=== PATIENT | male | born 1940 | race Caucasian/White ===

== ENCOUNTER 2018-09-09 11:56 | Inpatient (IN) | payer MEDICARE ==
[2018-09-09] VITALS (8 sets, daily range): BP systolic 121–187; BP diastolic 56–86
[~2018-09-09] VITALS: Ht 167.6 cm; Wt 100.7 kg
[~2018-09-09 11:56] MED LIST: AC500T PO; AML5T PO; AMLO10TA82 PO; ASP325T PO; ASPI-266 PO; CLOT15CR4 TP; CLPD75T PO; FAMO20TA5 PO; FISH1CAP15 PO; GLBR2.5T; GLYB5TAB6 PO; HYDR-3714 PO; IBUP-30 PO; KETO15CR TP; LISI40TA PO; LOPE2CAP PO; LSNP20T; LSNP20T PO; MELO-195 PO; METF-380 PO; METO100T2 PO; MTF500T; MTP100TCR PO; MULT-974 PO; MULT1CAP27 PO; NAPR220C PO; NF-ESOM40C; NIAC1CAP PO; NIAC250T17 PO; NIACIN PO; OMG1KC; OXYC-272 PO; SIMV40TA4 PO; vytorin
[2018-09-09] MEDS ORDERED: RT-ALBUTEROL/IPRATROPIUM 3 ML (DUONEB) VIAL INH ONE (12:15)
--- NOTE | 2018-09-09 12:20 | ED Respiratory ---
General Stated Complaint: LOW OXYGEN LEVELS Source: family Exam Limitations: clinical condition History of Present Illness Date Seen by Provider: Sep 09, 2018 Time Seen by Provider: 12:04 Initial Comments 78-year-old white male with a history of several days of increasing cough and congestion. His cough has been nonproductive. No known fever or chills. He has been having some increased confusion over the last several months but a diagnosis was not made. He denies any chest pain, leg pain or change in edema recently. He went to urgent care where his oxygen saturation was found to be decreased so he was sent here. No studies had been done there. He does have a history of coronary disease but states that he has not had any recent symptoms. Allergies and Home Medications Allergies Coded Allergies: rofecoxib (Verified Allergy, Unknown, 10/25/06) Home Medications Amlodipine Besylate 10 Mg Tablet, 10 MG PO DAILY, (Reported) Aspirin 81 Mg Tablet.dr, 81 MG PO DAILY, (Reported) Clopidogrel 75 Mg Tablet, 75 MG PO DAILY, (Reported) Famotidine 20 Mg Tablet, 20 MG PO BID, (Reported) Fish Oil/Dha/Epa 1 Each Capsule, 4,800 MG PO DAILY, (Reported) TAKES 4 (1200MG) CAPSULES Glyburide 5 Mg Tablet, 5 MG PO BID, (Reported) Ibuprofen 200 Mg Tablet, 400 MG PO Q6H PRN for PAIN, (Reported) TAKES 2 (200MG) TABLETS Lisinopril 40 Mg Tablet, 40 MG PO BID, (Reported) Loperamide Hcl 2 Mg Capsule, 0 PO UD PRN for DIARRHEA, (Reported) 2 CAPS INITIALLY, THEN 1 CAP AFTER EACH LOOSE STOOL. NOT TO EXCEED 8 CAPS/24 HRS. Metoprolol Tartrate 100 Mg Tablet, 100 MG PO BID, (Reported) Multivitamin 1 Each Tablet, 1 TAB PO DAILY, (Reported) Niacin/Inositol Niacinate 1 Each Capsule, 1,000 MG PO HS, (Reported) Simvastatin 40 Mg Tablet, 40 MG PO HS, (Reported) Patient Home Medication List Home Medication List Reviewed: Yes Review of Systems Review of Systems Constitutional: weakness, other (unsteady) EENTM: no symptoms reported Respiratory: see HPI, cough, dyspnea on exertion, short of breath Cardiovascular: no symptoms reported Gastrointestinal: no symptoms reported Genitourinary: no symptoms reported Musculoskeletal: no symptoms reported Skin: no symptoms reported Psychiatric/Neurological: No Symptoms Reported Past Oxtsdgv-Ihlzbx-Fusjkh Hx Past Med/Social Hx: Reviewed Nursing Past Med/Soc Hx Patient Social History Recent Foreign Travel: No (N) Contact w/Someone Who Travel: No (N) Immunizations Up To Date Date of Influenza Vaccine: Apr 12, 2011 Past Medical History Reproductive Disorders: No Physical Exam Vital Signs - First Documented Capillary Refill : Height: 5'7.00" Weight: 221lbs. oz. 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, no motor/sensory deficits, normal mood/affect Skin: normal color, warm/dry Lymphatic: no adenopathy Focused Exam Lactate Level 09/09/18 12:20: Lactic Acid Level 2.37*H Lactic Acid Level Laboratory Tests Test 09/09/18 12:20 Lactic Acid Level 2.37 MMOL/L (0.50-2.00) *H Progress/Results/Core Measures Suspected Sepsis SIRS Temperature: Pulse: Respiratory Rate: Laboratory Tests 09/09/18 12:20: White Blood Count 7.4 Blood Pressure / Mean: 09/09/18 12:20: Lactic Acid Level 2.37*H Laboratory Tests 09/09/18 12:20: Creatinine 1.10, INR Comment 1.1, Platelet Count 155, Total Bilirubin 0.5 Results/Orders Lab Results Laboratory Tests Test 09/09/18 12:20 Range/Units White Blood Count 7.4 4.3-11.0 10^3/uL Red Blood Count 3.61 L 4.35-5.85 10^6/uL Hemoglobin 11.6 L 13.3-17.7 G/DL Hematocrit 33 L 40-54 % Mean Corpuscular Volume 90 80-99 FL Mean Corpuscular Hemoglobin 32 25-34 PG Mean Corpuscular Hemoglobin Concent 36 32-36 G/DL Red Cell Distribution Width 11.8 10.0-14.5 % Platelet Count 155 130-400 10^3/uL Mean Platelet Volume 8.3 7.4-10.4 FL Neutrophils (%) (Auto) 78 H 42-75 % Lymphocytes (%) (Auto) 13 12-44 % Monocytes (%) (Auto) 8 0-12 % Eosinophils (%) (Auto) 1 0-10 % Basophils (%) (Auto) 0 0-10 % Neutrophils # (Auto) 5.8 1.8-7.8 X 10^3 Lymphocytes # (Auto) 1.0 1.0-4.0 X 10^3 Monocytes # (Auto) 0.6 0.0-1.0 X 10^3 Eosinophils # (Auto) 0.1 0.0-0.3 10^3/uL Basophils # (Auto) 0.0 0.0-0.1 10^3/uL Prothrombin Time 13.9 12.2-14.7 SEC INR Comment 1.1 0.8-1.4 Activated Partial Thromboplast Time 34 24-35 SEC Sodium Level 121 *L 135-145 MMOL/L Potassium Level 3.7 3.6-5.0 MMOL/L Chloride Level 82 L 98-107 MMOL/L Carbon Dioxide Level 26 21-32 MMOL/L Anion Gap 13 5-14 MMOL/L Blood Urea Nitrogen 19 H 7-18 MG/DL Creatinine 1.10 0.60-1.30 MG/DL Estimat Glomerular Filtration Rate > 60 BUN/Creatinine Ratio 17 Glucose Level 86 70-105 MG/DL Lactic Acid Level 2.37 *H 0.50-2.00 MMOL/L Calcium Level 9.0 8.5-10.1 MG/DL Corrected Calcium 9.3 8.5-10.1 MG/DL Magnesium Level 1.4 L 1.8-2.4 MG/DL Total Bilirubin 0.5 0.1-1.0 MG/DL Aspartate Amino Transf (AST/SGOT) 27 5-34 U/L Alanine Aminotransferase (ALT/SGPT) 12 0-55 U/L Alkaline Phosphatase 72 40-136 U/L Troponin T 15 <=15 NG/L Pro-B-Type Natriuretic Peptide 1111.0 H <75.0 PG/ML Total Protein 6.6 6.4-8.2 GM/DL Albumin 3.6 3.2-4.5 GM/DL My Orders Orders - JIAN SAUCEDO MD Cbc With Automated Diff (09/09/18 12:09) Comprehensive Metabolic Panel (09/09/18 12:09) Blood Culture (09/09/18 12:09) Chest 1 View Ap/Pa Only (09/09/18 12:09) Albuterol/Ipra Inhalation Soln (Duoneb I (09/09/18 12:15) Magnesium (09/09/18 12:09) Ekg Tracing (09/09/18 12:09) O2 (09/09/18 12:09) Saline Lock/Iv-Start (09/09/18 12:09) Monitor-Rhythm Ecg Trace Only (09/09/18 12:09) Lactic Acid Analyzer (09/09/18 12:09) Svn Small Volume Nebulizer (09/09/18 12:09) Myoglobin Serum (09/09/18 12:09) Protime With Inr (09/09/18 12:09) Partial Thromboplastin Time (09/09/18 12:09) O2 (09/09/18 12:09) Lipid Panel (09/10/18 06:00) Saline Lock/Iv-Start (09/09/18 12:09) Troponin T (09/09/18 12:09) Probnp Fs (09/09/18 12:09) Ct Head Wo (09/09/18 12:12) Ceftriaxone For Iv Use (Rocephin For I (09/09/18 13:15) Azithromycin Injection (Zithromax Inject (09/09/18 13:15) Medications Given in ED Current Medications Medications Dose Ordered Sig/Lyudmila Route Start Time Stop Time Status Last Admin Dose Admin Albuterol/ Ipratropium 3 ml ONCE ONCE INH 09/09/18 12:15 09/09/18 12:16 DC 09/09/18 12:16 3 ML Ceftriaxone Sodium 1000 mg/ Sterile Water 10 ml @ 200 mls/hr ONCE ONCE IV 09/09/18 13:15 09/09/18 13:17 DC 09/09/18 13:36 200 MLS/HR Vital Signs/I&O 09/09/18 09/09/18 09/09/18 12:03 12:03 12:05 Temp 99.2 Pulse 55 Resp 15 B/P (MAP) 139/57 (84) Pulse Ox 89 89 O2 Delivery Room Air Nasal Cannula Room Air O2 Flow Rate 2.00 2.00 2.00 Capillary Refill : Progress Note : Time: 12:18 Progress Note We'll obtain radiographic and lab studies. Due to his increasing memory issues, we'll obtain a CT scan of his head as well. Breathing treatment will be given as well as cardiac evaluation. ECG Initial ECG Impression Date: Sep 09, 2018 Initial ECG Impression Time: 12:15 Initial ECG Rhythm: Normal Sinus Initial ECG Intervals: Normal Initial ECG Impression: Nonspecific Changes Initial ECG Comparisson: No Previous ECG Available Comment LVH. No acute changes. Diagnostic Imaging Diagonstic Imaging: Xray Plain Films/CT/US/NM/MRI: chest Comments NAME: ANDREW KENNEY [facility] REC#: [id number] PT STATUS: REG ER : 1940 PHYSICIAN: JIAN SAUCEDO MD ADMIT DATE: 09/09/18/ER FS Draft Date of Exam:09/09/18 CHEST 1 VIEW AP/PA ONLY EXAMINATION: Chest radiograph, portable AP view. DATE: September 09, 2018 at 1235 hours. INDICATION: 78-year-old male, cough, confusion. Low oxygen saturations. COMPARISON: September 01, 2011. FINDINGS: There are median sternotomy wires. Stable overall appearance of the cardiomediastinal silhouette. There is no identified pneumothorax. There is no large pleural effusion. There are mildly prominent bilateral interstitial opacities. There is alveolar consolidation in the left mid and lower lung zones. IMPRESSION: 1. Bilateral interstitial opacities which may relate to pulmonary interstitial edema or atypical infection. Additional nonspecific airspace consolidation in the left mid and lower lung zones. This is a change since comparison exam. Dictated on workstation # [id number] Dict: 09/09/18 1301 Trans: 09/09/18 1340 [facility] [id number] Interpreted by: OLGA HOFFMAN MD Electronically signed by: NAME: ANDREW KENNEY MED REC#: [id number] PT STATUS: REG ER : 1940 PHYSICIAN: JIAN SAUCEDO MD ADMIT DATE: 09/09/18/ER FS Draft Date of Exam:09/09/18 CT HEAD WO PROCEDURE: CT head without contrast. TECHNIQUE: Multiple contiguous axial images were obtained through the brain without the use of intravenous contrast. Auto Exposure Controls were utilized during the CT exam to meet ALARA standards for radiation dose reduction. DATE: September 09, 2018. COMPARISON: MRI brain August 29, 2011. CT head August 28, 2011. INDICATION: 78-year-old male, low oxygen saturations. Cough and confusion. FINDINGS: There is proportional prominence of the ventricles and CSF spaces consistent with moderate cerebral volume loss. There is no identified abnormal extra-axial fluid collection. There is no evidence of acute intracranial hemorrhage. There is no mass effect or midline shift. There is no mass effect or midline shift. There is no acute intracranial hemorrhage. There is no abnormal extra-axial fluid collection. There is mild partial opacification of the paranasal sinuses. The mastoid air cells and middle ears are well aerated. IMPRESSION: 1. No identified acute intracranial abnormality. 2. Moderate cerebral volume loss. Dictated on workstation # [id number] Dict: 09/09/18 1258 Trans: 09/09/18 1339 [facility] [id number] Interpreted by: OLGA HOFFMAN MD Electronically signed by: Consults Consults : Consulting Physician: DAIN DUBOSE DO Consults Notes Discussed with Dr. Dubose. She agrees to accept patient in transfer. Departure Impression Primary Impression: Pneumonia Qualified Codes: J18.1 - Lobar pneumonia, unspecified organism Additional Impressions: Hyponatremia Elevated lactic acid level Altered mental status Qualified Codes: R41.82 - Altered mental status, unspecified Hypoxia Disposition: XF [facility] ([facility]) Condition: Improved Admissions Decision to Admit Reason: Admit from ER (General) Decision to Admit/Date: Sep 09, 2018 Time/Decision to Admit Time: 13:55 Transfer Time Spoke to Accepting Phy: 13:55 Transfer Progress Notes Discussed with Dr. Dubose who accepts patient in transfer as medical telemetry. Method of Transfer: EMS Departure-Patient Inst. Decision time for Depature: 13:56 Referrals: DAIN DUBOSE DO (PCP/Family) Primary Care Physician JAIN SAUCEDO MD Sep 09, 2018 12:20
--- OUTSIDE RECORDS SUMMARY | 2018-09-09 12:43 | XMS REPORT | Clinical Summary ---
Author Author User, LILIBETH Organization Formerly [facility] [place] Address Unknown Phone Unavailable Allergies, Adverse Reactions, Alerts Allergy Name Reaction Description Start Date Severity Status Provider HYDROCHLOROTHIAZIDE Hyponatremia Critical Active Chantelle Trujillo VIOXX bloody nose Critical Active Chantelle Trujillo Conditions or Problems Problem Name Problem Code Onset Date Status Entry Date Provider Comment Standard Description Annotate MUSCLE SPASM, TRAPEZIUS 728.85 Resolved Chantelle Trujillo Spasm of muscle right HYPERCHOLESTEROLEMIA 272.0 Active Chantelle Trujillo Pure hypercholesterolemia HYPERTENSION 401.1 Active Chantelle Trujillo Benign essential hypertension CORONARY ARTERY DISEASE 414.00 Active Chantelle Trujillo Coronary atherosclerosis of unspecified type of vessel, jackson or graft GASTROESOPHAGEAL REFLUX DISEASE, CHRONIC 530.81 Active Chantelle Trujillo Esophageal reflux COLONIC POLYPS 211.3 Resolved Chantelle Trujillo Benign neoplasm of colon ADENOCARCINOMA, 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 Chantelle Trujillo Malignant neoplasm of colon, unspecified ANXIETY 300.00 Resolved Chantelle Trujillo Anxiety state, unspecified DEPRESSION 311 Resolved Chantelle Trujillo Depressive disorder, not elsewhere classified INSOMNIA, CHRONIC, MILD 307.42 Resolved Chantelle Trujillo Persistent disorder of initiating or maintaining sleep ACTINIC KERATOSIS 702.0 Resolved Chantelle Trujillo Actinic keratosis arms WEIGHT GAIN, ABNORMAL 783.1 Resolved Chantelle Trujillo Abnormal weight gain HYPERGLYCEMIA, MILD 790.6 Refinement Chantelle Trujillo Other abnormal blood chemistry DIABETES MELLITUS, NONINSULIN DEPENDENT (NIDDM) 250.00 Active Chantelle Trujillo Diabetes mellitus without mention of complication, type II or unspecified type, not stated as uncontrolled ABDOMINAL BLOATING 787.3 Resolved Chantelle Trujillo Flatulence, eructation, and gas pain BACK PAIN 724.5 Resolved Chantelle Trujillo Backache, unspecified EAR PAIN, BILATERAL 388.70 Resolved Chantelle Trujillo Otalgia, unspecified TINEA CRURIS 110.3 Resolved Chantelle Trujillo Dermatophytosis of groin and perianal area 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 Chantelle Trujillo Proteinuria HYPONATREMIA, MILD 276.1 Resolved Chantelle Trujillo Hyposmolality and/or hyponatremia BRONCHITIS 490 Resolved Chantelle Trujillo Bronchitis, not specified as acute or chronic COUGH 786.2 Resolved Chantelle Trujillo Cough RHINITIS 472.0 Resolved Chantelle Trujillo Chronic rhinitis VACCINE AGAINST INFLUENZA V04.81 Resolved Chantelle Trujillo Need for prophylactic vaccination and inoculation against influenza DERMATITIS 692.9 Resolved Chantelle Trujillo Contact dermatitis and other eczema, unspecified cause SEBACEOUS CYST, INFECTED 706.2 Resolved Chantelle Trujillo Sebaceous cyst VACCINE AGAINST STREPTOCOCCUS PNEUMONIAE V03.82 Resolved Chantelle Trujillo Need for prophylactic vaccination against Streptococcus pneumoniae [pneumococcus] VACCINE AGAINST PNEUMOCOCCUS + INFLUENZA V06.6 Resolved Chantelle Trujillo Need for prophylactic vaccination and inoculation against Streptococcus pneumoniae [pneumococcus] and influenza SCIATICA/HERNIATED 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.10 Resolved Chantelle Trujillo Displacement of lumbar intervertebral disc without myelopathy HYPERTRIGLYCERIDEMIA 272.1 Active Chantelle Trujillo Pure hyperglyceridemia CAROTID ARTERY STENOSIS, LEFT 433.10 Active Chantelle Trujillo Occlusion and stenosis of carotid artery, without mention of cerebral infarction PVD 443.9 Active Chantelle Trujillo Peripheral vascular disease, unspecified PNEUMONIA 486 Resolved Chantelle Trujillo Pneumonia, organism unspecified MEMORY LOSS 780.93 Active Chantelle Trujillo Memory loss CERUMEN IMPACTION, BILATERAL 380.4 Active Chantelle Trujillo Impacted cerumen Medication List Medication Instructions Start Date Stop Date Generic Name NDC Status Provider Patient Instruction LOTRISONE 1-0.05 % CREA APPLY BID PRN CLOTRIMAZOLE- BETAMETHASONE 19489185971 Active Davina Don DIOCTO 60 MG/15ML SYRP 2 drops placed in ear let stand for 5 minutes and rinse with water and repeat in other ear then return to doctor for rinsing 2013 DOCUSATE SODIUM 65690267064 No Longer Active Chantelle Trujillo LIPITOR 20 MG TAB 1 PO QD ATORVASTATIN CALCIUM 94050640958 Active Chantelle Trujillo ASPIRIN 81 MG TAB 1 PO daily ASPIRIN 60112283746 Active Chantelle Trujillo NITROSTAT 0.4 MG SL TAB 1 pill under tongue prn chest pain. May repeat twice then must go to ER NITROGLYCERIN 53937023727 Active Chantelle Trujillo NIASPAN 1000 MG CR-TABS 1 po QHS NIACIN (ANTIHYPERLIPIDEMIC) 89321068606 Active Chantelle Trujillo LISINOPRIL 40 MG TABS 1 PO BID LISINOPRIL 88516352727 Active Chantelle Trujillo RELION PRIME MONITOR ENRIQUE DIRECTED DX: 250.00 BLOOD GLUCOSE MONITORING SUPPL 62822473052 Active Davina Arian RELION PRIME TEST STRP TEST BS QID DX: 250.00 GLUCOSE BLOOD 28654450148 Active Davina Arian FREESTYLE TEST STRP TEST BS QID DX: DIABETES GLUCOSE BLOOD 86498527933 Active Davinafernando Don FREESTYLE GLUCOMETER DIRECTED DX: DIABETES FREESTYLE GLUCOMETER Active Davina Don ALCOHOL SWABS PADS clean area before swabbing ALCOHOL SWABS 17058871294 No Longer Active Chantelle Trujillo LANCETS MISC as directed LANCETS 99252551800 No Longer Active Chantelle Trujillo OPTIUM TEST STRIPS STRP Test blood sugar TID GLUCOSE BLOOD 74016902338 No Longer Active Chantelleneha Trujillo KETOCONAZOLE 2 % CREA apply to affected areas BID KETOCONAZOLE 66453146562 No Longer Active Chantelleneha Trujillo LOTRISONE 1-0.05 % CREA apply daily prn CLOTRIMAZOLE- BETAMETHASONE 40903040412 No Longer Active Chantelle Trujillo ZOFRAN ODT TBDP 1 PO Q 3HRS PRN ONDANSETRON TBDP 32145826351 No Longer Active Chantelleneha Trujillo LORAZEPAM 2 MG TABS 1 PO at HS PRN LORAZEPAM 58400121879 No Longer Active Chantelleneha Trujillo PERCOCET 5-325 MG TABS 1 TAB PO Q 6 HRS PRN OXYCODONE -ACETAMINOPHEN 94021308363 No Longer Active Chantelle Trujillo OPTIUM GLUCOSE MONITOR SYSTEM ENRIQUE as directed BLOOD GLUCOSE MONITORING SUPPL 39824770232 No Longer Active Chantelleneha Trujillo MOBIC 15 MG TABS 1 PO Daily MELOXICAM 88542424505 No Longer Active Chantelle Viri Trujillo COLACE 100 MG CAPS 1 PO DAILY DOCUSATE SODIUM 22256399520 Active Chantelle Viri Trujillo NO FLUSH NIACIN 500 MG TABS 2 PO daily qhs INOSITOL NIACINATE 86217703455 No Longer Active Chantelle Viri Trujillo ULTRAM 50 MG TAB 1-2 PO TID prn TRAMADOL HCL 14322566620 No Longer Active Chantelle Viri Trujillo PEPCID 20 MG TABS 1 PO BID FAMOTIDINE 86172564432 Active Chantelle Viri Trujillo ZANTAC 75 TABS 1 PO BID RANITIDINE HCL TABS 58030974009 No Longer Active Chantelle Vrii Trujillo GLYBURIDE 5 MG TABS 1 PO BID GLYBURIDE 14729208760 Active Davina Don FLAX SEED OIL CAPS 1 PO Qhs FLAXSEED (LINSEED) CAPS 08960265575 No Longer Active Chantelleneha Trujillo LORTAB 5 5-500 MG TABS 1 to 2 PO Q6hrs prn ACETAMINOPHEN-HYDROCODONE 66309705964 No Longer Active Chantelle Viri Trujillo EFUDEX 5 % CREA apply sparingly twice weekly to arms FLUOROURACIL 56362456031 No Longer Active Chantelle Viri Trujillo PEPCID 20 MG TABS 1 PO BID FAMOTIDINE 45208132562 No Longer Active Chantelle Viri Trujillo PROTONIX 40 MG TBEC 1 PO daily PANTOPRAZOLE SODIUM 66484688728 No Longer Active Chantelle Viri Trujillo OMEPRAZOLE 20 MG CPDR 1 PO Daily OMEPRAZOLE 80223421131 No Longer Active Chantelle Viri Trujillo METFORMIN HCL 1000 MG TABS 1 PO BID METFORMIN HCL 52356360190 Active Davina Don SIMVASTATIN 40 MG TABS 1 po daily SIMVASTATIN 07921319816 No Longer Active Davina Don FISH OIL 1000 MG CAPS 4 po daily OMEGA-3 FATTY ACIDS 64363177255 Active Chantelle Viri Trujillo IMDUR 60 MG TB24 1 po HS ISOSORBIDE MONONITRATE 99217816057 No Longer Active Chantelleneha Trujillo METOPROLOL TARTRATE 100 MG TABS 1 PO BID METOPROLOL TARTRATE 29798357398 Active Davina Don KEFLEX 500 MG CAP 1 PO QID for 7 days CEPHALEXIN 63189699677 No Longer Active Chantelleneha Trujillo OXISTAT 1 % CREA apply to affected areas twice daily including feet. 60 gram tube. OXICONAZOLE NITRATE 31496328338 No Longer Active Chantelleneha Trujillo LIDEX 0.05 % OINT apply to affected areas twice daily for 7 days FLUOCINONIDE 84502811340 No Longer Active Chantelle Viri Trujillo MUCINEX 600 MG TB12 1 PO BID GUAIFENESIN 82009310848 No Longer Active Chantelle Viri Trujillo NORVASC 10 MG TABS 1 po QD AMLODIPINE BESYLATE 15638676983 Active Chantelle Viri Trujillo KLOR-CON 10 10 MEQ TBCR 1 po QD POTASSIUM CHLORIDE 20729275803 No Longer Active Chantelleneha Trujillo ROBITUSSIN A-C 10-100 MG/5ML SYRUP 5cc PO Q 4-6 hr prn ROBITUSSIN A-C 10-100 MG/5ML SYRUP 47356785819 No Longer Active Chantelle Trujillo BIAXIN XL PAC 500 MG TB24 2 pills at same time daily ( take samples given in office until gone and then start the Rx) CLARITHROMYCIN 35928684970 No Longer Active Chantelleneha Trujillo ATROVENT 0.06 % SOLN 2 puffs each nostril TID prn for runny nose IPRATROPIUM BROMIDE 21959954185 No Longer Active Chantelle Trujillo FLEXERIL 10 MG TABS 1 po BID prn neck pain CYCLOBENZAPRINE HCL 56776565035 No Longer Active Chantelleneha Trujillo ROBITUSSIN A-C 10-100 MG/5ML SYRUP 5cc PO Q 4-6 hr prn ROBITUSSIN A-C 10-100 MG/5ML SYRUP 24828696289 No Longer Active Chantelle Trujillo GLUCOMETER TEST STRIPS Check BS TID DX Diabetes GLUCOMETER TEST STRIPS No Longer Active Chantelle Trujillo GLUCOMETER MACHINE DX Diabetes GLUCOMETER MACHINE No Longer Active Chantelle Trujillo VYTORIN 10-40 MG TABS 1 PO daily EZETIMIBE-SIMVASTATIN 81028098701 No Longer Active Chantelle Trujillo AMOXIL 875 MG TABS 1 PO BID AMOXICILLIN 69093830695 No Longer Active Chantelle Trujillo PLAVIX 75 MG TABS 1 po daily CLOPIDOGREL BISULFATE 32762899154 Active Davinafernando Don NEXIUM 40 MG CPDR 1 po daily ESOMEPRAZOLE MAGNESIUM 16570455482 No Longer Active Chantelle Trujillo LISINOPRIL-HCTZ 20-12.5 MG TABS 1 po daily LISINOPRIL-HCTZ 84301100288 No Longer Active Chantelle Trujillo MULTIVITAMINS TABS 1 po daily MULTIPLE VITAMIN 60318866217 Active Chantelle Trujillo VYTORIN 10/40 1 po daily VYTORIN 10/40 No Longer Active Chantelle Trujillo Immunizations Vaccine Administration Date Value Standard Description Influenza vaccine given Done influenza virus vaccine, unspecified formulation Influenza vaccine given done influenza virus vaccine, unspecified formulation pneumococcal immunization administered Done pneumococcal polysaccharide vaccine, 23 valent pneumococcal immunization administered Done by 1st dose 2007 pneumococcal polysaccharide vaccine, 23 valent Vital Signs Date Name Value Unit Range Description blood pressure, diastolic - 8462-4 78 mm[Hg] BP woodward blood pressure, systolic - 8480-6 138 mm[Hg] BP sys pulse rate E&M - 8867-4 80 /min Heart rate respiratory rate E&M - 9279-1 14 /min Resp rate temperature E&M 98.1 [degF] Body temperature weight E&M - 3141-9 220 [lb_av] Weight Measured blood pressure, diastolic - 8462-4 64 mm[Hg] BP woodward blood pressure, systolic - 8480-6 148 mm[Hg] BP sys pulse rate E&M - 8867-4 70 /min Heart rate respiratory rate E&M - 9279-1 14 /min Resp rate blood pressure, diastolic - 8462-4 78 mm[Hg] BP woodward blood pressure, systolic - 8480-6 152 mm[Hg] BP sys pulse rate E&M - 8867-4 70 /min Heart rate respiratory rate E&M - 9279-1 16 /min Resp rate temperature E&M 98.1 [degF] Body temperature weight E&M - 3141-9 220 [lb_av] Weight Measured blood pressure, diastolic - 8462-4 70 mm[Hg] BP woodward blood pressure, systolic - 8480-6 160 mm[Hg] BP sys pulse rate E&M - 8867-4 60 /min Heart rate respiratory rate E&M - 9279-1 14 /min Resp rate weight E&M - 3141-9 222 [lb_av] Weight Measured Diagnostic Results Date Name Value Unit Range Description Clinical Lists Update: CMP, TSH, MicroAlbumin,HGA1C - Chemistry sodium, serum 132 mmol/L carbon dioxide, venous blood 30.0 mmol/L thyroid stimulating hormone, serum 1.03 u[iU]/mL potassium, serum 3.9 mmol/L glucose, plasma fasting 158 mg/dL hemoglobin A1C, blood, as % of total hemoglobin 7.7 % protein, total, serum 6.7 g/dL urea nitrogen, blood 14 mg/dL creatinine, serum 0.8 mg/dL aspartate aminotransferase (SGOT), serum 16 U/L anion gap, serum 12 calcium, serum 9.8 mg/dL alkaline phosphatase, serum 47 U/L triglyceride, serum, fasting 259 mg/dL chloride, serum 94 mmol/L albumin, serum 4.2 g/dL bilirubin, serum, total 0.7 mg/dL cholesterol, serum 131 mg/dL Estimated Glomerular Filtration Rate (calc) 96 mL/min/1.73m2 alanine aminotransferase (SGPT), serum 17 U/L Clinical Lists Update: CMP, TSH, MicroAlbumin,HGA1C - Urinalysis microalbumin, urine, semiquantitative 58.1 mg/dL Clinical Lists Update: CMP,FLP,HgA1c - Chemistry potassium, serum 3.7 mmol/L protein, total, serum 7.2 g/dL aspartate aminotransferase (SGOT), serum 18 U/L alanine aminotransferase (SGPT), serum 22 U/L bilirubin, serum, total 1.0 mg/dL triglyceride, serum, fasting 295 mg/dL sodium, serum 133 mmol/L anion gap, serum 13 cholesterol/HDL ratio, serum, percent 3.1 glucose, plasma fasting 155 mg/dL Estimated Glomerular Filtration Rate (calc) 100 mL/min/1.73m2 LDL cholesterol, serum 42 mg/dL albumin, serum 4.6 g/dL alkaline phosphatase, serum 47 U/L urea nitrogen, blood 13 mg/dL calcium, serum 9.9 mg/dL chloride, serum 92 mmol/L cholesterol, serum 149 mg/dL carbon dioxide, venous blood 32.0 mmol/L creatinine, serum 0.8 mg/dL HDL cholesterol, serum 48.0 mg/dL hemoglobin A1C, blood, as % of total hemoglobin 7.1 % Office Visit: Dr Trujillo's Check Up: Established Patient Visit - Chemistry Estimated Glomerular Filtration Rate (calc) 81 mL/min/1.73m2 potassium, serum 3.8 mmol/L cholesterol, serum 130 mg/dL glucose, plasma fasting 196 mg/dL triglyceride, serum, fasting 216 mg/dL chloride, serum 95 mmol/L alkaline phosphatase, serum 48 U/L sodium, serum 136 mmol/L calcium, serum 9.8 mg/dL carbon dioxide, venous blood 32.0 mmol/L alanine aminotransferase (SGPT), serum 19 U/L urea nitrogen, blood 15 mg/dL creatinine, serum 1.0 mg/dL aspartate aminotransferase (SGOT), serum 17 U/L anion gap, serum 13 albumin, serum 4.4 g/dL hemoglobin A1C, blood, as % of total hemoglobin 7.3 % protein, total, serum 7.1 g/dL thyroid stimulating hormone, serum 0.80 u[iU]/mL bilirubin, serum, total 0.9 mg/dL Encounters Code Encounter Date Provider Facility CPT-21615 Ofc Vst, Est Level III 20:31:48 CDT Chantelle Trujillo DO, FACStefani CPT-85812 Ofc Vst, Est Level III 14:00:56 CDT Chantelle Trujillo DO, FACP CPT-01868 Ofc Vst, Est Level III 15:55:59 CDT Chantelle Viri Nobles Trujillo, DO, FACP CPT-79939 Ofc Vst, Est Level III 11:58:05 CDT Chantelle Viri Nobles Trjuillo, DO, FACP CPT-06462 Ofc Vst, Est Level III 16:33:59 [employer] Chantelleneha Nobles Trujillo, DO, FACP CPT-77901 Ofc Vst, Est Level IV 13:41:56 CDT Chantelle Viri Nobles Trujillo, DO, FACP CPT-34120 Ofc Vst, Est Level IV 13:46:20 CDT Chantelle Viri Nobles Ronnie, DO, FACP CPT-66819 Ofc Vst, Est Level IV 14:22:34 [employer] Chantelleneha Nobles Ronnie, DO, FACP CPT-12825 Ofc Vst, Est Level IV 14:10:02 CDT Chantelle Viri Nobles Ronnie, DO, FACP CPT-56197 Ofc Vst, Est Level III 16:17:29 CDT Chantelleneha Nobles Ronnie, DO, FACP CPT-48214 Ofc Vst, Est Level IV 13:59:21 CDT Chantelle Viri Nobles Ronnie, DO, FACP CPT-10314 Ofc Vst, Est Level IV 13:59:18 CDT Chantelle Viri Nobles Trujillo, DO, FACP CPT-25482 Ofc Vst, Est Level IV 13:59:52 [employer] Chantelle Nobles Ronnie, DO, FACP CPT-34694 Ofc Vst, Est Level IV 14:16:34 CDT Chantelle Viri Nobles Ronnie, DO, FACP CPT-76740 Ofc Vst, Est Level IV 14:43:21 CDT Chantelleneha Nobles Trujillo, DO, FACP CPT-70668 Ofc Vst, Est Level IV 13:51:54 CDT Chantelle Viri Nobles Ronnie, DO, FACP CPT-46536 Ofc Vst, Est Level IV 14:19:45 [employer] Chantelle Viri Nobles Ronnie, DO, FACP CPT-57616 Ofc Vst, Est Level IV 14:03:12 CDT Davina Nobles Trujillo, DO, FACP CPT-66753 Ofc Vst, Est Level IV 14:23:55 CDT Chantelle Viri Nobles Ronnie, DO, FACP CPT-35417 Ofc Vst, Est Level IV 13:46:12 [employer] Chantelle Viri Nobles Ronnie, DO, FACP CPT-74905 Ofc Vst, Est Level IV 14:21:29 [employer] Chantelleneha Nobles Ronnie, DO, FACP CPT-97868 Ofc Vst, Est Level IV 11:56:46 CDT Chantelle Viri Nobles Ronnie, DO, FACP CPT-48054 Ofc Vst, Est Level IV 15:06:28 CDT Chantelle Trujillo [facility] CPT-28303 Ofc Vst, Est Level III 10:49:32 [employer] Chantelleneha Nobles Ronnie, DO, FACP CPT-57256 Ofc Vst, Est Level IV 14:26:42 [employer] Chantelle Nobles Ronnie, DO, FACP CPT-97215 Ofc Vst, Est Level III 15:07:01 CDT Chantelleneha Nobles Ronnie, DO, FACP CPT-85774 Ofc Vst, Est Level IV 14:16:08 CDT Chantelleneha Nobles Trujillo, DO, FACP CPT-24560 Ofc Vst, Est Level IV 14:28:44 CDT Chantelle Virivincent [facility] [place] CPT-59491 Ofc Vst, Est Level IV 14:06:35 [employer] Chantelle Trujillo [facility] [place] CPT-68135 Ofc Vst, Est Level III 14:26:15 [employer] Chantelle Trujillo [facility] [place] CPT-29440 Ofc Vst, Est Level IV 13:59:23 [employer] Chantelle Trujillo [facility] [place] CPT-01055 Ofc Vst, Est Level IV 15:24:23 [employer] Chantelle Trujillo [facility] [place] CPT-27957 Ofc Vst, Est Level IV 16:03:46 CDT Chantelle Viri [facility] [place] CPT-18672 Ofc Vst, Est Level IV 15:19:26 CDT Chantelle Viri [facility] [place] CPT-01606 Ofc Vst, Est Level IV 19:08:48 CDT Chantelle Viri [facility] [place] CPT-50871 Ofc Vst, Est Level IV 16:25:43 CDT Chantelle Trujillo [facility] [place] CPT-83928 Ofc Vst, New Level IV 17:22:55 [employer] Chantelle Trujillo [facility] [place] Procedures Code Procedure Name Date Entry Date Standard Description CPT-G0439 Medicare Annual Wellness Visit 13:18:16 [employer] CPT-52263 Ear Wax Removal 12:14:17 CDT CPT-G8443 E-Prescribing Medication Sent 20:38:44 [employer] CPT-G0439 Medicare Annual Wellness Visit 20:38:44 [employer] CPT-G8445 E-Prescribing Not sent due to no medication given 15:55: 59 CDT CPT-G8445 E-Prescribing Not sent due to no medication given 11:58: 05 CDT CPT-G8445 E-Prescribing Not sent due to no medication given 16:33: 59 [employer] CPT-G8445 E-Prescribing Not sent due to no medication given 15:28: 42 [employer] CPT-G0438 Medicare Annual Wellness Visit Initial 15:28:42 [employer] CPT-8446 E-Prescribing not done due to controlled substance 14:23: 55 CDT CPT-G0008 Administration Influenza Vaccine 11:56:46 CDT CPT-74177 Influenza Vaccine 11:56:46 CDT CPT-62715 Administration of 1st dose vaccine 11:56:46 CDT CPT-G0008 Administration Influenza Vaccine 15:07:01 CDT CPT-39543 Influenza Vaccine 15:07:01 CDT
--- OUTSIDE RECORDS SUMMARY | 2018-09-09 12:44 | XMS REPORT | Clinical Summary ---
Author Author User, LILIBETH Organization [facility] Address Unknown Phone Unavailable Allergies, Adverse Reactions, [...] Coronary atherosclerosis of unspecified type of vessel, [place] or graft GASTROESOPHAGEAL REFLUX DISEASE, CHRONIC 530.81 [...] Trujillo Memory loss CERUMEN IMPACTION, BILATERAL 380.4 Resolved Chantelle Trujillo Impacted cerumen DERMATITIS, ATOPIC 691.8 Active Chantelle Trujillo Other atopic dermatitis and related conditions Medication List Medication Instructions Start Date Stop Date Generic Name NDC Status Provider Patient Instruction NOVOLIN N RELION 100 UNIT/ML SUSP 15 units at night INSULIN NPH HUMAN (ISOPHANE) 48007528373 Active Chantelle Trujillo ADVOCATE INSULIN SYRINGE 29G X 1/2" 0.3 ML MISC As directed INSULIN SYRINGE-NEEDLE U-100 19388690811 Active Chantelle Trujillo LANTUS 100 UNIT/ML SOLN 15 units injection at night INSULIN GLARGINE 45808451331 No Longer Active Chantelle Trujillo COZAAR 50 MG TAB 1 PO daily LOSARTAN POTASSIUM 59004310881 Active Chantelle Trujillo LOTRISONE 1-0.05 % CREA APPLY BID PRN CLOTRIMAZOLE- BETAMETHASONE 76533703096 Active Chantelle Trujillo DIOCTO 60 MG/15ML SYRP 2 drops placed in ear let stand for 5 minutes and rinse with water and repeat in other ear then return to doctor for rinsing 2013 DOCUSATE SODIUM 89649554864 No Longer Active Chantelle Trujillo LIPITOR 20 MG TAB 1 PO QD ATORVASTATIN CALCIUM 77866421559 Active Chantelle Trujillo ASPIRIN 81 MG TAB 1 PO daily ASPIRIN 40171020200 Active Chantelle Trujillo NITROSTAT 0.4 MG SL TAB 1 pill under tongue prn chest pain. May repeat twice then must go to ER NITROGLYCERIN 33137388078 Active Chantelle Trujillo NIASPAN 1000 MG CR-TABS 1 po QHS NIACIN (ANTIHYPERLIPIDEMIC) 77198315104 Active Chantelle Trujillo LISINOPRIL 40 MG TABS 1 PO BID LISINOPRIL 86001852987 Active Chantelle Trujillo RELION PRIME MONITOR ENRIQUE DIRECTED DX: 250.00 BLOOD GLUCOSE MONITORING SUPPL 13752200532 Active Davina Don RELION PRIME TEST STRP TEST BS QID DX: 250.00 GLUCOSE BLOOD 99892371202 Active Davina Don FREESTYLE TEST STRP TEST BS QID DX: DIABETES GLUCOSE BLOOD 53356591875 Active Davina Don FREESTYLE GLUCOMETER DIRECTED DX: DIABETES FREESTYLE GLUCOMETER Active Davina Don ALCOHOL SWABS PADS clean area before swabbing ALCOHOL SWABS 01161150951 No Longer Active Chantelle Trujillo LANCETS MISC as directed LANCETS 34314972530 No Longer Active Chantelle Trujillo OPTIUM TEST STRIPS STRP Test blood sugar TID GLUCOSE BLOOD 99508549257 No Longer Active Chantelle Trujillo KETOCONAZOLE 2 % CREA apply to affected areas BID KETOCONAZOLE 58782590274 No Longer Active Chantelle Trujillo LOTRISONE 1-0.05 % CREA apply daily prn CLOTRIMAZOLE- BETAMETHASONE 25205237968 No Longer Active Chantelle Viri Trujillo ZOFRAN ODT TBDP 1 PO Q 3HRS PRN ONDANSETRON TBDP 55479707541 No Longer Active Chantelle Viri Trujillo LORAZEPAM 2 MG TABS 1 PO at HS PRN LORAZEPAM 51061387765 No Longer Active Chantelle Viri Trujillo PERCOCET 5-325 MG TABS 1 TAB PO Q 6 HRS PRN OXYCODONE -ACETAMINOPHEN 95249439306 No Longer Active Chantelle Viri Trujillo OPTIUM GLUCOSE MONITOR SYSTEM ENRIQUE as directed BLOOD GLUCOSE MONITORING SUPPL 85693255736 No Longer Active Chantelle Viri Trujillo MOBIC 15 MG TABS 1 PO Daily MELOXICAM 27284863409 No Longer Active Chantelle Viri Trujillo COLACE 100 MG CAPS 1 PO DAILY DOCUSATE SODIUM 58302624114 Active Chantelle Viri Trujillo NO FLUSH NIACIN 500 MG TABS 2 PO daily qhs INOSITOL NIACINATE 72364388828 No Longer Active Chantelle Viri Trujillo ULTRAM 50 MG TAB 1-2 PO TID prn TRAMADOL HCL 23171960140 No Longer Active Chantelle Viri Trujillo PEPCID 20 MG TABS 1 PO BID FAMOTIDINE 61481183418 Active Chantelle Viri Trujillo ZANTAC 75 TABS 1 PO BID RANITIDINE HCL TABS 80506526951 No Longer Active Chantelle Viri Trujillo GLYBURIDE 5 MG TABS 1 PO BID GLYBURIDE 25224342675 Active Davina Don FLAX SEED OIL CAPS 1 PO Qhs FLAXSEED (LINSEED) CAPS 65731939716 No Longer Active Chantelle Viri Trujillo LORTAB 5 5-500 MG TABS 1 to 2 PO Q6hrs prn ACETAMINOPHEN-HYDROCODONE 85003603099 No Longer Active Chantelle Viri Trujillo EFUDEX 5 % CREA apply sparingly twice weekly to arms FLUOROURACIL 28641624442 No Longer Active Chantelleneha Trujillo PEPCID 20 MG TABS 1 PO BID FAMOTIDINE 35685446704 No Longer Active Chantelle Viri Trujillo PROTONIX 40 MG TBEC 1 PO daily PANTOPRAZOLE SODIUM 53668019771 No Longer Active Chantelleneha Trujillo OMEPRAZOLE 20 MG CPDR 1 PO Daily OMEPRAZOLE 05306007268 No Longer Active Chantelleneha Trujillo METFORMIN HCL 1000 MG TABS 1 PO BID METFORMIN HCL 13545977835 Active Davina Don SIMVASTATIN 40 MG TABS 1 po daily SIMVASTATIN 25388865431 No Longer Active Davina Don FISH OIL 1000 MG CAPS 4 po daily OMEGA-3 FATTY ACIDS 64741907169 Active Chantelleneha Trujillo IMDUR 60 MG TB24 1 po HS ISOSORBIDE MONONITRATE 99594675863 No Longer Active Chantelleneha Trujillo METOPROLOL TARTRATE 100 MG TABS 1 PO BID METOPROLOL TARTRATE 75017976464 Active Davinafernando Don KEFLEX 500 MG CAP 1 PO QID for 7 days CEPHALEXIN 16344673861 No Longer Active Chantelleneha Trujillo OXISTAT 1 % CREA apply to affected areas twice daily including feet. 60 gram tube. OXICONAZOLE NITRATE 18212849949 No Longer Active Chantelleneha Trujillo LIDEX 0.05 % OINT apply to affected areas twice daily for 7 days FLUOCINONIDE 67450895822 No Longer Active Chantelleneha Trujillo MUCINEX 600 MG TB12 1 PO BID GUAIFENESIN 72790518509 No Longer Active Chantelleneha Trujillo NORVASC 10 MG TABS 1 po QD AMLODIPINE BESYLATE 88401458518 Active Chantelle Viri Trujillo KLOR-CON 10 10 MEQ TBCR 1 po QD POTASSIUM CHLORIDE 33580679367 No Longer Active Chantelle Trujillo ROBITUSSIN A-C 10-100 MG/5ML SYRUP 5cc PO Q 4-6 hr prn ROBITUSSIN A-C 10-100 MG/5ML SYRUP 26137499110 No Longer Active Chantelle Trujillo BIAXIN XL PAC 500 MG TB24 2 pills at same time daily ( take samples given in office until gone and then start the Rx) CLARITHROMYCIN 46031765281 No Longer Active Chantelleneha Trujillo ATROVENT 0.06 % SOLN 2 puffs each nostril TID prn for runny nose IPRATROPIUM BROMIDE 03318810369 No Longer Active Chantelleneha Trujillo FLEXERIL 10 MG TABS 1 po BID prn neck pain CYCLOBENZAPRINE HCL 30830960885 No Longer Active Chantelle Trujillo ROBITUSSIN A-C 10-100 MG/5ML SYRUP 5cc PO Q 4-6 hr prn ROBITUSSIN A-C 10-100 MG/5ML SYRUP 76536575671 No Longer Active Chantelle Trujillo GLUCOMETER TEST STRIPS Check BS TID DX Diabetes GLUCOMETER TEST STRIPS No Longer Active Chantelle Trujillo GLUCOMETER MACHINE DX Diabetes GLUCOMETER MACHINE No Longer Active Chantelle Trujillo VYTORIN 10-40 MG TABS 1 PO daily EZETIMIBE-SIMVASTATIN 78338652721 No Longer Active Chantelle Trujillo AMOXIL 875 MG TABS 1 PO BID AMOXICILLIN 55325978465 No Longer Active Chantelle Trujillo PLAVIX 75 MG TABS 1 po daily CLOPIDOGREL BISULFATE 86621638597 Active Davina Don NEXIUM 40 MG CPDR 1 po daily ESOMEPRAZOLE MAGNESIUM 41780361426 No Longer Active Chantelle Trujillo LISINOPRIL-HCTZ 20-12.5 MG TABS 1 po daily LISINOPRIL-HCTZ 32308203413 No Longer Active Chantelle Trujillo MULTIVITAMINS TABS 1 po daily MULTIPLE VITAMIN 52693234661 Active Chantelle Trujillo VYTORIN 1 po daily VYTORIN No Longer Active Chantelle Trujillo Immunizations Vaccine Administration Date Value Standard Description Influenza vaccine given Done influenza virus vaccine, unspecified formulation Influenza vaccine given done influenza virus vaccine, unspecified formulation pneumococcal immunization administered Done pneumococcal polysaccharide vaccine, 23 valent pneumococcal immunization administered Done by 1st dose 2007 pneumococcal polysaccharide vaccine, 23 valent Vital Signs Date Name Value Unit Range Description blood pressure, diastolic, second observation 98 mm[Hg] BP [place] blood pressure, diastolic - 8462-4 85 mm[Hg] BP [place] blood pressure, systolic, second observation 170 mm[Hg] BP sys blood pressure, systolic - 8480-6 175 mm[Hg] BP sys pulse rate E&M - 8867-4 66 /min Heart rate respiratory rate E&M - 9279-1 14 /min Resp rate temperature E&M 98.6 [degF] Body temperature weight E&M - 3141-9 220 [lb_av] Weight Measured blood pressure, diastolic - 8462-4 78 mm[Hg] [...] E&M - 3141-9 220 [lb_av] Weight Measured Diagnostic Results Date Name Value Unit Range Description Clinical Lists Update: CBC,CMP,FLP,TSH,HGA1C,MICROALBUMIN - Chemistry Estimated Glomerular Filtration Rate (calc) 111 mL/min/1.73m2 glucose, plasma fasting 221 mg/dL albumin, serum 4.6 g/dL alkaline phosphatase, serum 47 U/L urea nitrogen, blood 9 mg/dL calcium, serum 9.9 mg/dL chloride, serum 92 mmol/L cholesterol, serum 129 mg/dL cholesterol/HDL ratio, serum, percent 2.6 anion gap, serum 13 sodium, serum 132 mmol/L triglyceride, serum, fasting 199 mg/dL bilirubin, serum, total 0.9 mg/dL alanine aminotransferase (SGPT), serum 21 U/L aspartate aminotransferase (SGOT), serum 17 U/L protein, total, serum 7.1 g/dL potassium, serum 3.9 mmol/L LDL cholesterol, serum 39 mg/dL thyroid stimulating hormone, serum 0.94 u[iU]/mL hemoglobin A1C, blood, as % of total hemoglobin 7.7 % HDL cholesterol, serum 50.0 mg/dL creatinine, serum 0.7 mg/dL carbon dioxide, venous blood 31.0 mmol/L Clinical Lists Update: CBC,CMP,FLP,TSH,HGA1C,MICROALBUMIN - Hematology leukocyte count, blood 7.2 10*3/mm3 mean corpuscular volume, RBC 96 fL red blood cell distribution width 13.2 % hemoglobin, blood 13.9 g/dL platelet count 207 10*3/mm3 erythrocyte (RBC) count 4.43 10*6/mm3 hematocrit, blood 42.4 % Clinical Lists Update: CBC,CMP,FLP,TSH,HGA1C,MICROALBUMIN - Urinalysis microalbumin, urine, semiquantitative 61.5 mg/dL Clinical Lists Update: CMP,FLP,HgA1c - Chemistry Estimated Glomerular Filtration Rate (calc) 100 mL/min/1.73m2 glucose, plasma fasting 155 mg/dL albumin, serum 4.6 g/dL alkaline phosphatase, serum 47 U/L urea nitrogen, blood 13 mg/dL calcium, serum 9.9 mg/dL chloride, serum 92 mmol/L cholesterol, serum 149 mg/dL carbon dioxide, venous blood 32.0 mmol/L creatinine, serum 0.8 mg/dL HDL cholesterol, serum 48.0 mg/dL hemoglobin A1C, blood, as % of total hemoglobin 7.1 % LDL cholesterol, serum 42 mg/dL potassium, serum 3.7 mmol/L protein, total, serum 7.2 g/dL aspartate aminotransferase (SGOT), serum 18 U/L alanine aminotransferase (SGPT), serum 22 U/L bilirubin, serum, total 1.0 mg/dL triglyceride, serum, fasting 295 mg/dL sodium, serum 133 mmol/L anion gap, serum 13 cholesterol/HDL ratio, serum, percent 3.1 Office Visit: Dr Trujillo's Check Up: Established Patient Visit - Chemistry urea nitrogen, blood 15 mg/dL albumin, serum 4.4 g/dL chloride, serum 95 mmol/L cholesterol, serum 130 mg/dL carbon dioxide, venous blood 32.0 mmol/L creatinine, serum 1.0 mg/dL hemoglobin A1C, blood, as % of total hemoglobin 7.3 % thyroid stimulating hormone, serum 0.80 u[iU]/mL potassium, serum 3.8 mmol/L protein, total, serum 7.1 g/dL aspartate aminotransferase (SGOT), serum 17 U/L alanine aminotransferase (SGPT), serum 19 U/L bilirubin, serum, total 0.9 mg/dL triglyceride, serum, fasting 216 mg/dL sodium, serum 136 mmol/L anion gap, serum 13 glucose, plasma fasting 196 mg/dL Estimated Glomerular Filtration Rate (calc) 81 mL/min/1.73m2 alkaline phosphatase, serum 48 U/L calcium, serum 9.8 mg/dL Encounters Code Encounter Date Provider Facility CPT-72972 Ofc Vst, Est Level IV 17:09:42 CDT Chantelle Trujillo DO, FACP CPT-65703 Ofc Vst, Est Level III 20:31:48 CDT Chantelle Trujillo DO, FACP CPT-63249 Ofc Vst, Est Level III 14:00:56 CDT Chantelle Trujillo DO, FACP CPT-55621 Ofc Vst, Est Level III 15:55:59 CDT Chantelle Trujillo DO, FACP CPT-21875 Ofc Vst, Est Level III 11:58:05 CDT Chantelleneha Nobles Trujillo, DO, FACP CPT-43513 Ofc Vst, Est Level III 16:33:59 [employer] Chantelle Nobles Trujillo, DO, FACP CPT-84685 Ofc Vst, Est Level IV 13:41:56 CDT Chantelle Viri Nobles Trujillo, DO, FACP CPT-25671 Ofc Vst, Est Level IV 13:46:20 CDT Chantelle Viri Nobles Trujillo, DO, FACP CPT-75341 Ofc Vst, Est Level IV 14:22:34 [employer] Chantelle Nobles Ronnie, DO, FACP CPT-98971 Ofc Vst, Est Level IV 14:10:02 CDT Chnatelle Viri Nobles Ronnie, DO, FACP CPT-53378 Ofc Vst, Est Level III 16:17:29 CDT Chantelleneha Nobles Ronnie, DO, FACP CPT-57806 Ofc Vst, Est Level IV 13:59:21 CDT Chantelleneha Nobles Ronnie, DO, FACP CPT-17848 Ofc Vst, Est Level IV 13:59:18 CDT Chantelleneha Nobles Ronnie, DO, FACP CPT-49443 Ofc Vst, Est Level IV 13:59:52 [employer] Chantelle Nobles Ronnie, DO, FACP CPT-44845 Ofc Vst, Est Level IV 14:16:34 CDT Chantelle Viri Nobles Ronnie, DO, FACP CPT-41017 Ofc Vst, Est Level IV 14:43:21 CDT Chantelle Viri Nobles Ronnie, DO, FACP CPT-86840 Ofc Vst, Est Level IV 13:51:54 CDT Chantelleneha Nobles Ronnie, DO, FACP CPT-93599 Ofc Vst, Est Level IV 14:19:45 [employer] Chantelle Nobles Trujillo, DO, FACP CPT-95365 Ofc Vst, Est Level IV 14:03:12 CDT Davina Nobles Ronnie, DO, FACP CPT-57416 Ofc Vst, Est Level IV 14:23:55 CDT Chantelle Nobles Ronnie, DO, FACP CPT-39991 Ofc Vst, Est Level IV 13:46:12 [employer] Chantelle Nobles Ronnie, DO, FACP CPT-73468 Ofc Vst, Est Level IV 14:21:29 [employer] Chantelleneha Nobles Ronnie, DO, FACP CPT-07473 Ofc Vst, Est Level IV 11:56:46 CDT Chantelleneha Nobles Ronnie, DO, FACP CPT-43919 Ofc Vst, Est Level IV 15:06:28 CDT Chantelle Trujillo [facility] CPT-60006 Ofc Vst, Est Level III 10:49:32 [employer] Chantelle Nobles Ronnie, DO, FACP CPT-74255 Ofc Vst, Est Level IV 14:26:42 [employer] Chantelle Nobles Ronnie, DO, FACP CPT-87929 Ofc Vst, Est Level III 15:07:01 CDT Chantelle Nobles Ronnie, DO, FACP CPT-92222 Ofc Vst, Est Level IV 14:16:08 CDT Chantelleneha Nobles Ronnie, DO, FACP CPT-38848 Ofc Vst, Est Level IV 14:28:44 CDT Chantelleneha Trujillo [facility] CPT-10769 Ofc Vst, Est Level IV 14:06:35 [employer] Chantelle Viri Ronnie [facility] CPT-50074 Ofc Vst, Est Level III 14:26:15 [employer] Chantelle Viri [facility] CPT-01756 Ofc Vst, Est Level IV 13:59:23 [employer] Chantelle Virivincent Trujillo [facility] CPT-00003 Ofc Vst, Est Level IV 15:24:23 [employer] Chantelle Viri Ronnie [facility] CPT-72684 Ofc Vst, Est Level IV 16:03:46 CDT Chantelle Viri Ronnie [facility] CPT-88081 Ofc Vst, Est Level IV 15:19:26 CDT Chantelle Viri Ronnie [facility] CPT-35745 Ofc Vst, Est Level IV 19:08:48 CDT Chantelle Viri Ronnie [facility] CPT-80467 Ofc Vst, Est Level IV 16:25:43 CDT Chantelle Viri Ronnie [facility] CPT-48659 Ofc Vst, New Level IV 17:22:55 [employer] Chantelle Viri Ronnie [facility] Procedures Code Procedure Name Date Entry Date Standard Description CPT-G0439 Medicare Annual Wellness Visit 13:18:16 [employer] CPT-71092 Ear Wax Removal 12:14:17 CDT CPT-G8443 E-Prescribing Medication Sent 20:38:44 [employer] CPT-G0439 Medicare Annual Wellness Visit 20:38:44 [employer] CPT-G8445 E-Prescribing Not sent due to no medication given 15:55: 59 CDT CPT-G8445 E-Prescribing Not sent due to no medication given 11:58: 05 CDT CPT-G8445 E-Prescribing Not sent due to no medication given 16:33: 59 [employer] CPT-G8445 E-Prescribing Not sent due to no medication given 15:28: 42 [employer] CPT-G0438 Medicare Annual Wellness Visit Initial 15:28:42 [employer] CPT-8446 E-Prescribing not done due to controlled substance 14:23: 55 CDT CPT-G0008 Administration Influenza Vaccine 11:56:46 CDT CPT-03998 Influenza Vaccine 11:56:46 CDT CPT-79467 Administration of 1st dose vaccine 11:56:46 CDT CPT-G0008 Administration Influenza Vaccine 15:07:01 CDT CPT-62944 Influenza Vaccine 15:07:01 CDT
[2018-09-09 12:45] LABS: HEMOGLOBIN 11.6 G/DL (13.3-17.7); MEAN CORPUSCULAR HEMOGLOBIN 32 PG (25-34); WHITE BLOOD COUNT 7.4 10^3/uL (4.3-11.0)
--- OUTSIDE RECORDS SUMMARY | 2018-09-09 12:45 | XMS REPORT | Clinical Summary ---
Author Author User, LILIBETH Organization [facility] [place] Address Unknown Phone Unavailable Allergies, Adverse Reactions, [...] Coronary atherosclerosis of unspecified type of vessel, [place] or graft GASTROESOPHAGEAL REFLUX DISEASE, CHRONIC 530.81 [...] units at night INSULIN NPH HUMAN (ISOPHANE) 68477401888 Active Chantelle Trujillo ADVOCATE INSULIN SYRINGE 29G X 1/2" 0.3 ML MISC As directed INSULIN SYRINGE-NEEDLE U-100 81657345716 Active Chantelle Trujillo LANTUS 100 UNIT/ML SOLN 15 units injection at night INSULIN GLARGINE 70520180549 No Longer Active Chantelle Trujillo COZAAR 50 MG TAB 1 PO daily [place] POTASSIUM 54985561365 Active Chantelle Trujillo LOTRISONE 1-0.05 % CREA APPLY BID PRN CLOTRIMAZOLE- BETAMETHASONE 17528625783 Active Chantelle Trujillo DIOCTO 60 MG/15ML SYRP 2 drops placed in ear let stand for 5 minutes and rinse with water and repeat in other ear then return to doctor for rinsing 2013 DOCUSATE SODIUM 78621256747 No Longer Active Chantelle Trujillo LIPITOR 20 MG TAB 1 PO QD ATORVASTATIN CALCIUM 64647469728 Active Chantelle Trujillo ASPIRIN 81 MG TAB 1 PO daily ASPIRIN 62234281432 Active Chantelle Trujillo NITROSTAT 0.4 MG SL TAB 1 pill under tongue prn chest pain. May repeat twice then must go to ER NITROGLYCERIN 24199988496 Active Chantelle Trujillo NIASPAN 1000 MG CR-TABS 1 po QHS NIACIN (ANTIHYPERLIPIDEMIC) 17392739694 Active Chantelle Trujillo LISINOPRIL 40 MG TABS 1 PO BID LISINOPRIL 58397176307 Active Chantelle Trujillo RELION PRIME MONITOR ENRIQUE DIRECTED DX: 250.00 BLOOD GLUCOSE MONITORING SUPPL 53032190126 Active Davina Don RELION PRIME TEST STRP TEST BS QID DX: 250.00 GLUCOSE BLOOD 61512741729 Active Davina Don FREESTYLE TEST STRP TEST BS QID DX: DIABETES GLUCOSE BLOOD 82667755190 Active Davina Don FREESTYLE GLUCOMETER DIRECTED DX: DIABETES FREESTYLE GLUCOMETER Active Davina Don ALCOHOL SWABS PADS clean area before swabbing ALCOHOL SWABS 06266995302 No Longer Active Chantelle Trujillo LANCETS MISC as directed LANCETS 82859932649 No Longer Active Chantelle Trujillo OPTIUM TEST STRIPS STRP Test blood sugar TID GLUCOSE BLOOD 34592040292 No Longer Active Chantelle Trujillo KETOCONAZOLE 2 % CREA apply to affected areas BID KETOCONAZOLE 68815537887 No Longer Active Chantelle Trujillo LOTRISONE 1-0.05 % CREA apply daily prn CLOTRIMAZOLE- BETAMETHASONE 12504639538 No Longer Active Chantelle Viri Trujillo ZOFRAN ODT TBDP 1 PO Q 3HRS PRN ONDANSETRON TBDP 07800829247 No Longer Active Chantelle Viri Trujillo LORAZEPAM 2 MG TABS 1 PO at HS PRN LORAZEPAM 21498459884 No Longer Active Chantelle Viri Trujillo PERCOCET 5-325 MG TABS 1 TAB PO Q 6 HRS PRN OXYCODONE -ACETAMINOPHEN 42980113976 No Longer Active Chantelle Viri Trujillo OPTIUM GLUCOSE MONITOR SYSTEM ENRIQUE as directed BLOOD GLUCOSE MONITORING SUPPL 93714449717 No Longer Active Chantelle Viri Trujillo MOBIC 15 MG TABS 1 PO Daily MELOXICAM 99158082941 No Longer Active Chantelle Viri Trujillo COLACE 100 MG CAPS 1 PO DAILY DOCUSATE SODIUM 09154490296 Active Chantelle Viri Trujillo NO FLUSH NIACIN 500 MG TABS 2 PO daily qhs INOSITOL NIACINATE 54984604707 No Longer Active Chantelle Viri Trujillo ULTRAM 50 MG TAB 1-2 PO TID prn TRAMADOL HCL 53764841112 No Longer Active Chantelleneha Trujillo PEPCID 20 MG TABS 1 PO BID FAMOTIDINE 27681219610 Active Chantelle iVri Trujillo ZANTAC 75 TABS 1 PO BID RANITIDINE HCL TABS 45879181315 No Longer Active Chantelle Viri Trujillo GLYBURIDE 5 MG TABS 1 PO BID GLYBURIDE 44493334556 Active Davina Don FLAX SEED OIL CAPS 1 PO Qhs FLAXSEED (LINSEED) CAPS 66798094094 No Longer Active Chantelle Viri Trujillo LORTAB 5 5-500 MG TABS 1 to 2 PO Q6hrs prn ACETAMINOPHEN-HYDROCODONE 39187037100 No Longer Active Chantelle Viri Trujillo EFUDEX 5 % CREA apply sparingly twice weekly to arms FLUOROURACIL 63775606322 No Longer Active Chantelleneha Trujillo PEPCID 20 MG TABS 1 PO BID FAMOTIDINE 73591818571 No Longer Active Chantelle Viri Trujillo PROTONIX 40 MG TBEC 1 PO daily PANTOPRAZOLE SODIUM 44233079281 No Longer Active Chantelleneha Trujillo OMEPRAZOLE 20 MG CPDR 1 PO Daily OMEPRAZOLE 82541743376 No Longer Active Chantelleneha Trujillo METFORMIN HCL 1000 MG TABS 1 PO BID METFORMIN HCL 81065186411 Active Davina Don SIMVASTATIN 40 MG TABS 1 po daily SIMVASTATIN 16450666639 No Longer Active Davina Don FISH OIL 1000 MG CAPS 4 po daily OMEGA-3 FATTY ACIDS 78585121930 Active Chantelle Viri Trujillo IMDUR 60 MG TB24 1 po HS ISOSORBIDE MONONITRATE 09687717873 No Longer Active Chantelleneha Trujillo METOPROLOL TARTRATE 100 MG TABS 1 PO BID METOPROLOL TARTRATE 69897730491 Active Davina Vickerstis KEFLEX 500 MG CAP 1 PO QID for 7 days CEPHALEXIN 22466406251 No Longer Active Chantelleneha Trujillo OXISTAT 1 % CREA apply to affected areas twice daily including feet. 60 gram tube. OXICONAZOLE NITRATE 84875649702 No Longer Active Chantelle Viri Trujillo LIDEX 0.05 % OINT apply to affected areas twice daily for 7 days FLUOCINONIDE 24521266719 No Longer Active Chantelleneha Trujillo MUCINEX 600 MG TB12 1 PO BID GUAIFENESIN 88178903220 No Longer Active Chantelleneha Trujillo NORVASC 10 MG TABS 1 po QD AMLODIPINE BESYLATE 48500698674 Active Chantelle Viri Trujillo KLOR-CON 10 10 MEQ TBCR 1 po QD POTASSIUM CHLORIDE 36362309414 No Longer Active Chantelle Trujillo ROBITUSSIN A-C 10-100 MG/5ML SYRUP 5cc PO Q 4-6 hr prn ROBITUSSIN A-C 10-100 MG/5ML SYRUP 39473136856 No Longer Active Chantelle Trujillo BIAXIN XL PAC 500 MG TB24 2 pills at same time daily ( take samples given in office until gone and then start the Rx) CLARITHROMYCIN 11997785142 No Longer Active Chantelleneha Trujillo ATROVENT 0.06 % SOLN 2 puffs each nostril TID prn for runny nose IPRATROPIUM BROMIDE 18997753131 No Longer Active Chantelleneha Trujillo FLEXERIL 10 MG TABS 1 po BID prn neck pain CYCLOBENZAPRINE HCL 26015727065 No Longer Active Chantelle Trujillo ROBITUSSIN A-C 10-100 MG/5ML SYRUP 5cc PO Q 4-6 hr prn ROBITUSSIN A-C 10-100 MG/5ML SYRUP 92769227342 No Longer Active Chantelle Trujillo GLUCOMETER TEST STRIPS Check BS TID DX Diabetes GLUCOMETER TEST STRIPS No Longer Active Chantelle Trujillo GLUCOMETER MACHINE DX Diabetes GLUCOMETER MACHINE No Longer Active Chantelle Trujillo VYTORIN 10-40 MG TABS 1 PO daily EZETIMIBE-SIMVASTATIN 70717051444 No Longer Active Chantelle Trujillo AMOXIL 875 MG TABS 1 PO BID AMOXICILLIN 34414772870 No Longer Active Chantelle Trujillo PLAVIX 75 MG TABS 1 po daily CLOPIDOGREL BISULFATE 18754432550 Active Davina Don NEXIUM 40 MG CPDR 1 po daily ESOMEPRAZOLE MAGNESIUM 74448879579 No Longer Active Chantelle Trujillo LISINOPRIL-HCTZ 20-12.5 MG TABS 1 po daily LISINOPRIL-HCTZ 62368915472 No Longer Active Chantelle Trujillo MULTIVITAMINS TABS 1 po daily MULTIPLE VITAMIN 58495340248 Active Chantelle Trujillo VYTORIN 1 po daily [...] mg/dL Encounters Code Encounter Date Provider Facility CPT-35564 Ofc Vst, Est Level IV 17:09:42 CDT Chantelle Trujillo DO, FACP CPT-63117 Ofc Vst, Est Level III 20:31:48 CDT Chantelle Trujillo DO, FACP CPT-52288 Ofc Vst, Est Level III 14:00:56 CDT Chantelle Trujillo DO, FACP CPT-37407 Ofc Vst, Est Level III 15:55:59 CDT Chantelle Trujillo DO, FACP CPT-71041 Ofc Vst, Est Level III 11:58:05 CDT Chantelleneha Nobles Trujillo, DO, FACP CPT-87124 Ofc Vst, Est Level III 16:33:59 BANKING AND FINANCE INSTRUCTOR Chantelle Nobles Trujillo, DO, FACP CPT-69193 Ofc Vst, Est Level IV 13:41:56 CDT Chantelle Viri Nobles Trujillo, DO, FACP CPT-04436 Ofc Vst, Est Level IV 13:46:20 CDT Chantelle Viri Nobles Trujillo, DO, FACP CPT-97720 Ofc Vst, Est Level IV 14:22:34 BANKING AND FINANCE INSTRUCTOR Chantelle Nobles Ronnie, DO, FACP CPT-23546 Ofc Vst, Est Level IV 14:10:02 CDT Chantelle Viri Nobles Ronnie, DO, FACP CPT-02436 Ofc Vst, Est Level III 16:17:29 CDT Chantelleneha Nobles Ronnie, DO, FACP CPT-47830 Ofc Vst, Est Level IV 13:59:21 CDT Chantelleneha Nobles Ronnie, DO, FACP CPT-60245 Ofc Vst, Est Level IV 13:59:18 CDT Chantelleneha Nobles Ronnie, DO, FACP CPT-88092 Ofc Vst, Est Level IV 13:59:52 BANKING AND FINANCE INSTRUCTOR Chantelle Nobles Ronnie, DO, FACP CPT-68164 Ofc Vst, Est Level IV 14:16:34 CDT Chantelle Viri Nobles Ronnie, DO, FACP CPT-30279 Ofc Vst, Est Level IV 14:43:21 CDT Chantelle Viri Nobles Ronnie, DO, FACP CPT-52782 Ofc Vst, Est Level IV 13:51:54 CDT Chantelle Nobles Ronnie, DO, FACP CPT-92003 Ofc Vst, Est Level IV 14:19:45 BANKING AND FINANCE INSTRUCTOR Chantelle Nobles Trujillo, DO, FACP CPT-03831 Ofc Vst, Est Level IV 14:03:12 CDT Davina Nobles Ronnie, DO, FACP CPT-20655 Ofc Vst, Est Level IV 14:23:55 CDT Chantelle Nobles Ronnie, DO, FACP CPT-80128 Ofc Vst, Est Level IV 13:46:12 BANKING AND FINANCE INSTRUCTOR Chantelle Nobles Ronnie, DO, FACP CPT-04753 Ofc Vst, Est Level IV 14:21:29 BANKING AND FINANCE INSTRUCTOR Chantelle Nobles Ronnie, DO, FACP CPT-06689 Ofc Vst, Est Level IV 11:56:46 CDT Chantelleneha Nobles Ronnie, DO, FACP CPT-63593 Ofc Vst, Est Level IV 15:06:28 CDT Chantelle Trujillo [facility] CPT-51682 Ofc Vst, Est Level III 10:49:32 BANKING AND FINANCE INSTRUCTOR Chantelle Nobles Ronnie, DO, FACP CPT-22712 Ofc Vst, Est Level IV 14:26:42 BANKING AND FINANCE INSTRUCTOR Chantelle Nobles Ronnie, DO, FACP CPT-35078 Ofc Vst, Est Level III 15:07:01 CDT Chantelle Nobles Ronnie, DO, FACP CPT-23364 Ofc Vst, Est Level IV 14:16:08 CDT Chantelle Nobles Ronnie, DO, FACP CPT-14144 Ofc Vst, Est Level IV 14:28:44 CDT Chantelleneha Trujillo [facility] [place] CPT-02230 Ofc Vst, Est Level IV 14:06:35 BANKING AND FINANCE INSTRUCTOR Chantelle Viri Ronnie [facility] [place] CPT-82919 Ofc Vst, Est Level III 14:26:15 BANKING AND FINANCE INSTRUCTOR Chantelle Viri [place] [facility] [place] CPT-96329 Ofc Vst, Est Level IV 13:59:23 BANKING AND FINANCE INSTRUCTOR Chantelle Virivincent Trujillo [facility] [place] CPT-55789 Ofc Vst, Est Level IV 15:24:23 BANKING AND FINANCE INSTRUCTOR Chantelle Viri Ronnie [facility] [place] CPT-68213 Ofc Vst, Est Level IV 16:03:46 CDT Chantelle Viri Ronnie [facility] [place] CPT-13343 Ofc Vst, Est Level IV 15:19:26 CDT Chantelle Viri Ronnie [facility] [place] CPT-60605 Ofc Vst, Est Level IV 19:08:48 CDT Chantelle Viri Ronnie [facility] [place] CPT-65126 Ofc Vst, Est Level IV 16:25:43 CDT Chantelle Viri Ronnie [facility] [place] CPT-56056 Ofc Vst, New Level IV 17:22:55 BANKING AND FINANCE INSTRUCTOR Chantelle Viri Ronnie [facility] [place] Procedures Code Procedure Name Date Entry Date Standard Description CPT-G0439 Medicare Annual Wellness Visit 13:18:16 BANKING AND FINANCE INSTRUCTOR CPT-81622 Ear Wax Removal 12:14:17 CDT CPT-G8443 E-Prescribing Medication Sent 20:38:44 BANKING AND FINANCE INSTRUCTOR CPT-G0439 Medicare Annual Wellness Visit 20:38:44 BANKING AND FINANCE INSTRUCTOR CPT-G8445 E-Prescribing Not sent due to no medication given 15:55: 59 CDT CPT-G8445 E-Prescribing Not sent due to no medication given 11:58: 05 CDT CPT-G8445 E-Prescribing Not sent due to no medication given 16:33: 59 BANKING AND FINANCE INSTRUCTOR CPT-G8445 E-Prescribing Not sent due to no medication given 15:28: 42 BANKING AND FINANCE INSTRUCTOR CPT-G0438 Medicare Annual Wellness Visit Initial 15:28:42 BANKING AND FINANCE INSTRUCTOR CPT-8446 E-Prescribing not done due to controlled substance 14:23: 55 CDT CPT-G0008 Administration Influenza Vaccine 11:56:46 CDT CPT-98352 Influenza Vaccine 11:56:46 CDT CPT-86105 Administration of 1st dose vaccine 11:56:46 CDT CPT-G0008 Administration Influenza Vaccine 15:07:01 CDT CPT-19056 Influenza Vaccine 15:07:01 CDT
[2018-09-09 12:46] LABS: BASOPHILS % (AUTO) 0 % (0-10); EOSINOPHILS # (AUTO) 0.1 10^3/uL (0.0-0.3); EOSINOPHILS % (AUTO) 1 % (0-10); HEMATOCRIT 33 % (40-54); LYMPHOCYTES % (AUTO) 13 % (12-44); MEAN CORPUSCULAR HGB CONC 36 G/DL (32-36); MEAN CORPUSCULAR VOLUME 90 FL (80-99); MEAN PLATELET VOLUME 8.3 FL (7.4-10.4); MONOCYTES # (AUTO) 0.6 X 10^3 (0.0-1.0); MONOCYTES % (AUTO) 8 % (0-12); NEUTROPHILS # (AUTO) 5.8 X 10^3 (1.8-7.8); NEUTROPHILS % (AUTO) 78 % (42-75); PLATELET COUNT 155 10^3/uL (130-400); RED CELL DISTRIBUTION WIDTH 11.8 % (10.0-14.5)
--- OUTSIDE RECORDS SUMMARY | 2018-09-09 12:46 | XMS REPORT | Clinical Summary ---
Author Author User, LILIBETH Organization [facility] [place] Address Unknown Phone Unavailable Allergies, Adverse Reactions, [...] Coronary atherosclerosis of unspecified type of vessel, [place] or graft GASTROESOPHAGEAL REFLUX DISEASE, CHRONIC 530.81 [...] % CREA APPLY BID PRN CLOTRIMAZOLE- BETAMETHASONE 18986652282 Active Davinafernando Don DIOCTO 60 MG/15ML SYRP 2 drops placed in ear let stand for 5 minutes and rinse with water and repeat in other ear then return to doctor for rinsing 2013 DOCUSATE SODIUM 55953138273 No Longer Active Chantelle Trujillo LIPITOR 20 MG TAB 1 PO QD ATORVASTATIN CALCIUM 96723988428 Active Chantelle Trujillo ASPIRIN 81 MG TAB 1 PO daily ASPIRIN 87497935366 Active Chantelle Trujillo NITROSTAT 0.4 MG SL TAB 1 pill under tongue prn chest pain. May repeat twice then must go to ER NITROGLYCERIN 38859642713 Active Chantelle Trujillo NIASPAN 1000 MG CR-TABS 1 po QHS NIACIN (ANTIHYPERLIPIDEMIC) 05586281294 Active Chantelle Trujillo LISINOPRIL 40 MG TABS 1 PO BID LISINOPRIL 30166002371 Active Chantelleneha Trujillo RELION PRIME MONITOR ENRIQUE DIRECTED DX: 250.00 BLOOD GLUCOSE MONITORING SUPPL 70039478276 Active Davina Arian RELION PRIME TEST STRP TEST BS QID DX: 250.00 GLUCOSE BLOOD 51134053200 Active Davina Arian FREESTYLE TEST STRP TEST BS QID DX: DIABETES GLUCOSE BLOOD 80466245817 Active Davina Don FREESTYLE GLUCOMETER DIRECTED DX: DIABETES FREESTYLE GLUCOMETER Active Davina Don ALCOHOL SWABS PADS clean area before swabbing ALCOHOL SWABS 24859781237 No Longer Active Chantelle Trujillo LANCETS MISC as directed LANCETS 56860930952 No Longer Active Chantelle Trujillo OPTIUM TEST STRIPS STRP Test blood sugar TID GLUCOSE BLOOD 49583519195 No Longer Active Chantelleneha Trujillo KETOCONAZOLE 2 % CREA apply to affected areas BID KETOCONAZOLE 76335757603 No Longer Active Chantelleneha Trujillo LOTRISONE 1-0.05 % CREA apply daily prn CLOTRIMAZOLE- BETAMETHASONE 62744159189 No Longer Active Chantelle Trujillo ZOFRAN ODT TBDP 1 PO Q 3HRS PRN ONDANSETRON TBDP 46212267742 No Longer Active Chantelleneha Trujillo LORAZEPAM 2 MG TABS 1 PO at HS PRN LORAZEPAM 69724664269 No Longer Active Chantelleneha Trujillo PERCOCET 5-325 MG TABS 1 TAB PO Q 6 HRS PRN OXYCODONE -ACETAMINOPHEN 49923709654 No Longer Active Chantelle Trujillo OPTIUM GLUCOSE MONITOR SYSTEM ENRIQUE as directed BLOOD GLUCOSE MONITORING SUPPL 99314957987 No Longer Active Chantelleneha Trujillo MOBIC 15 MG TABS 1 PO Daily MELOXICAM 12925135452 No Longer Active Chantelle Viri Trujillo COLACE 100 MG CAPS 1 PO DAILY DOCUSATE SODIUM 68819046037 Active Chantelle Viri Trujillo NO FLUSH NIACIN 500 MG TABS 2 PO daily qhs INOSITOL NIACINATE 75782098272 No Longer Active Chantelle Viri Trujillo ULTRAM 50 MG TAB 1-2 PO TID prn TRAMADOL HCL 55559666355 No Longer Active Chantelle Viri Trujillo PEPCID 20 MG TABS 1 PO BID FAMOTIDINE 94020043466 Active Chantelle Viri Trujillo ZANTAC 75 TABS 1 PO BID RANITIDINE HCL TABS 97121224409 No Longer Active Chantelle Viri Trujillo GLYBURIDE 5 MG TABS 1 PO BID GLYBURIDE 26302121565 Active Davina Don FLAX SEED OIL CAPS 1 PO Qhs FLAXSEED (LINSEED) CAPS 04644476481 No Longer Active Chantelle Viri Trujillo LORTAB 5 5-500 MG TABS 1 to 2 PO Q6hrs prn ACETAMINOPHEN-HYDROCODONE 04600833167 No Longer Active Chantelleneha Trujillo EFUDEX 5 % CREA apply sparingly twice weekly to arms FLUOROURACIL 45198261700 No Longer Active Chantelle Viri Trujillo PEPCID 20 MG TABS 1 PO BID FAMOTIDINE 55688607006 No Longer Active Chantelle Viri Trujillo PROTONIX 40 MG TBEC 1 PO daily PANTOPRAZOLE SODIUM 85286065644 No Longer Active Chantelle Viri Trujillo OMEPRAZOLE 20 MG CPDR 1 PO Daily OMEPRAZOLE 89668074556 No Longer Active Chantelle Viri Trujillo METFORMIN HCL 1000 MG TABS 1 PO BID METFORMIN HCL 94037394109 Active Davina Don SIMVASTATIN 40 MG TABS 1 po daily SIMVASTATIN 77647452006 No Longer Active Davina Don FISH OIL 1000 MG CAPS 4 po daily OMEGA-3 FATTY ACIDS 80351142737 Active Chantelle Viri Trujillo IMDUR 60 MG TB24 1 po HS ISOSORBIDE MONONITRATE 08094351002 No Longer Active Chantelleneha Trujillo METOPROLOL TARTRATE 100 MG TABS 1 PO BID METOPROLOL TARTRATE 84789462681 Active Davina Don KEFLEX 500 MG CAP 1 PO QID for 7 days CEPHALEXIN 25237252823 No Longer Active Chantelle Viri Trujillo OXISTAT 1 % CREA apply to affected areas twice daily including feet. 60 gram tube. OXICONAZOLE NITRATE 89591239500 No Longer Active Chantelleneha Trujillo LIDEX 0.05 % OINT apply to affected areas twice daily for 7 days FLUOCINONIDE 60200495389 No Longer Active Chantelle Viri Trujillo MUCINEX 600 MG TB12 1 PO BID GUAIFENESIN 28666400607 No Longer Active Chantelle Viri Trujillo NORVASC 10 MG TABS 1 po QD AMLODIPINE BESYLATE 28453414057 Active Chantelle Viri Trujillo KLOR-CON 10 10 MEQ TBCR 1 po QD POTASSIUM CHLORIDE 21697257607 No Longer Active Chantelleneha Trujillo ROBITUSSIN A-C 10-100 MG/5ML SYRUP 5cc PO Q 4-6 hr prn ROBITUSSIN A-C 10-100 MG/5ML SYRUP 89363546571 No Longer Active Chantelleneha Trujillo BIAXIN XL PAC 500 MG TB24 2 pills at same time daily ( take samples given in office until gone and then start the Rx) CLARITHROMYCIN 76321764146 No Longer Active Chantelleneha Trujillo ATROVENT 0.06 % SOLN 2 puffs each nostril TID prn for runny nose IPRATROPIUM BROMIDE 76603345877 No Longer Active Chantelle Trujillo FLEXERIL 10 MG TABS 1 po BID prn neck pain CYCLOBENZAPRINE HCL 75634334239 No Longer Active Chantelleneha Trujillo ROBITUSSIN A-C 10-100 MG/5ML SYRUP 5cc PO Q 4-6 hr prn ROBITUSSIN A-C 10-100 MG/5ML SYRUP 52287359122 No Longer Active Chantelle Trujillo GLUCOMETER TEST STRIPS Check BS TID DX Diabetes GLUCOMETER TEST STRIPS No Longer Active Chantelle Trujillo GLUCOMETER MACHINE DX Diabetes GLUCOMETER MACHINE No Longer Active Chantelle Trujillo VYTORIN 10-40 MG TABS 1 PO daily EZETIMIBE-SIMVASTATIN 51271260473 No Longer Active Chantelle Trujillo AMOXIL 875 MG TABS 1 PO BID AMOXICILLIN 02097996721 No Longer Active Chantelle Trujillo PLAVIX 75 MG TABS 1 po daily CLOPIDOGREL BISULFATE 28704037554 Active Davina Don NEXIUM 40 MG CPDR 1 po daily ESOMEPRAZOLE MAGNESIUM 71328836738 No Longer Active Chantelle Trujillo LISINOPRIL-HCTZ 20-12.5 MG TABS 1 po daily LISINOPRIL-HCTZ 83265833332 No Longer Active Chantelle Trujillo MULTIVITAMINS TABS 1 po daily MULTIPLE VITAMIN 35315068169 Active Chantelle Trujillo VYTORIN 10/40 1 po [...] mg/dL Encounters Code Encounter Date Provider Facility CPT-46232 Ofc Vst, Est Level III 20:31:48 CDT Chantelleneha Nobles Trujillo, DO, FACP CPT-28488 Ofc Vst, Est Level III 14:00:56 CDT Chantelle Viri Nobles Trujillo, DO, FACP CPT-41110 Ofc Vst, Est Level III 15:55:59 CDT Chantelle Viri Nobles Trujillo, DO, FACP CPT-26349 Ofc Vst, Est Level III 11:58:05 CDT Chantelle Viri Nobles Trujillo, DO, FACP CPT-64367 Ofc Vst, Est Level III 16:33:59 BIOMEDICAL TECHNICIAN Chantelleneha Nobles Ronnie, DO, FACP CPT-29178 Ofc Vst, Est Level IV 13:41:56 CDT Chantelle Viri Nobles Ronnie, DO, FACP CPT-46576 Ofc Vst, Est Level IV 13:46:20 CDT Chantelle Viri Nobles Ronnie, DO, FACP CPT-24422 Ofc Vst, Est Level IV 14:22:34 BIOMEDICAL TECHNICIAN Chantelle Nobles Ronnie, DO, FACP CPT-00880 Ofc Vst, Est Level IV 14:10:02 CDT Chantelleneha Nobles Ronnie, DO, FACP CPT-41484 Ofc Vst, Est Level III 16:17:29 CDT Chantelle Viri Nobles Trujillo, DO, FACP CPT-77491 Ofc Vst, Est Level IV 13:59:21 CDT Chantelle Viri Lockhart S Trujillo, DO, FACP CPT-23416 Ofc Vst, Est Level IV 13:59:18 CDT Chantelle Viri Nobles Ronnie, DO, FACP CPT-72529 Ofc Vst, Est Level IV 13:59:52 BIOMEDICAL TECHNICIAN Chantelle Viri Nobles Ronnie, DO, FACP CPT-88736 Ofc Vst, Est Level IV 14:16:34 CDT Chantelle Viri Nobles Ronnie, DO, FACP CPT-36579 Ofc Vst, Est Level IV 14:43:21 CDT Chantelle Viri Nobles Ronnie, DO, FACP CPT-36510 Ofc Vst, Est Level IV 13:51:54 CDT Chantelle Viri Nobles Ronnie, DO, FACP CPT-63301 Ofc Vst, Est Level IV 14:19:45 BIOMEDICAL TECHNICIAN Chantelleneha Nobles Ronnie, DO, FACP CPT-64231 Ofc Vst, Est Level IV 14:03:12 CDT Davina Nobles Ronnie, DO, FACP CPT-55435 Ofc Vst, Est Level IV 14:23:55 CDT Chantelle Viri Nobles Ronnie, DO, FACP CPT-11089 Ofc Vst, Est Level IV 13:46:12 BIOMEDICAL TECHNICIAN Chantelle Nobles Ronnie, DO, FACP CPT-65729 Ofc Vst, Est Level IV 14:21:29 BIOMEDICAL TECHNICIAN Chantelleneha Nobles Ronnie, DO, FACP CPT-31769 Ofc Vst, Est Level IV 11:56:46 CDT Chantelle Viri Nobles Ronnie, DO, FACP CPT-40427 Ofc Vst, Est Level IV 15:06:28 CDT Chantelleneha Trujillo [facility] CPT-46958 Ofc Vst, Est Level III 10:49:32 BIOMEDICAL TECHNICIAN Chantelle Nobles Ronnie, DO, FACP CPT-10716 Ofc Vst, Est Level IV 14:26:42 BIOMEDICAL TECHNICIAN Chantelle Viri [place] Chantelle Nobles Ronnie, DO, FACP CPT-89091 Ofc Vst, Est Level III 15:07:01 CDT Chantelleneha Trujillo, DO, FACP CPT-93468 Ofc Vst, Est Level IV 14:16:08 CDT Chantelleneha Trujillo DO, FACP CPT-29056 Ofc Vst, Est Level IV 14:28:44 CDT Chantelle Trujillo [facility] [place] CPT-02828 Ofc Vst, Est Level IV 14:06:35 BIOMEDICAL TECHNICIAN Chantelle Trujillo [facility] [place] CPT-07940 Ofc Vst, Est Level III 14:26:15 BIOMEDICAL TECHNICIAN Chantelle Trujillo [facility] [place] CPT-64183 Ofc Vst, Est Level IV 13:59:23 BIOMEDICAL TECHNICIAN Chantelle Trujillo [facility] [place] CPT-35024 Ofc Vst, Est Level IV 15:24:23 BIOMEDICAL TECHNICIAN Chantelle Trujillo [facility] [place] CPT-68857 Ofc Vst, Est Level IV 16:03:46 CDT Chantelleneha Trujillo [facility] [place] CPT-51606 Ofc Vst, Est Level IV 15:19:26 CDT Chantelle Trujillo [facility] [place] CPT-43871 Ofc Vst, Est Level IV 19:08:48 CDT Chantelleneha Trujillo [facility] [place] CPT-05064 Ofc Vst, Est Level IV 16:25:43 CDT Chantelle Viri Trujillo [facility] [place] CPT-01860 Ofc Vst, New Level IV 17:22:55 BIOMEDICAL TECHNICIAN Chantelle Trujillo [facility] [place] Procedures Code Procedure Name Date Entry Date Standard Description CPT-G0439 Medicare Annual Wellness Visit 13:18:16 BIOMEDICAL TECHNICIAN CPT-43862 Ear Wax Removal 12:14:17 CDT CPT-G8443 E-Prescribing Medication Sent 20:38:44 BIOMEDICAL TECHNICIAN CPT-G0439 Medicare Annual Wellness Visit 20:38:44 BIOMEDICAL TECHNICIAN CPT-G8445 E-Prescribing Not sent due to no medication given 15:55: 59 CDT CPT-G8445 E-Prescribing Not sent due to no medication given 11:58: 05 CDT CPT-G8445 E-Prescribing Not sent due to no medication given 16:33: 59 BIOMEDICAL TECHNICIAN CPT-G8445 E-Prescribing Not sent due to no medication given 15:28: 42 BIOMEDICAL TECHNICIAN CPT-G0438 Medicare Annual Wellness Visit Initial 15:28:42 BIOMEDICAL TECHNICIAN CPT-8446 E-Prescribing not done due to controlled substance 14:23: 55 CDT CPT-G0008 Administration Influenza Vaccine 11:56:46 CDT CPT-94255 Influenza Vaccine 11:56:46 CDT CPT-73555 Administration of 1st dose vaccine 11:56:46 CDT CPT-G0008 Administration Influenza Vaccine 15:07:01 CDT CPT-65201 Influenza Vaccine 15:07:01 CDT
--- OUTSIDE RECORDS SUMMARY | 2018-09-09 12:46 | XMS REPORT | Clinical Summary ---
Author Author User, LILIBETH Organization [facility] [place] Address Unknown Phone Unavailable Allergies, Adverse Reactions, [...] Coronary atherosclerosis of unspecified type of vessel, [place] or graft GASTROESOPHAGEAL REFLUX DISEASE, CHRONIC 530.81 [...] organism unspecified MEMORY LOSS 780.93 Active Chantelle Truijllo Memory loss CERUMEN IMPACTION, BILATERAL 380.4 Active Chantelle Trujillo Impacted cerumen Medication List Medication Instructions Start Date Stop Date Generic Name NDC Status Provider Patient Instruction LOTRISONE 1-0.05 % CREA APPLY BID PRN CLOTRIMAZOLE- BETAMETHASONE 26828739882 Active Davina Don DIOCTO 60 MG/15ML SYRP 2 drops placed in ear let stand for 5 minutes and rinse with water and repeat in other ear then return to doctor for rinsing 2013 DOCUSATE SODIUM 76664720560 No Longer Active Chantelle Trujillo LIPITOR 20 MG TAB 1 PO QD ATORVASTATIN CALCIUM 34645708839 Active Chantelle Trujillo ASPIRIN 81 MG TAB 1 PO daily ASPIRIN 97462445016 Active Chantelle Trujillo NITROSTAT 0.4 MG SL TAB 1 pill under tongue prn chest pain. May repeat twice then must go to ER NITROGLYCERIN 64281930555 Active Chantelle Trujillo NIASPAN 1000 MG CR-TABS 1 po QHS NIACIN (ANTIHYPERLIPIDEMIC) 77576798058 Active Chantelle Trujillo LISINOPRIL 40 MG TABS 1 PO BID LISINOPRIL 93067732521 Active Chantelle Trujillo RELION PRIME MONITOR ENRIQUE DIRECTED DX: 250.00 BLOOD GLUCOSE MONITORING SUPPL 61361446013 Active Davina Arian RELION PRIME TEST STRP TEST BS QID DX: 250.00 GLUCOSE BLOOD 05872781142 Active Davina Arian FREESTYLE TEST STRP TEST BS QID DX: DIABETES GLUCOSE BLOOD 07438943750 Active Davinafernando Don FREESTYLE GLUCOMETER DIRECTED DX: DIABETES FREESTYLE GLUCOMETER Active Davina Don ALCOHOL SWABS PADS clean area before swabbing ALCOHOL SWABS 23995267609 No Longer Active Chantelle Trujillo LANCETS MISC as directed LANCETS 82558026437 No Longer Active Chantelle Trujillo OPTIUM TEST STRIPS STRP Test blood sugar TID GLUCOSE BLOOD 98167641083 No Longer Active Chantelleneha Trujillo KETOCONAZOLE 2 % CREA apply to affected areas BID KETOCONAZOLE 60470489423 No Longer Active Chantelleneha Trujillo LOTRISONE 1-0.05 % CREA apply daily prn CLOTRIMAZOLE- BETAMETHASONE 30399020307 No Longer Active Chantelle Trujillo ZOFRAN ODT TBDP 1 PO Q 3HRS PRN ONDANSETRON TBDP 51121650951 No Longer Active Chantelleneha Trujillo LORAZEPAM 2 MG TABS 1 PO at HS PRN LORAZEPAM 23060851553 No Longer Active Chantelleneha Trujillo PERCOCET 5-325 MG TABS 1 TAB PO Q 6 HRS PRN OXYCODONE -ACETAMINOPHEN 75961462528 No Longer Active Chantelle Trujillo OPTIUM GLUCOSE MONITOR SYSTEM ENRIQUE as directed BLOOD GLUCOSE MONITORING SUPPL 54848485464 No Longer Active Chantelleneha Trujillo MOBIC 15 MG TABS 1 PO Daily MELOXICAM 99297658640 No Longer Active Chantelle Viri Trujillo COLACE 100 MG CAPS 1 PO DAILY DOCUSATE SODIUM 82156435661 Active Chantelle Viri Trujillo NO FLUSH NIACIN 500 MG TABS 2 PO daily qhs INOSITOL NIACINATE 39972962775 No Longer Active Chantelle Viri Trujillo ULTRAM 50 MG TAB 1-2 PO TID prn TRAMADOL HCL 27100681276 No Longer Active Chantelle Viri Trujillo PEPCID 20 MG TABS 1 PO BID FAMOTIDINE 21609340386 Active Chantelle Viri Trujillo ZANTAC 75 TABS 1 PO BID RANITIDINE HCL TABS 49883149011 No Longer Active Chantelle Viri Trujillo GLYBURIDE 5 MG TABS 1 PO BID GLYBURIDE 25454713372 Active Davina Don FLAX SEED OIL CAPS 1 PO Qhs FLAXSEED (LINSEED) CAPS 22095125998 No Longer Active Chantelleneha Trujillo LORTAB 5 5-500 MG TABS 1 to 2 PO Q6hrs prn ACETAMINOPHEN-HYDROCODONE 12822775720 No Longer Active Chantelle Viri Trujillo EFUDEX 5 % CREA apply sparingly twice weekly to arms FLUOROURACIL 95227477149 No Longer Active Chantelle Viri Trujillo PEPCID 20 MG TABS 1 PO BID FAMOTIDINE 95361338405 No Longer Active Chantelle Viri Trujillo PROTONIX 40 MG TBEC 1 PO daily PANTOPRAZOLE SODIUM 64980399491 No Longer Active Chantelle Viri Trujillo OMEPRAZOLE 20 MG CPDR 1 PO Daily OMEPRAZOLE 02899287649 No Longer Active Hcantelle Viri Trujillo METFORMIN HCL 1000 MG TABS 1 PO BID METFORMIN HCL 00470264344 Active Davina Don SIMVASTATIN 40 MG TABS 1 po daily SIMVASTATIN 53361271390 No Longer Active Davina Don FISH OIL 1000 MG CAPS 4 po daily OMEGA-3 FATTY ACIDS 62891637978 Active Chantelle Viri Trujillo IMDUR 60 MG TB24 1 po HS ISOSORBIDE MONONITRATE 25377793768 No Longer Active Chantelleneha Trujillo METOPROLOL TARTRATE 100 MG TABS 1 PO BID METOPROLOL TARTRATE 14961375489 Active Davina Don KEFLEX 500 MG CAP 1 PO QID for 7 days CEPHALEXIN 31740765370 No Longer Active Chantelleneha Trujillo OXISTAT 1 % CREA apply to affected areas twice daily including feet. 60 gram tube. OXICONAZOLE NITRATE 89665552314 No Longer Active Chantelleneha Trujillo LIDEX 0.05 % OINT apply to affected areas twice daily for 7 days FLUOCINONIDE 99484348001 No Longer Active Chantelle Viri Trujillo MUCINEX 600 MG TB12 1 PO BID GUAIFENESIN 60402269661 No Longer Active Chantelle Viri Trujillo NORVASC 10 MG TABS 1 po QD AMLODIPINE BESYLATE 65520055771 Active Chantelle Viri Trujillo KLOR-CON 10 10 MEQ TBCR 1 po QD POTASSIUM CHLORIDE 25965166440 No Longer Active Chantelleneha Trujillo ROBITUSSIN A-C 10-100 MG/5ML SYRUP 5cc PO Q 4-6 hr prn ROBITUSSIN A-C 10-100 MG/5ML SYRUP 27941053457 No Longer Active Chantelle Trujillo BIAXIN XL PAC 500 MG TB24 2 pills at same time daily ( take samples given in office until gone and then start the Rx) CLARITHROMYCIN 16387266920 No Longer Active Chantelleneha Trujillo ATROVENT 0.06 % SOLN 2 puffs each nostril TID prn for runny nose IPRATROPIUM BROMIDE 72758006872 No Longer Active Chantelle Trujillo FLEXERIL 10 MG TABS 1 po BID prn neck pain CYCLOBENZAPRINE HCL 23608886972 No Longer Active Chantelleneha Trujillo ROBITUSSIN A-C 10-100 MG/5ML SYRUP 5cc PO Q 4-6 hr prn ROBITUSSIN A-C 10-100 MG/5ML SYRUP 91583598964 No Longer Active Chantelle Trujillo GLUCOMETER TEST STRIPS Check BS TID DX Diabetes GLUCOMETER TEST STRIPS No Longer Active Chantelle Trujillo GLUCOMETER MACHINE DX Diabetes GLUCOMETER MACHINE No Longer Active Chantelle Trujillo VYTORIN 10-40 MG TABS 1 PO daily EZETIMIBE-SIMVASTATIN 96359690273 No Longer Active Chantelle Trujillo AMOXIL 875 MG TABS 1 PO BID AMOXICILLIN 44643417362 No Longer Active Chantelle Trujillo PLAVIX 75 MG TABS 1 po daily CLOPIDOGREL BISULFATE 61710012328 Active Davinafernando Don NEXIUM 40 MG CPDR 1 po daily ESOMEPRAZOLE MAGNESIUM 74029183498 No Longer Active Chantelle Trujillo LISINOPRIL-HCTZ 20-12.5 MG TABS 1 po daily LISINOPRIL-HCTZ 35615984985 No Longer Active Chantelle Trujillo MULTIVITAMINS TABS 1 po daily MULTIPLE VITAMIN 16163442614 Active Chantelle Trujillo VYTORIN 10/40 1 po [...] mg/dL Encounters Code Encounter Date Provider Facility CPT-85571 Ofc Vst, Est Level III 20:31:48 CDT Chantelle Trujillo DO, FACStefani CPT-89146 Ofc Vst, Est Level III 14:00:56 CDT Chantelle Trujillo DO, FACP CPT-15144 Ofc Vst, Est Level III 15:55:59 CDT Chantelle Viri Nobles Trujillo, DO, FACP CPT-90312 Ofc Vst, Est Level III 11:58:05 CDT Chantelle Viri Nobles Trujillo, DO, FACP CPT-53419 Ofc Vst, Est Level III 16:33:59 INFORMATION TECHNOLOGY CONSULTANT Chantelleneha Nobles Trujillo, DO, FACP CPT-28107 Ofc Vst, Est Level IV 13:41:56 CDT Chantelle Viri Nobles Trujillo, DO, FACP CPT-49067 Ofc Vst, Est Level IV 13:46:20 CDT Chantelle Viri Nobles Ronnie, DO, FACP CPT-68370 Ofc Vst, Est Level IV 14:22:34 INFORMATION TECHNOLOGY CONSULTANT Chantelleneha Nobles Ronnie, DO, FACP CPT-53073 Ofc Vst, Est Level IV 14:10:02 CDT Chantelle Viri Nobles Ronnie, DO, FACP CPT-15298 Ofc Vst, Est Level III 16:17:29 CDT Chantelleneha Nobles Ronnie, DO, FACP CPT-55902 Ofc Vst, Est Level IV 13:59:21 CDT Chantelle Viri Nobles Ronnie, DO, FACP CPT-72195 Ofc Vst, Est Level IV 13:59:18 CDT Chantelle Viri Nobles Trujillo, DO, FACP CPT-96961 Ofc Vst, Est Level IV 13:59:52 INFORMATION TECHNOLOGY CONSULTANT Chantelle Nobles Ronnie, DO, FACP CPT-06992 Ofc Vst, Est Level IV 14:16:34 CDT Chantelle Viri Nobles Ronnie, DO, FACP CPT-72120 Ofc Vst, Est Level IV 14:43:21 CDT Chantelleneha Nobles Trujillo, DO, FACP CPT-28748 Ofc Vst, Est Level IV 13:51:54 CDT Chantelle Viri Nobles Ronnie, DO, FACP CPT-25258 Ofc Vst, Est Level IV 14:19:45 INFORMATION TECHNOLOGY CONSULTANT Chantelle Viri Nobles Ronnie, DO, FACP CPT-48410 Ofc Vst, Est Level IV 14:03:12 CDT Davina Nobles Trujillo, DO, FACP CPT-61230 Ofc Vst, Est Level IV 14:23:55 CDT Chantelle Viri Nobles Ronnie, DO, FACP CPT-32059 Ofc Vst, Est Level IV 13:46:12 INFORMATION TECHNOLOGY CONSULTANT Chantelle Viri Nobles Ronnie, DO, FACP CPT-21910 Ofc Vst, Est Level IV 14:21:29 INFORMATION TECHNOLOGY CONSULTANT Chantelleneha Nobles Ronnie, DO, FACP CPT-39604 Ofc Vst, Est Level IV 11:56:46 CDT Chantelle Viri Nobles Ronnie, DO, FACP CPT-01272 Ofc Vst, Est Level IV 15:06:28 CDT Chantelle Trujillo [facility] CPT-42003 Ofc Vst, Est Level III 10:49:32 INFORMATION TECHNOLOGY CONSULTANT Chantelleneha Nobles Ronnie, DO, FACP CPT-62312 Ofc Vst, Est Level IV 14:26:42 INFORMATION TECHNOLOGY CONSULTANT Chantelle Nobles Ronnie, DO, FACP CPT-28830 Ofc Vst, Est Level III 15:07:01 CDT Chantelleneha Nobles Ronnie, DO, FACP CPT-59155 Ofc Vst, Est Level IV 14:16:08 CDT Chantelleneah Nobles Trujillo, DO, FACP CPT-53385 Ofc Vst, Est Level IV 14:28:44 CDT Chantelle Virivincent Trujillo [facility] [place] CPT-79654 Ofc Vst, Est Level IV 14:06:35 INFORMATION TECHNOLOGY CONSULTANT Chantelle Trujillo [facility] [place] CPT-16160 Ofc Vst, Est Level III 14:26:15 INFORMATION TECHNOLOGY CONSULTANT Chantelle Trujillo [facility] [place] CPT-43147 Ofc Vst, Est Level IV 13:59:23 INFORMATION TECHNOLOGY CONSULTANT Chantelle Trujillo [facility] [place] CPT-26074 Ofc Vst, Est Level IV 15:24:23 INFORMATION TECHNOLOGY CONSULTANT Chantelle Trujillo [facility] [place] CPT-71015 Ofc Vst, Est Level IV 16:03:46 CDT Chantelle Viri Trujillo [facility] [place] CPT-20543 Ofc Vst, Est Level IV 15:19:26 CDT Chantelle Viri Trujillo [facility] [place] CPT-72935 Ofc Vst, Est Level IV 19:08:48 CDT Chantelle Viri Trujillo [facility] [place] CPT-31446 Ofc Vst, Est Level IV 16:25:43 CDT Chantelle Trujillo [facility] [place] CPT-94534 Ofc Vst, New Level IV 17:22:55 INFORMATION TECHNOLOGY CONSULTANT Chantelle Trujillo [facility] [place] Procedures Code Procedure Name Date Entry Date Standard Description CPT-G0439 Medicare Annual Wellness Visit 13:18:16 INFORMATION TECHNOLOGY CONSULTANT CPT-85182 Ear Wax Removal 12:14:17 CDT CPT-G8443 E-Prescribing Medication Sent 20:38:44 INFORMATION TECHNOLOGY CONSULTANT CPT-G0439 Medicare Annual Wellness Visit 20:38:44 INFORMATION TECHNOLOGY CONSULTANT CPT-G8445 E-Prescribing Not sent due to no medication given 15:55: 59 CDT CPT-G8445 E-Prescribing Not sent due to no medication given 11:58: 05 CDT CPT-G8445 E-Prescribing Not sent due to no medication given 16:33: 59 INFORMATION TECHNOLOGY CONSULTANT CPT-G8445 E-Prescribing Not sent due to no medication given 15:28: 42 INFORMATION TECHNOLOGY CONSULTANT CPT-G0438 Medicare Annual Wellness Visit Initial 15:28:42 INFORMATION TECHNOLOGY CONSULTANT CPT-8446 E-Prescribing not done due to controlled substance 14:23: 55 CDT CPT-G0008 Administration Influenza Vaccine 11:56:46 CDT CPT-08391 Influenza Vaccine 11:56:46 CDT CPT-98730 Administration of 1st dose vaccine 11:56:46 CDT CPT-G0008 Administration Influenza Vaccine 15:07:01 CDT CPT-31687 Influenza Vaccine 15:07:01 CDT
--- OUTSIDE RECORDS SUMMARY | 2018-09-09 12:47 | XMS REPORT | Clinical Summary ---
Author Author User, LILIBETH Organization [facility] [place] Address Unknown Phone Unavailable Allergies, Adverse Reactions, [...] Coronary atherosclerosis of unspecified type of vessel, [place] or graft GASTROESOPHAGEAL REFLUX DISEASE, CHRONIC 530.81 [...] Generic Name NDC Status Provider Patient Instruction ADVOCATE INSULIN SYRINGE 29G X 1/2" 0.3 ML MISC As directed INSULIN SYRINGE-NEEDLE U-100 90069085881 Active Chantelle Trujillo LANTUS 100 UNIT/ML SOLN 15 units injection at night INSULIN GLARGINE 93681028597 Active Chantelle Trujillo COZAAR 50 MG TAB 1 PO daily [place] POTASSIUM 14347167772 Active Chantelle Trujillo LOTRISONE 1-0.05 % CREA APPLY BID PRN CLOTRIMAZOLE- BETAMETHASONE 94091162311 Active Chantelle Trujillo DIOCTO 60 MG/15ML SYRP 2 drops placed in ear let stand for 5 minutes and rinse with water and repeat in other ear then return to doctor for rinsing 2013 DOCUSATE SODIUM 74468243695 No Longer Active Chantelle Trujillo LIPITOR 20 MG TAB 1 PO QD ATORVASTATIN CALCIUM 88322234704 Active Chantelle Trujillo ASPIRIN 81 MG TAB 1 PO daily ASPIRIN 89623975636 Active Chantelle Trujillo NITROSTAT 0.4 MG SL TAB 1 pill under tongue prn chest pain. May repeat twice then must go to ER NITROGLYCERIN 27000036100 Active Chantelle Trujillo NIASPAN 1000 MG CR-TABS 1 po QHS NIACIN (ANTIHYPERLIPIDEMIC) 64895027862 Active Chantelle Trujillo LISINOPRIL 40 MG TABS 1 PO BID LISINOPRIL 76225365874 Active Chantelle Trujillo RELION PRIME MONITOR ENRIQUE DIRECTED DX: 250.00 BLOOD GLUCOSE MONITORING SUPPL 16450321230 Active Davina Don RELION PRIME TEST STRP TEST BS QID DX: 250.00 GLUCOSE BLOOD 77259417955 Active Davina Dno FREESTYLE TEST STRP TEST BS QID DX: DIABETES GLUCOSE BLOOD 94762827170 Active Davina Don FREESTYLE GLUCOMETER DIRECTED DX: DIABETES FREESTYLE GLUCOMETER Active Davina Don ALCOHOL SWABS PADS clean area before swabbing ALCOHOL SWABS 39716103357 No Longer Active Chantelle Trujillo LANCETS MISC as directed LANCETS 17450801770 No Longer Active Chantelle Trujillo OPTIUM TEST STRIPS STRP Test blood sugar TID GLUCOSE BLOOD 09726059270 No Longer Active Chantelle Trujillo KETOCONAZOLE 2 % CREA apply to affected areas BID KETOCONAZOLE 37329849618 No Longer Active Chantelle Trujillo LOTRISONE 1-0.05 % CREA apply daily prn CLOTRIMAZOLE- BETAMETHASONE 61817515184 No Longer Active Chantelle Trujillo ZOFRAN ODT TBDP 1 PO Q 3HRS PRN ONDANSETRON TBDP 11030064409 No Longer Active Chantelleneha Trujillo LORAZEPAM 2 MG TABS 1 PO at HS PRN LORAZEPAM 36481088417 No Longer Active Chantelle Viri Trujillo PERCOCET 5-325 MG TABS 1 TAB PO Q 6 HRS PRN OXYCODONE -ACETAMINOPHEN 89347878534 No Longer Active Chantelle Viri Trujillo OPTIUM GLUCOSE MONITOR SYSTEM ENRIQUE as directed BLOOD GLUCOSE MONITORING SUPPL 84609066641 No Longer Active Chantelle Viri Trujillo MOBIC 15 MG TABS 1 PO Daily MELOXICAM 41930682106 No Longer Active Chantelle Viri Trujillo COLACE 100 MG CAPS 1 PO DAILY DOCUSATE SODIUM 59964569846 Active Chantelle Viri Trujillo NO FLUSH NIACIN 500 MG TABS 2 PO daily qhs INOSITOL NIACINATE 10450303482 No Longer Active Chantelle Viri Trujillo ULTRAM 50 MG TAB 1-2 PO TID prn TRAMADOL HCL 19059028375 No Longer Active Chantelle Viri Trujillo PEPCID 20 MG TABS 1 PO BID FAMOTIDINE 89724654944 Active Chantelle Viri Trujillo ZANTAC 75 TABS 1 PO BID RANITIDINE HCL TABS 88841676398 No Longer Active Chantelleneha Trujillo GLYBURIDE 5 MG TABS 1 PO BID GLYBURIDE 07009002212 Active Davina Don FLAX SEED OIL CAPS 1 PO Qhs FLAXSEED (LINSEED) CAPS 71804376637 No Longer Active Chantelleneha Trujillo LORTAB 5 5-500 MG TABS 1 to 2 PO Q6hrs prn ACETAMINOPHEN-HYDROCODONE 09347440389 No Longer Active Chantelle Viri Trujillo EFUDEX 5 % CREA apply sparingly twice weekly to arms FLUOROURACIL 70898395124 No Longer Active Chantelle Viri Trujillo PEPCID 20 MG TABS 1 PO BID FAMOTIDINE 67602163779 No Longer Active Chantelle Viri Trujillo PROTONIX 40 MG TBEC 1 PO daily PANTOPRAZOLE SODIUM 48655929029 No Longer Active Chantelle Viri Trujillo OMEPRAZOLE 20 MG CPDR 1 PO Daily OMEPRAZOLE 00168028735 No Longer Active Chantelle Viri Trujillo METFORMIN HCL 1000 MG TABS 1 PO BID METFORMIN HCL 42359851204 Active Davina Don SIMVASTATIN 40 MG TABS 1 po daily SIMVASTATIN 53033524324 No Longer Active Davina Don FISH OIL 1000 MG CAPS 4 po daily OMEGA-3 FATTY ACIDS 59818354609 Active Chantelle Viri Trujillo IMDUR 60 MG TB24 1 po HS ISOSORBIDE MONONITRATE 68293491327 No Longer Active Chantelle Viri Trujillo METOPROLOL TARTRATE 100 MG TABS 1 PO BID METOPROLOL TARTRATE 15837603259 Active Davinafernando Don KEFLEX 500 MG CAP 1 PO QID for 7 days CEPHALEXIN 91427064049 No Longer Active Chantelle Viri Trujillo OXISTAT 1 % CREA apply to affected areas twice daily including feet. 60 gram tube. OXICONAZOLE NITRATE 53458520824 No Longer Active Chantelle Viri Trujillo LIDEX 0.05 % OINT apply to affected areas twice daily for 7 days FLUOCINONIDE 60916774987 No Longer Active Chantelle Viri Trujillo MUCINEX 600 MG TB12 1 PO BID GUAIFENESIN 24669149736 No Longer Active Chantelle Viri Trujillo NORVASC 10 MG TABS 1 po QD AMLODIPINE BESYLATE 08535725173 Active Chantelle Viri Trujillo KLOR-CON 10 10 MEQ TBCR 1 po QD POTASSIUM CHLORIDE 41188548201 No Longer Active Chantelle Viri Trujillo ROBITUSSIN A-C 10-100 MG/5ML SYRUP 5cc PO Q 4-6 hr prn ROBITUSSIN A-C 10-100 MG/5ML SYRUP 00931779034 No Longer Active Chantelleneha Trujillo BIAXIN XL PAC 500 MG TB24 2 pills at same time daily ( take samples given in office until gone and then start the Rx) CLARITHROMYCIN 95743050993 No Longer Active Chantelle Viri Trujillo ATROVENT 0.06 % SOLN 2 puffs each nostril TID prn for runny nose IPRATROPIUM BROMIDE 60007724159 No Longer Active Chantelleneha Trujillo FLEXERIL 10 MG TABS 1 po BID prn neck pain CYCLOBENZAPRINE HCL 35118677024 No Longer Active Chantelleneha Trujillo ROBITUSSIN A-C 10-100 MG/5ML SYRUP 5cc PO Q 4-6 hr prn ROBITUSSIN A-C 10-100 MG/5ML SYRUP 50087962496 No Longer Active Chantelle Trujillo GLUCOMETER TEST STRIPS Check BS TID DX Diabetes GLUCOMETER TEST STRIPS No Longer Active Chantelle Trujillo GLUCOMETER MACHINE DX Diabetes GLUCOMETER MACHINE No Longer Active Chantelle Trujillo VYTORIN 10-40 MG TABS 1 PO daily EZETIMIBE-SIMVASTATIN 13023876603 No Longer Active Chantelle Trujillo AMOXIL 875 MG TABS 1 PO BID AMOXICILLIN 20962386595 No Longer Active Chantelle Trujillo PLAVIX 75 MG TABS 1 po daily CLOPIDOGREL BISULFATE 04487023467 Active Davina Don NEXIUM 40 MG CPDR 1 po daily ESOMEPRAZOLE MAGNESIUM 34589540789 No Longer Active Chantelle Trujillo LISINOPRIL-HCTZ 20-12.5 MG TABS 1 po daily LISINOPRIL-HCTZ 47591245253 No Longer Active Chantelle Trujillo MULTIVITAMINS TABS 1 po daily MULTIPLE VITAMIN 32704758865 Active Chantelleneha Trujillo VYTORIN 10/40 1 po daily VYTORIN No Longer Active Chantelle Viri Ronnie Immunizations Vaccine Administration Date Value Standard Description [...] mg/dL Encounters Code Encounter Date Provider Facility CPT-04952 Ofc Vst, Est Level IV 17:09:42 CDT Chantelle Trujillo DO, FACP CPT-07543 Ofc Vst, Est Level III 20:31:48 CDT Chantelle Trujillo DO, FACP CPT-58226 Ofc Vst, Est Level III 14:00:56 CDT Chantelle Trujillo DO, FACP CPT-66678 Ofc Vst, Est Level III 15:55:59 CDT Chantelle Trujillo DO, FACP CPT-32204 Ofc Vst, Est Level III 11:58:05 CDT Chantelle Trujillo DO, FACP CPT-84275 Ofc Vst, Est Level III 16:33:59 SEWER DIGGER Chantelleneha Nobles Trujillo, DO, FACP CPT-57556 Ofc Vst, Est Level IV 13:41:56 CDT Chantelle Viri Nobles Trujillo, DO, FACP CPT-92807 Ofc Vst, Est Level IV 13:46:20 CDT Chantelle Viri Nobles Trujillo, DO, FACP CPT-35272 Ofc Vst, Est Level IV 14:22:34 SEWER DIGGER Chantelleneha Nobles Trujillo, DO, FACP CPT-04882 Ofc Vst, Est Level IV 14:10:02 CDT Chantelleneha Nobles Trujillo, DO, FACP CPT-22849 Ofc Vst, Est Level III 16:17:29 CDT Chantelle Viri Nobles Ronnie, DO, FACP CPT-60205 Ofc Vst, Est Level IV 13:59:21 CDT Chantelle Viri Nobles Trujillo, DO, FACP CPT-16073 Ofc Vst, Est Level IV 13:59:18 CDT Chantelleneha Nobles Trujillo, DO, FACP CPT-51642 Ofc Vst, Est Level IV 13:59:52 SEWER DIGGER Chantelleneha Nobles Trujillo, DO, FACP CPT-06574 Ofc Vst, Est Level IV 14:16:34 CDT Chantelle Viri Nobles Trujillo, DO, FACP CPT-52944 Ofc Vst, Est Level IV 14:43:21 CDT Chantelle Viri Nobles Trujillo, DO, FACP CPT-34791 Ofc Vst, Est Level IV 13:51:54 CDT Chantelle Viri Nobles Ronnie, DO, FACP CPT-82213 Ofc Vst, Est Level IV 14:19:45 SEWER DIGGER Chantelle Nobles Ronnie, DO, FACP CPT-14063 Ofc Vst, Est Level IV 14:03:12 CDT Davina Nobles Ronnie, DO, FACP CPT-85769 Ofc Vst, Est Level IV 14:23:55 CDT Chantelle Nobles Ronnie, DO, FACP CPT-57678 Ofc Vst, Est Level IV 13:46:12 SEWER DIGGER Chantelle oNbles Ronnie, DO, FACP CPT-75511 Ofc Vst, Est Level IV 14:21:29 SEWER DIGGER Chantelle Nobles Ronnie, DO, FACP CPT-15605 Ofc Vst, Est Level IV 11:56:46 CDT Chantelle Nobles Ronnie, DO, FACP CPT-97358 Ofc Vst, Est Level IV 15:06:28 CDT Chantelle Trujillo [facility] CPT-57473 Ofc Vst, Est Level III 10:49:32 SEWER DIGGER Chantelle Nobles Ronnie, DO, FACP CPT-23032 Ofc Vst, Est Level IV 14:26:42 SEWER DIGGER Chantelle Nobles Ronnie, DO, FACP CPT-15922 Ofc Vst, Est Level III 15:07:01 CDT Chantelle Ratliffner Chantelle Nobles Ronnie, DO, FACP CPT-62377 Ofc Vst, Est Level IV 14:16:08 CDT Chantelle Meredith Ronnie Chantelle Nobles Ronnie, DO, FACP CPT-28439 Ofc Vst, Est Level IV 14:28:44 CDT Chantelle Viri Ronnie [facility] [place] CPT-70626 Ofc Vst, Est Level IV 14:06:35 SEWER DIGGER Chantelle Trujillo [facility] [place] CPT-54266 Ofc Vst, Est Level III 14:26:15 SEWER DIGGER Chantelle Virivincent Trujillo [facility] [place] CPT-14626 Ofc Vst, Est Level IV 13:59:23 SEWER DIGGER Chantelle Viri Trujillo [facility] [place] CPT-12737 Ofc Vst, Est Level IV 15:24:23 SEWER DIGGER Chantelle Virivincent Trujillo [facility] [place] CPT-79975 Ofc Vst, Est Level IV 16:03:46 CDT Chantelle Viri Ronnie [facility] [place] CPT-65356 Ofc Vst, Est Level IV 15:19:26 CDT Chantelle Viri Ronnie [facility] [place] CPT-78685 Ofc Vst, Est Level IV 19:08:48 CDT Chantelle Viri Ronnie [facility] [place] CPT-84789 Ofc Vst, Est Level IV 16:25:43 CDT Chantelle Viri Ronnie [facility] [place] CPT-30470 Ofc Vst, New Level IV 17:22:55 SEWER DIGGER Chantelle Viri Trujillo [facility] [place] Procedures Code Procedure Name Date Entry Date Standard Description CPT-G0439 Medicare Annual Wellness Visit 13:18:16 SEWER DIGGER CPT-73482 Ear Wax Removal 12:14:17 CDT CPT-G8443 E-Prescribing Medication Sent 20:38:44 SEWER DIGGER CPT-G0439 Medicare Annual Wellness Visit 20:38:44 SEWER DIGGER CPT-G8445 E-Prescribing Not sent due to no medication given 15:55: 59 CDT CPT-G8445 E-Prescribing Not sent due to no medication given 11:58: 05 CDT CPT-G8445 E-Prescribing Not sent due to no medication given 16:33: 59 SEWER DIGGER CPT-G8445 E-Prescribing Not sent due to no medication given 15:28: 42 SEWER DIGGER CPT-G0438 Medicare Annual Wellness Visit Initial 15:28:42 SEWER DIGGER CPT-8446 E-Prescribing not done due to controlled substance 14:23: 55 CDT CPT-G0008 Administration Influenza Vaccine 11:56:46 CDT CPT-97793 Influenza Vaccine 11:56:46 CDT CPT-98956 Administration of 1st dose vaccine 11:56:46 CDT CPT-G0008 Administration Influenza Vaccine 15:07:01 CDT CPT-26217 Influenza Vaccine 15:07:01 CDT
--- OUTSIDE RECORDS SUMMARY | 2018-09-09 12:48 | XMS REPORT | Clinical Summary ---
Author Author User, LILIBETH Organization [facility] [place] Address Unknown Phone Unavailable Allergies, Adverse Reactions, [...] Coronary atherosclerosis of unspecified type of vessel, ivanof bay or graft GASTROESOPHAGEAL REFLUX DISEASE, CHRONIC 530.81 [...] % CREA APPLY BID PRN CLOTRIMAZOLE- BETAMETHASONE 87875813916 Active Davina Don DIOCTO 60 MG/15ML SYRP 2 drops placed in ear let stand for 5 minutes and rinse with water and repeat in other ear then return to doctor for rinsing 2013 DOCUSATE SODIUM [id number] No Longer Active Chantelle Trujillo LIPITOR 20 MG TAB 1 PO QD ATORVASTATIN CALCIUM 76057536050 Active Chantelle Trujillo ASPIRIN 81 MG TAB 1 PO daily ASPIRIN 35759480636 Active Chantelle Trujillo NITROSTAT 0.4 MG SL TAB 1 pill under tongue prn chest pain. May repeat twice then must go to ER NITROGLYCERIN 95568267892 Active Chantelle Trujillo NIASPAN 1000 MG CR-TABS 1 po QHS NIACIN (ANTIHYPERLIPIDEMIC) 44700423066 Active Chantelle Trujillo LISINOPRIL 40 MG TABS 1 PO BID LISINOPRIL 13928441957 Active Chantelle Trujillo RELION PRIME MONITOR ENRIQUE DIRECTED DX: 250.00 BLOOD GLUCOSE MONITORING SUPPL 75489815676 Active Davina Arian RELION PRIME TEST STRP TEST BS QID DX: 250.00 GLUCOSE BLOOD 28511621512 Active Davina Arian FREESTYLE TEST STRP TEST BS QID DX: DIABETES GLUCOSE BLOOD 87358638074 Active Davinafernando Don FREESTYLE GLUCOMETER DIRECTED DX: DIABETES FREESTYLE GLUCOMETER Active Davina Don ALCOHOL SWABS PADS clean area before swabbing ALCOHOL SWABS 61225026074 No Longer Active Chantelle Trujillo LANCETS MISC as directed LANCETS 73002429108 No Longer Active Chantelle Trujillo OPTIUM TEST STRIPS STRP Test blood sugar TID GLUCOSE BLOOD 47239003825 No Longer Active Chantelleneha Trujillo KETOCONAZOLE 2 % CREA apply to affected areas BID KETOCONAZOLE 99396776556 No Longer Active Chantelleneha Trujillo LOTRISONE 1-0.05 % CREA apply daily prn CLOTRIMAZOLE- BETAMETHASONE 35553793110 No Longer Active Chantelle Trujillo ZOFRAN ODT TBDP 1 PO Q 3HRS PRN ONDANSETRON TBDP 78493088214 No Longer Active Chantelleneha Trujillo LORAZEPAM 2 MG TABS 1 PO at HS PRN LORAZEPAM 35147065316 No Longer Active Chantelleneha Trujillo PERCOCET 5-325 MG TABS 1 TAB PO Q 6 HRS PRN OXYCODONE -ACETAMINOPHEN 29704360839 No Longer Active Chantelle Trujillo OPTIUM GLUCOSE MONITOR SYSTEM ENRIQUE as directed BLOOD GLUCOSE MONITORING SUPPL 84639611311 No Longer Active Chantelleneha Trujillo MOBIC 15 MG TABS 1 PO Daily MELOXICAM 57502668156 No Longer Active Chantelle Viri Trujillo COLACE 100 MG CAPS 1 PO DAILY DOCUSATE SODIUM 87839285557 Active Chantelle Viri Trujillo NO FLUSH NIACIN 500 MG TABS 2 PO daily qhs INOSITOL NIACINATE 21904921027 No Longer Active Chantelle Viri Trujillo ULTRAM 50 MG TAB 1-2 PO TID prn TRAMADOL HCL 03967797147 No Longer Active Chantelle Viri Trujillo PEPCID 20 MG TABS 1 PO BID FAMOTIDINE 90472336406 Active Chantelle Viri Trujillo ZANTAC 75 TABS 1 PO BID RANITIDINE HCL TABS 99774091544 No Longer Active Chantelle Viri Trujillo GLYBURIDE 5 MG TABS 1 PO BID GLYBURIDE 46174073201 Active Davina Don FLAX SEED OIL CAPS 1 PO Qhs FLAXSEED (LINSEED) CAPS 67448390740 No Longer Active Chantelleneha Trujillo LORTAB 5 5-500 MG TABS 1 to 2 PO Q6hrs prn ACETAMINOPHEN-HYDROCODONE 56835426126 No Longer Active Chantelle Viri Trujillo EFUDEX 5 % CREA apply sparingly twice weekly to arms FLUOROURACIL 95116670366 No Longer Active Chantelle Viri Trujillo PEPCID 20 MG TABS 1 PO BID FAMOTIDINE 05230542460 No Longer Active Chantelle Viri Trujillo PROTONIX 40 MG TBEC 1 PO daily PANTOPRAZOLE SODIUM 78510663895 No Longer Active Chantelle Viri Trujillo OMEPRAZOLE 20 MG CPDR 1 PO Daily OMEPRAZOLE 68958780323 No Longer Active Chantelle Viri Trujillo METFORMIN HCL 1000 MG TABS 1 PO BID METFORMIN HCL 37100344627 Active Dvaina Don SIMVASTATIN 40 MG TABS 1 po daily SIMVASTATIN 56803338493 No Longer Active Davina Don FISH OIL 1000 MG CAPS 4 po daily OMEGA-3 FATTY ACIDS 57800999691 Active Chantelle Viri Trujillo IMDUR 60 MG TB24 1 po HS ISOSORBIDE MONONITRATE 30164245800 No Longer Active Chantelleneha Trujillo METOPROLOL TARTRATE 100 MG TABS 1 PO BID METOPROLOL TARTRATE 15582839489 Active Davina Don KEFLEX 500 MG CAP 1 PO QID for 7 days CEPHALEXIN 96651464237 No Longer Active Chantelleneha Trujillo OXISTAT 1 % CREA apply to affected areas twice daily including feet. 60 gram tube. OXICONAZOLE NITRATE 68632531109 No Longer Active Chantelleneha Trujillo LIDEX 0.05 % OINT apply to affected areas twice daily for 7 days FLUOCINONIDE 62270156573 No Longer Active Chantelle Viri Trujillo MUCINEX 600 MG TB12 1 PO BID GUAIFENESIN 31239536138 No Longer Active Chantelle Viri Trujillo NORVASC 10 MG TABS 1 po QD AMLODIPINE BESYLATE 78801539902 Active Chantelle Viri Trujillo KLOR-CON 10 10 MEQ TBCR 1 po QD POTASSIUM CHLORIDE 99122944629 No Longer Active Chantelleneha Trujillo ROBITUSSIN A-C 10-100 MG/5ML SYRUP 5cc PO Q 4-6 hr prn ROBITUSSIN A-C 10-100 MG/5ML SYRUP 04168753974 No Longer Active Chantelle Trujillo BIAXIN XL PAC 500 MG TB24 2 pills at same time daily ( take samples given in office until gone and then start the Rx) CLARITHROMYCIN 56708827399 No Longer Active Chantelleneha Trujillo ATROVENT 0.06 % SOLN 2 puffs each nostril TID prn for runny nose IPRATROPIUM BROMIDE 51107690809 No Longer Active Chantelle Trujillo FLEXERIL 10 MG TABS 1 po BID prn neck pain CYCLOBENZAPRINE HCL 95438636382 No Longer Active Chantelleneha Trujillo ROBITUSSIN A-C 10-100 MG/5ML SYRUP 5cc PO Q 4-6 hr prn ROBITUSSIN A-C 10-100 MG/5ML SYRUP 38931803241 No Longer Active Chantelle Trujillo GLUCOMETER TEST STRIPS Check BS TID DX Diabetes GLUCOMETER TEST STRIPS No Longer Active Chantelle Trujillo GLUCOMETER MACHINE DX Diabetes GLUCOMETER MACHINE No Longer Active Chantelle Trujillo VYTORIN 10-40 MG TABS 1 PO daily EZETIMIBE-SIMVASTATIN 08762227386 No Longer Active Chantelle Trujillo AMOXIL 875 MG TABS 1 PO BID AMOXICILLIN 12472633328 No Longer Active Chantelle Trujillo PLAVIX 75 MG TABS 1 po daily CLOPIDOGREL BISULFATE 14835995852 Active Daivnafernando Don NEXIUM 40 MG CPDR 1 po daily ESOMEPRAZOLE MAGNESIUM 47159935840 No Longer Active Chantelle Trujillo LISINOPRIL-HCTZ 20-12.5 MG TABS 1 po daily LISINOPRIL-HCTZ 45961707050 No Longer Active Chantelle Trujillo MULTIVITAMINS TABS 1 po daily MULTIPLE VITAMIN 58516009462 Active Chantelle Trujillo VYTORIN 10/40 1 po [...] MicroAlbumin,HGA1C - Chemistry sodium, serum 132 mmol/L calcium, serum 9.8 mg/dL creatinine, serum 0.8 mg/dL urea nitrogen, blood 14 mg/dL bilirubin, serum, total 0.7 mg/dL anion gap, serum 12 carbon dioxide, venous blood 30.0 mmol/L alkaline phosphatase, serum 47 U/L albumin, serum 4.2 g/dL chloride, serum 94 mmol/L hemoglobin A1C, blood, as % of total hemoglobin 7.7 % triglyceride, serum, fasting 259 mg/dL thyroid stimulating hormone, serum 1.03 u[iU]/mL Estimated Glomerular Filtration Rate (calc) 96 mL/min/1.73m2 potassium, serum 3.9 mmol/L protein, total, serum 6.7 g/dL aspartate aminotransferase (SGOT), serum 16 U/L glucose, plasma fasting 158 mg/dL alanine aminotransferase (SGPT), serum 17 U/L cholesterol, serum 131 mg/dL Clinical Lists Update: CMP, TSH, MicroAlbumin,HGA1C - Urinalysis microalbumin, urine, semiquantitative 58.1 mg/dL Clinical Lists Update: CMP,FLP,HgA1c - Chemistry glucose, plasma fasting 155 mg/dL hemoglobin A1C, blood, as % of total hemoglobin 7.1 % HDL cholesterol, serum 48.0 mg/dL sodium, serum 133 mmol/L creatinine, serum 0.8 mg/dL triglyceride, serum, fasting 295 mg/dL chloride, serum 92 mmol/L alkaline phosphatase, serum 47 U/L calcium, serum 9.9 mg/dL cholesterol/HDL ratio, serum, percent 3.1 potassium, serum 3.7 mmol/L bilirubin, serum, total 1.0 mg/dL Estimated Glomerular Filtration Rate (calc) 100 mL/min/1.73m2 protein, total, serum 7.2 g/dL albumin, serum 4.6 g/dL cholesterol, serum 149 mg/dL aspartate aminotransferase (SGOT), serum 18 U/L carbon dioxide, venous blood 32.0 mmol/L LDL cholesterol, serum 42 mg/dL alanine aminotransferase (SGPT), serum 22 U/L anion gap, serum 13 urea nitrogen, blood 13 mg/dL Office Visit: Dr Trujillo's Check Up: Established Patient Visit - Chemistry sodium, serum 136 mmol/L alanine aminotransferase (SGPT), serum 19 U/L aspartate aminotransferase (SGOT), serum 17 U/L protein, total, serum 7.1 g/dL potassium, serum 3.8 mmol/L thyroid stimulating hormone, serum 0.80 u[iU]/mL triglyceride, serum, fasting 216 mg/dL calcium, serum 9.8 mg/dL urea nitrogen, blood 15 mg/dL bilirubin, serum, total 0.9 mg/dL anion gap, serum 13 alkaline phosphatase, serum 48 U/L albumin, serum 4.4 g/dL hemoglobin A1C, blood, as % of total hemoglobin 7.3 % glucose, plasma fasting 196 mg/dL Estimated Glomerular Filtration Rate (calc) 81 mL/min/1.73m2 creatinine, serum 1.0 mg/dL carbon dioxide, venous blood 32.0 mmol/L cholesterol, serum 130 mg/dL chloride, serum 95 mmol/L Encounters Code Encounter Date Provider Facility CPT-09509 Ofc Vst, Est Level III 20:31:48 CDT Chantelle Trujillo DO, FACStefani CPT-64635 Ofc Vst, Est Level III 14:00:56 CDT Chantelle Trujillo DO, FACP CPT-56573 Ofc Vst, Est Level III 15:55:59 CDT Chantelle Viri Nobles Trujillo, DO, FACP CPT-10519 Ofc Vst, Est Level III 11:58:05 CDT Chantelle iVri Nobles Trujillo, DO, FACP CPT-86941 Ofc Vst, Est Level III 16:33:59 PRELOAD SUPERVISOR Chnatelleneha Nobles Trujillo, DO, FACP CPT-45580 Ofc Vst, Est Level IV 13:41:56 CDT Chantelle Viri Nobles Trujillo, DO, FACP CPT-61661 Ofc Vst, Est Level IV 13:46:20 CDT Chantelle Viri Nobles Ronnie, DO, FACP CPT-28964 Ofc Vst, Est Level IV 14:22:34 [employer] SUPERVIS[employer] Chantelleneha Nobles Ronnie, DO, FACP CPT-41301 Ofc Vst, Est Level IV 14:10:02 CDT Chantelle Viri Nobles Ronnie, DO, FACP CPT-79066 Ofc Vst, Est Level III 16:17:29 CDT Chantelleneha Nobles Ronnie, DO, FACP CPT-33337 Ofc Vst, Est Level IV 13:59:21 CDT Chantelle Viri Nobles Ronnie, DO, FACP CPT-60748 Ofc Vst, Est Level IV 13:59:18 CDT Chantelle Viri Nobles Trujillo, DO, FACP CPT-95154 Ofc Vst, Est Level IV 13:59:52 [employer]LOAD SUPERVISOR Chantelle Nobles Ronnie, DO, FACP CPT-07492 Ofc Vst, Est Level IV 14:16:34 CDT Chantelle Viri Nobles Ronnie, DO, FACP CPT-54966 Ofc Vst, Est Level IV 14:43:21 CDT Chantelleneha Nobles Trujillo, DO, FACP CPT-79564 Ofc Vst, Est Level IV 13:51:54 CDT Chantelle Viri Nobles Ronnie, DO, FACP CPT-78075 Ofc Vst, Est Level IV 14:19:45 PRELOAD SUPERVISOR Chantelle Viri Nobles Ronnie, DO, FACP CPT-62760 Ofc Vst, Est Level IV 14:03:12 CDT Davina Nobles Trujillo, DO, FACP CPT-06116 Ofc Vst, Est Level IV 14:23:55 CDT Chantelle Viri Nobles Ronnie, DO, FACP CPT-24206 Ofc Vst, Est Level IV 13:46:12 [employer]LOAD SUPERVISOR Chantelle Viri Nobles Ronnie, DO, FACP CPT-53902 Ofc Vst, Est Level IV 14:21:29 [employer]LOAD SUPERVISOR Chantelleneha Nobles Ronnie, DO, FACP CPT-48038 Ofc Vst, Est Level IV 11:56:46 CDT Chantelle Viri Nobles Ronnie, DO, FACP CPT-44753 Ofc Vst, Est Level IV 15:06:28 CDT Chantelle Trujillo [facility] CPT-09607 Ofc Vst, Est Level III 10:49:32 [employer]LOAD SUPERVISOR Chantelleneha Nobles Ronnie, DO, FACP CPT-22573 Ofc Vst, Est Level IV 14:26:42 PRELOAD SUPERVISOR Chantelle Nobles Ronnie, DO, FACP CPT-71366 Ofc Vst, Est Level III 15:07:01 CDT Chantelleneha Nobles Ronnie, DO, FACP CPT-32500 Ofc Vst, Est Level IV 14:16:08 CDT Chantelleneha Nobles Trujillo, DO, FACP CPT-48108 Ofc Vst, Est Level IV 14:28:44 CDT Chantelle Virivincent Trujillo [facility] [place] CPT-30386 Ofc Vst, Est Level IV 14:06:35 PRELOAD SUPERVISOR Chantelle Trujillo [facility] [place] CPT-08455 Ofc Vst, Est Level III 14:26:15 PRELOAD SUPERVISOR Chantelle Trujillo [facility] [place] CPT-32261 Ofc Vst, Est Level IV 13:59:23 PRELOAD SUPERVISOR Chantelle Trujillo [facility] [place] CPT-02448 Ofc Vst, Est Level IV 15:24:23 PRELOAD SUPERVISOR Chantelle Trujillo [facility] [place] CPT-96555 Ofc Vst, Est Level IV 16:03:46 CDT Chantelle Viri Trujillo [facility] [place] CPT-35164 Ofc Vst, Est Level IV 15:19:26 CDT Chantelle Viri Trujillo [facility] [place] CPT-22428 Ofc Vst, Est Level IV 19:08:48 CDT Chantelle Viri Trujillo [facility] [place] CPT-78712 Ofc Vst, Est Level IV 16:25:43 CDT Chantelle Trujillo [facility] [place] CPT-36854 Ofc Vst, New Level IV 17:22:55 PRELOAD SUPERVISOR Chantelle Trujillo [facility] [place] Procedures Code Procedure Name Date Entry Date Standard Description CPT-G0439 Medicare Annual Wellness Visit 13:18:16 PRELOAD SUPERVISOR CPT-12728 Ear Wax Removal 12:14:17 CDT CPT-G8443 E-Prescribing Medication Sent 20:38:44 PRELOAD SUPERVISOR CPT-G0439 Medicare Annual Wellness Visit 20:38:44 PRELOAD SUPERVISOR CPT-G8445 E-Prescribing Not sent due to no medication given 15:55: 59 CDT CPT-G8445 E-Prescribing Not sent due to no medication given 11:58: 05 CDT CPT-G8445 E-Prescribing Not sent due to no medication given 16:33: 59 PRELOAD SUPERVISOR CPT-G8445 E-Prescribing Not sent due to no medication given 15:28: 42 PRELOAD SUPERVISOR CPT-G0438 Medicare Annual Wellness Visit Initial 15:28:42 PRELOAD SUPERVISOR CPT-8446 E-Prescribing not done due to controlled substance 14:23: 55 CDT CPT-G0008 Administration Influenza Vaccine 11:56:46 CDT CPT-38173 Influenza Vaccine 11:56:46 CDT CPT-35467 Administration of 1st dose vaccine 11:56:46 CDT CPT-G0008 Administration Influenza Vaccine 15:07:01 CDT CPT-24061 Influenza Vaccine 15:07:01 CDT
[2018-09-09] MEDS ORDERED: METF-399 PO (12:49)
[2018-09-09] MEDS ORDERED: NPH,100V SC (12:49)
--- OUTSIDE RECORDS SUMMARY | 2018-09-09 12:49 | XMS REPORT | Clinical Summary ---
Author Author User, LILIBETH Organization [facility] [place] Address Unknown Phone Unavailable Allergies, Adverse Reactions, [...] Coronary atherosclerosis of unspecified type of vessel, iroquois or graft GASTROESOPHAGEAL REFLUX DISEASE, CHRONIC 530.81 [...] % CREA APPLY BID PRN CLOTRIMAZOLE- BETAMETHASONE 74296062127 Active Davina Don DIOCTO 60 MG/15ML SYRP 2 drops placed in ear let stand for 5 minutes and rinse with water and repeat in other ear then return to doctor for rinsing 2013 DOCUSATE SODIUM [id number] No Longer Active Chantelle Trujillo LIPITOR 20 MG TAB 1 PO QD ATORVASTATIN CALCIUM 61935070203 Active Chantelle Trujillo ASPIRIN 81 MG TAB 1 PO daily ASPIRIN 27046651167 Active Chantelle Trujillo NITROSTAT 0.4 MG SL TAB 1 pill under tongue prn chest pain. May repeat twice then must go to ER NITROGLYCERIN 34530058842 Active Chantelle Trujillo NIASPAN 1000 MG CR-TABS 1 po QHS NIACIN (ANTIHYPERLIPIDEMIC) 61249586251 Active Chantelle Trujillo LISINOPRIL 40 MG TABS 1 PO BID LISINOPRIL 65714331896 Active Chantelle Trujillo RELION PRIME MONITOR ENRIQUE DIRECTED DX: 250.00 BLOOD GLUCOSE MONITORING SUPPL 28478979390 Active Davina Arian RELION PRIME TEST STRP TEST BS QID DX: 250.00 GLUCOSE BLOOD 30462636031 Active Davina Arian FREESTYLE TEST STRP TEST BS QID DX: DIABETES GLUCOSE BLOOD 65314498156 Active Davinafernando Don FREESTYLE GLUCOMETER DIRECTED DX: DIABETES FREESTYLE GLUCOMETER Active Davina Don ALCOHOL SWABS PADS clean area before swabbing ALCOHOL SWABS 85597420509 No Longer Active Chantelle Trujillo LANCETS MISC as directed LANCETS 89894293374 No Longer Active Chantelle Trujillo OPTIUM TEST STRIPS STRP Test blood sugar TID GLUCOSE BLOOD 21231867445 No Longer Active Chantelleneha Trujillo KETOCONAZOLE 2 % CREA apply to affected areas BID KETOCONAZOLE 29869922501 No Longer Active Chantelleneha Trujillo LOTRISONE 1-0.05 % CREA apply daily prn CLOTRIMAZOLE- BETAMETHASONE 29815933451 No Longer Active Chantelle Trujillo ZOFRAN ODT TBDP 1 PO Q 3HRS PRN ONDANSETRON TBDP 77834725592 No Longer Active Chantelleneha Trujillo LORAZEPAM 2 MG TABS 1 PO at HS PRN LORAZEPAM 58015959100 No Longer Active Chantelleneha Trujillo PERCOCET 5-325 MG TABS 1 TAB PO Q 6 HRS PRN OXYCODONE -ACETAMINOPHEN 72952208726 No Longer Active Chantelle Trujillo OPTIUM GLUCOSE MONITOR SYSTEM ENRIQUE as directed BLOOD GLUCOSE MONITORING SUPPL 70735719930 No Longer Active Chantelleneha Trujillo MOBIC 15 MG TABS 1 PO Daily MELOXICAM 59992720068 No Longer Active Chantelle Viri Trujillo COLACE 100 MG CAPS 1 PO DAILY DOCUSATE SODIUM 10374394579 Active Chantelle Viri Trujillo NO FLUSH NIACIN 500 MG TABS 2 PO daily qhs INOSITOL NIACINATE 69641341717 No Longer Active Chantelle Viri Trujillo ULTRAM 50 MG TAB 1-2 PO TID prn TRAMADOL HCL 33053489792 No Longer Active Chantelle Viri Trujillo PEPCID 20 MG TABS 1 PO BID FAMOTIDINE 65270922675 Active Chantelle Viri Trujillo ZANTAC 75 TABS 1 PO BID RANITIDINE HCL TABS 14869840441 No Longer Active Chantelle Viri Trujillo GLYBURIDE 5 MG TABS 1 PO BID GLYBURIDE 70111212073 Active Davina Don FLAX SEED OIL CAPS 1 PO Qhs FLAXSEED (LINSEED) CAPS 99920125495 No Longer Active Chantelleneha Trujillo LORTAB 5 5-500 MG TABS 1 to 2 PO Q6hrs prn ACETAMINOPHEN-HYDROCODONE 56181277440 No Longer Active Chantelle Viri Trujillo EFUDEX 5 % CREA apply sparingly twice weekly to arms FLUOROURACIL 17965646355 No Longer Active Chantelle Viri Trujillo PEPCID 20 MG TABS 1 PO BID FAMOTIDINE 29914982972 No Longer Active Chantelle Viri Trujillo PROTONIX 40 MG TBEC 1 PO daily PANTOPRAZOLE SODIUM 12426160291 No Longer Active Chantelle Viri Trujillo OMEPRAZOLE 20 MG CPDR 1 PO Daily OMEPRAZOLE 08361055378 No Longer Active Chantelle Viri Trujillo METFORMIN HCL 1000 MG TABS 1 PO BID METFORMIN HCL 05327863547 Active Davina Don SIMVASTATIN 40 MG TABS 1 po daily SIMVASTATIN 86372389881 No Longer Active Davina Don FISH OIL 1000 MG CAPS 4 po daily OMEGA-3 FATTY ACIDS 67961109168 Active Chantelle Viri Trujillo IMDUR 60 MG TB24 1 po HS ISOSORBIDE MONONITRATE 62272263260 No Longer Active Chantelleneha Trujillo METOPROLOL TARTRATE 100 MG TABS 1 PO BID METOPROLOL TARTRATE 71376024008 Active Davina Don KEFLEX 500 MG CAP 1 PO QID for 7 days CEPHALEXIN 45315092264 No Longer Active Chantelleneha Trujillo OXISTAT 1 % CREA apply to affected areas twice daily including feet. 60 gram tube. OXICONAZOLE NITRATE 54915423681 No Longer Active Chantelleneha Trujillo LIDEX 0.05 % OINT apply to affected areas twice daily for 7 days FLUOCINONIDE 62661536550 No Longer Active Chantelle Viri Trujillo MUCINEX 600 MG TB12 1 PO BID GUAIFENESIN 69424701058 No Longer Active Chantelle Viri Trujillo NORVASC 10 MG TABS 1 po QD AMLODIPINE BESYLATE 34191468500 Active Chantelle Viri Trujillo KLOR-CON 10 10 MEQ TBCR 1 po QD POTASSIUM CHLORIDE 58326933891 No Longer Active Chantelleneha Trujillo ROBITUSSIN A-C 10-100 MG/5ML SYRUP 5cc PO Q 4-6 hr prn ROBITUSSIN A-C 10-100 MG/5ML SYRUP 68615653145 No Longer Active Chantelle Trujillo BIAXIN XL PAC 500 MG TB24 2 pills at same time daily ( take samples given in office until gone and then start the Rx) CLARITHROMYCIN 00787346483 No Longer Active Chantelleneha Trujillo ATROVENT 0.06 % SOLN 2 puffs each nostril TID prn for runny nose IPRATROPIUM BROMIDE 45764230416 No Longer Active Chantelle Trujillo FLEXERIL 10 MG TABS 1 po BID prn neck pain CYCLOBENZAPRINE HCL 72658203730 No Longer Active Chantelleneha Trujillo ROBITUSSIN A-C 10-100 MG/5ML SYRUP 5cc PO Q 4-6 hr prn ROBITUSSIN A-C 10-100 MG/5ML SYRUP 75520535324 No Longer Active Chantelle Trujillo GLUCOMETER TEST STRIPS Check BS TID DX Diabetes GLUCOMETER TEST STRIPS No Longer Active Chantelle Trujillo GLUCOMETER MACHINE DX Diabetes GLUCOMETER MACHINE No Longer Active Chantelle Trujillo VYTORIN 10-40 MG TABS 1 PO daily EZETIMIBE-SIMVASTATIN 31775188631 No Longer Active Chantelle Trujillo AMOXIL 875 MG TABS 1 PO BID AMOXICILLIN 58524997016 No Longer Active Chantelle Trujillo PLAVIX 75 MG TABS 1 po daily CLOPIDOGREL BISULFATE 40072352152 Active Davinafernando Don NEXIUM 40 MG CPDR 1 po daily ESOMEPRAZOLE MAGNESIUM 11209737816 No Longer Active Chantelle Trujillo LISINOPRIL-HCTZ 20-12.5 MG TABS 1 po daily LISINOPRIL-HCTZ 44027809103 No Longer Active Chantelle Trujillo MULTIVITAMINS TABS 1 po daily MULTIPLE VITAMIN 50586429975 Active Chantelle Trujillo VYTORIN 10/40 1 po [...] mg/dL Encounters Code Encounter Date Provider Facility CPT-25624 Ofc Vst, Est Level III 20:31:48 CDT Chantelle Trujillo DO, FACStefani CPT-82464 Ofc Vst, Est Level III 14:00:56 CDT Chantelle Trujillo DO, FACP CPT-74215 Ofc Vst, Est Level III 15:55:59 CDT Chantelle Viri Nobles Trujillo, DO, FACP CPT-90283 Ofc Vst, Est Level III 11:58:05 CDT Chantelle Viri Nboles Trujillo, DO, FACP CPT-24772 Ofc Vst, Est Level III 16:33:59 IT APPLICATION ARCHITECT Chantelleneha Nobles Trujillo, DO, FACP CPT-48926 Ofc Vst, Est Level IV 13:41:56 CDT Chantelle Viri Nobles Trujillo, DO, FACP CPT-70450 Ofc Vst, Est Level IV 13:46:20 CDT Chantelle Viri Nobles Ronnie, DO, FACP CPT-65756 Ofc Vst, Est Level IV 14:22:34 IT APPLICATION ARCHITECT Chantelleneha Nobles Ronnie, DO, FACP CPT-15043 Ofc Vst, Est Level IV 14:10:02 CDT Chantelle Viri Nobles Ronnie, DO, FACP CPT-14965 Ofc Vst, Est Level III 16:17:29 CDT Chantelleneha Nobles Ronnie, DO, FACP CPT-18524 Ofc Vst, Est Level IV 13:59:21 CDT Chantelle Viri Nobles Ronnie, DO, FACP CPT-59980 Ofc Vst, Est Level IV 13:59:18 CDT Chantelle Viri Nobles Trujillo, DO, FACP CPT-67953 Ofc Vst, Est Level IV 13:59:52 IT APPLICATION ARCHITECT Chantelle Nobles Ronnie, DO, FACP CPT-56798 Ofc Vst, Est Level IV 14:16:34 CDT Chantelle Viri Nobles Ronnie, DO, FACP CPT-40169 Ofc Vst, Est Level IV 14:43:21 CDT Chantelleneha Nobles Trujillo, DO, FACP CPT-52525 Ofc Vst, Est Level IV 13:51:54 CDT Chantelle Viri Nobles Ronnie, DO, FACP CPT-70353 Ofc Vst, Est Level IV 14:19:45 IT APPLICATION ARCHITECT Chantelle Viri Nobles Ronnie, DO, FACP CPT-63322 Ofc Vst, Est Level IV 14:03:12 CDT Davina Nobles Trujillo, DO, FACP CPT-64105 Ofc Vst, Est Level IV 14:23:55 CDT Chantelle Viri Nobles Ronnie, DO, FACP CPT-24363 Ofc Vst, Est Level IV 13:46:12 IT APPLICATION ARCHITECT Chantelle Viri Nobles Ronnie, DO, FACP CPT-27826 Ofc Vst, Est Level IV 14:21:29 IT APPLICATION ARCHITECT Chantelleneha Nobles Ronnie, DO, FACP CPT-02150 Ofc Vst, Est Level IV 11:56:46 CDT Chantelle Viri Nobles Ronnie, DO, FACP CPT-02484 Ofc Vst, Est Level IV 15:06:28 CDT Chantelle Trujillo [facility] CPT-32565 Ofc Vst, Est Level III 10:49:32 IT APPLICATION ARCHITECT Chantelleneha Nobles Ronnie, DO, FACP CPT-94473 Ofc Vst, Est Level IV 14:26:42 IT APPLICATION ARCHITECT Chantelle Nobles Ronnie, DO, FACP CPT-39394 Ofc Vst, Est Level III 15:07:01 CDT Chantelleneha Nobles Ronnie, DO, FACP CPT-79098 Ofc Vst, Est Level IV 14:16:08 CDT Chantelleneha Nobles Trujillo, DO, FACP CPT-38648 Ofc Vst, Est Level IV 14:28:44 CDT Chantelle Virivincent Trujillo [facility] [place] CPT-93030 Ofc Vst, Est Level IV 14:06:35 IT APPLICATION ARCHITECT Chantelle Trujillo [facility] [place] CPT-76423 Ofc Vst, Est Level III 14:26:15 IT APPLICATION ARCHITECT Chantelle Trujillo [facility] [place] CPT-78809 Ofc Vst, Est Level IV 13:59:23 IT APPLICATION ARCHITECT Chantelle Trujillo [facility] [place] CPT-02830 Ofc Vst, Est Level IV 15:24:23 IT APPLICATION ARCHITECT Chantelle Trujillo [facility] [place] CPT-60471 Ofc Vst, Est Level IV 16:03:46 CDT Chantelle Viri Trujillo [facility] [place] CPT-43592 Ofc Vst, Est Level IV 15:19:26 CDT Chantelle Viri Trujillo [facility] [place] CPT-56414 Ofc Vst, Est Level IV 19:08:48 CDT Chantelle Viri Trujillo [facility] [place] CPT-69867 Ofc Vst, Est Level IV 16:25:43 CDT Chantelle Trujillo [facility] [place] CPT-23570 Ofc Vst, New Level IV 17:22:55 IT APPLICATION ARCHITECT Chantelle Trujillo [facility] [place] Procedures Code Procedure Name Date Entry Date Standard Description CPT-G0439 Medicare Annual Wellness Visit 13:18:16 IT APPLICATION ARCHITECT CPT-30231 Ear Wax Removal 12:14:17 CDT CPT-G8443 E-Prescribing Medication Sent 20:38:44 IT APPLICATION ARCHITECT CPT-G0439 Medicare Annual Wellness Visit 20:38:44 IT APPLICATION ARCHITECT CPT-G8445 E-Prescribing Not sent due to no medication given 15:55: 59 CDT CPT-G8445 E-Prescribing Not sent due to no medication given 11:58: 05 CDT CPT-G8445 E-Prescribing Not sent due to no medication given 16:33: 59 IT APPLICATION ARCHITECT CPT-G8445 E-Prescribing Not sent due to no medication given 15:28: 42 IT APPLICATION ARCHITECT CPT-G0438 Medicare Annual Wellness Visit Initial 15:28:42 IT APPLICATION ARCHITECT CPT-8446 E-Prescribing not done due to controlled substance 14:23: 55 CDT CPT-G0008 Administration Influenza Vaccine 11:56:46 CDT CPT-02112 Influenza Vaccine 11:56:46 CDT CPT-59460 Administration of 1st dose vaccine 11:56:46 CDT CPT-G0008 Administration Influenza Vaccine 15:07:01 CDT CPT-16257 Influenza Vaccine 15:07:01 CDT
--- OUTSIDE RECORDS SUMMARY | 2018-09-09 12:50 | XMS REPORT | Clinical Summary ---
Author Author User, LILIBETH Organization [facility] [place] Address Unknown Phone Unavailable Allergies, Adverse Reactions, [...] Coronary atherosclerosis of unspecified type of vessel, [place] or graft GASTROESOPHAGEAL REFLUX DISEASE, CHRONIC 530.81 [...] Instruction ADVOCATE INSULIN SYRINGE 29G X 1/2" 1 ML MISC DIRECTED DX: 250.00 INSULIN SYRINGE-NEEDLE U-100 25528586506 Active Davina Don NOVOLIN N RELION 100 UNIT/ML SUSP 40 units at night INSULIN NPH HUMAN (ISOPHANE) 59816863751 Active Davina Don RELION PRIME TEST STRP TEST BS QID DX: 250.72 GLUCOSE BLOOD 04541122747 Active Davina Don LANTUS 100 UNIT/ML SOLN 15 units injection at night INSULIN GLARGINE 32095617340 No Longer Active Chantelle Trujillo COZAAR 50 MG TAB 1 PO daily LOSARTAN POTASSIUM 19893735113 Active Chantelle Trujillo LOTRISONE 1-0.05 % CREA APPLY BID PRN CLOTRIMAZOLE- BETAMETHASONE 89046733193 Active Chantelle Trujillo DIOCTO 60 MG/15ML SYRP 2 drops placed in ear let stand for 5 minutes and rinse with water and repeat in other ear then return to doctor for rinsing 2013 DOCUSATE SODIUM 78601017508 No Longer Active Chantelle Trujillo LIPITOR 20 MG TAB 1 PO QD ATORVASTATIN CALCIUM 96411099130 Active Chantelle Trujillo ASPIRIN 81 MG TAB 1 PO daily ASPIRIN 95789910446 Active Chantelle Trujillo NITROSTAT 0.4 MG SL TAB 1 pill under tongue prn chest pain. May repeat twice then must go to ER NITROGLYCERIN 52831691799 Active Chantelle Trujillo NIASPAN 1000 MG CR-TABS 1 po QHS NIACIN (ANTIHYPERLIPIDEMIC) 21147560542 Active Chantelle Trujillo LISINOPRIL 40 MG TABS 1 PO BID LISINOPRIL 35623693681 Active Chantelle Trujillo RELION PRIME MONITOR ENRIQUE DIRECTED DX: 250.00 BLOOD GLUCOSE MONITORING SUPPL 44586046574 Active Davina Don FREESTYLE TEST STRP TEST BS QID DX: DIABETES GLUCOSE BLOOD 33072456840 Active Davina Don FREESTYLE GLUCOMETER DIRECTED DX: DIABETES FREESTYLE GLUCOMETER Active Davina Don ALCOHOL SWABS PADS clean area before swabbing ALCOHOL SWABS 56378962045 No Longer Active Chantelle Trujillo LANCETS MISC as directed LANCETS 15604902194 No Longer Active Chantelle Trujillo OPTIUM TEST STRIPS STRP Test blood sugar TID GLUCOSE BLOOD 37792005848 No Longer Active Chantelle Trujillo KETOCONAZOLE 2 % CREA apply to affected areas BID KETOCONAZOLE 90222426280 No Longer Active Chantelle Trujillo LOTRISONE 1-0.05 % CREA apply daily prn CLOTRIMAZOLE- BETAMETHASONE 33471873116 No Longer Active Chantelle Trujillo ZOFRAN ODT TBDP 1 PO Q 3HRS PRN ONDANSETRON TBDP 37187038020 No Longer Active Chantelle Viri Trujillo LORAZEPAM 2 MG TABS 1 PO at HS PRN LORAZEPAM 13642405750 No Longer Active Chantelle iVri Trujillo PERCOCET 5-325 MG TABS 1 TAB PO Q 6 HRS PRN OXYCODONE -ACETAMINOPHEN 78506164958 No Longer Active Chantelle Viri Trujillo OPTIUM GLUCOSE MONITOR SYSTEM ENRIQUE as directed BLOOD GLUCOSE MONITORING SUPPL 25101104525 No Longer Active Chantelle Viri Trujillo MOBIC 15 MG TABS 1 PO Daily MELOXICAM 63577136220 No Longer Active Chantelle Viri Trujillo COLACE 100 MG CAPS 1 PO DAILY DOCUSATE SODIUM 46536413304 Active Chantelle Viri Trujillo NO FLUSH NIACIN 500 MG TABS 2 PO daily qhs INOSITOL NIACINATE 69982708787 No Longer Active Chantelle Viri Trujillo ULTRAM 50 MG TAB 1-2 PO TID prn TRAMADOL HCL 57284044408 No Longer Active Chantelleneha Trujillo PEPCID 20 MG TABS 1 PO BID FAMOTIDINE 12488060280 Active Chantelle Viri Trujillo ZANTAC 75 TABS 1 PO BID RANITIDINE HCL TABS 29811939988 No Longer Active Chantelle Viri Trujillo GLYBURIDE 5 MG TABS 1 PO BID GLYBURIDE 98884534823 Active Davina Don FLAX SEED OIL CAPS 1 PO Qhs FLAXSEED (LINSEED) CAPS 35377993100 No Longer Active Chantelle Viri Trujillo LORTAB 5 5-500 MG TABS 1 to 2 PO Q6hrs prn ACETAMINOPHEN-HYDROCODONE 09748358502 No Longer Active Chantelle Viri Trujillo EFUDEX 5 % CREA apply sparingly twice weekly to arms FLUOROURACIL 30227435391 No Longer Active Chantelleneha Trujillo PEPCID 20 MG TABS 1 PO BID FAMOTIDINE 73150145236 No Longer Active Chantelle Viri Trujillo PROTONIX 40 MG TBEC 1 PO daily PANTOPRAZOLE SODIUM 93126462260 No Longer Active Chantelleneha Trujillo OMEPRAZOLE 20 MG CPDR 1 PO Daily OMEPRAZOLE 30488525725 No Longer Active Chantelle Viri Trujillo METFORMIN HCL 1000 MG TABS 1 PO BID METFORMIN HCL 34289857413 Active Davina Don SIMVASTATIN 40 MG TABS 1 po daily SIMVASTATIN 86909167512 No Longer Active Davina Don FISH OIL 1000 MG CAPS 4 po daily OMEGA-3 FATTY ACIDS 02933252566 Active Chantelle Viri Trujillo IMDUR 60 MG TB24 1 po HS ISOSORBIDE MONONITRATE 32341302725 No Longer Active Chantelle Viri Trujillo METOPROLOL TARTRATE 100 MG TABS 1 PO BID METOPROLOL TARTRATE 56842044588 Active Davina Don KEFLEX 500 MG CAP 1 PO QID for 7 days CEPHALEXIN 45314761603 No Longer Active Chantelleneha Trujillo OXISTAT 1 % CREA apply to affected areas twice daily including feet. 60 gram tube. OXICONAZOLE NITRATE 70060396791 No Longer Active Chantelle Viri Trujillo LIDEX 0.05 % OINT apply to affected areas twice daily for 7 days FLUOCINONIDE 89595032172 No Longer Active Chantelle Viri Trujillo MUCINEX 600 MG TB12 1 PO BID GUAIFENESIN 80706847107 No Longer Active Chantelle Viri Trujillo NORVASC 10 MG TABS 1 po QD AMLODIPINE BESYLATE 31363884322 Active Chantelle Viri Trujillo KLOR-CON 10 10 MEQ TBCR 1 po QD POTASSIUM CHLORIDE 50621565855 No Longer Active Chantelle Trujillo ROBITUSSIN A-C 10-100 MG/5ML SYRUP 5cc PO Q 4-6 hr prn ROBITUSSIN A-C 10-100 MG/5ML SYRUP 17086007630 No Longer Active Chantelle Trujillo BIAXIN XL PAC 500 MG TB24 2 pills at same time daily ( take samples given in office until gone and then start the Rx) CLARITHROMYCIN 20128333701 No Longer Active Chantelleneha Trujillo ATROVENT 0.06 % SOLN 2 puffs each nostril TID prn for runny nose IPRATROPIUM BROMIDE 08803310153 No Longer Active Chantelle Trujillo FLEXERIL 10 MG TABS 1 po BID prn neck pain CYCLOBENZAPRINE HCL 50332974810 No Longer Active Chantelle Trujillo ROBITUSSIN A-C 10-100 MG/5ML SYRUP 5cc PO Q 4-6 hr prn ROBITUSSIN A-C 10-100 MG/5ML SYRUP 86864131401 No Longer Active Chantelle Trujillo GLUCOMETER TEST STRIPS Check BS TID DX Diabetes GLUCOMETER TEST STRIPS No Longer Active Chantelle Trujillo GLUCOMETER MACHINE DX Diabetes GLUCOMETER MACHINE No Longer Active Chantelle Trujillo VYTORIN 10-40 MG TABS 1 PO daily EZETIMIBE-SIMVASTATIN 06350418214 No Longer Active Chantelle Trujillo AMOXIL 875 MG TABS 1 PO BID AMOXICILLIN 50989610415 No Longer Active Chantelle Trujillo PLAVIX 75 MG TABS 1 po daily CLOPIDOGREL BISULFATE 99810644222 Active Davina Don NEXIUM 40 MG CPDR 1 po daily ESOMEPRAZOLE MAGNESIUM 19333107478 No Longer Active Chantelle Trujillo LISINOPRIL-HCTZ 20-12.5 MG TABS 1 po daily LISINOPRIL-HCTZ 15242546437 No Longer Active Chantelle Trujillo MULTIVITAMINS TABS 1 po daily MULTIPLE VITAMIN 67165324421 Active Chantelle Trujillo VYTORIN 1 po daily [...] Estimated Glomerular Filtration Rate (calc) 111 mL/min/1.73m2 albumin, serum 4.6 g/dL alkaline phosphatase, serum 47 U/L urea nitrogen, blood 9 mg/dL calcium, serum 9.9 mg/dL chloride, serum 92 mmol/L cholesterol, serum 129 mg/dL carbon dioxide, venous blood 31.0 mmol/L creatinine, serum 0.7 mg/dL HDL cholesterol, serum 50.0 mg/dL hemoglobin A1C, blood, as % of total hemoglobin 7.7 % thyroid stimulating hormone, serum 0.94 u[iU]/mL LDL cholesterol, serum 39 mg/dL potassium, serum 3.9 mmol/L protein, total, serum 7.1 g/dL aspartate aminotransferase (SGOT), serum 17 U/L alanine aminotransferase (SGPT), serum 21 U/L bilirubin, serum, total 0.9 mg/dL triglyceride, serum, fasting 199 mg/dL sodium, serum 132 mmol/L anion gap, serum 13 cholesterol/HDL ratio, serum, percent 2.6 glucose, plasma fasting 221 mg/dL Clinical Lists Update: CBC,CMP,FLP,TSH,HGA1C,MICROALBUMIN - Hematology platelet count 207 10*3/mm3 hematocrit, blood 42.4 % red blood cell distribution width 13.2 % hemoglobin, blood 13.9 g/dL mean corpuscular volume, RBC 96 fL leukocyte count, blood 7.2 10*3/mm3 erythrocyte (RBC) count 4.43 10*6/mm3 Clinical Lists Update: CBC,CMP,FLP,TSH,HGA1C,MICROALBUMIN - Urinalysis microalbumin, urine, semiquantitative 61.5 mg/dL Clinical Lists Update: CMP,FLP,HgA1c - Chemistry urea nitrogen, blood 13 mg/dL LDL cholesterol, serum 42 mg/dL creatinine, serum 0.8 mg/dL protein, total, serum 7.2 g/dL calcium, serum 9.9 mg/dL aspartate aminotransferase (SGOT), serum 18 U/L albumin, serum 4.6 g/dL alanine aminotransferase (SGPT), serum 22 U/L chloride, serum 92 mmol/L bilirubin, serum, total 1.0 mg/dL HDL cholesterol, serum 48.0 mg/dL triglyceride, serum, fasting 295 mg/dL cholesterol, serum 149 mg/dL sodium, serum 133 mmol/L hemoglobin A1C, blood, as % of total hemoglobin 7.1 % anion gap, serum 13 carbon dioxide, venous blood 32.0 mmol/L cholesterol/HDL ratio, serum, percent 3.1 alkaline phosphatase, serum 47 U/L glucose, plasma fasting 155 mg/dL Estimated Glomerular Filtration Rate (calc) 100 mL/min/1.73m2 potassium, serum 3.7 mmol/L Office Visit: Dr Trujillo's Check Up: Established Patient Visit - Chemistry Estimated Glomerular Filtration Rate (calc) 81 mL/min/1.73m2 glucose, plasma fasting 196 mg/dL anion gap, serum 13 sodium, serum 136 mmol/L triglyceride, serum, fasting 216 mg/dL bilirubin, serum, total 0.9 mg/dL alanine aminotransferase (SGPT), serum 19 U/L aspartate aminotransferase (SGOT), serum 17 U/L protein, total, serum 7.1 g/dL potassium, serum 3.8 mmol/L thyroid stimulating hormone, serum 0.80 u[iU]/mL hemoglobin A1C, blood, as % of total hemoglobin 7.3 % creatinine, serum 1.0 mg/dL carbon dioxide, venous blood 32.0 mmol/L cholesterol, serum 130 mg/dL chloride, serum 95 mmol/L calcium, serum 9.8 mg/dL urea nitrogen, blood 15 mg/dL alkaline phosphatase, serum 48 U/L albumin, serum 4.4 g/dL Encounters Code Encounter Date Provider Facility CPT-23630 Ofc Vst, Est Level IV 17:09:42 CDT Chantelle Trujillo DO, FACP CPT-42738 Ofc Vst, Est Level III 20:31:48 CDT Chantelle Trujillo DO, FACP CPT-95199 Ofc Vst, Est Level III 14:00:56 CDT Chantelle Trujillo DO, FACP CPT-73532 Ofc Vst, Est Level III 15:55:59 CDT Chantelle Trujillo DO, FACP CPT-02593 Ofc Vst, Est Level III 11:58:05 CDT Chantelleneha Nobles Trujillo, DO, FACP CPT-58136 Ofc Vst, Est Level III 16:33:59 MEDICAL LABORATORY TECHNICIAN Chantelle Nobles Trujillo, DO, FACP CPT-16898 Ofc Vst, Est Level IV 13:41:56 CDT Chantelle Viri Nobles Trujillo, DO, FACP CPT-63837 Ofc Vst, Est Level IV 13:46:20 CDT Chantelle Viri Nobles Trujillo, DO, FACP CPT-72112 Ofc Vst, Est Level IV 14:22:34 MEDICAL LABORATORY TECHNICIAN Chantelle Nobles Ronnie, DO, FACP CPT-79502 Ofc Vst, Est Level IV 14:10:02 CDT Chantelle Viri Nobles Ronnie, DO, FACP CPT-63395 Ofc Vst, Est Level III 16:17:29 CDT Chantelleneha Nobles Ronnie, DO, FACP CPT-28901 Ofc Vst, Est Level IV 13:59:21 CDT Chantelleneha Nobles Ronnie, DO, FACP CPT-85712 Ofc Vst, Est Level IV 13:59:18 CDT Chantelleneha Nobles Ronnie, DO, FACP CPT-35571 Ofc Vst, Est Level IV 13:59:52 MEDICAL LABORATORY TECHNICIAN Chantelle Nobles Trujillo, DO, FACP CPT-15652 Ofc Vst, Est Level IV 14:16:34 CDT Chantelleneha Nobles Ronnie, DO, FACP CPT-18926 Ofc Vst, Est Level IV 14:43:21 CDT Chantelleneha Nobles Ronnie, DO, FACP CPT-22563 Ofc Vst, Est Level IV 13:51:54 CDT Chantelle Nobles Ronnie, DO, FACP CPT-52700 Ofc Vst, Est Level IV 14:19:45 MEDICAL LABORATORY TECHNICIAN Chantelle Nobles Ronnie, DO, FACP CPT-76947 Ofc Vst, Est Level IV 14:03:12 CDT Davina Nobles Ronnie, DO, FACP CPT-26828 Ofc Vst, Est Level IV 14:23:55 CDT Chantelle Nobles Ronnie, DO, FACP CPT-36035 Ofc Vst, Est Level IV 13:46:12 MEDICAL LABORATORY TECHNICIAN Chantelle Nobles Ronnie, DO, FACP CPT-77110 Ofc Vst, Est Level IV 14:21:29 MEDICAL LABORATORY TECHNICIAN Chantelle Nobles Ronnie, DO, FACP CPT-59683 Ofc Vst, Est Level IV 11:56:46 CDT Chantelle Nobles Ronnie, DO, FACP CPT-41122 Ofc Vst, Est Level IV 15:06:28 CDT Chantelle Trujillo [facility] CPT-91756 Ofc Vst, Est Level III 10:49:32 MEDICAL LABORATORY TECHNICIAN Chantelle Nobles Ronnie, DO, FACP CPT-34661 Ofc Vst, Est Level IV 14:26:42 MEDICAL LABORATORY TECHNICIAN Chantelle Nobles Ronnie, DO, FACP CPT-41535 Ofc Vst, Est Level III 15:07:01 CDT Chantelleneha Nobles Ronnie, DO, FACP CPT-14420 Ofc Vst, Est Level IV 14:16:08 CDT Chantelle Nobles Ronnie, DO, FACP CPT-20496 Ofc Vst, Est Level IV 14:28:44 CDT Chantelleneha Trujillo [facility] [place] CPT-20123 Ofc Vst, Est Level IV 14:06:35 MEDICAL LABORATORY TECHNICIAN Chantelle Virivincent Trujillo [facility] [place] CPT-44457 Ofc Vst, Est Level III 14:26:15 MEDICAL LABORATORY TECHNICIAN Chantelle Viri Ronnie [facility] [place] CPT-34558 Ofc Vst, Est Level IV 13:59:23 MEDICAL LABORATORY TECHNICIAN Chantelle Trujillo [facility] [place] CPT-79190 Ofc Vst, Est Level IV 15:24:23 MEDICAL LABORATORY TECHNICIAN Chantelle Virivincent Trujillo [facility] [place] CPT-07426 Ofc Vst, Est Level IV 16:03:46 CDT Chantelle Virivincent Trujillo [facility] [place] CPT-36837 Ofc Vst, Est Level IV 15:19:26 CDT Chantelle Virivincent Trujillo [facility] [place] CPT-91039 Ofc Vst, Est Level IV 19:08:48 CDT Chantelle Virivincent Trujillo [facility] [place] CPT-58838 Ofc Vst, Est Level IV 16:25:43 CDT Chantelle Viri Ronnie [facility] [place] CPT-43443 Ofc Vst, New Level IV 17:22:55 MEDICAL LABORATORY TECHNICIAN Chantelle Virivincent Trujillo [facility] [place] Procedures Code Procedure Name Date Entry Date Standard Description CPT-G0439 Medicare Annual Wellness Visit 13:18:16 MEDICAL LABORATORY TECHNICIAN CPT-64063 Ear Wax Removal 12:14:17 CDT CPT-G8443 E-Prescribing Medication Sent 20:38:44 MEDICAL LABORATORY TECHNICIAN CPT-G0439 Medicare Annual Wellness Visit 20:38:44 MEDICAL LABORATORY TECHNICIAN CPT-G8445 E-Prescribing Not sent due to no medication given 15:55: 59 CDT CPT-G8445 E-Prescribing Not sent due to no medication given 11:58: 05 CDT CPT-G8445 E-Prescribing Not sent due to no medication given 16:33: 59 MEDICAL LABORATORY TECHNICIAN CPT-G8445 E-Prescribing Not sent due to no medication given 15:28: 42 MEDICAL LABORATORY TECHNICIAN CPT-G0438 Medicare Annual Wellness Visit Initial 15:28:42 MEDICAL LABORATORY TECHNICIAN CPT-8446 E-Prescribing not done due to controlled substance 14:23: 55 CDT CPT-G0008 Administration Influenza Vaccine 11:56:46 CDT CPT-22774 Influenza Vaccine 11:56:46 CDT CPT-62045 Administration of 1st dose vaccine 11:56:46 CDT CPT-G0008 Administration Influenza Vaccine 15:07:01 CDT CPT-41422 Influenza Vaccine 15:07:01 CDT
--- OUTSIDE RECORDS SUMMARY | 2018-09-09 12:51 | XMS REPORT | Clinical Summary ---
Author Author User, LILIBETH Organization [facility] [place] Address Unknown Phone Unavailable Allergies, Adverse Reactions, [...] Coronary atherosclerosis of unspecified type of vessel, [place] or graft GASTROESOPHAGEAL REFLUX DISEASE, CHRONIC 530.81 [...] % CREA APPLY BID PRN CLOTRIMAZOLE- BETAMETHASONE 22820419892 Active Davina Don DIOCTO 60 MG/15ML SYRP 2 drops placed in ear let stand for 5 minutes and rinse with water and repeat in other ear then return to doctor for rinsing 2013 DOCUSATE SODIUM 13888512447 No Longer Active Chantelle Trujillo LIPITOR 20 MG TAB 1 PO QD ATORVASTATIN CALCIUM 30165845238 Active Chantelle Trujillo ASPIRIN 81 MG TAB 1 PO daily ASPIRIN 78780158098 Active Chantelle Trujillo NITROSTAT 0.4 MG SL TAB 1 pill under tongue prn chest pain. May repeat twice then must go to ER NITROGLYCERIN 25226943049 Active Chantelle Trujillo NIASPAN 1000 MG CR-TABS 1 po QHS NIACIN (ANTIHYPERLIPIDEMIC) 56086816400 Active Chantelle Trujillo LISINOPRIL 40 MG TABS 1 PO BID LISINOPRIL 85890173601 Active Chantelle Trujillo RELION PRIME MONITOR ENRIQUE DIRECTED DX: 250.00 BLOOD GLUCOSE MONITORING SUPPL 86330875522 Active Davina Arian RELION PRIME TEST STRP TEST BS QID DX: 250.00 GLUCOSE BLOOD 91101592650 Active Davina Arian FREESTYLE TEST STRP TEST BS QID DX: DIABETES GLUCOSE BLOOD 54885399615 Active Davinafernando Don FREESTYLE GLUCOMETER DIRECTED DX: DIABETES FREESTYLE GLUCOMETER Active Davina Don ALCOHOL SWABS PADS clean area before swabbing ALCOHOL SWABS 55611640285 No Longer Active Chantelle Trujillo LANCETS MISC as directed LANCETS 12518053154 No Longer Active Chantelle Trujillo OPTIUM TEST STRIPS STRP Test blood sugar TID GLUCOSE BLOOD 23380267823 No Longer Active Chantelleneha Trujillo KETOCONAZOLE 2 % CREA apply to affected areas BID KETOCONAZOLE 41336282272 No Longer Active Chantelleneha Trujillo LOTRISONE 1-0.05 % CREA apply daily prn CLOTRIMAZOLE- BETAMETHASONE 16478139921 No Longer Active Chantelle Trujillo ZOFRAN ODT TBDP 1 PO Q 3HRS PRN ONDANSETRON TBDP 84171219196 No Longer Active Chantelleneha Trujillo LORAZEPAM 2 MG TABS 1 PO at HS PRN LORAZEPAM 26602594713 No Longer Active Chantelleneha Trujillo PERCOCET 5-325 MG TABS 1 TAB PO Q 6 HRS PRN OXYCODONE -ACETAMINOPHEN 66718268997 No Longer Active Chantelle Trujillo OPTIUM GLUCOSE MONITOR SYSTEM ENRIQUE as directed BLOOD GLUCOSE MONITORING SUPPL 07087584220 No Longer Active Chantelleneha Trujillo MOBIC 15 MG TABS 1 PO Daily MELOXICAM 25754871949 No Longer Active Chantelle Viri Trujillo COLACE 100 MG CAPS 1 PO DAILY DOCUSATE SODIUM 28389235738 Active Chantelle Viri Trujillo NO FLUSH NIACIN 500 MG TABS 2 PO daily qhs INOSITOL NIACINATE 25167057702 No Longer Active Chantelle Viri Trujillo ULTRAM 50 MG TAB 1-2 PO TID prn TRAMADOL HCL 76356824621 No Longer Active Chantelle Viri Trujillo PEPCID 20 MG TABS 1 PO BID FAMOTIDINE 11920921671 Active Chantelle Viri Trujillo ZANTAC 75 TABS 1 PO BID RANITIDINE HCL TABS 93810367088 No Longer Active Chantelle Viri Trujillo GLYBURIDE 5 MG TABS 1 PO BID GLYBURIDE 67971889435 Active Davina Don FLAX SEED OIL CAPS 1 PO Qhs FLAXSEED (LINSEED) CAPS 13783600796 No Longer Active Chantelleneha Trujillo LORTAB 5 5-500 MG TABS 1 to 2 PO Q6hrs prn ACETAMINOPHEN-HYDROCODONE 29387902798 No Longer Active Chantelle Viri Trujillo EFUDEX 5 % CREA apply sparingly twice weekly to arms FLUOROURACIL 75226894633 No Longer Active Chantelle Viri Trujillo PEPCID 20 MG TABS 1 PO BID FAMOTIDINE 60641740727 No Longer Active Chantelle Viri Trujillo PROTONIX 40 MG TBEC 1 PO daily PANTOPRAZOLE SODIUM 42387470404 No Longer Active Chantelle Viri Trujillo OMEPRAZOLE 20 MG CPDR 1 PO Daily OMEPRAZOLE 48172002488 No Longer Active Chantelle Viri Trujillo METFORMIN HCL 1000 MG TABS 1 PO BID METFORMIN HCL 84666107085 Active Davina Don SIMVASTATIN 40 MG TABS 1 po daily SIMVASTATIN 45338767302 No Longer Active Davina Don FISH OIL 1000 MG CAPS 4 po daily OMEGA-3 FATTY ACIDS 22793553854 Active Chantelle Viri Trujillo IMDUR 60 MG TB24 1 po HS ISOSORBIDE MONONITRATE 56865272691 No Longer Active Chantelleneha Trujillo METOPROLOL TARTRATE 100 MG TABS 1 PO BID METOPROLOL TARTRATE 86746388634 Active Davina Don KEFLEX 500 MG CAP 1 PO QID for 7 days CEPHALEXIN 74284342274 No Longer Active Chantelleneha Trujillo OXISTAT 1 % CREA apply to affected areas twice daily including feet. 60 gram tube. OXICONAZOLE NITRATE 70649843926 No Longer Active Chantelleneha Trujillo LIDEX 0.05 % OINT apply to affected areas twice daily for 7 days FLUOCINONIDE 18554434236 No Longer Active Chantelle Viri Trujillo MUCINEX 600 MG TB12 1 PO BID GUAIFENESIN 25352860503 No Longer Active Chantelle Viri Trujillo NORVASC 10 MG TABS 1 po QD AMLODIPINE BESYLATE 36508047773 Active Chantelle Viri Trujillo KLOR-CON 10 10 MEQ TBCR 1 po QD POTASSIUM CHLORIDE 78581522581 No Longer Active Chantelleneha Trujillo ROBITUSSIN A-C 10-100 MG/5ML SYRUP 5cc PO Q 4-6 hr prn ROBITUSSIN A-C 10-100 MG/5ML SYRUP 71961901792 No Longer Active Chantelle Trujillo BIAXIN XL PAC 500 MG TB24 2 pills at same time daily ( take samples given in office until gone and then start the Rx) CLARITHROMYCIN 36624564600 No Longer Active Chantelleneha Trujillo ATROVENT 0.06 % SOLN 2 puffs each nostril TID prn for runny nose IPRATROPIUM BROMIDE 34860300659 No Longer Active Chantelle Trujillo FLEXERIL 10 MG TABS 1 po BID prn neck pain CYCLOBENZAPRINE HCL 66412990418 No Longer Active Chantelleneha Trujillo ROBITUSSIN A-C 10-100 MG/5ML SYRUP 5cc PO Q 4-6 hr prn ROBITUSSIN A-C 10-100 MG/5ML SYRUP 86480289660 No Longer Active Chantelle Trujillo GLUCOMETER TEST STRIPS Check BS TID DX Diabetes GLUCOMETER TEST STRIPS No Longer Active Chantelle Trujillo GLUCOMETER MACHINE DX Diabetes GLUCOMETER MACHINE No Longer Active Chantelle Trujillo VYTORIN 10-40 MG TABS 1 PO daily EZETIMIBE-SIMVASTATIN 38748446508 No Longer Active Chantelle Trujillo AMOXIL 875 MG TABS 1 PO BID AMOXICILLIN 97027293085 No Longer Active Chantelle Trujillo PLAVIX 75 MG TABS 1 po daily CLOPIDOGREL BISULFATE 99265951396 Active Davinafernando Don NEXIUM 40 MG CPDR 1 po daily ESOMEPRAZOLE MAGNESIUM 31646336162 No Longer Active Chantelle Trujillo LISINOPRIL-HCTZ 20-12.5 MG TABS 1 po daily LISINOPRIL-HCTZ 59147579413 No Longer Active Chantelle Trujillo MULTIVITAMINS TABS 1 po daily MULTIPLE VITAMIN 50480505654 Active Chantelle Trujillo VYTORIN 10/40 1 po [...] mg/dL Encounters Code Encounter Date Provider Facility CPT-44590 Ofc Vst, Est Level III 20:31:48 CDT Chantelle Trujillo DO, FACStefani CPT-12061 Ofc Vst, Est Level III 14:00:56 CDT Chantelle Trujillo DO, FACP CPT-54726 Ofc Vst, Est Level III 15:55:59 CDT Chantelle Viri Nobles Trujillo, DO, FACP CPT-70655 Ofc Vst, Est Level III 11:58:05 CDT Chantelle Viri Nobles Trujillo, DO, FACP CPT-34861 Ofc Vst, Est Level III 16:33:59 [employer] Chantelleneha Nobles Trujillo, DO, FACP CPT-27037 Ofc Vst, Est Level IV 13:41:56 CDT Chantelle Viri Nobles Trujillo, DO, FACP CPT-28586 Ofc Vst, Est Level IV 13:46:20 CDT Chantelle Viri Nobles Ronnie, DO, FACP CPT-46895 Ofc Vst, Est Level IV 14:22:34 [employer] Chantelleneha Nobles Ronnie, DO, FACP CPT-67960 Ofc Vst, Est Level IV 14:10:02 CDT Chantelle Viri Nobles Ronnie, DO, FACP CPT-67718 Ofc Vst, Est Level III 16:17:29 CDT Chantelleneha Nobles Ronnie, DO, FACP CPT-83407 Ofc Vst, Est Level IV 13:59:21 CDT Chantelle Viri Nobles Ronnie, DO, FACP CPT-46096 Ofc Vst, Est Level IV 13:59:18 CDT Chantelle Viri Nobles Trujillo, DO, FACP CPT-23244 Ofc Vst, Est Level IV 13:59:52 [employer] Chantelle Nobles Ronnie, DO, FACP CPT-37513 Ofc Vst, Est Level IV 14:16:34 CDT Chantelle Viri Nobles Ronnie, DO, FACP CPT-65315 Ofc Vst, Est Level IV 14:43:21 CDT Chantelleneha Nobles Trujillo, DO, FACP CPT-10380 Ofc Vst, Est Level IV 13:51:54 CDT Chantelle Viri Nobles Ronnie, DO, FACP CPT-21364 Ofc Vst, Est Level IV 14:19:45 [employer] Chantelle Viri Nobles Ronnie, DO, FACP CPT-04780 Ofc Vst, Est Level IV 14:03:12 CDT Davina Nobles Trujillo, DO, FACP CPT-76631 Ofc Vst, Est Level IV 14:23:55 CDT Chantelle Viri Nobles Ronnie, DO, FACP CPT-28484 Ofc Vst, Est Level IV 13:46:12 [employer] Chantelle Viri Nobles Ronnie, DO, FACP CPT-49784 Ofc Vst, Est Level IV 14:21:29 [employer] Chantelleneha Nobles Ronnie, DO, FACP CPT-25592 Ofc Vst, Est Level IV 11:56:46 CDT Chantelle Viri Nobles Ronnie, DO, FACP CPT-25358 Ofc Vst, Est Level IV 15:06:28 CDT Chantelle Trujillo [facility] CPT-81258 Ofc Vst, Est Level III 10:49:32 [employer] Chantelleneha Nobles Ronnie, DO, FACP CPT-29539 Ofc Vst, Est Level IV 14:26:42 [employer] Chantelle Nobles Ronnie, DO, FACP CPT-86002 Ofc Vst, Est Level III 15:07:01 CDT Chantelleneha Nobles Ronnie, DO, FACP CPT-80940 Ofc Vst, Est Level IV 14:16:08 CDT Chantelleneha Nobles Trujillo, DO, FACP CPT-90103 Ofc Vst, Est Level IV 14:28:44 CDT Chantelle Virivincent Trujillo [facility] [place] CPT-64201 Ofc Vst, Est Level IV 14:06:35 [employer] Chantelle Trujillo [facility] [place] CPT-33445 Ofc Vst, Est Level III 14:26:15 [employer] Chantelle Trujillo [facility] [place] CPT-09446 Ofc Vst, Est Level IV 13:59:23 [employer] Chantelle Trujillo [facility] [place] CPT-77911 Ofc Vst, Est Level IV 15:24:23 [employer] Chantelle Trujillo [facility] [place] CPT-74306 Ofc Vst, Est Level IV 16:03:46 CDT Chantelle Viri Trujillo [facility] [place] CPT-24053 Ofc Vst, Est Level IV 15:19:26 CDT Chantelle Viri Trujillo [facility] [place] CPT-00827 Ofc Vst, Est Level IV 19:08:48 CDT Chantelle Viri Trujillo [facility] [place] CPT-09133 Ofc Vst, Est Level IV 16:25:43 CDT Chantelle Trujillo [facility] [place] CPT-17816 Ofc Vst, New Level IV 17:22:55 [employer] Chantelle Trujillo [facility] [place] Procedures Code Procedure Name Date Entry Date Standard Description CPT-G0439 Medicare Annual Wellness Visit 13:18:16 [employer] CPT-86333 Ear Wax Removal 12:14:17 CDT CPT-G8443 E-Prescribing Medication Sent 20:38:44 [employer] CPT-G0439 Medicare Annual Wellness Visit 20:38:44 [employer] CPT-G8445 E-Prescribing Not sent due to no medication given 15:55: 59 CDT CPT-G8445 E-Prescribing Not sent due to no medication given 11:58: 05 CDT CPT-G8445 E-Prescribing Not sent due to no medication given 16:33: 59 [employer] CPT-G8445 E-Prescribing Not sent due to no medication given 15:28: 42 [employer] CPT-G0438 Medicare Annual Wellness Visit Initial 15:28:42 [employer] CPT-8446 E-Prescribing not done due to controlled substance 14:23: 55 CDT CPT-G0008 Administration Influenza Vaccine 11:56:46 CDT CPT-34659 Influenza Vaccine 11:56:46 CDT CPT-26452 Administration of 1st dose vaccine 11:56:46 CDT CPT-G0008 Administration Influenza Vaccine 15:07:01 CDT CPT-60317 Influenza Vaccine 15:07:01 CDT
--- OUTSIDE RECORDS SUMMARY | 2018-09-09 12:52 | XMS REPORT | Clinical Summary ---
Author Author User, LILIBETH Organization [facility] [place] Address Unknown Phone Unavailable Allergies, Adverse Reactions, [...] Coronary atherosclerosis of unspecified type of vessel, [place] or graft GASTROESOPHAGEAL REFLUX DISEASE, CHRONIC 530.81 [...] Memory loss CERUMEN IMPACTION, BILATERAL 380.4 Active Chanetlle Trujillo Impacted cerumen Medication List Medication Instructions Start Date Stop Date Generic Name NDC Status Provider Patient Instruction LOTRISONE 1-0.05 % CREA APPLY BID PRN CLOTRIMAZOLE- BETAMETHASONE 46663486642 Active Davinafernando Don DIOCTO 60 MG/15ML SYRP 2 drops placed in ear let stand for 5 minutes and rinse with water and repeat in other ear then return to doctor for rinsing 2013 DOCUSATE SODIUM 78278788113 No Longer Active Chantelle Trujillo LIPITOR 20 MG TAB 1 PO QD ATORVASTATIN CALCIUM 52217926541 Active Chantelle Trujillo ASPIRIN 81 MG TAB 1 PO daily ASPIRIN 85853050020 Active Chantelle Trujillo NITROSTAT 0.4 MG SL TAB 1 pill under tongue prn chest pain. May repeat twice then must go to ER NITROGLYCERIN 77086118627 Active Chantelle Trujillo NIASPAN 1000 MG CR-TABS 1 po QHS NIACIN (ANTIHYPERLIPIDEMIC) 92919455471 Active Chantelle Trujillo LISINOPRIL 40 MG TABS 1 PO BID LISINOPRIL 61772288343 Active Chantelleneha Trujillo RELION PRIME MONITOR ENRIQUE DIRECTED DX: 250.00 BLOOD GLUCOSE MONITORING SUPPL 79351790526 Active Davina Arian RELION PRIME TEST STRP TEST BS QID DX: 250.00 GLUCOSE BLOOD 65513518138 Active Davina Arian FREESTYLE TEST STRP TEST BS QID DX: DIABETES GLUCOSE BLOOD 84771942001 Active Davina Don FREESTYLE GLUCOMETER DIRECTED DX: DIABETES FREESTYLE GLUCOMETER Active Davina Don ALCOHOL SWABS PADS clean area before swabbing ALCOHOL SWABS 33756490353 No Longer Active Chantelle Trujillo LANCETS MISC as directed LANCETS 97585435914 No Longer Active Chantelle Trujillo OPTIUM TEST STRIPS STRP Test blood sugar TID GLUCOSE BLOOD 06822304631 No Longer Active Chantelleneha Trujillo KETOCONAZOLE 2 % CREA apply to affected areas BID KETOCONAZOLE 27745098074 No Longer Active Chantelleneha Trujillo LOTRISONE 1-0.05 % CREA apply daily prn CLOTRIMAZOLE- BETAMETHASONE 39245666465 No Longer Active Chantelle Trujillo ZOFRAN ODT TBDP 1 PO Q 3HRS PRN ONDANSETRON TBDP 90820444786 No Longer Active Chantelleneha Trujillo LORAZEPAM 2 MG TABS 1 PO at HS PRN LORAZEPAM 61634575895 No Longer Active Chantelleneha Trujillo PERCOCET 5-325 MG TABS 1 TAB PO Q 6 HRS PRN OXYCODONE -ACETAMINOPHEN 33843972845 No Longer Active Chantelle Trujillo OPTIUM GLUCOSE MONITOR SYSTEM ENRIQUE as directed BLOOD GLUCOSE MONITORING SUPPL 22377510823 No Longer Active Chantelleneha Trujillo MOBIC 15 MG TABS 1 PO Daily MELOXICAM 34375282024 No Longer Active Chantelle Viri Trujillo COLACE 100 MG CAPS 1 PO DAILY DOCUSATE SODIUM 58568402916 Active Chantelle Viri Trujillo NO FLUSH NIACIN 500 MG TABS 2 PO daily qhs INOSITOL NIACINATE 15530407269 No Longer Active Chantelle Viri Trujillo ULTRAM 50 MG TAB 1-2 PO TID prn TRAMADOL HCL 21970241250 No Longer Active Chantelle Viri Trujillo PEPCID 20 MG TABS 1 PO BID FAMOTIDINE 87759757477 Active Chantelle Viri Trujillo ZANTAC 75 TABS 1 PO BID RANITIDINE HCL TABS 11374991930 No Longer Active Chantelle Viri Trujillo GLYBURIDE 5 MG TABS 1 PO BID GLYBURIDE 76817080668 Active Davina Don FLAX SEED OIL CAPS 1 PO Qhs FLAXSEED (LINSEED) CAPS 65562348073 No Longer Active Chantelle Viri Trujillo LORTAB 5 5-500 MG TABS 1 to 2 PO Q6hrs prn ACETAMINOPHEN-HYDROCODONE 86848963504 No Longer Active Chantelleneha Trujillo EFUDEX 5 % CREA apply sparingly twice weekly to arms FLUOROURACIL 85472925798 No Longer Active Chantelle Viri Trujillo PEPCID 20 MG TABS 1 PO BID FAMOTIDINE 93504107205 No Longer Active Chantelle Viri Trujillo PROTONIX 40 MG TBEC 1 PO daily PANTOPRAZOLE SODIUM 76083688667 No Longer Active Chantelle Viri Trujillo OMEPRAZOLE 20 MG CPDR 1 PO Daily OMEPRAZOLE 78458644588 No Longer Active Chantelle Viri Trujillo METFORMIN HCL 1000 MG TABS 1 PO BID METFORMIN HCL 90635913971 Active Davina Don SIMVASTATIN 40 MG TABS 1 po daily SIMVASTATIN 79278168345 No Longer Active Davina Don FISH OIL 1000 MG CAPS 4 po daily OMEGA-3 FATTY ACIDS 35750213025 Active Chantelle Viri Trujillo IMDUR 60 MG TB24 1 po HS ISOSORBIDE MONONITRATE 08574970036 No Longer Active Chantelleneha Trujillo METOPROLOL TARTRATE 100 MG TABS 1 PO BID METOPROLOL TARTRATE 91095432934 Active Davina Don KEFLEX 500 MG CAP 1 PO QID for 7 days CEPHALEXIN 37590128691 No Longer Active Chantelle Viri Trujillo OXISTAT 1 % CREA apply to affected areas twice daily including feet. 60 gram tube. OXICONAZOLE NITRATE 48599997643 No Longer Active Chantelleneha Trujillo LIDEX 0.05 % OINT apply to affected areas twice daily for 7 days FLUOCINONIDE 98317179271 No Longer Active Chantelle Viri Trujillo MUCINEX 600 MG TB12 1 PO BID GUAIFENESIN 84678218618 No Longer Active Chantelle Viri Trujillo NORVASC 10 MG TABS 1 po QD AMLODIPINE BESYLATE 67482430987 Active Chantelle Viri Trujillo KLOR-CON 10 10 MEQ TBCR 1 po QD POTASSIUM CHLORIDE 43933241880 No Longer Active Chantelleneha Trujillo ROBITUSSIN A-C 10-100 MG/5ML SYRUP 5cc PO Q 4-6 hr prn ROBITUSSIN A-C 10-100 MG/5ML SYRUP 59456027592 No Longer Active Chantelleneha Trujillo BIAXIN XL PAC 500 MG TB24 2 pills at same time daily ( take samples given in office until gone and then start the Rx) CLARITHROMYCIN 97044812573 No Longer Active Chantelleneha Trujillo ATROVENT 0.06 % SOLN 2 puffs each nostril TID prn for runny nose IPRATROPIUM BROMIDE 43174041486 No Longer Active Chantelle Trujillo FLEXERIL 10 MG TABS 1 po BID prn neck pain CYCLOBENZAPRINE HCL 49389805602 No Longer Active Chantelleneha Trujillo ROBITUSSIN A-C 10-100 MG/5ML SYRUP 5cc PO Q 4-6 hr prn ROBITUSSIN A-C 10-100 MG/5ML SYRUP 68119450881 No Longer Active Chantelle Trujillo GLUCOMETER TEST STRIPS Check BS TID DX Diabetes GLUCOMETER TEST STRIPS No Longer Active hCantelle Trujillo GLUCOMETER MACHINE DX Diabetes GLUCOMETER MACHINE No Longer Active Chantelle Trujillo VYTORIN 10-40 MG TABS 1 PO daily EZETIMIBE-SIMVASTATIN 80232160967 No Longer Active Chantelle Trujillo AMOXIL 875 MG TABS 1 PO BID AMOXICILLIN 42404197543 No Longer Active Chantelle Trujillo PLAVIX 75 MG TABS 1 po daily CLOPIDOGREL BISULFATE 56574722623 Active Davina Don NEXIUM 40 MG CPDR 1 po daily ESOMEPRAZOLE MAGNESIUM 57757105919 No Longer Active Chantelle Trujillo LISINOPRIL-HCTZ 20-12.5 MG TABS 1 po daily LISINOPRIL-HCTZ 49445060965 No Longer Active Chantelle Trujillo MULTIVITAMINS TABS 1 po daily MULTIPLE VITAMIN 99904702602 Active Chantelle Trujillo VYTORIN 10/40 1 po [...] mg/dL Encounters Code Encounter Date Provider Facility CPT-75534 Ofc Vst, Est Level III 20:31:48 CDT Chantelle Trujillo DO, FACStefani CPT-30214 Ofc Vst, Est Level III 14:00:56 CDT Chantelle Trujillo DO, FACP CPT-49676 Ofc Vst, Est Level III 15:55:59 CDT Chantelleneha Nobles Trujillo, DO, FACP CPT-39288 Ofc Vst, Est Level III 11:58:05 CDT Chantelle Viri Nobles Trujillo, DO, FACP CPT-45068 Ofc Vst, Est Level III 16:33:59 AUDIO NARRATOR Chantelleneha Nobles Trujillo, DO, FACP CPT-12142 Ofc Vst, Est Level IV 13:41:56 CDT Chantelle Viri Nobles Trujillo, DO, FACP CPT-11796 Ofc Vst, Est Level IV 13:46:20 CDT Chantelle Viri Nobles Trujillo, DO, FACP CPT-84986 Ofc Vst, Est Level IV 14:22:34 AUDIO NARRATOR Chantelleneha Nobles Ronnie, DO, FACP CPT-60940 Ofc Vst, Est Level IV 14:10:02 CDT Chantelleneha Nobles Trujillo, DO, FACP CPT-34106 Ofc Vst, Est Level III 16:17:29 CDT Chantelleneha Nobles Trujillo, DO, FACP CPT-60677 Ofc Vst, Est Level IV 13:59:21 CDT Chantelle Viri Nobles Trujillo, DO, FACP CPT-45380 Ofc Vst, Est Level IV 13:59:18 CDT Chantelleneha Nobles Trujillo, DO, FACP CPT-52086 Ofc Vst, Est Level IV 13:59:52 AUDIO NARRATOR Chantelle Nobles Trujillo, DO, FACP CPT-86782 Ofc Vst, Est Level IV 14:16:34 CDT Chantelle Viri Nobles Ronnie, DO, FACP CPT-82874 Ofc Vst, Est Level IV 14:43:21 CDT Chantelleneha Nobles Trujillo, DO, FACP CPT-21111 Ofc Vst, Est Level IV 13:51:54 CDT Chantelle Viri Nobles Ronnie, DO, FACP CPT-11583 Ofc Vst, Est Level IV 14:19:45 AUDIO NARRATOR Chantelle Viri Nobles Ronnie, DO, FACP CPT-79055 Ofc Vst, Est Level IV 14:03:12 CDT Davina Nobles Ronnie, DO, FACP CPT-06389 Ofc Vst, Est Level IV 14:23:55 CDT Chantelle Viri Nobles Ronnie, DO, FACP CPT-78866 Ofc Vst, Est Level IV 13:46:12 AUDIO NARRATOR Chantelle Viri Nobles Ronnie, DO, FACP CPT-88049 Ofc Vst, Est Level IV 14:21:29 AUDIO NARRATOR Chantelleneha Nobles Ronnie, DO, FACP CPT-03792 Ofc Vst, Est Level IV 11:56:46 CDT Chantelle Viri Nobles Ronnie, DO, FACP CPT-05893 Ofc Vst, Est Level IV 15:06:28 CDT Chantelle Trujillo [facility] CPT-95294 Ofc Vst, Est Level III 10:49:32 AUDIO NARRATOR Chantelleneha Nobles Ronnie, DO, FACP CPT-62923 Ofc Vst, Est Level IV 14:26:42 AUDIO NARRATOR Chantelle Nobles Ronnie, DO, FACP CPT-04759 Ofc Vst, Est Level III 15:07:01 CDT Chantelleneha Nobles Ronnie, DO, FACP CPT-77103 Ofc Vst, Est Level IV 14:16:08 CDT Chantelle Viri Nobles Ronnie, DO, FACP CPT-08572 Ofc Vst, Est Level IV 14:28:44 CDT Chantelle Viri Trujillo [facility] [place] CPT-86302 Ofc Vst, Est Level IV 14:06:35 AUDIO NARRATOR Chantelle Trujillo [facility] [place] CPT-56481 Ofc Vst, Est Level III 14:26:15 AUDIO NARRATOR Chantelle Trujillo [facility] [place] CPT-34453 Ofc Vst, Est Level IV 13:59:23 AUDIO NARRATOR Chantelle Trujillo [facility] [place] CPT-56893 Ofc Vst, Est Level IV 15:24:23 AUDIO NARRATOR Chantelle Trujillo [facility] [place] CPT-45547 Ofc Vst, Est Level IV 16:03:46 CDT Chantelle Viri Trujillo [facility] [place] CPT-83389 Ofc Vst, Est Level IV 15:19:26 CDT Chantelle Viri Trujillo [facility] [place] CPT-51372 Ofc Vst, Est Level IV 19:08:48 CDT Chantelle Viri Trujillo [facility] [place] CPT-57987 Ofc Vst, Est Level IV 16:25:43 CDT Chantelleneha Trujillo [facility] [place] CPT-10887 Ofc Vst, New Level IV 17:22:55 AUDIO NARRATOR Chantelle Trujillo [facility] [place] Procedures Code Procedure Name Date Entry Date Standard Description CPT-G0439 Medicare Annual Wellness Visit 13:18:16 AUDIO NARRATOR CPT-18512 Ear Wax Removal 12:14:17 CDT CPT-G8443 E-Prescribing Medication Sent 20:38:44 AUDIO NARRATOR CPT-G0439 Medicare Annual Wellness Visit 20:38:44 AUDIO NARRATOR CPT-G8445 E-Prescribing Not sent due to no medication given 15:55: 59 CDT CPT-G8445 E-Prescribing Not sent due to no medication given 11:58: 05 CDT CPT-G8445 E-Prescribing Not sent due to no medication given 16:33: 59 AUDIO NARRATOR CPT-G8445 E-Prescribing Not sent due to no medication given 15:28: 42 AUDIO NARRATOR CPT-G0438 Medicare Annual Wellness Visit Initial 15:28:42 AUDIO NARRATOR CPT-8446 E-Prescribing not done due to controlled substance 14:23: 55 CDT CPT-G0008 Administration Influenza Vaccine 11:56:46 CDT CPT-55296 Influenza Vaccine 11:56:46 CDT CPT-90331 Administration of 1st dose vaccine 11:56:46 CDT CPT-G0008 Administration Influenza Vaccine 15:07:01 CDT CPT-63836 Influenza Vaccine 15:07:01 CDT
--- OUTSIDE RECORDS SUMMARY | 2018-09-09 12:53 | XMS REPORT | Clinical Summary ---
Author Author User, LILIBETH Organization [facility] [place] Address Unknown Phone Unavailable Allergies, Adverse Reactions, [...] Coronary atherosclerosis of unspecified type of vessel, [place] or graft GASTROESOPHAGEAL REFLUX DISEASE, CHRONIC 530.81 [...] % CREA APPLY BID PRN CLOTRIMAZOLE- BETAMETHASONE 77300364265 Active Davinafernando Don DIOCTO 60 MG/15ML SYRP 2 drops placed in ear let stand for 5 minutes and rinse with water and repeat in other ear then return to doctor for rinsing 2013 DOCUSATE SODIUM 69422042150 No Longer Active Chantelle Trujillo LIPITOR 20 MG TAB 1 PO QD ATORVASTATIN CALCIUM 32288328770 Active Chantelle Trujillo ASPIRIN 81 MG TAB 1 PO daily ASPIRIN 44361664015 Active Chantelle Trujillo NITROSTAT 0.4 MG SL TAB 1 pill under tongue prn chest pain. May repeat twice then must go to ER NITROGLYCERIN 16301059749 Active Chantelle Trujillo NIASPAN 1000 MG CR-TABS 1 po QHS NIACIN (ANTIHYPERLIPIDEMIC) 32535709429 Active Chantelle Trujillo LISINOPRIL 40 MG TABS 1 PO BID LISINOPRIL 29703804849 Active Chantelleneha Trujillo RELION PRIME MONITOR ENRIQUE DIRECTED DX: 250.00 BLOOD GLUCOSE MONITORING SUPPL 17135703091 Active Davina Arian RELION PRIME TEST STRP TEST BS QID DX: 250.00 GLUCOSE BLOOD 86654430262 Active Davina Arian FREESTYLE TEST STRP TEST BS QID DX: DIABETES GLUCOSE BLOOD 46362637603 Active Davina Don FREESTYLE GLUCOMETER DIRECTED DX: DIABETES FREESTYLE GLUCOMETER Active Davina Don ALCOHOL SWABS PADS clean area before swabbing ALCOHOL SWABS 93917134698 No Longer Active Chantelle Trujillo LANCETS MISC as directed LANCETS 39010488981 No Longer Active Chantelle Trujillo OPTIUM TEST STRIPS STRP Test blood sugar TID GLUCOSE BLOOD 80586131362 No Longer Active Chantelleneha Trujillo KETOCONAZOLE 2 % CREA apply to affected areas BID KETOCONAZOLE 86391182626 No Longer Active Chantelleneha Trujillo LOTRISONE 1-0.05 % CREA apply daily prn CLOTRIMAZOLE- BETAMETHASONE 69133585676 No Longer Active Chantelle Trujillo ZOFRAN ODT TBDP 1 PO Q 3HRS PRN ONDANSETRON TBDP 37082640052 No Longer Active Chantelleneha Trujillo LORAZEPAM 2 MG TABS 1 PO at HS PRN LORAZEPAM 56507249798 No Longer Active Chantelleneha Trujillo PERCOCET 5-325 MG TABS 1 TAB PO Q 6 HRS PRN OXYCODONE -ACETAMINOPHEN 17326939460 No Longer Active Chantelle Trujillo OPTIUM GLUCOSE MONITOR SYSTEM ENRIQUE as directed BLOOD GLUCOSE MONITORING SUPPL 29896144672 No Longer Active Chantelleneha Trujillo MOBIC 15 MG TABS 1 PO Daily MELOXICAM 13703379504 No Longer Active Chantelle Viri Trujillo COLACE 100 MG CAPS 1 PO DAILY DOCUSATE SODIUM 16510519262 Active Chantelle Viri Trujillo NO FLUSH NIACIN 500 MG TABS 2 PO daily qhs INOSITOL NIACINATE 07371982883 No Longer Active Chantelle Viri Trujillo ULTRAM 50 MG TAB 1-2 PO TID prn TRAMADOL HCL 70271027822 No Longer Active Chantelle Viri Trujillo PEPCID 20 MG TABS 1 PO BID FAMOTIDINE 82236683591 Active Chantelle Viri Trujillo ZANTAC 75 TABS 1 PO BID RANITIDINE HCL TABS 85306178426 No Longer Active Chantelle Viri Trujillo GLYBURIDE 5 MG TABS 1 PO BID GLYBURIDE 49402737618 Active Davina Don FLAX SEED OIL CAPS 1 PO Qhs FLAXSEED (LINSEED) CAPS 19994333732 No Longer Active Chantelle Viri Trujillo LORTAB 5 5-500 MG TABS 1 to 2 PO Q6hrs prn ACETAMINOPHEN-HYDROCODONE 64194781710 No Longer Active Chantelleneha Trujillo EFUDEX 5 % CREA apply sparingly twice weekly to arms FLUOROURACIL 42592536822 No Longer Active Chantelle Viri Trujillo PEPCID 20 MG TABS 1 PO BID FAMOTIDINE 02907046603 No Longer Active Chantelle Viri Trujillo PROTONIX 40 MG TBEC 1 PO daily PANTOPRAZOLE SODIUM 17610906997 No Longer Active Chantelle Viri Trujillo OMEPRAZOLE 20 MG CPDR 1 PO Daily OMEPRAZOLE 12414506713 No Longer Active Chantelle Viri Trujillo METFORMIN HCL 1000 MG TABS 1 PO BID METFORMIN HCL 64740672827 Active Davina Don SIMVASTATIN 40 MG TABS 1 po daily SIMVASTATIN 58037774140 No Longer Active Davina Don FISH OIL 1000 MG CAPS 4 po daily OMEGA-3 FATTY ACIDS 78955508567 Active Chantelle Viri Trujillo IMDUR 60 MG TB24 1 po HS ISOSORBIDE MONONITRATE 52755588280 No Longer Active Chantelleneha Trujillo METOPROLOL TARTRATE 100 MG TABS 1 PO BID METOPROLOL TARTRATE 61959121231 Active Davina Don KEFLEX 500 MG CAP 1 PO QID for 7 days CEPHALEXIN 79046478380 No Longer Active Chantelle Viri Trujillo OXISTAT 1 % CREA apply to affected areas twice daily including feet. 60 gram tube. OXICONAZOLE NITRATE 86372998251 No Longer Active Chantelleneha Trujillo LIDEX 0.05 % OINT apply to affected areas twice daily for 7 days FLUOCINONIDE 76810633726 No Longer Active Chantelle Viri Trujillo MUCINEX 600 MG TB12 1 PO BID GUAIFENESIN 60296188493 No Longer Active Chantelle Viri Trujillo NORVASC 10 MG TABS 1 po QD AMLODIPINE BESYLATE 64242293430 Active Chantelle Viri Trujillo KLOR-CON 10 10 MEQ TBCR 1 po QD POTASSIUM CHLORIDE 02143943721 No Longer Active Chantelleneha Trujillo ROBITUSSIN A-C 10-100 MG/5ML SYRUP 5cc PO Q 4-6 hr prn ROBITUSSIN A-C 10-100 MG/5ML SYRUP 77051735023 No Longer Active Chantelleneha Trujillo BIAXIN XL PAC 500 MG TB24 2 pills at same time daily ( take samples given in office until gone and then start the Rx) CLARITHROMYCIN 18214226779 No Longer Active Chantelleneha Trujillo ATROVENT 0.06 % SOLN 2 puffs each nostril TID prn for runny nose IPRATROPIUM BROMIDE 47557638107 No Longer Active Chantelle Trujillo FLEXERIL 10 MG TABS 1 po BID prn neck pain CYCLOBENZAPRINE HCL 52163267131 No Longer Active Chantelleneha Trujillo ROBITUSSIN A-C 10-100 MG/5ML SYRUP 5cc PO Q 4-6 hr prn ROBITUSSIN A-C 10-100 MG/5ML SYRUP 07346676234 No Longer Active Chantelle Trujillo GLUCOMETER TEST STRIPS Check BS TID DX Diabetes GLUCOMETER TEST STRIPS No Longer Active Chantelle Trujillo GLUCOMETER MACHINE DX Diabetes GLUCOMETER MACHINE No Longer Active Chantelle Trujillo VYTORIN 10-40 MG TABS 1 PO daily EZETIMIBE-SIMVASTATIN 08399068983 No Longer Active Chantelle Trujillo AMOXIL 875 MG TABS 1 PO BID AMOXICILLIN 01015357404 No Longer Active Chantelle Trujillo PLAVIX 75 MG TABS 1 po daily CLOPIDOGREL BISULFATE 74846796232 Active Davina Don NEXIUM 40 MG CPDR 1 po daily ESOMEPRAZOLE MAGNESIUM 35621805295 No Longer Active Chantelle Trujillo LISINOPRIL-HCTZ 20-12.5 MG TABS 1 po daily LISINOPRIL-HCTZ 79508834903 No Longer Active Chantelle Trujillo MULTIVITAMINS TABS 1 po daily MULTIPLE VITAMIN 66884345625 Active Chantelle Trujillo VYTORIN 10/40 1 po [...] mg/dL Encounters Code Encounter Date Provider Facility CPT-02666 Ofc Vst, Est Level III 20:31:48 CDT Chantelle Trujillo DO, FACStefani CPT-70105 Ofc Vst, Est Level III 14:00:56 CDT Chantelle Trujillo DO, FACP CPT-65495 Ofc Vst, Est Level III 15:55:59 CDT Chantelleneha Nobles Trujillo, DO, FACP CPT-74472 Ofc Vst, Est Level III 11:58:05 CDT Chantelle Viri Nobles Trujillo, DO, FACP CPT-45659 Ofc Vst, Est Level III 16:33:59 DIPLOMATIC OFFICER Chantelleneha Nobles Trujillo, DO, FACP CPT-75997 Ofc Vst, Est Level IV 13:41:56 CDT Chantelle Viri Nobles Trujillo, DO, FACP CPT-06128 Ofc Vst, Est Level IV 13:46:20 CDT Chantelle Viri Nobles Trujillo, DO, FACP CPT-68665 Ofc Vst, Est Level IV 14:22:34 DIPLOMATIC OFFICER Chantelleneha Nobles Ronnie, DO, FACP CPT-34173 Ofc Vst, Est Level IV 14:10:02 CDT Chantelleneha Nobles Trujillo, DO, FACP CPT-11217 Ofc Vst, Est Level III 16:17:29 CDT Chantelleneha Nobles Trujillo, DO, FACP CPT-68997 Ofc Vst, Est Level IV 13:59:21 CDT Chantelle Viri Nobles Trujillo, DO, FACP CPT-00234 Ofc Vst, Est Level IV 13:59:18 CDT Chantelleneha Nobles Trujillo, DO, FACP CPT-25512 Ofc Vst, Est Level IV 13:59:52 DIPLOMATIC OFFICER Chantelle Nobles Trujillo, DO, FACP CPT-35451 Ofc Vst, Est Level IV 14:16:34 CDT Chantelle Viri Nobles Ronnie, DO, FACP CPT-02320 Ofc Vst, Est Level IV 14:43:21 CDT Chantelleneha Nobles Trujillo, DO, FACP CPT-34480 Ofc Vst, Est Level IV 13:51:54 CDT Chantelle Viri Nobles Ronnie, DO, FACP CPT-22975 Ofc Vst, Est Level IV 14:19:45 DIPLOMATIC OFFICER Chantelle Viri Nobles Ronnie, DO, FACP CPT-42173 Ofc Vst, Est Level IV 14:03:12 CDT Davina Nobles Ronnie, DO, FACP CPT-20917 Ofc Vst, Est Level IV 14:23:55 CDT Chantelle Viri Nobles Ronnie, DO, FACP CPT-46223 Ofc Vst, Est Level IV 13:46:12 DIPLOMATIC OFFICER Chantelle Viri Nobles Ronnie, DO, FACP CPT-64563 Ofc Vst, Est Level IV 14:21:29 DIPLOMATIC OFFICER Chantelleneha Nobles Ronnie, DO, FACP CPT-91081 Ofc Vst, Est Level IV 11:56:46 CDT Chantelle Viri Nobles Ronnie, DO, FACP CPT-80551 Ofc Vst, Est Level IV 15:06:28 CDT Chantelle Trujillo [facility] CPT-06542 Ofc Vst, Est Level III 10:49:32 DIPLOMATIC OFFICER Chantelleneha Nobles Ronnie, DO, FACP CPT-96800 Ofc Vst, Est Level IV 14:26:42 DIPLOMATIC OFFICER Chantelle Nobles Ronnie, DO, FACP CPT-89086 Ofc Vst, Est Level III 15:07:01 CDT Chantelleneha Nobles Ronnie, DO, FACP CPT-11221 Ofc Vst, Est Level IV 14:16:08 CDT Chantelle Viri Nobles Ronnie, DO, FACP CPT-17751 Ofc Vst, Est Level IV 14:28:44 CDT Chantelle Viri [facility] [place] CPT-18591 Ofc Vst, Est Level IV 14:06:35 DIPLOMATIC OFFICER Chantelle Tru[facility] [place] CPT-66226 Ofc Vst, Est Level III 14:26:15 DIPLOMATIC OFFICER Chantelle Tru[facility] [place] CPT-13334 Ofc Vst, Est Level IV 13:59:23 DIPLOMATIC OFFICER Chantelle Truj[facility] [place] CPT-57218 Ofc Vst, Est Level IV 15:24:23 DIPLOMATIC OFFICER Chantelle Tru[facility] [place] CPT-40838 Ofc Vst, Est Level IV 16:03:46 CDT Chantelle Viri [facility] [place] CPT-31310 Ofc Vst, Est Level IV 15:19:26 CDT Chantelle Viri [facility] [place] CPT-57419 Ofc Vst, Est Level IV 19:08:48 CDT Chantelle Viri [facility] [place] CPT-01546 Ofc Vst, Est Level IV 16:25:43 CDT Chantelleneha [facility] [place] CPT-02067 Ofc Vst, New Level IV 17:22:55 DIPLOMATIC OFFICER Chantelle [facility] [place] Procedures Code Procedure Name Date Entry Date Standard Description CPT-G0439 Medicare Annual Wellness Visit 13:18:16 DIPLOMATIC OFFICER CPT-17676 Ear Wax Removal 12:14:17 CDT CPT-G8443 E-Prescribing Medication Sent 20:38:44 DIPLOMATIC OFFICER CPT-G0439 Medicare Annual Wellness Visit 20:38:44 DIPLOMATIC OFFICER CPT-G8445 E-Prescribing Not sent due to no medication given 15:55: 59 CDT CPT-G8445 E-Prescribing Not sent due to no medication given 11:58: 05 CDT CPT-G8445 E-Prescribing Not sent due to no medication given 16:33: 59 DIPLOMATIC OFFICER CPT-G8445 E-Prescribing Not sent due to no medication given 15:28: 42 DIPLOMATIC OFFICER CPT-G0438 Medicare Annual Wellness Visit Initial 15:28:42 DIPLOMATIC OFFICER CPT-8446 E-Prescribing not done due to controlled substance 14:23: 55 CDT CPT-G0008 Administration Influenza Vaccine 11:56:46 CDT CPT-90393 Influenza Vaccine 11:56:46 CDT CPT-22312 Administration of 1st dose vaccine 11:56:46 CDT CPT-G0008 Administration Influenza Vaccine 15:07:01 CDT CPT-29316 Influenza Vaccine 15:07:01 CDT
--- OUTSIDE RECORDS SUMMARY | 2018-09-09 12:54 | XMS REPORT | Clinical Summary ---
Author Author User, LILIBETH Organization [facility] [place] Address Unknown Phone Unavailable Allergies, Adverse Reactions, [...] Coronary atherosclerosis of unspecified type of vessel, [place] or graft GASTROESOPHAGEAL REFLUX DISEASE, CHRONIC 530.81 [...] % CREA APPLY BID PRN CLOTRIMAZOLE- BETAMETHASONE 59544292379 Active Davinafernando Don DIOCTO 60 MG/15ML SYRP 2 drops placed in ear let stand for 5 minutes and rinse with water and repeat in other ear then return to doctor for rinsing 2013 DOCUSATE SODIUM 02617208337 No Longer Active Chantelle Trujillo LIPITOR 20 MG TAB 1 PO QD ATORVASTATIN CALCIUM 72917346710 Active Chantelle Trujillo ASPIRIN 81 MG TAB 1 PO daily ASPIRIN 94303703225 Active Chantelle Trujillo NITROSTAT 0.4 MG SL TAB 1 pill under tongue prn chest pain. May repeat twice then must go to ER NITROGLYCERIN 85897583881 Active Chantelle Trujillo NIASPAN 1000 MG CR-TABS 1 po QHS NIACIN (ANTIHYPERLIPIDEMIC) 17024328302 Active Chantelle Trujillo LISINOPRIL 40 MG TABS 1 PO BID LISINOPRIL 34257627472 Active Chantelleneha Trujillo RELION PRIME MONITOR ENRIQUE DIRECTED DX: 250.00 BLOOD GLUCOSE MONITORING SUPPL 38193400777 Active Davina Arian RELION PRIME TEST STRP TEST BS QID DX: 250.00 GLUCOSE BLOOD 03895210937 Active Davina Arian FREESTYLE TEST STRP TEST BS QID DX: DIABETES GLUCOSE BLOOD 71416380464 Active Davina Don FREESTYLE GLUCOMETER DIRECTED DX: DIABETES FREESTYLE GLUCOMETER Active Davina Don ALCOHOL SWABS PADS clean area before swabbing ALCOHOL SWABS 90102315350 No Longer Active Chantelle Trujillo LANCETS MISC as directed LANCETS 14708783850 No Longer Active Chantelle Trujillo OPTIUM TEST STRIPS STRP Test blood sugar TID GLUCOSE BLOOD 44636089284 No Longer Active Chantelleneha Trujillo KETOCONAZOLE 2 % CREA apply to affected areas BID KETOCONAZOLE 55657255101 No Longer Active Chantelleneha Trujillo LOTRISONE 1-0.05 % CREA apply daily prn CLOTRIMAZOLE- BETAMETHASONE 26152332496 No Longer Active Chantelle Trujillo ZOFRAN ODT TBDP 1 PO Q 3HRS PRN ONDANSETRON TBDP 64187531149 No Longer Active Chantelleneha Trujillo LORAZEPAM 2 MG TABS 1 PO at HS PRN LORAZEPAM 54465368220 No Longer Active Chantelleneha Trujillo PERCOCET 5-325 MG TABS 1 TAB PO Q 6 HRS PRN OXYCODONE -ACETAMINOPHEN 11723875230 No Longer Active Chantelle Trujillo OPTIUM GLUCOSE MONITOR SYSTEM ENRIQUE as directed BLOOD GLUCOSE MONITORING SUPPL 04497737233 No Longer Active Chantelleneha Trujillo MOBIC 15 MG TABS 1 PO Daily MELOXICAM 88007628422 No Longer Active Chantelle Viri Trujillo COLACE 100 MG CAPS 1 PO DAILY DOCUSATE SODIUM 45094221142 Active Chantelle Viri Trujillo NO FLUSH NIACIN 500 MG TABS 2 PO daily qhs INOSITOL NIACINATE 47737644617 No Longer Active Chantelle Viri Trujillo ULTRAM 50 MG TAB 1-2 PO TID prn TRAMADOL HCL 08155823931 No Longer Active Chantelle Viri Trujillo PEPCID 20 MG TABS 1 PO BID FAMOTIDINE 18388876479 Active Chantelle Viri Trujillo ZANTAC 75 TABS 1 PO BID RANITIDINE HCL TABS 50485185406 No Longer Active Chantelle Viri Trujillo GLYBURIDE 5 MG TABS 1 PO BID GLYBURIDE 47517033986 Active Davina Don FLAX SEED OIL CAPS 1 PO Qhs FLAXSEED (LINSEED) CAPS 16164789894 No Longer Active Chantelle Viri Trujillo LORTAB 5 5-500 MG TABS 1 to 2 PO Q6hrs prn ACETAMINOPHEN-HYDROCODONE 61078102413 No Longer Active Chantelleneha Trujillo EFUDEX 5 % CREA apply sparingly twice weekly to arms FLUOROURACIL 29763022603 No Longer Active Chantelle Viri Trujillo PEPCID 20 MG TABS 1 PO BID FAMOTIDINE 65968219388 No Longer Active Chantelle Viri Trujillo PROTONIX 40 MG TBEC 1 PO daily PANTOPRAZOLE SODIUM 07379998519 No Longer Active Chantelle Viri Trujillo OMEPRAZOLE 20 MG CPDR 1 PO Daily OMEPRAZOLE 55276505556 No Longer Active Chantelle Viri Trujillo METFORMIN HCL 1000 MG TABS 1 PO BID METFORMIN HCL 29804718299 Active Davina Don SIMVASTATIN 40 MG TABS 1 po daily SIMVASTATIN 65451649215 No Longer Active Davina Don FISH OIL 1000 MG CAPS 4 po daily OMEGA-3 FATTY ACIDS 80227902382 Active Chantelle Viri Trujillo IMDUR 60 MG TB24 1 po HS ISOSORBIDE MONONITRATE 96353598088 No Longer Active Chantelleneha Trujillo METOPROLOL TARTRATE 100 MG TABS 1 PO BID METOPROLOL TARTRATE 12983699624 Active Davina Don KEFLEX 500 MG CAP 1 PO QID for 7 days CEPHALEXIN 29255550723 No Longer Active Chantelle Viri Trujillo OXISTAT 1 % CREA apply to affected areas twice daily including feet. 60 gram tube. OXICONAZOLE NITRATE 81978595933 No Longer Active Chantelleneha Trujillo LIDEX 0.05 % OINT apply to affected areas twice daily for 7 days FLUOCINONIDE 65226469162 No Longer Active Chantelle Viri Trujillo MUCINEX 600 MG TB12 1 PO BID GUAIFENESIN 90936397192 No Longer Active Chantelle Viri Trujillo NORVASC 10 MG TABS 1 po QD AMLODIPINE BESYLATE 50964636382 Active Chantelle Viri Trujillo KLOR-CON 10 10 MEQ TBCR 1 po QD POTASSIUM CHLORIDE 11463248658 No Longer Active Chantelleneha Trujillo ROBITUSSIN A-C 10-100 MG/5ML SYRUP 5cc PO Q 4-6 hr prn ROBITUSSIN A-C 10-100 MG/5ML SYRUP 99701850177 No Longer Active Chantelleneha Trujillo BIAXIN XL PAC 500 MG TB24 2 pills at same time daily ( take samples given in office until gone and then start the Rx) CLARITHROMYCIN 36907135442 No Longer Active Chantelleneha Trujillo ATROVENT 0.06 % SOLN 2 puffs each nostril TID prn for runny nose IPRATROPIUM BROMIDE 75566615640 No Longer Active Chantelle Trujillo FLEXERIL 10 MG TABS 1 po BID prn neck pain CYCLOBENZAPRINE HCL 62278739777 No Longer Active Chantelleneha Trujillo ROBITUSSIN A-C 10-100 MG/5ML SYRUP 5cc PO Q 4-6 hr prn ROBITUSSIN A-C 10-100 MG/5ML SYRUP 60138874484 No Longer Active Chantelle Trujillo GLUCOMETER TEST STRIPS Check BS TID DX Diabetes GLUCOMETER TEST STRIPS No Longer Active Chantelle Trujillo GLUCOMETER MACHINE DX Diabetes GLUCOMETER MACHINE No Longer Active Chantelle Trujillo VYTORIN 10-40 MG TABS 1 PO daily EZETIMIBE-SIMVASTATIN 65882777257 No Longer Active Chantelle Trujillo AMOXIL 875 MG TABS 1 PO BID AMOXICILLIN 32720173737 No Longer Active Chantelle Trujillo PLAVIX 75 MG TABS 1 po daily CLOPIDOGREL BISULFATE 52630036097 Active Davina Don NEXIUM 40 MG CPDR 1 po daily ESOMEPRAZOLE MAGNESIUM 01521917445 No Longer Active Chantelle Trujillo LISINOPRIL-HCTZ 20-12.5 MG TABS 1 po daily LISINOPRIL-HCTZ 79848804101 No Longer Active Chantelle Trujillo MULTIVITAMINS TABS 1 po daily MULTIPLE VITAMIN 64352223215 Active Chantelle Trujillo VYTORIN 10/40 1 po [...] mg/dL Encounters Code Encounter Date Provider Facility CPT-28520 Ofc Vst, Est Level III 20:31:48 CDT Chantelle Trujillo DO, FACStefani CPT-72269 Ofc Vst, Est Level III 14:00:56 CDT Chantelle Trujillo DO, FACP CPT-77989 Ofc Vst, Est Level III 15:55:59 CDT Chantelleneha Nobles Trujillo, DO, FACP CPT-65705 Ofc Vst, Est Level III 11:58:05 CDT Chantelle Viri Nobles Trujillo, DO, FACP CPT-34150 Ofc Vst, Est Level III 16:33:59 SWIMMING COACH OR INSTRUCTOR Chantelelneha Nobles Trujillo, DO, FACP CPT-99434 Ofc Vst, Est Level IV 13:41:56 CDT Chantelle Viri Nobles Trujillo, DO, FACP CPT-34590 Ofc Vst, Est Level IV 13:46:20 CDT Chantelle Viri Nobles Trujillo, DO, FACP CPT-72282 Ofc Vst, Est Level IV 14:22:34 SWIMMING COACH OR INSTRUCTOR Chantelleneha Nobles Ronnie, DO, FACP CPT-07162 Ofc Vst, Est Level IV 14:10:02 CDT Chantelleneha Nobles Trujillo, DO, FACP CPT-49710 Ofc Vst, Est Level III 16:17:29 CDT Chantelleneha Nobles Trujillo, DO, FACP CPT-41907 Ofc Vst, Est Level IV 13:59:21 CDT Chantelle Viri Nobles Trujillo, DO, FACP CPT-11791 Ofc Vst, Est Level IV 13:59:18 CDT Chantelleneha Nobles Trujillo, DO, FACP CPT-04126 Ofc Vst, Est Level IV 13:59:52 SWIMMING COACH OR INSTRUCTOR Chantelle Nobles Trujillo, DO, FACP CPT-50377 Ofc Vst, Est Level IV 14:16:34 CDT Chantelle Viri Nobles Ronnie, DO, FACP CPT-08114 Ofc Vst, Est Level IV 14:43:21 CDT Chantelleneha Nobles Trujillo, DO, FACP CPT-94692 Ofc Vst, Est Level IV 13:51:54 CDT Chantelle Viri Nobles Ronnie, DO, FACP CPT-45159 Ofc Vst, Est Level IV 14:19:45 SWIMMING COACH OR INSTRUCTOR Chantelle Viri Nobles Ronnie, DO, FACP CPT-00191 Ofc Vst, Est Level IV 14:03:12 CDT Davina Nobles Ronnie, DO, FACP CPT-53092 Ofc Vst, Est Level IV 14:23:55 CDT Chantelle Viri Nobles Ronnie, DO, FACP CPT-06404 Ofc Vst, Est Level IV 13:46:12 SWIMMING COACH OR INSTRUCTOR Chantelle Viri Nobles Ronnie, DO, FACP CPT-19032 Ofc Vst, Est Level IV 14:21:29 SWIMMING COACH OR INSTRUCTOR Chantelleneha Nobles Ronnie, DO, FACP CPT-31913 Ofc Vst, Est Level IV 11:56:46 CDT Chantelle Viri Nobles Ronnie, DO, FACP CPT-02152 Ofc Vst, Est Level IV 15:06:28 CDT Chantelle [facility] CPT-90709 Ofc Vst, Est Level III 10:49:32 SWIMMING COACH OR INSTRUCTOR Chantelleneha Nobles Ronnie, DO, FACP CPT-40010 Ofc Vst, Est Level IV 14:26:42 SWIMMING COACH OR INSTRUCTOR Chantelle Nobles Ronnie, DO, FACP CPT-25471 Ofc Vst, Est Level III 15:07:01 CDT Chantelleneha Nobles Ronnie, DO, FACP CPT-40006 Ofc Vst, Est Level IV 14:16:08 CDT Chantelle Viri Nobles Ronnie, DO, FACP CPT-84689 Ofc Vst, Est Level IV 14:28:44 CDT Chantelle Viri [place] [facility] [place] CPT-24028 Ofc Vst, Est Level IV 14:06:35 SWIMMING COACH OR INSTRUCTOR Chantelle Trujillo [facility] [place] CPT-23596 Ofc Vst, Est Level III 14:26:15 SWIMMING COACH OR INSTRUCTOR Chantelle Trujillo [facility] [place] CPT-80336 Ofc Vst, Est Level IV 13:59:23 SWIMMING COACH OR INSTRUCTOR Chantelle Trujillo [facility] [place] CPT-53724 Ofc Vst, Est Level IV 15:24:23 SWIMMING COACH OR INSTRUCTOR Chantelle Trujillo [facility] [place] CPT-32572 Ofc Vst, Est Level IV 16:03:46 CDT Chantelle Viri [place] [facility] [place] CPT-18287 Ofc Vst, Est Level IV 15:19:26 CDT Chantelle Viri [place] [facility] [place] CPT-72974 Ofc Vst, Est Level IV 19:08:48 CDT Chantelle Viri [place] [facility] [place] CPT-34928 Ofc Vst, Est Level IV 16:25:43 CDT Chantelleneha Tru[place]illo [facility] [place] CPT-52311 Ofc Vst, New Level IV 17:22:55 SWIMMING COACH OR INSTRUCTOR Chantelle Trujillo [facility] [place] Procedures Code Procedure Name Date Entry Date Standard Description CPT-G0439 Medicare Annual Wellness Visit 13:18:16 SWIMMING COACH OR INSTRUCTOR CPT-05807 Ear Wax Removal 12:14:17 CDT CPT-G8443 E-Prescribing Medication Sent 20:38:44 SWIMMING COACH OR INSTRUCTOR CPT-G0439 Medicare Annual Wellness Visit 20:38:44 SWIMMING COACH OR INSTRUCTOR CPT-G8445 E-Prescribing Not sent due to no medication given 15:55: 59 CDT CPT-G8445 E-Prescribing Not sent due to no medication given 11:58: 05 CDT CPT-G8445 E-Prescribing Not sent due to no medication given 16:33: 59 SWIMMING COACH OR INSTRUCTOR CPT-G8445 E-Prescribing Not sent due to no medication given 15:28: 42 SWIMMING COACH OR INSTRUCTOR CPT-G0438 Medicare Annual Wellness Visit Initial 15:28:42 SWIMMING COACH OR INSTRUCTOR CPT-8446 E-Prescribing not done due to controlled substance 14:23: 55 CDT CPT-G0008 Administration Influenza Vaccine 11:56:46 CDT CPT-91242 Influenza Vaccine 11:56:46 CDT CPT-60524 Administration of 1st dose vaccine 11:56:46 CDT CPT-G0008 Administration Influenza Vaccine 15:07:01 CDT CPT-10787 Influenza Vaccine 15:07:01 CDT
--- OUTSIDE RECORDS SUMMARY | 2018-09-09 12:55 | XMS REPORT | Clinical Summary ---
Author Author User, LILIBETH Organization [facility] [place] Address Unknown Phone Unavailable Allergies, Adverse Reactions, [...] Coronary atherosclerosis of unspecified type of vessel, [place] or graft GASTROESOPHAGEAL REFLUX DISEASE, CHRONIC 530.81 [...] Generic Name NDC Status Provider Patient Instruction RELION PRIME TEST STRP TEST BS QID DX: 250.72 GLUCOSE BLOOD 98980906755 Active Davina Don NOVOLIN N RELION 100 UNIT/ML SUSP 15 units at night INSULIN NPH HUMAN (ISOPHANE) 61178111976 Active Chantelle Truijllo ADVOCATE INSULIN SYRINGE 29G X 1/2" 0.3 ML MISC As directed INSULIN SYRINGE-NEEDLE U-100 84761919660 Active Chantelle Trujillo LANTUS 100 UNIT/ML SOLN 15 units injection at night INSULIN GLARGINE 28724160597 No Longer Active Chantelle Trujillo COZAAR 50 MG TAB 1 PO daily [place] POTASSIUM 37960993470 Active Chantelle Trujillo LOTRISONE 1-0.05 % CREA APPLY BID PRN CLOTRIMAZOLE- BETAMETHASONE 88144331067 Active Chantelle Trujillo DIOCTO 60 MG/15ML SYRP 2 drops placed in ear let stand for 5 minutes and rinse with water and repeat in other ear then return to doctor for rinsing 2013 DOCUSATE SODIUM 60503520994 No Longer Active Chantelle Trujillo LIPITOR 20 MG TAB 1 PO QD ATORVASTATIN CALCIUM 07916272679 Active Chantelle Trujillo ASPIRIN 81 MG TAB 1 PO daily ASPIRIN 61663745129 Active Chantelle Trujillo NITROSTAT 0.4 MG SL TAB 1 pill under tongue prn chest pain. May repeat twice then must go to ER NITROGLYCERIN 71631976283 Active Chantelle Trujillo NIASPAN 1000 MG CR-TABS 1 po QHS NIACIN (ANTIHYPERLIPIDEMIC) 31217877663 Active Chantelle Trujillo LISINOPRIL 40 MG TABS 1 PO BID LISINOPRIL 05815751431 Active Chantelle Trujillo RELION PRIME MONITOR ENRIQUE DIRECTED DX: 250.00 BLOOD GLUCOSE MONITORING SUPPL 30932446463 Active Davina Don FREESTYLE TEST STRP TEST BS QID DX: DIABETES GLUCOSE BLOOD 52075594316 Active Davina Don FREESTYLE GLUCOMETER DIRECTED DX: DIABETES FREESTYLE GLUCOMETER Active Davina Don ALCOHOL SWABS PADS clean area before swabbing ALCOHOL SWABS 47386137169 No Longer Active Chantelle Trujillo LANCETS MISC as directed LANCETS 18253053732 No Longer Active Chantelle Trujillo OPTIUM TEST STRIPS STRP Test blood sugar TID GLUCOSE BLOOD 94486779030 No Longer Active Chantelle Trujillo KETOCONAZOLE 2 % CREA apply to affected areas BID KETOCONAZOLE 47243232240 No Longer Active Chantelle Trujillo LOTRISONE 1-0.05 % CREA apply daily prn CLOTRIMAZOLE- BETAMETHASONE 86219179200 No Longer Active Chantelle Viri Trujillo ZOFRAN ODT TBDP 1 PO Q 3HRS PRN ONDANSETRON TBDP 61034236243 No Longer Active Chantelle Viri Trujillo LORAZEPAM 2 MG TABS 1 PO at HS PRN LORAZEPAM 37809740873 No Longer Active Chantelle Viri Trujillo PERCOCET 5-325 MG TABS 1 TAB PO Q 6 HRS PRN OXYCODONE -ACETAMINOPHEN 99211744168 No Longer Active Chantelle Viri Trujillo OPTIUM GLUCOSE MONITOR SYSTEM ENRIQUE as directed BLOOD GLUCOSE MONITORING SUPPL 56324711685 No Longer Active Chantelle Viri Trujillo MOBIC 15 MG TABS 1 PO Daily MELOXICAM 75102677560 No Longer Active Chantelle Viri Trujillo COLACE 100 MG CAPS 1 PO DAILY DOCUSATE SODIUM 23702730315 Active Chantelle Viri Trujillo NO FLUSH NIACIN 500 MG TABS 2 PO daily qhs INOSITOL NIACINATE 21328592772 No Longer Active Chantelle Viri Trujillo ULTRAM 50 MG TAB 1-2 PO TID prn TRAMADOL HCL 02748549430 No Longer Active Chantelleneha Trujillo PEPCID 20 MG TABS 1 PO BID FAMOTIDINE 26137258772 Active Chantelle Viri Trujillo ZANTAC 75 TABS 1 PO BID RANITIDINE HCL TABS 31245787456 No Longer Active Chantelle Viri Trujillo GLYBURIDE 5 MG TABS 1 PO BID GLYBURIDE 33714217865 Active Davina Don FLAX SEED OIL CAPS 1 PO Qhs FLAXSEED (LINSEED) CAPS 35085626574 No Longer Active Chantelle Viri Trujillo LORTAB 5 5-500 MG TABS 1 to 2 PO Q6hrs prn ACETAMINOPHEN-HYDROCODONE 31334495345 No Longer Active Chantelle Viri Trujillo EFUDEX 5 % CREA apply sparingly twice weekly to arms FLUOROURACIL 77256275748 No Longer Active Chantelleneha Trujillo PEPCID 20 MG TABS 1 PO BID FAMOTIDINE 01840540698 No Longer Active Chantelle Viri Trujillo PROTONIX 40 MG TBEC 1 PO daily PANTOPRAZOLE SODIUM 95105335927 No Longer Active Chantelleneha Trujillo OMEPRAZOLE 20 MG CPDR 1 PO Daily OMEPRAZOLE 87263502786 No Longer Active Chantelleneha Trujillo METFORMIN HCL 1000 MG TABS 1 PO BID METFORMIN HCL 42047585872 Active Davina Don SIMVASTATIN 40 MG TABS 1 po daily SIMVASTATIN 28712742373 No Longer Active Davina Don FISH OIL 1000 MG CAPS 4 po daily OMEGA-3 FATTY ACIDS 99737571844 Active Chantelle Viri Trujillo IMDUR 60 MG TB24 1 po HS ISOSORBIDE MONONITRATE 01333193440 No Longer Active Chantelleneha Trujillo METOPROLOL TARTRATE 100 MG TABS 1 PO BID METOPROLOL TARTRATE 64430378589 Active Davina Vickerstis KEFLEX 500 MG CAP 1 PO QID for 7 days CEPHALEXIN 99965546762 No Longer Active Chantelleneha Trujillo OXISTAT 1 % CREA apply to affected areas twice daily including feet. 60 gram tube. OXICONAZOLE NITRATE 84108423594 No Longer Active Chantelle Viri Trujillo LIDEX 0.05 % OINT apply to affected areas twice daily for 7 days FLUOCINONIDE 60758932158 No Longer Active Chantelleneha Trujillo MUCINEX 600 MG TB12 1 PO BID GUAIFENESIN 67438640161 No Longer Active Chantelleneha Trujillo NORVASC 10 MG TABS 1 po QD AMLODIPINE BESYLATE 08940054922 Active Chantelle Viri Trujillo KLOR-CON 10 10 MEQ TBCR 1 po QD POTASSIUM CHLORIDE 01732117470 No Longer Active Chantelle Trujillo ROBITUSSIN A-C 10-100 MG/5ML SYRUP 5cc PO Q 4-6 hr prn ROBITUSSIN A-C 10-100 MG/5ML SYRUP 64003868569 No Longer Active Chantelle Trujillo BIAXIN XL PAC 500 MG TB24 2 pills at same time daily ( take samples given in office until gone and then start the Rx) CLARITHROMYCIN 08463794827 No Longer Active Chantelleneha Trujillo ATROVENT 0.06 % SOLN 2 puffs each nostril TID prn for runny nose IPRATROPIUM BROMIDE 14270263530 No Longer Active Chantelleneha Trujillo FLEXERIL 10 MG TABS 1 po BID prn neck pain CYCLOBENZAPRINE HCL 28487504647 No Longer Active Chantelle Trujillo ROBITUSSIN A-C 10-100 MG/5ML SYRUP 5cc PO Q 4-6 hr prn ROBITUSSIN A-C 10-100 MG/5ML SYRUP 02586892456 No Longer Active Chantelle Trujillo GLUCOMETER TEST STRIPS Check BS TID DX Diabetes GLUCOMETER TEST STRIPS No Longer Active Chantelle Trujillo GLUCOMETER MACHINE DX Diabetes GLUCOMETER MACHINE No Longer Active Chantelle Trujillo VYTORIN 10-40 MG TABS 1 PO daily EZETIMIBE-SIMVASTATIN 86472440831 No Longer Active Chantelle Trujillo AMOXIL 875 MG TABS 1 PO BID AMOXICILLIN 23536942333 No Longer Active Chantelle Trujillo PLAVIX 75 MG TABS 1 po daily CLOPIDOGREL BISULFATE 25280312492 Active Davina Don NEXIUM 40 MG CPDR 1 po daily ESOMEPRAZOLE MAGNESIUM 41396948355 No Longer Active Chantelle Trujillo LISINOPRIL-HCTZ 20-12.5 MG TABS 1 po daily LISINOPRIL-HCTZ 60955218333 No Longer Active Chantelle Trujillo MULTIVITAMINS TABS 1 po daily MULTIPLE VITAMIN 20767361024 Active Chantelle Trujillo VYTORIN 1 po daily [...] mg/dL Encounters Code Encounter Date Provider Facility CPT-94952 Ofc Vst, Est Level IV 17:09:42 CDT Chantelle Trujillo DO, FACP CPT-54293 Ofc Vst, Est Level III 20:31:48 CDT Chantelle Trujillo DO, FACP CPT-90248 Ofc Vst, Est Level III 14:00:56 CDT Chantelle Trujillo DO, FACP CPT-76897 Ofc Vst, Est Level III 15:55:59 CDT Chantelle Trujillo DO, FACP CPT-14625 Ofc Vst, Est Level III 11:58:05 CDT Chantelleneha Nobles Trujillo, DO, FACP CPT-07903 Ofc Vst, Est Level III 16:33:59 GAS PUMPING STATION HELPER Chantelle Nobles Trujillo, DO, FACP CPT-75835 Ofc Vst, Est Level IV 13:41:56 CDT Chantelle Viri Nobles Trujillo, DO, FACP CPT-91577 Ofc Vst, Est Level IV 13:46:20 CDT Chantelle Viri Nobles Trujillo, DO, FACP CPT-01702 Ofc Vst, Est Level IV 14:22:34 GAS PUMPING STATION HELPER Chantelle Nobles Ronnie, DO, FACP CPT-19158 Ofc Vst, Est Level IV 14:10:02 CDT Chantelle Viri Nobles Ronnie, DO, FACP CPT-53149 Ofc Vst, Est Level III 16:17:29 CDT Chantelleneha Nobles Ronnie, DO, FACP CPT-08017 Ofc Vst, Est Level IV 13:59:21 CDT Chantelleneha Nobles Ronnie, DO, FACP CPT-95611 Ofc Vst, Est Level IV 13:59:18 CDT Chantelleneha Nobles Ronnie, DO, FACP CPT-82382 Ofc Vst, Est Level IV 13:59:52 GAS PUMPING STATION HELPER Chantelle Nobles Ronnie, DO, FACP CPT-19978 Ofc Vst, Est Level IV 14:16:34 CDT Chantelle Viri Nobles Ronnie, DO, FACP CPT-77496 Ofc Vst, Est Level IV 14:43:21 CDT Chantelle Viri Nobles Ronnie, DO, FACP CPT-58097 Ofc Vst, Est Level IV 13:51:54 CDT Chantelle Nobles Ronnie, DO, FACP CPT-07119 Ofc Vst, Est Level IV 14:19:45 GAS PUMPING STATION HELPER Chantelle Nobles Trujillo, DO, FACP CPT-34928 Ofc Vst, Est Level IV 14:03:12 CDT Davina Nobles Ronnie, DO, FACP CPT-20962 Ofc Vst, Est Level IV 14:23:55 CDT Chantelle Nobles Ronnie, DO, FACP CPT-67410 Ofc Vst, Est Level IV 13:46:12 GAS PUMPING STATION HELPER Chantelle Nobles Ronnie, DO, FACP CPT-17890 Ofc Vst, Est Level IV 14:21:29 GAS PUMPING STATION HELPER Chantelle Nobles Ronnie, DO, FACP CPT-00804 Ofc Vst, Est Level IV 11:56:46 CDT Chantelleneha Nobles Ronnie, DO, FACP CPT-25040 Ofc Vst, Est Level IV 15:06:28 CDT Chantelle Trujillo [facility] CPT-92902 Ofc Vst, Est Level III 10:49:32 GAS PUMPING STATION HELPER Chantelle Nobles Ronnie, DO, FACP CPT-09287 Ofc Vst, Est Level IV 14:26:42 GAS PUMPING STATION HELPER Chantelle Nobles Ronnie, DO, FACP CPT-98591 Ofc Vst, Est Level III 15:07:01 CDT Chantelle Nobles Ronnie, DO, FACP CPT-62727 Ofc Vst, Est Level IV 14:16:08 CDT Chantelle Nobles Ronnie, DO, FACP CPT-33457 Ofc Vst, Est Level IV 14:28:44 CDT Chantelleneha Trujillo [facility] [place] CPT-55791 Ofc Vst, Est Level IV 14:06:35 GAS PUMPING STATION HELPER Chantelle Viri Ronnie [facility] [place] CPT-22638 Ofc Vst, Est Level III 14:26:15 GAS PUMPING STATION HELPER Chantelle Viri Trujillo [facility] [place] CPT-91634 Ofc Vst, Est Level IV 13:59:23 GAS PUMPING STATION HELPER Chantelle Virivincent Trujillo [facility] [place] CPT-63598 Ofc Vst, Est Level IV 15:24:23 GAS PUMPING STATION HELPER Chantelle Viri Ronnei [facility] [place] CPT-17610 Ofc Vst, Est Level IV 16:03:46 CDT Chantelle Viri Ronnie [facility] [place] CPT-53253 Ofc Vst, Est Level IV 15:19:26 CDT Chantelle Viri Ronnie [facility] [place] CPT-05778 Ofc Vst, Est Level IV 19:08:48 CDT Chantelle Viri Ronnie [facility] [place] CPT-08253 Ofc Vst, Est Level IV 16:25:43 CDT Chantelle Vrii Ronnie [facility] [place] CPT-16818 Ofc Vst, New Level IV 17:22:55 GAS PUMPING STATION HELPER Chantelle Viri Ronnie [facility] [place] Procedures Code Procedure Name Date Entry Date Standard Description CPT-G0439 Medicare Annual Wellness Visit 13:18:16 GAS PUMPING STATION HELPER CPT-39584 Ear Wax Removal 12:14:17 CDT CPT-G8443 E-Prescribing Medication Sent 20:38:44 GAS PUMPING STATION HELPER CPT-G0439 Medicare Annual Wellness Visit 20:38:44 GAS PUMPING STATION HELPER CPT-G8445 E-Prescribing Not sent due to no medication given 15:55: 59 CDT CPT-G8445 E-Prescribing Not sent due to no medication given 11:58: 05 CDT CPT-G8445 E-Prescribing Not sent due to no medication given 16:33: 59 GAS PUMPING STATION HELPER CPT-G8445 E-Prescribing Not sent due to no medication given 15:28: 42 GAS PUMPING STATION HELPER CPT-G0438 Medicare Annual Wellness Visit Initial 15:28:42 GAS PUMPING STATION HELPER CPT-8446 E-Prescribing not done due to controlled substance 14:23: 55 CDT CPT-G0008 Administration Influenza Vaccine 11:56:46 CDT CPT-17814 Influenza Vaccine 11:56:46 CDT CPT-93844 Administration of 1st dose vaccine 11:56:46 CDT CPT-G0008 Administration Influenza Vaccine 15:07:01 CDT CPT-72462 Influenza Vaccine 15:07:01 CDT
--- OUTSIDE RECORDS SUMMARY | 2018-09-09 12:56 | XMS REPORT | Clinical Summary ---
Author Author User, LILIBETH Organization [facility] [place] Address Unknown Phone Unavailable Allergies, Adverse Reactions, [...] Coronary atherosclerosis of unspecified type of vessel, [place] or graft GASTROESOPHAGEAL REFLUX DISEASE, CHRONIC 530.81 [...] % CREA APPLY BID PRN CLOTRIMAZOLE- BETAMETHASONE 85918802673 Active Davina Don DIOCTO 60 MG/15ML SYRP 2 drops placed in ear let stand for 5 minutes and rinse with water and repeat in other ear then return to doctor for rinsing 2013 DOCUSATE SODIUM 20937400321 No Longer Active Chantelle Trujillo LIPITOR 20 MG TAB 1 PO QD ATORVASTATIN CALCIUM 66812829616 Active Chantelle Trujillo ASPIRIN 81 MG TAB 1 PO daily ASPIRIN 65637725321 Active Chantelle Trujillo NITROSTAT 0.4 MG SL TAB 1 pill under tongue prn chest pain. May repeat twice then must go to ER NITROGLYCERIN 15399663507 Active Chantelle Trujillo NIASPAN 1000 MG CR-TABS 1 po QHS NIACIN (ANTIHYPERLIPIDEMIC) 12790735381 Active Chantelle Trujillo LISINOPRIL 40 MG TABS 1 PO BID LISINOPRIL 09189749415 Active Chantelle Trujillo RELION PRIME MONITOR ENRIQUE DIRECTED DX: 250.00 BLOOD GLUCOSE MONITORING SUPPL 36608515318 Active Davina Arian RELION PRIME TEST STRP TEST BS QID DX: 250.00 GLUCOSE BLOOD 33257677836 Active Davina Arian FREESTYLE TEST STRP TEST BS QID DX: DIABETES GLUCOSE BLOOD 87061617855 Active Davinafernando Don FREESTYLE GLUCOMETER DIRECTED DX: DIABETES FREESTYLE GLUCOMETER Active Davina Don ALCOHOL SWABS PADS clean area before swabbing ALCOHOL SWABS 40707154454 No Longer Active Chantelle Trujillo LANCETS MISC as directed LANCETS 38672748783 No Longer Active Chantelle Trujillo OPTIUM TEST STRIPS STRP Test blood sugar TID GLUCOSE BLOOD 28241323971 No Longer Active Chantelleneha Trujillo KETOCONAZOLE 2 % CREA apply to affected areas BID KETOCONAZOLE 70574804928 No Longer Active Chantelleneha Trujillo LOTRISONE 1-0.05 % CREA apply daily prn CLOTRIMAZOLE- BETAMETHASONE 44180860487 No Longer Active Chantelle Trujillo ZOFRAN ODT TBDP 1 PO Q 3HRS PRN ONDANSETRON TBDP 19162208388 No Longer Active Chantelleneha Trujillo LORAZEPAM 2 MG TABS 1 PO at HS PRN LORAZEPAM 85770737867 No Longer Active Chantelleneha Trujillo PERCOCET 5-325 MG TABS 1 TAB PO Q 6 HRS PRN OXYCODONE -ACETAMINOPHEN 76539274387 No Longer Active Chantelle Trujillo OPTIUM GLUCOSE MONITOR SYSTEM ENRIQUE as directed BLOOD GLUCOSE MONITORING SUPPL 25645751642 No Longer Active Chantelleneha Trujillo MOBIC 15 MG TABS 1 PO Daily MELOXICAM 66270553691 No Longer Active Chantelle Viri Trujillo COLACE 100 MG CAPS 1 PO DAILY DOCUSATE SODIUM 67325779943 Active Chantelle Viri Trujillo NO FLUSH NIACIN 500 MG TABS 2 PO daily qhs INOSITOL NIACINATE 54048478376 No Longer Active Chantelle Viri Trujillo ULTRAM 50 MG TAB 1-2 PO TID prn TRAMADOL HCL 09466584272 No Longer Active Chantelle Viri Trujillo PEPCID 20 MG TABS 1 PO BID FAMOTIDINE 25111709319 Active Chantelle Viri Trujillo ZANTAC 75 TABS 1 PO BID RANITIDINE HCL TABS 27260007507 No Longer Active Chantelle Viri Trujillo GLYBURIDE 5 MG TABS 1 PO BID GLYBURIDE 65148521655 Active Davina Don FLAX SEED OIL CAPS 1 PO Qhs FLAXSEED (LINSEED) CAPS 87841171454 No Longer Active Chantelleneha Trujillo LORTAB 5 5-500 MG TABS 1 to 2 PO Q6hrs prn ACETAMINOPHEN-HYDROCODONE 14959858168 No Longer Active Chantelle Viri Trujillo EFUDEX 5 % CREA apply sparingly twice weekly to arms FLUOROURACIL 34522415530 No Longer Active Chantelle Viri Trujillo PEPCID 20 MG TABS 1 PO BID FAMOTIDINE 08920858947 No Longer Active Chantelle Viri Trujillo PROTONIX 40 MG TBEC 1 PO daily PANTOPRAZOLE SODIUM 58458284059 No Longer Active Chantelle Viri Trujillo OMEPRAZOLE 20 MG CPDR 1 PO Daily OMEPRAZOLE 17953391244 No Longer Active Chantelle Viri Trujillo METFORMIN HCL 1000 MG TABS 1 PO BID METFORMIN HCL 75486980793 Active Davina Don SIMVASTATIN 40 MG TABS 1 po daily SIMVASTATIN 68008403727 No Longer Active Davina Don FISH OIL 1000 MG CAPS 4 po daily OMEGA-3 FATTY ACIDS 20671806026 Active Chantelle Viri Trujillo IMDUR 60 MG TB24 1 po HS ISOSORBIDE MONONITRATE 49348653540 No Longer Active Chantelleneha Trujillo METOPROLOL TARTRATE 100 MG TABS 1 PO BID METOPROLOL TARTRATE 96029415163 Active Davina Don KEFLEX 500 MG CAP 1 PO QID for 7 days CEPHALEXIN 52608674865 No Longer Active Chantelleneha Trujillo OXISTAT 1 % CREA apply to affected areas twice daily including feet. 60 gram tube. OXICONAZOLE NITRATE 42899121921 No Longer Active Chantelleneha Trujillo LIDEX 0.05 % OINT apply to affected areas twice daily for 7 days FLUOCINONIDE 08458293744 No Longer Active Chantelle Viri Trujillo MUCINEX 600 MG TB12 1 PO BID GUAIFENESIN 06985775965 No Longer Active Chantelle Viri Trujillo NORVASC 10 MG TABS 1 po QD AMLODIPINE BESYLATE 27597484221 Active Chantelle Viri Trujillo KLOR-CON 10 10 MEQ TBCR 1 po QD POTASSIUM CHLORIDE 72247079157 No Longer Active Chantelleneha Trujillo ROBITUSSIN A-C 10-100 MG/5ML SYRUP 5cc PO Q 4-6 hr prn ROBITUSSIN A-C 10-100 MG/5ML SYRUP 74400449920 No Longer Active Chantelle Trujillo BIAXIN XL PAC 500 MG TB24 2 pills at same time daily ( take samples given in office until gone and then start the Rx) CLARITHROMYCIN 42196509999 No Longer Active Chantelleneha Trujillo ATROVENT 0.06 % SOLN 2 puffs each nostril TID prn for runny nose IPRATROPIUM BROMIDE 21097568569 No Longer Active Chantelle Trujillo FLEXERIL 10 MG TABS 1 po BID prn neck pain CYCLOBENZAPRINE HCL 98065124423 No Longer Active Chantelleneha Trujillo ROBITUSSIN A-C 10-100 MG/5ML SYRUP 5cc PO Q 4-6 hr prn ROBITUSSIN A-C 10-100 MG/5ML SYRUP 70512227865 No Longer Active Chantelle Trujillo GLUCOMETER TEST STRIPS Check BS TID DX Diabetes GLUCOMETER TEST STRIPS No Longer Active Chantelle Trujillo GLUCOMETER MACHINE DX Diabetes GLUCOMETER MACHINE No Longer Active Chantelle Trujillo VYTORIN 10-40 MG TABS 1 PO daily EZETIMIBE-SIMVASTATIN 25226805604 No Longer Active Chantelle Trujillo AMOXIL 875 MG TABS 1 PO BID AMOXICILLIN 34505236720 No Longer Active Chantelle Trujillo PLAVIX 75 MG TABS 1 po daily CLOPIDOGREL BISULFATE 32845524709 Active Davinafernando Don NEXIUM 40 MG CPDR 1 po daily ESOMEPRAZOLE MAGNESIUM 53177774976 No Longer Active Chantelle Trujillo LISINOPRIL-HCTZ 20-12.5 MG TABS 1 po daily LISINOPRIL-HCTZ 83149604288 No Longer Active Chantelle Trujillo MULTIVITAMINS TABS 1 po daily MULTIPLE VITAMIN 11517612421 Active Chantelle Trujillo VYTORIN 10/40 1 po [...] mg/dL Encounters Code Encounter Date Provider Facility CPT-89306 Ofc Vst, Est Level III 20:31:48 CDT Chantelle Trujillo DO, FACStefani CPT-89800 Ofc Vst, Est Level III 14:00:56 CDT Chantelle Trujillo DO, FACP CPT-83324 Ofc Vst, Est Level III 15:55:59 CDT Chantelle Viri Nobles Trujillo, DO, FACP CPT-64898 Ofc Vst, Est Level III 11:58:05 CDT Chantelle Viri Nobles Trujillo, DO, FACP CPT-90474 Ofc Vst, Est Level III 16:33:59 DUMB WAITER OPERATOR Chantelleneha Nobles Trujillo, DO, FACP CPT-23700 Ofc Vst, Est Level IV 13:41:56 CDT Chantelle Viri Nobles Trujillo, DO, FACP CPT-02495 Ofc Vst, Est Level IV 13:46:20 CDT Chantelle Viri Nobles Ronnie, DO, FACP CPT-37303 Ofc Vst, Est Level IV 14:22:34 DUMB WAITER OPERATOR Chantelleneha Nobles Ronnie, DO, FACP CPT-27269 Ofc Vst, Est Level IV 14:10:02 CDT Chantelle Viri Nobles Ronnie, DO, FACP CPT-91948 Ofc Vst, Est Level III 16:17:29 CDT Chantelleneha Nobles Ronnie, DO, FACP CPT-47728 Ofc Vst, Est Level IV 13:59:21 CDT Chantelle Viri Nobles Ronnie, DO, FACP CPT-98217 Ofc Vst, Est Level IV 13:59:18 CDT Chantelle Viri Nobles Trujillo, DO, FACP CPT-93761 Ofc Vst, Est Level IV 13:59:52 DUMB WAITER OPERATOR Chantelle Nobles Ronnie, DO, FACP CPT-30531 Ofc Vst, Est Level IV 14:16:34 CDT Chantelle Viri Nobles Ronnie, DO, FACP CPT-87570 Ofc Vst, Est Level IV 14:43:21 CDT Chantelleneha Nobles Trujillo, DO, FACP CPT-92538 Ofc Vst, Est Level IV 13:51:54 CDT Chantelle Viri Nobles Ronnie, DO, FACP CPT-97884 Ofc Vst, Est Level IV 14:19:45 DUMB WAITER OPERATOR Chantelle Viri Nobles Ronnie, DO, FACP CPT-09502 Ofc Vst, Est Level IV 14:03:12 CDT Davina Nobles Trujillo, DO, FACP CPT-86982 Ofc Vst, Est Level IV 14:23:55 CDT Chantelle Viri Nobles Ronnie, DO, FACP CPT-15268 Ofc Vst, Est Level IV 13:46:12 DUMB WAITER OPERATOR Chantelle Viri Nobles Ronnie, DO, FACP CPT-16785 Ofc Vst, Est Level IV 14:21:29 DUMB WAITER OPERATOR Chantelleneha Nobles Ronnie, DO, FACP CPT-37090 Ofc Vst, Est Level IV 11:56:46 CDT Chantelle Viri Nobles Ronnie, DO, FACP CPT-37656 Ofc Vst, Est Level IV 15:06:28 CDT Chantelle Trujillo [facility] CPT-61712 Ofc Vst, Est Level III 10:49:32 DUMB WAITER OPERATOR Chantelleneha Nobles Ronnie, DO, FACP CPT-92413 Ofc Vst, Est Level IV 14:26:42 DUMB WAITER OPERATOR Chantelle Nobles Ronnie, DO, FACP CPT-49824 Ofc Vst, Est Level III 15:07:01 CDT Chantelleneha Nobles Ronnie, DO, FACP CPT-37537 Ofc Vst, Est Level IV 14:16:08 CDT Chantelleneha Nobles Trujillo, DO, FACP CPT-87113 Ofc Vst, Est Level IV 14:28:44 CDT Chantelle Virivincent Trujillo [facility] [place] CPT-56437 Ofc Vst, Est Level IV 14:06:35 DUMB WAITER OPERATOR Chantelle Trujillo [facility] [place] CPT-20272 Ofc Vst, Est Level III 14:26:15 DUMB WAITER OPERATOR Chantelle Trujillo [facility] [place] CPT-88435 Ofc Vst, Est Level IV 13:59:23 DUMB WAITER OPERATOR Chantelle Trujillo [facility] [place] CPT-77719 Ofc Vst, Est Level IV 15:24:23 DUMB WAITER OPERATOR Chantelle Trujillo [facility] [place] CPT-75153 Ofc Vst, Est Level IV 16:03:46 CDT Chantelle Viri Trujillo [facility] [place] CPT-84969 Ofc Vst, Est Level IV 15:19:26 CDT Chantelle Viri Trujillo [facility] [place] CPT-51899 Ofc Vst, Est Level IV 19:08:48 CDT Chantelle Viri Trujillo [facility] [place] CPT-64539 Ofc Vst, Est Level IV 16:25:43 CDT Chantelle Trujillo [facility] [place] CPT-00443 Ofc Vst, New Level IV 17:22:55 DUMB WAITER OPERATOR Chantelle Trujillo [facility] [place] Procedures Code Procedure Name Date Entry Date Standard Description CPT-G0439 Medicare Annual Wellness Visit 13:18:16 DUMB WAITER OPERATOR CPT-90531 Ear Wax Removal 12:14:17 CDT CPT-G8443 E-Prescribing Medication Sent 20:38:44 DUMB WAITER OPERATOR CPT-G0439 Medicare Annual Wellness Visit 20:38:44 DUMB WAITER OPERATOR CPT-G8445 E-Prescribing Not sent due to no medication given 15:55: 59 CDT CPT-G8445 E-Prescribing Not sent due to no medication given 11:58: 05 CDT CPT-G8445 E-Prescribing Not sent due to no medication given 16:33: 59 DUMB WAITER OPERATOR CPT-G8445 E-Prescribing Not sent due to no medication given 15:28: 42 DUMB WAITER OPERATOR CPT-G0438 Medicare Annual Wellness Visit Initial 15:28:42 DUMB WAITER OPERATOR CPT-8446 E-Prescribing not done due to controlled substance 14:23: 55 CDT CPT-G0008 Administration Influenza Vaccine 11:56:46 CDT CPT-59296 Influenza Vaccine 11:56:46 CDT CPT-02914 Administration of 1st dose vaccine 11:56:46 CDT CPT-G0008 Administration Influenza Vaccine 15:07:01 CDT CPT-48508 Influenza Vaccine 15:07:01 CDT
--- OUTSIDE RECORDS SUMMARY | 2018-09-09 12:57 | XMS REPORT | Clinical Summary ---
Author Author User, LILIBETH Organization [facility] [place] Address Unknown Phone Unavailable Allergies, Adverse Reactions, [...] Coronary atherosclerosis of unspecified type of vessel, [place] or graft GASTROESOPHAGEAL REFLUX DISEASE, CHRONIC 530.81 [...] MISC DIRECTED DX: 250.00 INSULIN SYRINGE-NEEDLE U-100 12495710659 Active Davina Don NOVOLIN N RELION 100 UNIT/ML SUSP 40 units at night INSULIN NPH HUMAN (ISOPHANE) 50727699430 Active Davina Don RELION PRIME TEST STRP TEST BS QID DX: 250.72 GLUCOSE BLOOD 52758437912 Active Davina Don LANTUS 100 UNIT/ML SOLN 15 units injection at night INSULIN GLARGINE 33025957202 No Longer Active Chantelle Trujillo COZAAR 50 MG TAB 1 PO daily LOSARTAN POTASSIUM 93440800607 Active Chantelle Trujillo LOTRISONE 1-0.05 % CREA APPLY BID PRN CLOTRIMAZOLE- BETAMETHASONE 35735136235 Active Chantelle Trujillo DIOCTO 60 MG/15ML SYRP 2 drops placed in ear let stand for 5 minutes and rinse with water and repeat in other ear then return to doctor for rinsing 2013 DOCUSATE SODIUM 64593215697 No Longer Active Chantelle Trujillo LIPITOR 20 MG TAB 1 PO QD ATORVASTATIN CALCIUM 12451786737 Active Chantelle Trujillo ASPIRIN 81 MG TAB 1 PO daily ASPIRIN 84370240261 Active Chantelle Trujillo NITROSTAT 0.4 MG SL TAB 1 pill under tongue prn chest pain. May repeat twice then must go to ER NITROGLYCERIN 52420177003 Active Chantelle Trujillo NIASPAN 1000 MG CR-TABS 1 po QHS NIACIN (ANTIHYPERLIPIDEMIC) 97137969481 Active Chantelle Trujillo LISINOPRIL 40 MG TABS 1 PO BID LISINOPRIL 74856212836 Active Chantelle Trujillo RELION PRIME MONITOR ENRIQUE DIRECTED DX: 250.00 BLOOD GLUCOSE MONITORING SUPPL 46138286956 Active Davina Don FREESTYLE TEST STRP TEST BS QID DX: DIABETES GLUCOSE BLOOD 62303346323 Active Davina Don FREESTYLE GLUCOMETER DIRECTED DX: DIABETES FREESTYLE GLUCOMETER Active Davina Don ALCOHOL SWABS PADS clean area before swabbing ALCOHOL SWABS 76450071129 No Longer Active Chantelle Trujillo LANCETS MISC as directed LANCETS 10866167637 No Longer Active Chantelle Trujillo OPTIUM TEST STRIPS STRP Test blood sugar TID GLUCOSE BLOOD 70889457927 No Longer Active Chantelle Trujillo KETOCONAZOLE 2 % CREA apply to affected areas BID KETOCONAZOLE 47785538689 No Longer Active Chantelle Trujillo LOTRISONE 1-0.05 % CREA apply daily prn CLOTRIMAZOLE- BETAMETHASONE 26964176942 No Longer Active Chantelle Trujillo ZOFRAN ODT TBDP 1 PO Q 3HRS PRN ONDANSETRON TBDP 69077688086 No Longer Active Chantelle Viri Trujillo LORAZEPAM 2 MG TABS 1 PO at HS PRN LORAZEPAM 52568816380 No Longer Active Chantelle Viri Trujillo PERCOCET 5-325 MG TABS 1 TAB PO Q 6 HRS PRN OXYCODONE -ACETAMINOPHEN 28567833791 No Longer Active Chantelle Viri Trujillo OPTIUM GLUCOSE MONITOR SYSTEM ENRIQUE as directed BLOOD GLUCOSE MONITORING SUPPL 23806866218 No Longer Active Chantelle Viri Trujillo MOBIC 15 MG TABS 1 PO Daily MELOXICAM 18101439413 No Longer Active Chantelle Viri Trujillo COLACE 100 MG CAPS 1 PO DAILY DOCUSATE SODIUM 30082080525 Active Chantelle Vrii Trujillo NO FLUSH NIACIN 500 MG TABS 2 PO daily qhs INOSITOL NIACINATE 26840897890 No Longer Active Chantelle Viri Trujillo ULTRAM 50 MG TAB 1-2 PO TID prn TRAMADOL HCL 43939327832 No Longer Active Chantelleneha Trujillo PEPCID 20 MG TABS 1 PO BID FAMOTIDINE 44876013033 Active Chantelle Viri Trujillo ZANTAC 75 TABS 1 PO BID RANITIDINE HCL TABS 22466554111 No Longer Active Chantelle Viri Trujillo GLYBURIDE 5 MG TABS 1 PO BID GLYBURIDE 82009461341 Active Davina Don FLAX SEED OIL CAPS 1 PO Qhs FLAXSEED (LINSEED) CAPS 25629991507 No Longer Active Chantelle Viri Trujillo LORTAB 5 5-500 MG TABS 1 to 2 PO Q6hrs prn ACETAMINOPHEN-HYDROCODONE 90678759041 No Longer Active Chantelle Viir Trujillo EFUDEX 5 % CREA apply sparingly twice weekly to arms FLUOROURACIL 16880483230 No Longer Active Chantelleneha Trujillo PEPCID 20 MG TABS 1 PO BID FAMOTIDINE 79818787514 No Longer Active Chantelle Viri Trujillo PROTONIX 40 MG TBEC 1 PO daily PANTOPRAZOLE SODIUM 90493635333 No Longer Active Chantelleneha Trujillo OMEPRAZOLE 20 MG CPDR 1 PO Daily OMEPRAZOLE 07729561417 No Longer Active Chantelle Viri Trujillo METFORMIN HCL 1000 MG TABS 1 PO BID METFORMIN HCL 37367231425 Active Davina Don SIMVASTATIN 40 MG TABS 1 po daily SIMVASTATIN 54895131860 No Longer Active Davina Don FISH OIL 1000 MG CAPS 4 po daily OMEGA-3 FATTY ACIDS 97640036842 Active Chantelle Viri Trujillo IMDUR 60 MG TB24 1 po HS ISOSORBIDE MONONITRATE 65813148908 No Longer Active Chantelle Viri Trujillo METOPROLOL TARTRATE 100 MG TABS 1 PO BID METOPROLOL TARTRATE 40916952888 Active Davina Don KEFLEX 500 MG CAP 1 PO QID for 7 days CEPHALEXIN 25008968037 No Longer Active Chantelleneha Trujillo OXISTAT 1 % CREA apply to affected areas twice daily including feet. 60 gram tube. OXICONAZOLE NITRATE 45420915990 No Longer Active Chantelle Viri Trujillo LIDEX 0.05 % OINT apply to affected areas twice daily for 7 days FLUOCINONIDE 47674572629 No Longer Active Chantelle Viri Trujillo MUCINEX 600 MG TB12 1 PO BID GUAIFENESIN 07439678202 No Longer Active Chantelle Viri Trujillo NORVASC 10 MG TABS 1 po QD AMLODIPINE BESYLATE 55655561340 Active Chantelle Viri Trujillo KLOR-CON 10 10 MEQ TBCR 1 po QD POTASSIUM CHLORIDE 08255253835 No Longer Active Chantelle Trujillo ROBITUSSIN A-C 10-100 MG/5ML SYRUP 5cc PO Q 4-6 hr prn ROBITUSSIN A-C 10-100 MG/5ML SYRUP 01197397710 No Longer Active Chantelle Trujillo BIAXIN XL PAC 500 MG TB24 2 pills at same time daily ( take samples given in office until gone and then start the Rx) CLARITHROMYCIN 82539567426 No Longer Active Chantelleneha Trujillo ATROVENT 0.06 % SOLN 2 puffs each nostril TID prn for runny nose IPRATROPIUM BROMIDE 15584940012 No Longer Active Chantelle Trujillo FLEXERIL 10 MG TABS 1 po BID prn neck pain CYCLOBENZAPRINE HCL 67925641733 No Longer Active Chantelle Trujillo ROBITUSSIN A-C 10-100 MG/5ML SYRUP 5cc PO Q 4-6 hr prn ROBITUSSIN A-C 10-100 MG/5ML SYRUP 87787839087 No Longer Active Chantelle Trujillo GLUCOMETER TEST STRIPS Check BS TID DX Diabetes GLUCOMETER TEST STRIPS No Longer Active Chantelle Trujillo GLUCOMETER MACHINE DX Diabetes GLUCOMETER MACHINE No Longer Active Chantelle Trujillo VYTORIN 10-40 MG TABS 1 PO daily EZETIMIBE-SIMVASTATIN 51570790132 No Longer Active Chantelle Trujillo AMOXIL 875 MG TABS 1 PO BID AMOXICILLIN 28120089911 No Longer Active Chantelle Trujillo PLAVIX 75 MG TABS 1 po daily CLOPIDOGREL BISULFATE 50618930893 Active Davina Don NEXIUM 40 MG CPDR 1 po daily ESOMEPRAZOLE MAGNESIUM 74821481513 No Longer Active Chantelle Trujillo LISINOPRIL-HCTZ 20-12.5 MG TABS 1 po daily LISINOPRIL-HCTZ 57442855453 No Longer Active Chantelle Trujillo MULTIVITAMINS TABS 1 po daily MULTIPLE VITAMIN 63677283464 Active Chantelle Trujillo VYTORIN 1 po daily [...] mg/dL Encounters Code Encounter Date Provider Facility CPT-86278 Ofc Vst, Est Level IV 17:09:42 CDT Chantelle Trujillo DO, FACP CPT-91077 Ofc Vst, Est Level III 20:31:48 CDT Chantelle Trujillo DO, FACP CPT-84582 Ofc Vst, Est Level III 14:00:56 CDT Chantelle Trujillo DO, FACP CPT-11518 Ofc Vst, Est Level III 15:55:59 CDT Chantelle Trujillo DO, FACP CPT-93999 Ofc Vst, Est Level III 11:58:05 CDT Chantelleneha Nobles Trujillo, DO, FACP CPT-81238 Ofc Vst, Est Level III 16:33:59 [employer] Chantelle Nobles Trujillo, DO, FACP CPT-28041 Ofc Vst, Est Level IV 13:41:56 CDT Chantelle Viri Nobles Trujillo, DO, FACP CPT-85474 Ofc Vst, Est Level IV 13:46:20 CDT Chantelle Viri Nobles Trujillo, DO, FACP CPT-11763 Ofc Vst, Est Level IV 14:22:34 [employer] Chantelle Nobles Ronnie, DO, FACP CPT-45310 Ofc Vst, Est Level IV 14:10:02 CDT Chantelle Viri Nolbes Ronnie, DO, FACP CPT-56541 Ofc Vst, Est Level III 16:17:29 CDT Chantelleneha Nobles Ronnie, DO, FACP CPT-96599 Ofc Vst, Est Level IV 13:59:21 CDT Chantelleneha Nobles Ronnie, DO, FACP CPT-38546 Ofc Vst, Est Level IV 13:59:18 CDT Chantelleneha Nobles Ronnie, DO, FACP CPT-13005 Ofc Vst, Est Level IV 13:59:52 [employer] Chantelle Nobles Trujillo, DO, FACP CPT-47511 Ofc Vst, Est Level IV 14:16:34 CDT Chantelleneha Nobles Ronnie, DO, FACP CPT-46220 Ofc Vst, Est Level IV 14:43:21 CDT Chantelleneha Nobles Ronnie, DO, FACP CPT-57502 Ofc Vst, Est Level IV 13:51:54 CDT Chantelle Nobles Ronnie, DO, FACP CPT-51354 Ofc Vst, Est Level IV 14:19:45 [employer] Chantelle Nobles Ronnie, DO, FACP CPT-55634 Ofc Vst, Est Level IV 14:03:12 CDT Davina Nobles Ronine, DO, FACP CPT-12223 Ofc Vst, Est Level IV 14:23:55 CDT Chantelle Nobles Ronnie, DO, FACP CPT-18588 Ofc Vst, Est Level IV 13:46:12 [employer] Chantelle Nobles Ronnie, DO, FACP CPT-87909 Ofc Vst, Est Level IV 14:21:29 [employer] Chantelle Nobles Ronnie, DO, FACP CPT-63402 Ofc Vst, Est Level IV 11:56:46 CDT Chantelle Nobles Ronnie, DO, FACP CPT-75845 Ofc Vst, Est Level IV 15:06:28 CDT Chantelle Trujillo [facility] CPT-90461 Ofc Vst, Est Level III 10:49:32 [employer] Chantelle Nobles Ronnie, DO, FACP CPT-70660 Ofc Vst, Est Level IV 14:26:42 [employer] Chantelle Nobles Ronnie, DO, FACP CPT-31365 Ofc Vst, Est Level III 15:07:01 CDT Chantelleneha Nobles Ronnie, DO, FACP CPT-59232 Ofc Vst, Est Level IV 14:16:08 CDT Chantelle Nobles Ronnie, DO, FACP CPT-40266 Ofc Vst, Est Level IV 14:28:44 CDT Chantelleneha Trujillo [facility] [place] CPT-33625 Ofc Vst, Est Level IV 14:06:35 [employer] Chantelle Virivincent Trujillo [facility] [place] CPT-16033 Ofc Vst, Est Level III 14:26:15 [employer]YR[employer] Chantelle Viri Ronnie [facility] [place] CPT-19595 Ofc Vst, Est Level IV 13:59:23 [employer] Chantelle Trujillo [facility] [place] CPT-70426 Ofc Vst, Est Level IV 15:24:23 [employer] Chantelle Virivincent Trujillo [facility] [place] CPT-47650 Ofc Vst, Est Level IV 16:03:46 CDT Chantelle Virivincent Trujillo [facility] [place] CPT-17882 Ofc Vst, Est Level IV 15:19:26 CDT Chantelle Virivincent Trujillo [facility] [place] CPT-23417 Ofc Vst, Est Level IV 19:08:48 CDT Chantelle Virivincent Trujillo [facility] [place] CPT-62164 Ofc Vst, Est Level IV 16:25:43 CDT Chantelle Viri Ronnie [facility] [place] CPT-20657 Ofc Vst, New Level IV 17:22:55 [employer] Chantelle Virivincent Trujillo [facility] [place] Procedures Code Procedure Name Date Entry Date Standard Description CPT-G0439 Medicare Annual Wellness Visit 13:18:16 [employer] CPT-58345 Ear Wax Removal 12:14:17 CDT CPT-G8443 E-Prescribing Medication Sent 20:38:44 [employer] CPT-G0439 Medicare Annual Wellness Visit 20:38:44 [employer] CPT-G8445 E-Prescribing Not sent due to no medication given 15:55: 59 CDT CPT-G8445 E-Prescribing Not sent due to no medication given 11:58: 05 CDT CPT-G8445 E-Prescribing Not sent due to no medication given 16:33: 59 [employer] CPT-G8445 E-Prescribing Not sent due to no medication given 15:28: 42 [employer] CPT-G0438 Medicare Annual Wellness Visit Initial 15:28:42 [employer] CPT-8446 E-Prescribing not done due to controlled substance 14:23: 55 CDT CPT-G0008 Administration Influenza Vaccine 11:56:46 CDT CPT-09365 Influenza Vaccine 11:56:46 CDT CPT-76797 Administration of 1st dose vaccine 11:56:46 CDT CPT-G0008 Administration Influenza Vaccine 15:07:01 CDT CPT-97750 Influenza Vaccine 15:07:01 CDT
--- OUTSIDE RECORDS SUMMARY | 2018-09-09 12:57 | XMS REPORT | Clinical Summary ---
Author Author usman sommer [facility] [place] [address] Phone Unavailable Allergies, Adverse Reactions, Alerts Allergy Name Reaction Description Start Date Severity Status Provider HYDROCHLOROTHIAZIDE Hyponatremia Critical Active Chantelle Trujillo VIOXX bloody nose Critical Active Chantelle Trujillo Conditions or Problems Problem Name Problem Code Onset Date Status Entry Date Provider Comment Standard Description Annotate HYPERCHOLESTEROLEMIA 272.0 Active Chantelle Trujillo PURE HYPERCHOLESTEROLEMIA HYPERTENSION 401.1 Active Chantelle Trujillo ESSENTIAL HYPERTENSION, BENIGN CORONARY ARTERY DISEASE 414.00 Active Chantelle Trujillo GASTROESOPHAGEAL REFLUX DISEASE, CHRONIC 530.81 Active Chantelle Trujillo ESOPHAGEAL REFLUX ADENOCARCINOMA, 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 Chantelle Trujillo MALIGNANT NEOPLASM OF COLON, UNSPECIFIED SITE DIABETES MELLITUS, NONINSULIN DEPENDENT (NIDDM) 250.00 Active Chantelle Trujillo 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 Chantelle Trujillo 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.1 Active Chantelle Trujillo PURE HYPERGLYCERIDEMIA CAROTID ARTERY STENOSIS, 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 Active Chantelle Trujillo OCCLUSION AND STENOSIS OF CAROTID ARTERY WITHOUT MENTION OF CEREBRAL INFARCTION PVD 443.9 Active Chantelle Trujillo UNSPECIFIED PERIPHERAL VASCULAR DISEASE MEMORY LOSS 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.93 Active Chantelle Trujillo MEMORY LOSS CERUMEN IMPACTION, BILATERAL 380.4 Active Chantelle Trujillo ALEXUS MENENDEZ Medication List Medication Instructions Start Date Stop Date Generic Name NDC Status Provider Patient Instruction MULTIVITAMINS TABS 1 po daily MULTIPLE VITAMIN 18601180756 Active Chantelle Trujillo PLAVIX 75 MG TABS 1 po daily CLOPIDOGREL BISULFATE 40814455844 Active Davina Don NORVASC 10 MG TABS 1 po QD AMLODIPINE BESYLATE 96617360349 Active Chantelle Trujillo METOPROLOL TARTRATE 100 MG TABS 1 PO BID METOPROLOL TARTRATE 41041750667 Active Davina Don FISH OIL 1000 MG CAPS 4 po daily OMEGA-3 FATTY ACIDS 50761890322 Active Chantelle Trujillo SIMVASTATIN 40 MG TABS 1 po daily SIMVASTATIN 33234315263 Active Davina Don METFORMIN HCL 1000 MG TABS 1 PO BID METFORMIN HCL 07526606156 Active Davina Don GLYBURIDE 5 MG TABS 1 PO BID GLYBURIDE 30865408521 Active Davina Don PEPCID 20 MG TABS 1 PO BID FAMOTIDINE 86076612587 Active Chantelle Trujillo COLACE 100 MG CAPS 1 PO DAILY DOCUSATE SODIUM 04553424063 Active Chantelle Trujillo FREESTYLE GLUCOMETER DIRECTED DX: DIABETES FREESTYLE GLUCOMETER Active Davina Don FREESTYLE TEST STRP TEST BS QID DX: DIABETES GLUCOSE BLOOD 82624973741 Active Davina Don RELION PRIME TEST STRP TEST BS QID DX: 250.00 GLUCOSE BLOOD 39271912559 Active Davina Don RELION PRIME MONITOR ENRIQUE DIRECTED DX: 250.00 BLOOD GLUCOSE MONITORING SUPPL 08701598689 Active Davina Don LISINOPRIL 40 MG TABS 1 PO BID LISINOPRIL 06388741923 Active Chantelle Trujillo NIASPAN 1000 MG CR-TABS 1 po QHS NIACIN (ANTIHYPERLIPIDEMIC) 28350268493 Active Chantelle Trujillo NITROSTAT 0.4 MG SL TAB 1 pill under tongue prn chest pain. May repeat twice then must go to ER NITROGLYCERIN 44520639944 Active Chantelle Trujillo ASPIRIN 81 MG TAB 1 PO daily ASPIRIN 21138863892 Active Chantelle Viri Trujillo DIOCTO 60 MG/15ML SYRP 2 drops placed in ear let stand for 5 minutes and rinse with water and repeat in other ear then return to doctor for rinsing 2013 DOCUSATE SODIUM 56159055970 Active Chantelle Trujillo Immunizations Vaccine Administration Date Value Standard Description Influenza vaccine done influenza virus vaccine, unspecified formulation pneumococcal immunization administered Done pneumococcal polysaccharide vaccine, 23 valent pneumococcal immunization administered Done by 1st dose 2007 pneumococcal polysaccharide vaccine, 23 valent Vital Signs Date Name Value Unit Range Description blood pressure, diastolic 64 mm[Hg] BP [place] blood pressure, systolic 148 mm[Hg] BP sys pulse rate E&M 70 /min Heart rate respiratory rate E&M 14 /min Resp rate blood pressure, diastolic 78 mm[Hg] BP [place] blood pressure, systolic 152 mm[Hg] BP sys pulse rate E&M 70 /min Heart rate respiratory rate E&M 16 /min Resp rate temperature E&M 98.1 [degF] Body temperature weight E&M 220 [lb_av] Weight Measured blood pressure, diastolic 70 mm[Hg] BP [place] blood pressure, systolic 160 mm[Hg] BP sys pulse rate E&M 60 /min Heart rate respiratory rate E&M 14 /min Resp rate weight E&M 222 [lb_av] Weight Measured blood pressure, diastolic 80 mm[Hg] BP [place] blood pressure, systolic 150 mm[Hg] BP sys pulse rate E&M 68 /min Heart rate respiratory rate E&M 14 /min Resp rate temperature E&M 98.4 [degF] Body temperature weight E&M 228 [lb_av] Weight Measured Diagnostic Results Date Name Value Unit Range Description Clinical Lists Update: CBC,CMP,FLP,HgA1c - Chemistry Estimated Glomerular Filtration Rate (calc) 102 mL/min/1.73m2 glucose, plasma fasting 196 mg/dL albumin, serum 4.6 g/dL alkaline phosphatase, serum 39 U/L urea nitrogen, blood 11 mg/dL calcium, serum 9.4 mg/dL chloride, serum 95 mmol/L cholesterol, serum 134 mg/dL cholesterol/HDL ratio, serum 3.0 anion gap, serum 12 sodium, serum 135 mmol/L triglyceride, serum, fasting 256 mg/dL bilirubin, serum, total 0.9 mg/dL alanine aminotransferase (SGPT), serum 21 U/L aspartate aminotransferase (SGOT), serum 20 U/L protein, total, serum 7.3 g/dL potassium, serum 3.9 mmol/L LDL cholesterol, serum 38 mg/dL hemoglobin A1C, blood, as % of total hemoglobin 7.1 % HDL cholesterol, serum 45.0 mg/dL creatinine, serum 0.8 mg/dL carbon dioxide, venous blood 32.0 mmol/L Clinical Lists Update: CBC,CMP,FLP,HgA1c - Hematology erythrocyte (RBC) count 4.51 10*6/mm3 leukocyte count, blood 7.2 10*3/mm3 mean corpuscular volume, RBC 95 fL red blood cell distribution width 13.8 % hemoglobin, blood 13.8 g/dL platelet count 215 10*3/mm3 hematocrit, blood 43 % Clinical Lists Update: CMP, TSH, MicroAlbumin,HGA1C - Chemistry Estimated Glomerular Filtration Rate (calc) 96 mL/min/1.73m2 glucose, plasma fasting 158 mg/dL anion gap, serum 12 sodium, serum 132 mmol/L triglyceride, serum, fasting 259 mg/dL bilirubin, serum, total 0.7 mg/dL alanine aminotransferase (SGPT), serum 17 U/L aspartate aminotransferase (SGOT), serum 16 U/L protein, total, serum 6.7 g/dL potassium, serum 3.9 mmol/L thyroid stimulating hormone, serum 1.03 u[iU]/mL hemoglobin A1C, blood, as % of total hemoglobin 7.7 % creatinine, serum 0.8 mg/dL carbon dioxide, venous blood 30.0 mmol/L cholesterol, serum 131 mg/dL chloride, serum 94 mmol/L calcium, serum 9.8 mg/dL urea nitrogen, blood 14 mg/dL alkaline phosphatase, serum 47 U/L albumin, serum 4.2 g/dL Clinical Lists Update: CMP, TSH, MicroAlbumin,HGA1C - Urinalysis microalbumin, urine, semiquantitative 58.1 mg/dL Office Visit: Dr Trujillo's Check Up: Established Patient Visit - Chemistry anion gap, serum 13 sodium, serum 136 [...] serum 48 U/L albumin, serum 4.4 g/dL Estimated Glomerular Filtration Rate (calc) 81 mL/min/1.73m2 glucose, plasma fasting 196 mg/dL
--- OUTSIDE RECORDS SUMMARY | 2018-09-09 12:58 | XMS REPORT | Clinical Summary ---
Author Author usman sommer [facility] [place] [address] Phone Unavailable Allergies, Adverse Reactions, Alerts Allergy [...] MULTIVITAMINS TABS 1 po daily MULTIPLE VITAMIN 83393467021 Active Chantelle Trujillo PLAVIX 75 MG TABS 1 po daily CLOPIDOGREL BISULFATE 92075444252 Active Davina Don NORVASC 10 MG TABS 1 po QD AMLODIPINE BESYLATE 56776236126 Active Chantelle Trujillo METOPROLOL TARTRATE 100 MG TABS 1 PO BID METOPROLOL TARTRATE 72978297630 Active Davina Don FISH OIL 1000 MG CAPS 4 po daily OMEGA-3 FATTY ACIDS 39415710659 Active Chantelle Trujillo SIMVASTATIN 40 MG TABS 1 po daily SIMVASTATIN 93778679304 Active Davina Don METFORMIN HCL 1000 MG TABS 1 PO BID METFORMIN HCL 85347956780 Active Davina Don GLYBURIDE 5 MG TABS 1 PO BID GLYBURIDE 49187256792 Active Davina Don PEPCID 20 MG TABS 1 PO BID FAMOTIDINE 15330699216 Active Chantelle Trujillo COLACE 100 MG CAPS 1 PO DAILY DOCUSATE SODIUM 69975130522 Active Chantelle Trujillo FREESTYLE GLUCOMETER DIRECTED DX: DIABETES FREESTYLE GLUCOMETER Active Davina Don FREESTYLE TEST STRP TEST BS QID DX: DIABETES GLUCOSE BLOOD 18310225947 Active Davina Don RELION PRIME TEST STRP TEST BS QID DX: 250.00 GLUCOSE BLOOD 39561939005 Active Davina Don RELION PRIME MONITOR ENRIQUE DIRECTED DX: 250.00 BLOOD GLUCOSE MONITORING SUPPL 63839371061 Active Davina Don LISINOPRIL 40 MG TABS 1 PO BID LISINOPRIL 33618610424 Active Chantelle Trujillo NIASPAN 1000 MG CR-TABS 1 po QHS NIACIN (ANTIHYPERLIPIDEMIC) 26411939822 Active Chantelle Trujillo NITROSTAT 0.4 MG SL TAB 1 pill under tongue prn chest pain. May repeat twice then must go to ER NITROGLYCERIN 98329970544 Active Chantelle Trujillo ASPIRIN 81 MG TAB 1 PO daily ASPIRIN 26091970875 Active Chantelle Viri Trujillo DIOCTO 60 MG/15ML SYRP 2 drops placed in ear let stand for 5 minutes and rinse with water and repeat in other ear then return to doctor for rinsing 2013 DOCUSATE SODIUM 43959265867 Active Chantelle Trujillo Immunizations Vaccine Administration Date [...]
--- OUTSIDE RECORDS SUMMARY | 2018-09-09 12:58 | XMS REPORT | Clinical Summary ---
Author Author usman sommer [facility] [place] [address] Phone Unavailable Allergies, Adverse Reactions, Alerts Allergy [...] MULTIVITAMINS TABS 1 po daily MULTIPLE VITAMIN 02520198712 Active Chantelle Trujillo PLAVIX 75 MG TABS 1 po daily CLOPIDOGREL BISULFATE 93793536836 Active Davina Don NORVASC 10 MG TABS 1 po QD AMLODIPINE BESYLATE 10388175535 Active Chantelle Trujillo METOPROLOL TARTRATE 100 MG TABS 1 PO BID METOPROLOL TARTRATE 42310598045 Active Davina Don FISH OIL 1000 MG CAPS 4 po daily OMEGA-3 FATTY ACIDS 77191266357 Active Chantelle Trujillo SIMVASTATIN 40 MG TABS 1 po daily SIMVASTATIN 48953111240 Active Davina Don METFORMIN HCL 1000 MG TABS 1 PO BID METFORMIN HCL 36834796989 Active Davina Don GLYBURIDE 5 MG TABS 1 PO BID GLYBURIDE 49020083264 Active Davina Don PEPCID 20 MG TABS 1 PO BID FAMOTIDINE 40118732182 Active Chantelle Trujillo COLACE 100 MG CAPS 1 PO DAILY DOCUSATE SODIUM 96266718165 Active Chantelle Trujillo FREESTYLE GLUCOMETER DIRECTED DX: DIABETES FREESTYLE GLUCOMETER Active Davina Don FREESTYLE TEST STRP TEST BS QID DX: DIABETES GLUCOSE BLOOD 04361338581 Active Davina Don RELION PRIME TEST STRP TEST BS QID DX: 250.00 GLUCOSE BLOOD 22831927340 Active Davina Don RELION PRIME MONITOR ENRIQUE DIRECTED DX: 250.00 BLOOD GLUCOSE MONITORING SUPPL 64160216922 Active Davina Don LISINOPRIL 40 MG TABS 1 PO BID LISINOPRIL 52911626704 Active Chantelle Trujillo NIASPAN 1000 MG CR-TABS 1 po QHS NIACIN (ANTIHYPERLIPIDEMIC) 51156617250 Active Chantelle Trujillo NITROSTAT 0.4 MG SL TAB 1 pill under tongue prn chest pain. May repeat twice then must go to ER NITROGLYCERIN 09450779442 Active Chantelle Trujillo ASPIRIN 81 MG TAB 1 PO daily ASPIRIN 18133586745 Active Chantelle Trujillo DIOCTO 60 MG/15ML SYRP 2 drops placed in ear let stand for 5 minutes and rinse with water and repeat in other ear then return to doctor for rinsing 2013 DOCUSATE SODIUM 17843789319 Active Chantelle Trujillo Immunizations Vaccine Administration Date [...]
--- OUTSIDE RECORDS SUMMARY | 2018-09-09 12:59 | XMS REPORT | Clinical Summary ---
Author Author usman sommer [facility] [place] [address] Phone Unavailable Allergies, Adverse Reactions, Alerts Allergy [...] MULTIVITAMINS TABS 1 po daily MULTIPLE VITAMIN 45938624506 Active Chantelle Trujillo PLAVIX 75 MG TABS 1 po daily CLOPIDOGREL BISULFATE 63357592320 Active Davina Don NORVASC 10 MG TABS 1 po QD AMLODIPINE BESYLATE 97264722791 Active Chantelle Trujillo METOPROLOL TARTRATE 100 MG TABS 1 PO BID METOPROLOL TARTRATE 54631342865 Active Davina Don FISH OIL 1000 MG CAPS 4 po daily OMEGA-3 FATTY ACIDS 26197217219 Active Chantelle Trujillo SIMVASTATIN 40 MG TABS 1 po daily SIMVASTATIN 52948626712 Active Davina Don METFORMIN HCL 1000 MG TABS 1 PO BID METFORMIN HCL 88892904497 Active Davina Don GLYBURIDE 5 MG TABS 1 PO BID GLYBURIDE 16953435103 Active Davina Don PEPCID 20 MG TABS 1 PO BID FAMOTIDINE 66615238339 Active Chantelle Trujillo COLACE 100 MG CAPS 1 PO DAILY DOCUSATE SODIUM 76560287020 Active Chantelle Trujillo FREESTYLE GLUCOMETER DIRECTED DX: DIABETES FREESTYLE GLUCOMETER Active Davina Don FREESTYLE TEST STRP TEST BS QID DX: DIABETES GLUCOSE BLOOD 36465935078 Active Davina Don RELION PRIME TEST STRP TEST BS QID DX: 250.00 GLUCOSE BLOOD 48882521057 Active Davina Don RELION PRIME MONITOR ENRIQUE DIRECTED DX: 250.00 BLOOD GLUCOSE MONITORING SUPPL 79959925938 Active Davina Don LISINOPRIL 40 MG TABS 1 PO BID LISINOPRIL 79438662489 Active Chantelle Trujillo NIASPAN 1000 MG CR-TABS 1 po QHS NIACIN (ANTIHYPERLIPIDEMIC) 51651733799 Active Chantelle Trujillo NITROSTAT 0.4 MG SL TAB 1 pill under tongue prn chest pain. May repeat twice then must go to ER NITROGLYCERIN 37570207247 Active Chantelle Trujillo ASPIRIN 81 MG TAB 1 PO daily ASPIRIN 76364538819 Active Chantelle Viri Trujillo DIOCTO 60 MG/15ML SYRP 2 drops placed in ear let stand for 5 minutes and rinse with water and repeat in other ear then return to doctor for rinsing 2013 DOCUSATE SODIUM 06781351691 Active Chantelle Trujillo Immunizations Vaccine Administration Date [...]
--- OUTSIDE RECORDS SUMMARY | 2018-09-09 12:59 | XMS REPORT | Clinical Summary ---
Author Author usman sommer [place] [address] Phone Unavailable Allergies, Adverse Reactions, Alerts Allergy [...] MULTIVITAMINS TABS 1 po daily MULTIPLE VITAMIN 44653964920 Active Chantelle Trujillo PLAVIX 75 MG TABS 1 po daily CLOPIDOGREL BISULFATE 97277349411 Active Davina Don NORVASC 10 MG TABS 1 po QD AMLODIPINE BESYLATE 42499079779 Active Chantelle Trujillo METOPROLOL TARTRATE 100 MG TABS 1 PO BID METOPROLOL TARTRATE 22285472645 Active Davina Don FISH OIL 1000 MG CAPS 4 po daily OMEGA-3 FATTY ACIDS 00649013577 Active Chantelle Trujillo SIMVASTATIN 40 MG TABS 1 po daily SIMVASTATIN 37693992944 Active Davina Don METFORMIN HCL 1000 MG TABS 1 PO BID METFORMIN HCL 73833668923 Active Davina Don GLYBURIDE 5 MG TABS 1 PO BID GLYBURIDE 95801253338 Active Davina Don PEPCID 20 MG TABS 1 PO BID FAMOTIDINE 20721371876 Active Chantelle Trujillo COLACE 100 MG CAPS 1 PO DAILY DOCUSATE SODIUM 72425586859 Active Chantelle Trujillo FREESTYLE GLUCOMETER DIRECTED DX: DIABETES FREESTYLE GLUCOMETER Active Davina Don FREESTYLE TEST STRP TEST BS QID DX: DIABETES GLUCOSE BLOOD 23097829364 Active Davina Don RELION PRIME TEST STRP TEST BS QID DX: 250.00 GLUCOSE BLOOD 60915984087 Active Davina Don RELION PRIME MONITOR ENRIQUE DIRECTED DX: 250.00 BLOOD GLUCOSE MONITORING SUPPL 54846069164 Active Davina Don LISINOPRIL 40 MG TABS 1 PO BID LISINOPRIL 13126904569 Active Chantelle Trujillo NIASPAN 1000 MG CR-TABS 1 po QHS NIACIN (ANTIHYPERLIPIDEMIC) 66976458748 Active Chantelle Trujillo NITROSTAT 0.4 MG SL TAB 1 pill under tongue prn chest pain. May repeat twice then must go to ER NITROGLYCERIN 60454461665 Active Chantelle Trujillo ASPIRIN 81 MG TAB 1 PO daily ASPIRIN 83688792158 Active Chantelle Viri Trujillo DIOCTO 60 MG/15ML SYRP 2 drops placed in ear let stand for 5 minutes and rinse with water and repeat in other ear then return to doctor for rinsing 2013 DOCUSATE SODIUM 97764132249 Active Chantelle Trujillo Immunizations Vaccine Administration Date [...]
--- OUTSIDE RECORDS SUMMARY | 2018-09-09 12:59 | XMS REPORT | Clinical Summary ---
Author Author usman sommer [facility] [place] [address] Phone Unavailable Allergies, Adverse Reactions, Alerts Allergy [...] MULTIVITAMINS TABS 1 po daily MULTIPLE VITAMIN 18896863048 Active Chantelle Trujillo PLAVIX 75 MG TABS 1 po daily CLOPIDOGREL BISULFATE 17269488486 Active Davina Don NORVASC 10 MG TABS 1 po QD AMLODIPINE BESYLATE 77557265131 Active Chantelle Trujillo METOPROLOL TARTRATE 100 MG TABS 1 PO BID METOPROLOL TARTRATE 89499417545 Active Davina Don FISH OIL 1000 MG CAPS 4 po daily OMEGA-3 FATTY ACIDS 48013095697 Active Chantelle Trujillo SIMVASTATIN 40 MG TABS 1 po daily SIMVASTATIN 29233917578 Active Davina Don METFORMIN HCL 1000 MG TABS 1 PO BID METFORMIN HCL 35911059486 Active Davina Don GLYBURIDE 5 MG TABS 1 PO BID GLYBURIDE 96988263376 Active Davina Don PEPCID 20 MG TABS 1 PO BID FAMOTIDINE 49882484157 Active Chantelle Trujillo COLACE 100 MG CAPS 1 PO DAILY DOCUSATE SODIUM 61444973638 Active Chantelle Trujillo FREESTYLE GLUCOMETER DIRECTED DX: DIABETES FREESTYLE GLUCOMETER Active Davina Don FREESTYLE TEST STRP TEST BS QID DX: DIABETES GLUCOSE BLOOD 78622907943 Active Davina Don RELION PRIME TEST STRP TEST BS QID DX: 250.00 GLUCOSE BLOOD 31006388596 Active Davina Don RELION PRIME MONITOR ENRIQUE DIRECTED DX: 250.00 BLOOD GLUCOSE MONITORING SUPPL 37498482812 Active Davina Don LISINOPRIL 40 MG TABS 1 PO BID LISINOPRIL 04244709608 Active Chantelle Trujillo NIASPAN 1000 MG CR-TABS 1 po QHS NIACIN (ANTIHYPERLIPIDEMIC) 59008641023 Active Chantelle Trujillo NITROSTAT 0.4 MG SL TAB 1 pill under tongue prn chest pain. May repeat twice then must go to ER NITROGLYCERIN 29866441728 Active Chantelle Trujillo ASPIRIN 81 MG TAB 1 PO daily ASPIRIN 83017052266 Active Chantelle Trujillo DIOCTO 60 MG/15ML SYRP 2 drops placed in ear let stand for 5 minutes and rinse with water and repeat in other ear then return to doctor for rinsing 2013 DOCUSATE SODIUM 08417112693 Active Chantelle Trujillo Immunizations Vaccine Administration Date [...] Check Up: Established Patient Visit - Chemistry glucose, plasma fasting 196 mg/dL anion gap, [...]
--- OUTSIDE RECORDS SUMMARY | 2018-09-09 13:00 | XMS REPORT | Clinical Summary ---
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 [...] MULTIVITAMINS TABS 1 po daily MULTIPLE VITAMIN 15980429389 Active Chantelle Trujillo PLAVIX 75 MG TABS 1 po daily CLOPIDOGREL BISULFATE 13327733451 Active Davina Don NORVASC 10 MG TABS 1 po QD AMLODIPINE BESYLATE 54650401476 Active Chantelle Trujillo METOPROLOL TARTRATE 100 MG TABS 1 PO BID METOPROLOL TARTRATE 08537795233 Active Davina Don FISH OIL 1000 MG CAPS 4 po daily OMEGA-3 FATTY ACIDS 34337296167 Active Chantelle Trujillo SIMVASTATIN 40 MG TABS 1 po daily SIMVASTATIN 46245193462 Active Davina Don METFORMIN HCL 1000 MG TABS 1 PO BID METFORMIN HCL 82734627601 Active Davina Don GLYBURIDE 5 MG TABS 1 PO BID GLYBURIDE 54451005107 Active Davina Don PEPCID 20 MG TABS 1 PO BID FAMOTIDINE 80615613519 Active Chantelle Trujillo COLACE 100 MG CAPS 1 PO DAILY DOCUSATE SODIUM 25818267279 Active Chantelle Trujillo FREESTYLE GLUCOMETER DIRECTED DX: DIABETES FREESTYLE GLUCOMETER Active Davina Don FREESTYLE TEST STRP TEST BS QID DX: DIABETES GLUCOSE BLOOD 72266671655 Active Davina Don RELION PRIME TEST STRP TEST BS QID DX: 250.00 GLUCOSE BLOOD 39112813842 Active Davina Don RELION PRIME MONITOR ENRIQUE DIRECTED DX: 250.00 BLOOD GLUCOSE MONITORING SUPPL 74061620098 Active Davina Don LISINOPRIL 40 MG TABS 1 PO BID LISINOPRIL 25882207024 Active Chantelle Trujillo NIASPAN 1000 MG CR-TABS 1 po QHS NIACIN (ANTIHYPERLIPIDEMIC) 85416482333 Active Chantelle Trujillo NITROSTAT 0.4 MG SL TAB 1 pill under tongue prn chest pain. May repeat twice then must go to ER NITROGLYCERIN 90636653781 Active Chantelle Trujillo ASPIRIN 81 MG TAB 1 PO daily ASPIRIN 68247840420 Active Chantelle Trujillo DIOCTO 60 MG/15ML SYRP 2 drops placed in ear let stand for 5 minutes and rinse with water and repeat in other ear then return to doctor for rinsing 2013 DOCUSATE SODIUM 02287356104 Active Chantelle Trujillo Immunizations Vaccine Administration Date [...]
--- OUTSIDE RECORDS SUMMARY | 2018-09-09 13:00 | XMS REPORT | Clinical Summary ---
Author Author usman sommer [facility] [place] [address] Phone Unavailable Allergies, Adverse Reactions, Alerts Allergy [...] MULTIVITAMINS TABS 1 po daily MULTIPLE VITAMIN 30050625862 Active Chantelle Trujillo PLAVIX 75 MG TABS 1 po daily CLOPIDOGREL BISULFATE 97268295815 Active Davina Don NORVASC 10 MG TABS 1 po QD AMLODIPINE BESYLATE 54864470059 Active Chantelle Trujillo METOPROLOL TARTRATE 100 MG TABS 1 PO BID METOPROLOL TARTRATE 80910823655 Active Davina Don FISH OIL 1000 MG CAPS 4 po daily OMEGA-3 FATTY ACIDS 29701862874 Active Chantelle Trujillo SIMVASTATIN 40 MG TABS 1 po daily SIMVASTATIN 61023082840 Active Davina Don METFORMIN HCL 1000 MG TABS 1 PO BID METFORMIN HCL 08996608167 Active Davina Don GLYBURIDE 5 MG TABS 1 PO BID GLYBURIDE 77254354368 Active Davina Don PEPCID 20 MG TABS 1 PO BID FAMOTIDINE 15541919261 Active Chantelle Trujillo COLACE 100 MG CAPS 1 PO DAILY DOCUSATE SODIUM 77867672025 Active Chantelle Trujillo FREESTYLE GLUCOMETER DIRECTED DX: DIABETES FREESTYLE GLUCOMETER Active Davina Don FREESTYLE TEST STRP TEST BS QID DX: DIABETES GLUCOSE BLOOD 58510030832 Active Davina Don RELION PRIME TEST STRP TEST BS QID DX: 250.00 GLUCOSE BLOOD 79115679409 Active Davina Don RELION PRIME MONITOR ENRIQUE DIRECTED DX: 250.00 BLOOD GLUCOSE MONITORING SUPPL 37542299437 Active Davina Don LISINOPRIL 40 MG TABS 1 PO BID LISINOPRIL 24952423083 Active Chantelle Trujillo NIASPAN 1000 MG CR-TABS 1 po QHS NIACIN (ANTIHYPERLIPIDEMIC) 98143396748 Active Chantelle Trujillo NITROSTAT 0.4 MG SL TAB 1 pill under tongue prn chest pain. May repeat twice then must go to ER NITROGLYCERIN 48123361461 Active Chantelle Trujillo ASPIRIN 81 MG TAB 1 PO daily ASPIRIN 22395783514 Active Chantelle Viri Trujillo DIOCTO 60 MG/15ML SYRP 2 drops placed in ear let stand for 5 minutes and rinse with water and repeat in other ear then return to doctor for rinsing 2013 DOCUSATE SODIUM 96791435826 Active Chantelle Trujillo Immunizations Vaccine Administration Date [...]
[2018-09-09 13:01] LABS: INR 1.1 (0.8-1.4); PROTHROMBIN TIME PATIENT 13.9 SEC (12.2-14.7)
--- OUTSIDE RECORDS SUMMARY | 2018-09-09 13:01 | XMS REPORT | Clinical Summary ---
Author Author usman sommer [facility] [place] [address] Phone Unavailable Allergies, Adverse Reactions, Alerts Allergy [...] MULTIVITAMINS TABS 1 po daily MULTIPLE VITAMIN 61721363729 Active Chantelle Trujillo PLAVIX 75 MG TABS 1 po daily CLOPIDOGREL BISULFATE 79644151441 Active Davina Don NORVASC 10 MG TABS 1 po QD AMLODIPINE BESYLATE 09649933638 Active Chantelle Trujillo METOPROLOL TARTRATE 100 MG TABS 1 PO BID METOPROLOL TARTRATE 97316253754 Active Davina Don FISH OIL 1000 MG CAPS 4 po daily OMEGA-3 FATTY ACIDS 47082342365 Active Chantelle Trujillo SIMVASTATIN 40 MG TABS 1 po daily SIMVASTATIN 83361977058 Active Davina Don METFORMIN HCL 1000 MG TABS 1 PO BID METFORMIN HCL 85843311851 Active Davina Don GLYBURIDE 5 MG TABS 1 PO BID GLYBURIDE 40286044365 Active Davina Don PEPCID 20 MG TABS 1 PO BID FAMOTIDINE 04422739905 Active Chantelle Trujillo COLACE 100 MG CAPS 1 PO DAILY DOCUSATE SODIUM 44032112253 Active Chantelle Trujillo FREESTYLE GLUCOMETER DIRECTED DX: DIABETES FREESTYLE GLUCOMETER Active Davina Don FREESTYLE TEST STRP TEST BS QID DX: DIABETES GLUCOSE BLOOD 49003825710 Active Davina Don RELION PRIME TEST STRP TEST BS QID DX: 250.00 GLUCOSE BLOOD 24427637272 Active Davina Don RELION PRIME MONITOR ENRIQUE DIRECTED DX: 250.00 BLOOD GLUCOSE MONITORING SUPPL 06150498855 Active Davina Don LISINOPRIL 40 MG TABS 1 PO BID LISINOPRIL 55393719372 Active Chantelle Trujillo NIASPAN 1000 MG CR-TABS 1 po QHS NIACIN (ANTIHYPERLIPIDEMIC) 44324462258 Active Chantelle Trujillo NITROSTAT 0.4 MG SL TAB 1 pill under tongue prn chest pain. May repeat twice then must go to ER NITROGLYCERIN 15943544139 Active Chantelle Trujillo ASPIRIN 81 MG TAB 1 PO daily ASPIRIN 31672330696 Active Chantelle Trujillo DIOCTO 60 MG/15ML SYRP 2 drops placed in ear let stand for 5 minutes and rinse with water and repeat in other ear then return to doctor for rinsing 2013 DOCUSATE SODIUM 76474838598 Active Chantelle Trujillo Immunizations Vaccine Administration Date [...]
--- OUTSIDE RECORDS SUMMARY | 2018-09-09 13:01 | XMS REPORT | Clinical Summary ---
Author Author usman sommer [facility] [place] [address] Phone Unavailable Allergies, Adverse Reactions, Alerts Allergy [...] MULTIVITAMINS TABS 1 po daily MULTIPLE VITAMIN 80937166560 Active Chantelle Trujillo PLAVIX 75 MG TABS 1 po daily CLOPIDOGREL BISULFATE 38769275638 Active Davina Don NORVASC 10 MG TABS 1 po QD AMLODIPINE BESYLATE 43498794145 Active Chantelle Trujillo METOPROLOL TARTRATE 100 MG TABS 1 PO BID METOPROLOL TARTRATE 87528467545 Active Davina Don FISH OIL 1000 MG CAPS 4 po daily OMEGA-3 FATTY ACIDS 67010535687 Active Chantelle Trujillo SIMVASTATIN 40 MG TABS 1 po daily SIMVASTATIN 14227697968 Active Davina Don METFORMIN HCL 1000 MG TABS 1 PO BID METFORMIN HCL 50112694367 Active Davina Don GLYBURIDE 5 MG TABS 1 PO BID GLYBURIDE 90229415033 Active Davina Don PEPCID 20 MG TABS 1 PO BID FAMOTIDINE 44139182927 Active Chantelle Trujillo COLACE 100 MG CAPS 1 PO DAILY DOCUSATE SODIUM 16523214462 Active Chantelle Trujillo FREESTYLE GLUCOMETER DIRECTED DX: DIABETES FREESTYLE GLUCOMETER Active Davina Don FREESTYLE TEST STRP TEST BS QID DX: DIABETES GLUCOSE BLOOD 82530069528 Active Davina Don RELION PRIME TEST STRP TEST BS QID DX: 250.00 GLUCOSE BLOOD 49364761444 Active Davina Don RELION PRIME MONITOR ENRIQUE DIRECTED DX: 250.00 BLOOD GLUCOSE MONITORING SUPPL 99308841232 Active Davina Don LISINOPRIL 40 MG TABS 1 PO BID LISINOPRIL 76160169859 Active Chantelle Trujillo NIASPAN 1000 MG CR-TABS 1 po QHS NIACIN (ANTIHYPERLIPIDEMIC) 68817363741 Active Chantelle Trujillo NITROSTAT 0.4 MG SL TAB 1 pill under tongue prn chest pain. May repeat twice then must go to ER NITROGLYCERIN 78911308686 Active Chantelle Trujillo ASPIRIN 81 MG TAB 1 PO daily ASPIRIN 99699704370 Active Chantelle Trujillo DIOCTO 60 MG/15ML SYRP 2 drops placed in ear let stand for 5 minutes and rinse with water and repeat in other ear then return to doctor for rinsing 2013 DOCUSATE SODIUM 15842405208 Active Chantelle Trujillo Immunizations Vaccine Administration Date [...]
--- OUTSIDE RECORDS SUMMARY | 2018-09-09 13:02 | XMS REPORT | Clinical Summary ---
Author Author usman sommer [facility] [place] [address] Phone Unavailable Allergies, Adverse Reactions, Alerts Allergy [...] MULTIVITAMINS TABS 1 po daily MULTIPLE VITAMIN 71825960632 Active Chantelle Trujillo PLAVIX 75 MG TABS 1 po daily CLOPIDOGREL BISULFATE 61261916541 Active Davina Don NORVASC 10 MG TABS 1 po QD AMLODIPINE BESYLATE 70520681673 Active Chantelle Trujillo METOPROLOL TARTRATE 100 MG TABS 1 PO BID METOPROLOL TARTRATE 25563261290 Active Davina Don FISH OIL 1000 MG CAPS 4 po daily OMEGA-3 FATTY ACIDS 46206657775 Active Chantelle Trujillo SIMVASTATIN 40 MG TABS 1 po daily SIMVASTATIN 60967688292 Active Davina Don METFORMIN HCL 1000 MG TABS 1 PO BID METFORMIN HCL 11321806022 Active Davina Don GLYBURIDE 5 MG TABS 1 PO BID GLYBURIDE 28321197576 Active Davina Don PEPCID 20 MG TABS 1 PO BID FAMOTIDINE 84532266013 Active Chantelle Trujillo COLACE 100 MG CAPS 1 PO DAILY DOCUSATE SODIUM 99185598010 Active Chantelle Trujillo FREESTYLE GLUCOMETER DIRECTED DX: DIABETES FREESTYLE GLUCOMETER Active Davina Don FREESTYLE TEST STRP TEST BS QID DX: DIABETES GLUCOSE BLOOD 09921366989 Active Davina Don RELION PRIME TEST STRP TEST BS QID DX: 250.00 GLUCOSE BLOOD 28798598161 Active Davina Don RELION PRIME MONITOR ENRIQUE DIRECTED DX: 250.00 BLOOD GLUCOSE MONITORING SUPPL 59628699026 Active Davina Don LISINOPRIL 40 MG TABS 1 PO BID LISINOPRIL 94419296889 Active Chantelle Trujillo NIASPAN 1000 MG CR-TABS 1 po QHS NIACIN (ANTIHYPERLIPIDEMIC) 95584264867 Active Chantelle Trujillo NITROSTAT 0.4 MG SL TAB 1 pill under tongue prn chest pain. May repeat twice then must go to ER NITROGLYCERIN 07910759643 Active Chantelle Trujillo ASPIRIN 81 MG TAB 1 PO daily ASPIRIN 38278844801 Active Chantelle Trujillo DIOCTO 60 MG/15ML SYRP 2 drops placed in ear let stand for 5 minutes and rinse with water and repeat in other ear then return to doctor for rinsing 2013 DOCUSATE SODIUM 25951642625 Active Chantelle Trujillo Immunizations Vaccine Administration Date [...]
--- OUTSIDE RECORDS SUMMARY | 2018-09-09 13:02 | XMS REPORT | Clinical Summary ---
Author Author usman sommer [facility] [place] [address] Phone Unavailable Allergies, Adverse Reactions, Alerts Allergy [...] MULTIVITAMINS TABS 1 po daily MULTIPLE VITAMIN 48904063792 Active Chantelle Trujillo PLAVIX 75 MG TABS 1 po daily CLOPIDOGREL BISULFATE 06974710126 Active Davina Don NORVASC 10 MG TABS 1 po QD AMLODIPINE BESYLATE 78432106409 Active Chantelle Trujillo METOPROLOL TARTRATE 100 MG TABS 1 PO BID METOPROLOL TARTRATE 46395454468 Active Davina Don FISH OIL 1000 MG CAPS 4 po daily OMEGA-3 FATTY ACIDS 11590331698 Active Chantelle Trujillo SIMVASTATIN 40 MG TABS 1 po daily SIMVASTATIN 79098814127 Active Davina Don METFORMIN HCL 1000 MG TABS 1 PO BID METFORMIN HCL 99682963174 Active Davina Don GLYBURIDE 5 MG TABS 1 PO BID GLYBURIDE 92347721431 Active Davina Don PEPCID 20 MG TABS 1 PO BID FAMOTIDINE 91473998243 Active Chantelle Trujillo COLACE 100 MG CAPS 1 PO DAILY DOCUSATE SODIUM 10949034810 Active Chantelle Trujillo FREESTYLE GLUCOMETER DIRECTED DX: DIABETES FREESTYLE GLUCOMETER Active Davina Don FREESTYLE TEST STRP TEST BS QID DX: DIABETES GLUCOSE BLOOD 03480696297 Active Davina Don RELION PRIME TEST STRP TEST BS QID DX: 250.00 GLUCOSE BLOOD 05830697329 Active Davina Don RELION PRIME MONITOR ENRIQUE DIRECTED DX: 250.00 BLOOD GLUCOSE MONITORING SUPPL 68001198513 Active Davina Don LISINOPRIL 40 MG TABS 1 PO BID LISINOPRIL 42506019059 Active Chantelle Trujillo NIASPAN 1000 MG CR-TABS 1 po QHS NIACIN (ANTIHYPERLIPIDEMIC) 26032024762 Active Chantelle Trujillo NITROSTAT 0.4 MG SL TAB 1 pill under tongue prn chest pain. May repeat twice then must go to ER NITROGLYCERIN 92024156870 Active Chantelle Trujillo ASPIRIN 81 MG TAB 1 PO daily ASPIRIN 36714821781 Active Chantelle Trujillo DIOCTO 60 MG/15ML SYRP 2 drops placed in ear let stand for 5 minutes and rinse with water and repeat in other ear then return to doctor for rinsing 2013 DOCUSATE SODIUM 90187742709 Active Chantelle Trujillo Immunizations Vaccine Administration Date [...]
[2018-09-09 13:03] LABS: ALANINE AMINOTRANSFERASE 12 U/L (0-55); ALKALINE PHOSPHATASE 72 U/L (40-136); BILIRUBIN,TOTAL 0.5 MG/DL (0.1-1.0); BUN/CREATININE RATIO 17; CARBON DIOXIDE 26 MMOL/L (21-32); GFR ESTIMATED > 60; GLUCOSE 86 MG/DL (70-105); MAGNESIUM 1.4 MG/DL (1.8-2.4)
--- OUTSIDE RECORDS SUMMARY | 2018-09-09 13:03 | XMS REPORT | Continuity of Care Document ---
Author Author [facility] Address Unknown Phone Unavailable Allergies Active Description Code Type Severity Reaction Onset Reported/Identified Relationship to Patient Clinical Status Yes rofecoxib [id number] Drug Allergy Unknown N/A 10/25/2006 Medications There is no data. Problems Date Dx Coded Attending Type Code Diagnosis Diagnosed By 09/02/2011 Ot 250.00 09/02/2011 Ot 253.6 09/02/2011 Ot 272.4 09/02/2011 Ot 285.9 09/02/2011 Ot 348.30 09/02/2011 Ot 401.9 09/02/2011 Ot 414.01 09/02/2011 Ot 428.0 09/02/2011 Ot 428.31 09/02/2011 Ot 486 09/02/2011 Ot V10.05 09/02/2011 Ot V15.82 09/02/2011 Ot V45.81 09/06/2011 Ot 250.02 09/06/2011 Ot 253.6 09/06/2011 Ot 272.4 09/06/2011 Ot 285.9 09/06/2011 Ot 348.30 09/06/2011 Ot 401.9 09/06/2011 Ot 414.01 09/06/2011 Ot 428.0 09/06/2011 Ot 486 09/06/2011 Ot V10.05 09/06/2011 Ot V15.82 09/06/2011 Ot V45.81 11/28/2011 Ot 272.1 11/28/2011 Ot 311 11/28/2011 Ot 401.9 11/28/2011 Ot 414.01 11/28/2011 Ot 530.81 11/28/2011 Ot 787.99 11/28/2011 Ot V10.06 11/28/2011 Ot V58.63 11/28/2011 Ot V58.66 11/28/2011 Ot V58.69 01/19/2012 Ot 250.00 01/19/2012 Ot 253.6 01/19/2012 Ot 272.4 01/19/2012 Ot 285.9 01/19/2012 Ot 356.9 01/19/2012 Ot 401.9 01/19/2012 Ot 414.01 01/19/2012 Ot 433.10 01/19/2012 Ot 715.36 01/19/2012 Ot V03.82 01/19/2012 Ot V12.51 01/19/2012 Ot V45.81 03/25/2014 BETTINA CONTE FACC, ALI FACP CCDS Ot 250.00 03/25/2014 BETTINA CONTE FACC, ALI FACP CCDS Ot 272.4 03/25/2014 BETTINA CONTE FACC, ALI FACP CCDS Ot 278.00 03/25/2014 BETTINA CONTE FACC, ALI FACP CCDS Ot 401.9 03/25/2014 BETTINA CONTE FACC, ALI FACP CCDS Ot 414.01 03/25/2014 BETTINA CONTE FACC, ALI FACP CCDS Ot 414.2 03/25/2014 BETTINA CONTE FACC, ALI FACP CCDS Ot 414.4 03/25/2014 BETTINA CONTE FACC, ALI FACP CCDS Ot 530.81 03/25/2014 BETTINA CONTE FACC, ALI FACP CCDS Ot 794.30 03/25/2014 BETTINA CONTE FACC, ALI FACP CCDS Ot V45.81 03/25/2014 BETTINA CONTE FACC, ALI FACP CCDS Ot V58.69 03/25/2014 BETTINA CONTE FACC, ALI FACP CCDS Ot V85.34 05/12/2014 Ot 414.01 05/12/2014 Ot 729.81 05/12/2014 Ot 414.00 05/12/2014 Ot V45.81 05/12/2014 Ot 433.10 05/12/2014 Ot 433.10 05/12/2014 Ot V72.83 05/12/2014 Ot 433.10 05/12/2014 Ot 250.00 05/12/2014 Ot 433.10 05/12/2014 Ot V58.69 05/12/2014 Ot 414.00 05/12/2014 Ot 715.96 05/12/2014 Ot V57.1 05/12/2014 Ot V58.63 05/12/2014 Ot V58.66 05/12/2014 Ot V58.69 05/12/2014 Ot V72.63 05/12/2014 Ot V74.8 05/12/2014 BAIMA, KYE L LADLE PATCHER Ot 272.4 05/12/2014 BAIMA, KYE L LADLE PATCHER Ot 401.9 05/12/2014 BAIMA, KYE L LADLE PATCHER Ot 414.00 05/12/2014 BAIMA, KYE L LADLE PATCHER Ot 780.79 05/12/2014 BAIMA, KYE L LADLE PATCHER Ot 250.00 05/12/2014 BAIMA, KYE L LADLE PATCHER Ot 272.4 05/12/2014 BAIMA, KYE L LADLE PATCHER Ot 401.9 05/12/2014 BAIMA, KYE L LADLE PATCHER Ot 414.00 05/12/2014 BAIMA, KYE L LADLE PATCHER Ot 780.79 05/12/2014 BAIMA, KYE L LADLE PATCHER Ot 250.00 05/12/2014 BAIMA, KYE L LADLE PATCHER Ot 272.4 05/12/2014 BAIMA, KYE L LADLE PATCHER Ot 401.9 05/12/2014 BAIMA, KYE L LADLE PATCHER Ot 414.00 05/12/2014 BAIMA, KYE L LADLE PATCHER Ot 780.79 05/12/2014 BAIMA, KYE L LADLE PATCHER Ot 272.4 05/12/2014 BAIMA, KYE L LADLE PATCHER Ot 401.9 05/12/2014 BAIMA, KYE L LADLE PATCHER Ot 414.00 05/12/2014 BAIMA, KYE L LADLE PATCHER Ot 780.79 05/27/2014 BAIMA, KYE L LADLE PATCHER Ot 272.4 05/27/2014 BAIMA, KYE L LADLE PATCHER Ot 401.9 05/27/2014 BAIMA, KYE L LADLE PATCHER Ot 414.00 05/27/2014 BAIMA, KYE L LADLE PATCHER Ot 780.79 05/27/2014 BAIMA, KYE L LADLE PATCHER Ot 250.00 05/27/2014 BAIMA, KYE L LADLE PATCHER Ot 272.4 05/27/2014 BAIMA, KYE L LADLE PATCHER Ot 401.9 05/27/2014 BAIMA, KYE L LADLE PATCHER Ot 414.00 05/27/2014 BAIMA, KYE L LADLE PATCHER Ot 780.79 Procedures There is no data. Results There is no data. Encounters ACCT No. Visit Date/Time Discharge Status Pt. Type Provider Facility Loc./Unit Complaint [id number] 05/20/2014 20:00:00 05/20/2014 23:59:59 CLS Preadmit LEONEL OLEARY APRN [facility] SLEEP [id number] 03/25/2014 09:32:00 03/25/2014 17:45:00 DIS Outpatient BETTINA CONTE FACCMARGARITA FACP CCDS [facility] [id number] 03/10/2014 11:54:00 03/10/2014 23:59:59 CLS Outpatient KYE MEZA [facility] CARD [id number] 02/12/2014 12:34:00 02/12/2014 23:59:59 CLS Outpatient KYE MEZA [facility] CARD [id number] 05/12/2014 10:42:00 Document Registration [id number] 05/12/2014 10:42:00 Document Registration [id number] 01/16/2012 05:38:00 Document Registration [id number] 01/09/2012 14:10:00 Document Registration [id number] 11/30/2011 11:56:00 Document Registration [id number] 11/28/2011 10:05:00 Document Registration [id number] 10/13/2011 10:52:00 Document Registration [id number] 09/02/2011 15:17:00 Document Registration [id number] 08/28/2011 22:50:00 Document Registration [id number] 08/15/2011 09:29:00 Document Registration [id number] 01/28/2011 10:15:00 Document Registration [id number] 11/04/2010 14:36:00 Document Registration [id number] 10/15/2009 12:16:00 Document Registration [id number] 04/30/2009 11:57:00 Document Registration
--- OUTSIDE RECORDS SUMMARY | 2018-09-09 13:03 | XMS REPORT | Clinical Summary ---
Author Author usman sommer [facility] [place] [address] Phone Unavailable Allergies, Adverse Reactions, Alerts Allergy [...] MULTIVITAMINS TABS 1 po daily MULTIPLE VITAMIN 57615192192 Active Chantelle Trujillo PLAVIX 75 MG TABS 1 po daily CLOPIDOGREL BISULFATE 51367472717 Active Davina Don NORVASC 10 MG TABS 1 po QD AMLODIPINE BESYLATE 27529358582 Active Chantelle Trujillo METOPROLOL TARTRATE 100 MG TABS 1 PO BID METOPROLOL TARTRATE 92897731688 Active Davina Don FISH OIL 1000 MG CAPS 4 po daily OMEGA-3 FATTY ACIDS 16352517418 Active Chantelle Trujillo SIMVASTATIN 40 MG TABS 1 po daily SIMVASTATIN 37013272400 Active Davina Don METFORMIN HCL 1000 MG TABS 1 PO BID METFORMIN HCL 42357654025 Active Davina Don GLYBURIDE 5 MG TABS 1 PO BID GLYBURIDE 88308840988 Active Davina Don PEPCID 20 MG TABS 1 PO BID FAMOTIDINE 70163855325 Active Chantelle Trujillo COLACE 100 MG CAPS 1 PO DAILY DOCUSATE SODIUM 75487759860 Active Chantelle Trujillo FREESTYLE GLUCOMETER DIRECTED DX: DIABETES FREESTYLE GLUCOMETER Active Davina Don FREESTYLE TEST STRP TEST BS QID DX: DIABETES GLUCOSE BLOOD 72899407300 Active Davina Don RELION PRIME TEST STRP TEST BS QID DX: 250.00 GLUCOSE BLOOD 68000622776 Active Davina Don RELION PRIME MONITOR ENRIQUE DIRECTED DX: 250.00 BLOOD GLUCOSE MONITORING SUPPL 73330573849 Active Davina Don LISINOPRIL 40 MG TABS 1 PO BID LISINOPRIL 92285549239 Active Chantelle Trujillo NIASPAN 1000 MG CR-TABS 1 po QHS NIACIN (ANTIHYPERLIPIDEMIC) 21574441207 Active Chantelle Trujillo NITROSTAT 0.4 MG SL TAB 1 pill under tongue prn chest pain. May repeat twice then must go to ER NITROGLYCERIN 38789714732 Active Chantelle Trujillo ASPIRIN 81 MG TAB 1 PO daily ASPIRIN 99181231409 Active Chantelle Trujillo DIOCTO 60 MG/15ML SYRP 2 drops placed in ear let stand for 5 minutes and rinse with water and repeat in other ear then return to doctor for rinsing 2013 DOCUSATE SODIUM 11671214297 Active Chantelle Trujillo Immunizations Vaccine Administration Date [...]
[2018-09-09 13:04] LABS: ALBUMIN 3.6 GM/DL (3.2-4.5); POTASSIUM 3.7 MMOL/L (3.6-5.0); TOTAL PROTEIN 6.6 GM/DL (6.4-8.2)
[2018-09-09 13:05] LABS: CHLORIDE 82 MMOL/L (98-107)
[2018-09-09 13:06] LABS: SODIUM 121 MMOL/L (135-145)
[2018-09-09] MEDS ORDERED: AZITHROMYCIN INJECTION 500 MG in NS (IVPB) 250 ML IV ONE (13:15)
[2018-09-09] MEDS ORDERED: cefTRIAXone FOR IV USE 1,000 MG in WATER (STERILE) FOR INJECTION 10 ML IV ONE (13:15)
--- NOTE | 2018-09-09 13:39 | Diagnostic Imaging Report ---
PROCEDURE: CT head without contrast. TECHNIQUE: Multiple contiguous axial images were obtained through the brain without the use of intravenous contrast. Auto Exposure Controls were utilized during the CT exam to meet ALARA standards for radiation dose reduction. DATE: September 09, 2018. COMPARISON: MRI brain August 29, 2011. CT head August 28, 2011. INDICATION: 78-year-old male, low oxygen saturations. Cough and confusion. FINDINGS: There is proportional prominence of the ventricles and CSF spaces consistent with moderate cerebral volume loss. There is no identified abnormal extra-axial fluid collection. There is no evidence of acute intracranial hemorrhage. There is no mass effect or midline shift. There is no mass effect or midline shift. There is no acute intracranial hemorrhage. There is no abnormal extra-axial fluid collection. There is mild partial opacification of the paranasal sinuses. The mastoid air cells and middle ears are well aerated. IMPRESSION: 1. No identified acute intracranial abnormality. 2. Moderate cerebral volume loss. Dictated by: Dictated on workstation # [id number]
--- NOTE | 2018-09-09 13:41 | Diagnostic Imaging Report ---
EXAMINATION: Chest radiograph, portable AP view. DATE: September 09, 2018 at 1235 hours. INDICATION: 78-year-old male, cough, confusion. Low oxygen saturations. COMPARISON: September 01, 2011. FINDINGS: There are median sternotomy wires. Stable overall appearance of the cardiomediastinal silhouette. There is no identified pneumothorax. There is no large pleural effusion. There are mildly prominent bilateral interstitial opacities. There is alveolar consolidation in the left mid and lower lung zones. IMPRESSION: 1. Bilateral interstitial opacities which may relate to pulmonary interstitial edema or atypical infection. Additional nonspecific airspace consolidation in the left mid and lower lung zones. This is a change since comparison exam. Dictated by: Dictated on workstation # [id number]
--- OUTSIDE RECORDS SUMMARY | 2018-09-09 14:43 | XMS REPORT | Continuity of Care Document ---
Author Author [facility] of [facility] of [facility] Address Unknown Phone Unavailable Allergies Active Description Code Type Severity Reaction Onset Reported/Identified Relationship to Patient Clinical Status Yes rofecoxib [id number] Drug Allergy Unknown N/A 10/25/2006 Medications There [...] 05/12/2014 Ot V74.8 05/12/2014 BAIMA, KYE L SERVICE ASSOCIATE Ot 272.4 05/12/2014 BAIMA, KYE L SERVICE ASSOCIATE Ot 401.9 05/12/2014 BAIMA, KYE L SERVICE ASSOCIATE Ot 414.00 05/12/2014 BAIMA, KYE L SERVICE ASSOCIATE Ot 780.79 05/12/2014 BAIMA, KYE L SERVICE ASSOCIATE Ot 250.00 05/12/2014 BAIMA, KYE L SERVICE ASSOCIATE Ot 272.4 05/12/2014 BAIMA, KYE L SERVICE ASSOCIATE Ot 401.9 05/12/2014 BAIMA, KYE L SERVICE ASSOCIATE Ot 414.00 05/12/2014 BAIMA, KYE L SERVICE ASSOCIATE Ot 780.79 05/12/2014 BAIMA, KYE L SERVICE ASSOCIATE Ot 250.00 05/12/2014 BAIMA, KYE L SERVICE ASSOCIATE Ot 272.4 05/12/2014 BAIMA, KYE L SERVICE ASSOCIATE Ot 401.9 05/12/2014 BAIMA, KYE L SERVICE ASSOCIATE Ot 414.00 05/12/2014 BAIMA, KYE L SERVICE ASSOCIATE Ot 780.79 05/12/2014 BAIMA, KYE L SERVICE ASSOCIATE Ot 272.4 05/12/2014 BAIMA, KYE L SERVICE ASSOCIATE Ot 401.9 05/12/2014 BAIMA, KYE L SERVICE ASSOCIATE Ot 414.00 05/12/2014 BAIMA, KYE L SERVICE ASSOCIATE Ot 780.79 05/27/2014 BAIMA, KYE L SERVICE ASSOCIATE Ot 272.4 05/27/2014 BAIMA, KYE L SERVICE ASSOCIATE Ot 401.9 05/27/2014 BAIMA, KYE L SERVICE ASSOCIATE Ot 414.00 05/27/2014 BAIMA, KYE L SERVICE ASSOCIATE Ot 780.79 05/27/2014 BAIMA, KYE L SERVICE ASSOCIATE Ot 250.00 05/27/2014 BAIMA, KYE L SERVICE ASSOCIATE Ot 272.4 05/27/2014 BAIMA, KYE L SERVICE ASSOCIATE Ot 401.9 05/27/2014 BAIMA, KYE L SERVICE ASSOCIATE Ot 414.00 05/27/2014 BAIMA, KYE L SERVICE ASSOCIATE Ot 780.79 Procedures There is no data. Results There is no data. Encounters ACCT No. Visit Date/Time Discharge Status Pt. Type Provider Facility Loc./Unit Complaint [id number] 05/20/2014 20:00:00 05/20/2014 23:59:59 CLS Preadmit LEONEL OLEARY APRN [facility] SLEEP [id number] 03/25/2014 09:32:00 03/25/2014 17:45:00 DIS Outpatient BETTINA CONTE FACCMARGARITA FACP CCDS [facility] [id number] 03/10/2014 11:54:00 03/10/2014 23:59:59 CLS Outpatient KYE MEZA [facility] CARD [id number] 02/12/2014 12:34:00 02/12/2014 23:59:59 CLS Outpatient KYE MEZA [facility] CARD [id number] 05/12/2014 10:42:00 Document Registration [id number] 05/12/2014 10:42:00 Document Registration [id number] 01/16/2012 05:38:00 Document Registration [id number] 01/09/2012 14:10:00 Document Registration [id number] 11/30/2011 11:56:00 Document Registration [id number] 11/28/2011 10:05:00 Document Registration [id number] 10/13/2011 10:52:00 Document Registration [id number] 09/02/2011 15:17:00 Document Registration [id number] 08/28/2011 22:50:00 Document Registration [id number] 08/15/2011 09:29:00 Document Registration [id number] 01/28/2011 10:15:00 Document Registration [id number] 11/04/2010 14:36:00 Document Registration [id number] 10/15/2009 12:16:00 Document Registration [id number] 04/30/2009 11:57:00 Document Registration
[2018-09-09] MEDS ORDERED: HALOPERIDOL 5 MG/ML (HALDOL) AMP IM PRN (15:00)
[2018-09-09] MEDS ORDERED: guaiFENesin/DM (ROBITUSSIN DM) 10 ML UDC PO PRN (15:00)
[2018-09-09] MEDS ORDERED: ACETAMINOPHEN 500 MG TAB (TYLENOL) PO PRN (15:00)
[2018-09-09] MEDS ORDERED: DOCUSATE SODIUM 100 MG (COLACE) CAP PO PRN (15:00)
[2018-09-09] MEDS ORDERED: diphenhydrAMINE 25 MG TAB (BENADRYL) PO PRN (15:00)
[2018-09-09] MEDS ORDERED: ONDANSETRON 4 MG/2 ML (SDV) Z0FRAN IVP PRN (15:00)
[2018-09-09] MEDS ORDERED: LOPERAMIDE 2 MG (IMODIUM) CAP PO PRN (15:00)
[2018-09-09] MEDS ORDERED: LORazepam INJ 2 MG/ML (ATIVAN) VIAL IVP PRN (15:00)
[2018-09-09] MEDS ORDERED: CALCIUM CARBONATE 500 MG (TUMS) TAB.CHEW PO PRN (15:00)
[2018-09-09] MEDS ORDERED: NS IV 1000 ML 1,000 ML IV SCH (15:00)
--- NOTE | 2018-09-09 15:56 | Pulmonary Consultation ---
History of Present Illness History of Present Illness Date of Consultation 09/09/18 15:51 Date of Admission Allergies and Home Medications Allergies Coded Allergies: rofecoxib (Verified Allergy, Unknown, 10/25/06) Home Medications Amlodipine Besylate 10 Mg Tablet, 10 MG PO DAILY, (Reported) Aspirin 81 Mg Tablet.dr, 81 MG PO DAILY, (Reported) Clopidogrel 75 Mg Tablet, 75 MG PO DAILY, (Reported) Famotidine 20 Mg Tablet, 20 MG PO BID, (Reported) Fish Oil/Dha/Epa 1 Each Capsule, 4,800 MG PO DAILY, (Reported) TAKES 4 (1200MG) CAPSULES Glyburide 5 Mg Tablet, 5 MG PO BID, (Reported) Ibuprofen 200 Mg Tablet, 400 MG PO Q6H PRN for PAIN, (Reported) TAKES 2 (200MG) TABLETS Lisinopril 40 Mg Tablet, 40 MG PO BID, (Reported) Loperamide Hcl 2 Mg Capsule, 0 PO UD PRN for DIARRHEA, (Reported) 2 CAPS INITIALLY, THEN 1 CAP AFTER EACH LOOSE STOOL. NOT TO EXCEED 8 CAPS/24 HRS. Metoprolol Tartrate 100 Mg Tablet, 100 MG PO BID, (Reported) Multivitamin 1 Each Tablet, 1 TAB PO DAILY, (Reported) Niacin/Inositol Niacinate 1 Each Capsule, 1,000 MG PO HS, (Reported) Simvastatin 40 Mg Tablet, 40 MG PO HS, (Reported) Past Bzearhj-Fmgvhj-Ipmikz Hx Past Med/Social Hx: Reviewed Nursing Past Med/Soc Hx Patient Social History Alcohol Use: Denies Use Recreational Drug Use: No Smoking Status: Former Smoker Recent Foreign Travel: No (N) Contact w/Someone Who Travel: No (N) Recent Infectious Disease Expo: No Recent Hopitalizations: No Physical Abuse: No Sexual Abuse: No Mistreated: No Fear: No Immunizations Up To Date Date of Pneumonia Vaccine: Jan 17, 2012 Date of Influenza Vaccine: Apr 12, 2018 Seasonal Allergies Seasonal Allergies: No Past Medical History Surgeries: Yes CABG Respiratory: No Cardiac: No Neurological: Yes (NO DOCUMENTED DEMENTIA WITH KNOWN MEMORY ISSUE) Dementia Reproductive Disorders: No Genitourinary: No Gastrointestinal: No Musculoskeletal: No Endocrine: Yes Diabetes, Non-Insulin dep HEENT: No Cancer: No Psychosocial: No Integumentary: No Blood Disorders: No Sepsis Event Evaluation Height, Weight, BMI Height: 5'6.00" Weight: 231lbs. 0.0oz. 104.076284mr; 37.3 BMI Method:Stated Exam Exam Vital Signs Date Time Temp Pulse Resp B/P (MAP) Pulse Ox O2 Delivery O2 Flow Rate FiO2 09/09/18 15:45 97.3 57 14 150/77 (101) 92 Nasal Cannula 2.00 09/09/18 14:40 99.0 58 20 167/72 (103) 96 Room Air 09/09/18 14:40 99.0 58 20 167/72 (103) 96 Nasal Cannula 2.00 09/09/18 14:40 99.0 58 20 167/72 96 Nasal Cannula 2.00 09/09/18 14:30 58 18 167/72 (103) 96 Room Air 2.00 09/09/18 14:20 59 18 160/76 (104) 96 Room Air 09/09/18 14:00 55 18 95 Nasal Cannula 2.00 09/09/18 13:30 55 18 97 Nasal Cannula 2.00 09/09/18 13:00 55 18 98 Nasal Cannula 2.00 09/09/18 12:30 53 18 121/56 (77) 96 Nasal Cannula 2.00 09/09/18 12:05 89 Room Air 2.00 09/09/18 12:03 Nasal Cannula 2.00 09/09/18 12:03 99.2 55 15 139/57 (84) 89 Room Air 2.00 Height & Weight Height: 5'6.00" Weight: 231lbs. 0.0oz. 104.762347zg; 37.3 BMI Method:Stated Capillary Refill: Less Than 3 Seconds Gastrointestinal: normal bowel sounds, non tender, soft Results Lab Laboratory Tests 09/09/18 12:20 Assessment/Plan Assessment/Plan Pneumonia r/o mass - no fever, no leukocytosis -Check CT r/o mass -rocephin, azithromycin Hyponatremia -Monitor JESSICA VALVERDE DO Sep 09, 2018 15:56
[2018-09-09] MEDS ORDERED: IOHEXOL 350 MG/ML 150 ML (OMNIPAQUE 350) VIAL IV ONE (16:30)
[2018-09-09] MEDS ORDERED: HOLD METFORMIN - RECEIVED CONTRAST 20 ML VIAL IV SCH (16:30)
[2018-09-09] MEDS ORDERED: CATHETER FLUSH 10 ML SYR IV PRN (16:30)
--- NOTE | 2018-09-09 17:22 | Diagnostic Imaging Report ---
PROCEDURE: CT angiography of the chest with contrast. TECHNIQUE: Multiple contiguous axial images were obtained through the chest after uneventful bolus administration of intravenous contrast. 2D reconstructed CTA MIP acquisitions were also performed. Auto Exposure Controls were utilized during the CT exam to meet ALARA standards for radiation dose reduction. INDICATION: Hypoxia, cough. FINDINGS: There is a 17 mm and a 20 mm parenchymal opacification seen in the left lower lobe. These are likely localized infiltrate but recommend followup for clearing as masses cannot yet be excluded. No other mass or infiltrate is seen. There is some bronchiectasis. There is no effusion or pneumothorax. There is no mediastinal mass or hemorrhage. There is no aortic aneurysm or dissection. There is no pulmonary embolus. IMPRESSION: There are several calcifications in the left lung present which are likely related to pneumonia but recommend followup for clearing. There is no pulmonary embolus. Dictated by: Dictated on workstation # [id number]
[2018-09-09] MEDS: inSUlin ASPART (NovoLOG) 1 UNIT/0.01 ML (CHARGE PER UNIT) SC SCH ×2 (18:29→21:31)
[2018-09-09] MEDS: NS IV 1000 ML 1,000 ML IV SCH (18:29)
[2018-09-09] MEDS: RT-ALBUTEROL SULF 2.5 MG/3 ML PRE-MIX VIAL INH SCH (19:38)
[2018-09-10] VITALS (9 sets, daily range): BP systolic 150–205; BP diastolic 70–91
[2018-09-10 04:00] LABS: BASOPHILS % (AUTO) 0 % (0-10); EOSINOPHILS # (AUTO) 0.1 10^3/uL (0.0-0.3); EOSINOPHILS % (AUTO) 1 % (0-10); HEMATOCRIT 31 % (40-54); HEMOGLOBIN 11.4 G/DL (13.3-17.7); LYMPHOCYTES # (AUTO) 0.8 X 10^3 (1.0-4.0); LYMPHOCYTES % (AUTO) 12 % (12-44); MEAN CORPUSCULAR HEMOGLOBIN 33 PG (25-34); MEAN CORPUSCULAR HGB CONC 37 G/DL (32-36); MEAN CORPUSCULAR VOLUME 89 FL (80-99); MEAN PLATELET VOLUME 8.3 FL (7.4-10.4); MONOCYTES # (AUTO) 0.5 X 10^3 (0.0-1.0); MONOCYTES % (AUTO) 8 % (0-12); NEUTROPHILS # (AUTO) 5.4 X 10^3 (1.8-7.8); NEUTROPHILS % (AUTO) 79 % (42-75); PLATELET COUNT 189 10^3/uL (130-400); RED CELL DISTRIBUTION WIDTH 11.8 % (10.0-14.5); WHITE BLOOD COUNT 6.8 10^3/uL (4.3-11.0)
[2018-09-10 04:13] LABS: ALANINE AMINOTRANSFERASE 14 U/L (0-55); ALBUMIN 3.5 GM/DL (3.2-4.5); ALKALINE PHOSPHATASE 67 U/L (40-136); BILIRUBIN,TOTAL 0.5 MG/DL (0.1-1.0); BUN/CREATININE RATIO 18; CALCIUM 9.1 MG/DL (8.5-10.1); CARBON DIOXIDE 21 MMOL/L (21-32); CHLORIDE 90 MMOL/L (98-107); CHOLESTEROL 106 MG/DL (< 200); CREATININE SERUM 0.91 MG/DL (0.60-1.30); GFR ESTIMATED > 60; GLUCOSE 145 MG/DL (70-105); HDL CHOLESTEROL 36 MG/DL (40-60); POTASSIUM 3.7 MMOL/L (3.6-5.0); TOTAL PROTEIN 6.3 GM/DL (6.4-8.2); TRIGLYCERIDES 92 MG/DL (<150); VLDL CHOLESTEROL 18 MG/DL (5-40)
[2018-09-10 04:16] LABS: SODIUM 124 MMOL/L (135-145)
[2018-09-10] MEDS: NS IV 1000 ML 1,000 ML IV SCH ×2 (05:47→10:45)
--- NOTE | 2018-09-10 06:35 | Pulmonary Progress Note ---
Subjective Time Seen by a Provider: 06:54 Subjective/Events-last exam Pt is A&O x 1 only Sepsis Event Evaluation Height, Weight, BMI Height: 5'6.00" Weight: 231lbs. 0.0oz. 104.602385ej; 37.3 BMI Method:Stated Focused Exam Lactate Level 09/09/18 12:20: Lactic Acid Level 2.37*H 09/09/18 16:15: Lactic Acid Level 2.32*H Exam Exam Vital Signs Date Time Temp Pulse Resp B/P (MAP) Pulse Ox O2 Delivery O2 Flow Rate FiO2 09/10/18 04:00 Nasal Cannula 2.00 09/10/18 03:11 72 187/81 (116) Nasal Cannula 2.00 09/10/18 00:00 69 177/82 (113) Nasal Cannula 2.00 09/10/18 00:00 Nasal Cannula 2.00 09/10/18 00:00 98.3 09/09/18 21:17 79 187/86 (119) Nasal Cannula 2.00 09/09/18 21:00 94 Nasal Cannula 2.00 09/09/18 20:00 Nasal Cannula 2.00 09/09/18 20:00 97.6 09/09/18 19:38 Nasal Cannula 2.00 09/09/18 19:00 75 09/09/18 17:00 58 159/84 (109) Nasal Cannula 2.00 09/09/18 16:00 58 14 159/84 (109) 94 Nasal Cannula 2.00 09/09/18 16:00 Nasal Cannula 2.00 09/09/18 15:45 97.3 57 14 150/77 (101) 92 Nasal Cannula 2.00 09/09/18 15:42 57 09/09/18 14:40 99.0 58 20 167/72 (103) 96 Room Air 09/09/18 14:40 99.0 58 20 167/72 (103) 96 Nasal Cannula 2.00 09/09/18 14:40 99.0 58 20 167/72 96 Nasal Cannula 2.00 09/09/18 14:30 58 18 167/72 (103) 96 Room Air 2.00 09/09/18 14:20 59 18 160/76 (104) 96 Room Air 09/09/18 14:00 55 18 95 Nasal Cannula 2.00 09/09/18 13:30 55 18 97 Nasal Cannula 2.00 09/09/18 13:00 55 18 98 Nasal Cannula 2.00 09/09/18 12:30 53 18 121/56 (77) 96 Nasal Cannula 2.00 09/09/18 12:05 89 Room Air 2.00 09/09/18 12:03 Nasal Cannula 2.00 09/09/18 12:03 99.2 55 15 139/57 (84) 89 Room Air 2.00 I & O 09/10/18 07:00 Intake Total 1260 ml Balance 1260 ml Height & Weight Height: 5'6.00" Weight: 231lbs. 0.0oz. 104.951665bq; 37.3 BMI Method:Stated General Appearance: No Apparent Distress, Anxious, Obese HEENT: PERRL/EOMI, Normal ENT Inspection, Pharynx Normal Neck: Full Range of Motion, Non Tender, Supple Respiratory: Chest Non Tender, No Accessory Muscle Use, No Respiratory Distress , Decreased Breath Sounds Cardiovascular: Regular Rate, Rhythm, No Edema, No Murmur Capillary Refill: Less Than 3 Seconds Gastrointestinal: normal bowel sounds, non tender, soft Extremity: Normal Capillary Refill Neurologic/Psychiatric: Alert, No Motor/Sensory Deficits, Disoriented Skin: Normal Color, Warm/Dry Lymphatic: No Adenopathy Results Lab Laboratory Tests 09/09/18 12:20 09/10/18 03:05 Assessment/Plan Assessment/Plan Pneumonia- no fever, no leukocytosis -rocephin, azithromycin Lung nodule -PT will need repeat CT of chest 6-8wks after discharge -Pt will most likely need bronchoscopy and PET scan if lung nodules persist after f/u CT scan 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 Check chem Q4 and leave as ICU step down until hypertonic is D/C'd Confusion/psychosis - probably chronic dementia -Start Risperdal 1mg BID -PRN Haldol Elevated BNP -Check Echo -Repeat BNP JESSICA VALVERDE DO Sep 10, 2018 06:35
[2018-09-10] MEDS ORDERED: HALOPERIDOL 5 MG/ML (HALDOL) AMP IV PRN (06:45)
[2018-09-10] MEDS ORDERED: SODIUM CHLORIDE 3% 500 ML IV SCH (06:45)
[2018-09-10] MEDS: inSUlin ASPART (NovoLOG) 1 UNIT/0.01 ML (CHARGE PER UNIT) SC SCH ×4 (06:58→21:19)
[2018-09-10] MEDS ORDERED: FUROSEMIDE 40 MG/4 ML INJ (LASIX) IVP NR (07:02)
[2018-09-10] MEDS: RT-ALBUTEROL SULF 2.5 MG/3 ML PRE-MIX VIAL INH SCH ×4 (07:21→21:18)
[2018-09-10] MEDS ORDERED: cefTRIAXone FOR IV USE 1,000 MG in WATER (STERILE) FOR INJECTION 10 ML IV SCH (08:00)
[2018-09-10] MEDS: hydrALAZINE (APESOLINE) 20 MG/ML VIAL IV PRN ×2 (08:17→23:38)
[2018-09-10] MEDS: risperiDONE 1 MG (RisperDAL) TAB PO SCH ×2 (08:17→19:28)
[2018-09-10] MEDS: meTOprolol TARTRATE 25 MG (LOPRESSOR) TABLET PO SCH ×2 (08:17→19:28)
--- NOTE | 2018-09-10 08:40 | History & Physical ---
History of Present Illness HPI/Chief Complaint CC: Confusion with pneumonia HPI: This is an 78-year-old white male of mine for the past 15 years with a past medical history of diabetes, CAD, colon cancer, chronic renal insufficiency and SIADH who most recently has had a significant decline in cognition who presented to [facility] with shortness of breath and cough and fever diagnosed with pneumonia and severe hyponatremia of 121. Dr. Ospina has seen in consultation maintained on Rocephin and Zithromax and is now on hypertonic saline since sodium level only went up to 124 from 121 to see if that helps the cognition. The last 2 visits I have noted a significant decline in mentation and the severity of his dementia is likely to remain even though sodium level has returned to be corrected. He does not even know me and I've been taking care of him for 15 years. Source: patient, family, RN/MD, old records Exam Limitations: no limitations Date Seen 09/10/18 Time Seen by a Provider: 08:45 Attending Physician Chantelle Trujillo DO PCP Chantelle Trujillo DO Referring Physician CHANTELLE TRUJILLO DO Date of Admission Sep 09, 2018 at 13:58 Home Medications & Allergies Home Medications Reviewed patient Home Medication Reconciliation performed by pharmacy medication reconciliations configuration technician and/or nursing. Patients Allergies have been reviewed. Allergies Allergies Coded Allergies rofecoxib (Verified Allergy, Unknown, 10/25/06) Past Benrsir-Eosuvn-Knmgxe Hx Past Med/Social Hx: Reviewed Nursing Past Med/Soc Hx, Reviewed and Corrections made Patient Social History Marrital Status: Employed/Student: retired Alcohol Use: Denies Use Recreational Drug Use: No Smoking Status: Former Smoker Recent Foreign Travel: No (N) Contact w/other who traveled: No (N) Recent Hopitalizations: No Recent Infectious Disease Expo: No Immunizations Up To Date Date of Pneumonia Vaccine: Jan 17, 2012 Date of Influenza Vaccine: Apr 12, 2018 Seasonal Allergies Seasonal Allergies: No Past Medical History Surgeries: Abdominal (olon cancer), CABG Respiratory: Pneumonia Cardiac: Coronary Artery Disease, High Cholesterol, Hypertension Neurological: Dementia, Neuropathy Reproductive: No Genitourinary: Renal Failure Gastrointestinal: Gastroesophageal Reflux Musculoskeletal: Arthritis Endocrine: Diabetes, Insulin dep History of Blood Disorders: No Review of Systems ROS-Unable to Obtain: no family at bedside so limited details Constitutional: see HPI, dizziness, weakness Physical Exam Physical Exam Vital Signs Vital Signs - First Documented Capillary Refill : Less Than 3 Seconds Height, Weight, BMI Height: 5'6.00" Weight: 228lbs. 0.0oz. [id number]; 37.3 BMI Method:Stated General Appearance: No Apparent Distress, WD/WN, Anxious, Chronically ill, Obese, Other (confused) Eyes: Bilateral Eye Normal Inspection, Bilateral Eye PERRL, Bilateral Eye EOMI HEENT: PERRL/EOMI, Normal ENT Inspection, Pharynx Normal Neck: Full Range of Motion, Non Tender, Supple Respiratory: Chest Non Tender, No Accessory Muscle Use, No Respiratory Distress , Crackles, Decreased Breath Sounds Cardiovascular: Regular Rate, Rhythm, No Edema, No Murmur Extremity: Normal Capillary Refill Neurologic/Psychiatric: Alert, No Motor/Sensory Deficits, Disoriented (O x 1) Skin: Normal Color, Warm/Dry Lymphatic: No Adenopathy Results Results/Procedures Labs Laboratory Tests 09/09/18 12:20 09/10/18 03:05 Patient resulted labs reviewed. Assessment/Plan Admission Diagnosis Assessment: Pneumonia Elevated lactic acid Severe hyponatremia History of SIADH Dementia with significant worsening the last 6 months CAD Colon cancer history Hypertension Hyperlipidemia Chronic renal insufficiency Pneumonia in the past Former smoker GERD Plan: IV antibiotics Hypertonic saline Fluid restriction Check echo Appreciate Dr. Ospina and Dr. Toro Admission Status: Inpatient Order (span 2 midnights) Reason for Inpatient Admission: Severe hyponatremia with pneumonia and dementia will require 3 days of hospital stay Diagnosis/Problems Diagnosis/Problems (1) Pneumonia Status: Acute Qualifiers: Pneumonia type: due to unspecified organism Laterality: left Lung location: lower lobe of lung Qualified Codes: J18.1 - Lobar pneumonia, unspecified organism (2) Lactic acid acidosis Status: Acute (3) Dementia Status: Chronic Qualifiers: Dementia type: Alzheimer's disease Alzheimer's disease onset: unspecified onset Dementia behavioral disturbance: without behavioral disturbance Qualified Codes: G30.9 - Alzheimer's disease, unspecified; F02.80 - Dementia in other diseases classified elsewhere without behavioral disturbance (4) CAD (coronary artery disease) Status: Chronic Qualifiers: Coronary Disease-Associated Artery/Lesion type: [place] artery [place] vs. transplanted heart: [place] heart Associated angina: without angina Qualified Codes: I25.10 - Atherosclerotic heart disease of [place] coronary artery without angina pectoris (5) Hypertension Status: Chronic Qualifiers: Hypertension type: essential hypertension Qualified Codes: I10 - Essential (primary) hypertension (6) Hyperlipemia Status: Chronic Qualifiers: Hyperlipidemia type: mixed hyperlipidemia Qualified Codes: E78.2 - Mixed hyperlipidemia (7) Renal insufficiency Status: Chronic (8) SIADH (syndrome of inappropriate ADH production) Status: Chronic (9) GERD (gastroesophageal reflux disease) Status: Chronic Qualifiers: Esophagitis presence: without esophagitis Qualified Codes: K21.9 - Gastro- esophageal reflux disease without esophagitis (10) Lung nodule Status: Acute (11) History of colon cancer Status: Chronic (12) Hyponatremia Status: Acute (13) Altered mental status Status: Acute Qualifiers: Altered mental status type: unspecified Qualified Codes: R41.82 - Altered mental status, unspecified (14) Elevated lactic acid level Status: Acute (15) Hypoxia Status: Acute CHANTELLE TRUJILLO DO Sep 10, 2018 08:39
--- NOTE | 2018-09-10 08:56 | Consultation-Cardiology ---
HPI-Cardiology Cardiology Consultation: Date of Consultation 09/10/18 Time Seen by a Provider: 08:25 Date of Admission Attending Physician Chantelle Trujillo DO Admitting Physician Chantelle Trujillo DO Consulting Physician MARGARITA DUNBAR MD, MA, FACP, FACC, [facility] [place], [facility] Physician requesting consult: Dr Trujillo HPI: Chief Complaint: Reason for consultation: Elvevated BNP HPI: 78 yo man admitted to Dr Trujillo with increasing cough, minimally productive, and gen malaise. Notes some shortness of breath. No cp or palp or syncope Seems confused; history is not reliable Review of Systems-Cardiology Review of Systems Constitutional: other (Confused; history and rguzqn-gl-qwfwjei are not reliable ) Eyes: No vision change Ears/Nose/Throat: No ear discharge, No nasal drainage, No recent hearing loss Respiratory: As described under HPI Cardiovascular: As described under HPI Gastrointestinal: No constipation, No diarrhea, No vomiting Genitourinary: No dysuria, No hematuria Musculoskeletal: No back pain, No joint pain Skin: No rash, No ulcerations Psychiatric/Neurological: No seizure, No focal weakness, No syncope Hematologic: No bleeding abnormalities HVD-Hgwzbp-Uchnxx Hx Patient Social History Alcohol Use: Denies Use Recreational Drug Use: No Smoking Status: Former Smoker Recent Foreign Travel: No (N) Recent Infectious Disease Expo: No Hospitalization with Isolation: Denies Immunizations Up To Date Date of Pneumonia Vaccine: Jan 17, 2012 Date of Influenza Vaccine: Apr 12, 2018 Past Medical History PMH As described under Assessment. Family Medical History Family Medical History: Does not report fam h/o early CAD or SCD Allergies and Home Medications Allergies Coded Allergies: rofecoxib (Verified Allergy, Unknown, 10/25/06) Home Medications Amlodipine Besylate 10 Mg Tablet, 10 MG PO DAILY, (Reported) Aspirin 81 Mg Tablet.dr, 81 MG PO DAILY, (Reported) Clopidogrel 75 Mg Tablet, 75 MG PO DAILY, (Reported) Famotidine 20 Mg Tablet, 20 MG PO BID, (Reported) Fish Oil/Dha/Epa 1 Each Capsule, 4,800 MG PO DAILY, (Reported) TAKES 4 (1200MG) CAPSULES Glyburide 5 Mg Tablet, 5 MG PO BID, (Reported) Ibuprofen 200 Mg Tablet, 400 MG PO Q6H PRN for PAIN, (Reported) TAKES 2 (200MG) TABLETS Lisinopril 40 Mg Tablet, 40 MG PO BID, (Reported) Loperamide Hcl 2 Mg Capsule, 0 PO UD PRN for DIARRHEA, (Reported) 2 CAPS INITIALLY, THEN 1 CAP AFTER EACH LOOSE STOOL. NOT TO EXCEED 8 CAPS/24 HRS. Metoprolol Tartrate 100 Mg Tablet, 100 MG PO BID, (Reported) Multivitamin 1 Each Tablet, 1 TAB PO DAILY, (Reported) Niacin/Inositol Niacinate 1 Each Capsule, 1,000 MG PO HS, (Reported) Simvastatin 40 Mg Tablet, 40 MG PO HS, (Reported) Patient Home Medication List Home Medication List Reviewed: Yes Physical Exam-Cardiology Physical Exam Vital Signs/I&O 09/09/18 09/09/18 09/10/18 09/10/18 21:00 21:17 00:00 00:00 Temp 98.3 Pulse 79 B/P (MAP) 187/86 (119) Pulse Ox 94 O2 Delivery Nasal Cannula Nasal Cannula Nasal Cannula O2 Flow Rate 2.00 2.00 2.00 09/10/18 09/10/18 09/10/18 09/10/18 00:00 03:11 04:00 07:21 Pulse 69 72 B/P (MAP) 177/82 (113) 187/81 (116) Pulse Ox 87 O2 Delivery Nasal Cannula Nasal Cannula Nasal Cannula Nasal Cannula O2 Flow Rate 2.00 2.00 2.00 2.00 09/10/18 09/10/18 07:57 08:11 Pulse 77 69 B/P (MAP) 199/89 (125) O2 Delivery Nasal Cannula O2 Flow Rate 2.00 09/10/18 00:00 Intake Total 260 ml Balance 260 ml Capillary Refill : Less Than 3 Seconds Constitutional: No AAO x 3; well-developed, well-nourished HEENT: EOMI, hearing is well preserved; No ulceration Neck: No carotid bruit; carotid pulses are 2 + bilaterally Respiratory: No accessory muscle use; other (good bilat air entry) Cardiovascular: regular rate-rhythm, S1 and S2, systolic murmur (soft BELLA at card base) Gastrointestinal: No tender, No soft, No guarding, No rebound; audible bowel sounds Extremities: No clubbing, No cyanosis, No significant edema Neurologic/Psychiatric: No oriented x 3; other, power is 5/5 both on sides Skin: No rash on exposed areas, No ulcerations on exposed areas Lymphatic: no adenopathy Data Review Labs Laboratory Tests 09/09/18 12:20: White Blood Count 7.4, Red Blood Count 3.61L, Hemoglobin 11.6L, Hematocrit 33L, Mean Corpuscular Volume 90, Mean Corpuscular Hemoglobin 32, Mean Corpuscular Hemoglobin Concent 36, Red Cell Distribution Width 11.8, Platelet Count 155, Mean Platelet Volume 8.3, Neutrophils (%) (Auto) 78H, Lymphocytes (%) (Auto) 13 , Monocytes (%) (Auto) 8, Eosinophils (%) (Auto) 1, Basophils (%) (Auto) 0, Neutrophils # (Auto) 5.8, Lymphocytes # (Auto) 1.0, Monocytes # (Auto) 0.6, Eosinophils # (Auto) 0.1, Basophils # (Auto) 0.0, Prothrombin Time 13.9, INR Comment 1.1, Activated Partial Thromboplast Time 34, Sodium Level 121*L, Potassium Level 3.7, Chloride Level 82L, Carbon Dioxide Level 26, Anion Gap 13, Blood Urea Nitrogen 19H, Creatinine 1.10, Estimat Glomerular Filtration Rate > 60, BUN/Creatinine Ratio 17, Glucose Level 86, Lactic Acid Level 2.37*H, Calcium Level 9.0, Corrected Calcium 9.3, Magnesium Level 1.4L, Total Bilirubin 0.5, Aspartate Amino Transf (AST/SGOT) 27, Alanine Aminotransferase (ALT/SGPT) 12, Alkaline Phosphatase 72, Myoglobin 161.9H, Troponin T 15, Pro-B-Type Natriuretic Peptide 1111.0H, Total Protein 6.6, Albumin 3.6 09/09/18 15:47: Glucometer 57*L 09/09/18 16:15: Lactic Acid Level 2.32*H 09/09/18 21:11: Glucometer 137H 09/10/18 03:05: White Blood Count 6.8, Red Blood Count 3.45L, Hemoglobin 11.4L, Hematocrit 31L, Mean Corpuscular Volume 89, Mean Corpuscular Hemoglobin 33, Mean Corpuscular Hemoglobin Concent 37H, Red Cell Distribution Width 11.8, Platelet Count 189, Mean Platelet Volume 8.3, Neutrophils (%) (Auto) 79H, Lymphocytes (%) (Auto) 12 , Monocytes (%) (Auto) 8, Eosinophils (%) (Auto) 1, Basophils (%) (Auto) 0, Neutrophils # (Auto) 5.4, Lymphocytes # (Auto) 0.8L, Monocytes # (Auto) 0.5, Eosinophils # (Auto) 0.1, Basophils # (Auto) 0.0, Sodium Level 124*L, Potassium Level 3.7, Chloride Level 90L, Carbon Dioxide Level 21, Anion Gap 13, Blood Urea Nitrogen 16, Creatinine 0.91, Estimat Glomerular Filtration Rate > 60, BUN/ Creatinine Ratio 18, Glucose Level 145H, Calcium Level 9.1, Corrected Calcium 9.5, Total Bilirubin 0.5, Aspartate Amino Transf (AST/SGOT) 27, Alanine Aminotransferase (ALT/SGPT) 14, Alkaline Phosphatase 67, B-Type Natriuretic Peptide 290.9H, Total Protein 6.3L, Albumin 3.5, Triglycerides Level 92, Cholesterol Level 106, LDL Cholesterol Direct 51, VLDL Cholesterol 18, HDL Cholesterol 36L Laboratory Tests 09/09/18 12:20 09/10/18 03:05 A/P-Cardiology Assessment/Admission Diagnosis LLL pneumonia, managed by Dr Trujillo and Dr Ospina Hyponatremia, 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 No clinical evidence of decompensated CHF. Mild BNP elevation probably due to pneumonia and/or obesity- hypoventilation Uncontrolled hypertension Chronic stable angina Coronary artery disease with a history of coronary artery bypass surgery. Last cardiac catheterization was in March 2014 which showed severe [place] CAD including 95% mid vessel stenosis of the left internal descending artery, 60% mid vessel stenosis of the left cx, subtotal ostial occlusion of the first OM branch and complete occlusion of the proximal to mid RCA, patent left internal mammary artery graft to the mid LAD, patent saphenous vein graft (with prox 50- 60% stenosis) to the first OM branch 50-60% proximal stenosis, and severely degenerated saphenous vein graft to the distal RCA (this graft has multiple 99 to 100% stenoses in its midportion and appears to be at high risk if percutaneous intervention is to be undertaken). LV gram showed well-preserved global left ventricular systolic function with an ejection fraction of 60-65%, mild posterobasal hypokinesis, no significant MR, mild LVEDP Obesity with a body mass index of approximately 37. Suspected CHIQUI, but pt has not followed through on the recommendation to have a sleep study done Gastroesophageal reflux. Hyperlipidemia, treated with statin and niacin therapy. Maturity onset diabetes mellitus being managed by Dr. Trujillo. Chronic bilateral ankle swelling, likely related to venous insufficiency and/or calcium channel karl therapy, currently stable. Rectal carcinoma that has been treated with surgery, followed by radiation therapy. Mild peripheral neuropathy consisting of numbness of the feet. History of carotid arterial disease with left-sided carotid endarterectomy by Dr. Ritchie. Carotid ultrasonography of January 2014 showed mild bilateral disease, hemodynamically nonsignificant. Echo of 2013: Well preserved global LV systolic function with an LVEF of 60%. Moderate tricuspid regurg, mild mitral regurg, AoValve sclerosis with mild aortic stenosis and a valve area approximately 2 cm sq. Mild diastolic dysfunction, moderate enlargement of atrium. PASP 45-50mmHg. Dementia Discussion and Recomendations * Complex management due to multiple comorbidities * I discussed his case with Dr Trujillo this morning * Echo to eval LVEF * Adjust meds for better control of bp * Treatment of pneumonia and hyponatremia is with Dr Trujillo and Dr Ospina * Monitor labs MARGARITA DUNBAR MD FACP [facility] Sep 10, 2018 08:55
[2018-09-10] MEDS ORDERED: risperiDONE 0.25 MG (RisperDAL) TAB PO SCH (09:00)
[2018-09-10] MEDS ORDERED: lisINopril 10 MG (PRINIVIL) TABLET PO SCH (09:00)
[2018-09-10 09:27] LABS: BUN/CREATININE RATIO 13; CARBON DIOXIDE 21 MMOL/L (21-32); CHLORIDE 93 MMOL/L (98-107); CREATININE SERUM 0.97 MG/DL (0.60-1.30); POTASSIUM 3.6 MMOL/L (3.6-5.0); SODIUM 127 MMOL/L (135-145)
[2018-09-10 09:28] LABS: CALCIUM 9.1 MG/DL (8.5-10.1); GFR ESTIMATED > 60; GLUCOSE 277 MG/DL (70-105)
[2018-09-10] MEDS ORDERED: AMLO10TA7 PO (09:28)
[2018-09-10] MEDS ORDERED: GLIP5TAB13 PO (09:28)
[2018-09-10] MEDS ORDERED: LOSA50TA63 PO (09:28)
[2018-09-10] MEDS ORDERED: ATOR20TA66 PO (09:28)
[2018-09-10] MEDS ORDERED: METO100T12 PO (09:28)
[2018-09-10] MEDS ORDERED: LISI40TA PO (09:28)
[2018-09-10] MEDS ORDERED: CLOP75TA28 PO (09:28)
[2018-09-10] MEDS ORDERED: LOPE-145 PO (09:36)
[2018-09-10] MEDS ORDERED: FAMO20TA3 PO (09:36)
[2018-09-10] MEDS ORDERED: NIAC1CAP PO (09:36)
[2018-09-10] MEDS ORDERED: ASPI-983 PO (09:36)
[2018-09-10] MEDS ORDERED: MULT-633 PO (09:36)
[2018-09-10] MEDS ORDERED: FISH1CAP15 PO (09:36)
[2018-09-10] MEDS ORDERED: IBUP-2055 PO (09:36)
[2018-09-10] MEDS ORDERED: doxAzosin 4 MG (CARDURA) TAB PO NR (09:40)
[2018-09-10] MEDS ORDERED: lisINopril 20 MG (PRINIVIL) TABLET PO NR (09:43)
--- NOTE | 2018-09-10 10:10 | NUR ---
CALLED AND SPOKE WITH THE PATIENTS ABOUT MEDICATIONS. WE WENT OVER THE EXT MED HX AND SHE VERIFIED HOW HE TAKES THEM. SHE ALSO LISTED HIS OTC MEDS. OTC MEDS: [employer] DAILY FISH OIL 1200MG 4 DAILY NIACIN 2 HS ASPIRIN 81MG HS IBU PRN PEPCID BID IMODIUM PRN
[2018-09-10 12:29] LABS: BUN/CREATININE RATIO 14; CARBON DIOXIDE 23 MMOL/L (21-32); CHLORIDE 94 MMOL/L (98-107); CREATININE SERUM 1.01 MG/DL (0.60-1.30); GFR ESTIMATED > 60; GLUCOSE 223 MG/DL (70-105); SODIUM 128 MMOL/L (135-145)
[2018-09-10] MEDS ORDERED: AZITHROMYCIN INJECTION 250 MG in NS (IVPB) 250 ML IV SCH (13:00)
[2018-09-10 14:05] LABS: BILIRUBIN,URINE NEGATIVE (NEGATIVE); CLARITY,URINE CLEAR; COLOR,URINE YELLOW; GLUCOSE, URINE (UA) 2+ (NEGATIVE); KETONES,URINE NEGATIVE (NEGATIVE); LEUKOCYTE ESTERASE ,URINE NEGATIVE (NEGATIVE); NITRITE,URINE NEGATIVE (NEGATIVE); PH,URINE 6 (5-9); PROTEIN,URINE 3+ (NEGATIVE); UROBILINOGEN,URINE NORMAL (NORMAL)
[2018-09-10 14:27] LABS: BACTERIA,URINE NEGATIVE /HPF; SQUAMOUS EPITHELIAL CELL,UR RARE /HPF
[2018-09-10] MEDS ORDERED: CLOT12CR TP (15:18)
[2018-09-10 17:32] LABS: BUN/CREATININE RATIO 16; CARBON DIOXIDE 25 MMOL/L (21-32); CHLORIDE 95 MMOL/L (98-107); CREATININE SERUM 0.96 MG/DL (0.60-1.30); GFR ESTIMATED > 60; GLUCOSE 205 MG/DL (70-105); POTASSIUM 3.8 MMOL/L (3.6-5.0); SODIUM 128 MMOL/L (135-145)
--- NOTE | 2018-09-10 18:40 | NUR ---
Report received from Bereket MYERS
[2018-09-10] MEDS: doxAzosin 4 MG (CARDURA) TAB PO SCH (19:28)
[2018-09-10 20:32] LABS: BUN/CREATININE RATIO 14; CALCIUM 8.7 MG/DL (8.5-10.1); CARBON DIOXIDE 22 MMOL/L (21-32); CHLORIDE 94 MMOL/L (98-107); CREATININE SERUM 1.03 MG/DL (0.60-1.30); GFR ESTIMATED > 60; GLUCOSE 294 MG/DL (70-105); POTASSIUM 3.8 MMOL/L (3.6-5.0); SODIUM 129 MMOL/L (135-145)
[2018-09-11] MEDS: NS IV 1000 ML 1,000 ML IV SCH (00:41)
[2018-09-11 00:42] LABS: BUN/CREATININE RATIO 15; CALCIUM 8.8 MG/DL (8.5-10.1); CARBON DIOXIDE 24 MMOL/L (21-32); CHLORIDE 96 MMOL/L (98-107); CREATININE SERUM 0.84 MG/DL (0.60-1.30); GFR ESTIMATED > 60; GLUCOSE 180 MG/DL (70-105); POTASSIUM 3.8 MMOL/L (3.6-5.0); SODIUM 131 MMOL/L (135-145)
[2018-09-11 04:05] VITALS: BP 167/69
[2018-09-11 05:18] LABS: BUN/CREATININE RATIO 13; CALCIUM 8.8 MG/DL (8.5-10.1); CARBON DIOXIDE 23 MMOL/L (21-32); CHLORIDE 96 MMOL/L (98-107); CREATININE SERUM 0.83 MG/DL (0.60-1.30); GFR ESTIMATED > 60; GLUCOSE 182 MG/DL (70-105); POTASSIUM 3.5 MMOL/L (3.6-5.0); SODIUM 132 MMOL/L (135-145)
[2018-09-11] MEDS: inSUlin ASPART (NovoLOG) 1 UNIT/0.01 ML (CHARGE PER UNIT) SC SCH ×4 (06:31→21:01)
[2018-09-11] MEDS: RT-ALBUTEROL SULF 2.5 MG/3 ML PRE-MIX VIAL INH SCH ×5 (07:16→19:30)
--- NOTE | 2018-09-11 07:30 | Pulmonary Progress Note ---
Subjective Time Seen by a Provider: 07:29 Subjective/Events-last exam NO complications noted. Sepsis Event Evaluation Height, Weight, BMI Height: 5'6.00" Weight: 247lbs. 8.0oz. 112.749732lx; 37.3 BMI Method:Stated Focused Exam Lactate Level 09/09/18 12:20: Lactic Acid Level 2.37*H 09/09/18 16:15: Lactic Acid Level 2.32*H Exam Exam Vital Signs Date Time Temp Pulse Resp B/P (MAP) Pulse Ox O2 Delivery O2 Flow Rate FiO2 09/11/18 07:17 93 Nasal Cannula 2.00 09/11/18 04:05 98.3 73 20 167/69 (101) 93 Nasal Cannula 2.00 09/11/18 04:00 Nasal Cannula 2.00 09/11/18 01:00 83 09/11/18 00:00 Nasal Cannula 2.00 09/10/18 23:13 98.0 77 20 176/84 (114) 95 Nasal Cannula 2.00 09/10/18 21:18 96 Nasal Cannula 2.00 09/10/18 21:00 Nasal Cannula 2.00 09/10/18 20:00 Nasal Cannula 2.00 09/10/18 19:20 98.9 89 171/79 (109) Nasal Cannula 2.00 09/10/18 19:01 97 09/10/18 16:00 Nasal Cannula 2.00 09/10/18 16:00 97.9 09/10/18 14:50 94 Nasal Cannula 2.00 09/10/18 12:42 76 09/10/18 12:00 Nasal Cannula 2.00 09/10/18 11:14 98.2 64 20 150/70 (96) 95 Nasal Cannula 2.00 09/10/18 09:11 160/75 (103) 09/10/18 09:00 94 Nasal Cannula 2.00 09/10/18 08:11 69 199/89 (125) Nasal Cannula 2.00 09/10/18 08:00 70 199/89 (125) Nasal Cannula 2.00 09/10/18 08:00 Nasal Cannula 2.00 09/10/18 07:57 77 I & O 09/11/18 07:00 Intake Total 1990 ml Output Total 2200 ml Balance -210 ml Height & Weight Height: 5'6.00" Weight: 247lbs. 8.0oz. 112.305448hx; 37.3 BMI Method:Stated General Appearance: No Apparent Distress, WD/WN, Anxious, Chronically ill, Obese, Other (confused) HEENT: PERRL/EOMI, Normal ENT Inspection, Pharynx Normal Neck: Full Range of Motion, Non Tender, Supple Respiratory: Chest Non Tender, No Accessory Muscle Use, No Respiratory Distress , Crackles, Decreased Breath Sounds Cardiovascular: Regular Rate, Rhythm, No Edema, No Murmur Capillary Refill: Less Than 3 Seconds Gastrointestinal: normal bowel sounds, non tender, soft Extremity: Normal Capillary Refill Neurologic/Psychiatric: Alert, No Motor/Sensory Deficits, Disoriented (O x 1) Skin: Normal Color, Warm/Dry Lymphatic: No Adenopathy Results Lab Laboratory Tests 09/09/18 12:20 09/10/18 03:05 09/10/18 08:59 09/10/18 12:00 09/10/18 16:58 09/10/18 20:08 09/11/18 00:20 09/11/18 04:05 Assessment/Plan Assessment/Plan Pneumonia- no fever, no leukocytosis -rocephin, azithromycin Lung nodule -PT will need repeat CT of chest 6-8wks after discharge -Pt will most likely need bronchoscopy and PET scan if lung nodules persist after f/u CT scan Hyponatremia -Monitor Confusion/psychosis - probably chronic dementia -Risperdal 1mg BID -PRN JESSICA England DO Sep 11, 2018 07:30
[2018-09-11 08:00] VITALS: BP 188/82
[2018-09-11] MEDS: KCL 20 MEQ TAB (K-DUR) PO SCH (08:41)
[2018-09-11] MEDS: lisINopril 20 MG (PRINIVIL) TABLET PO SCH (08:41)
[2018-09-11] MEDS: risperiDONE 1 MG (RisperDAL) TAB PO SCH ×2 (08:41→21:00)
[2018-09-11] MEDS: meTOprolol TARTRATE 25 MG (LOPRESSOR) TABLET PO SCH (08:42)
[2018-09-11] MEDS: doxAzosin 4 MG (CARDURA) TAB PO SCH ×2 (08:42→20:59)
--- NOTE | 2018-09-11 09:41 | Progress Note ---
Subjective Date Seen by a Provider: Sep 11, 2018 Time Seen by a Provider: 09:30 Subjective/Events-last exam Patient doing much better We'll Hep-Lock fluid Eating and drinking well Severity of dementia is profound Does not recall who I am and I have been his doctor for 15 years Checked meds and labs Sodium level 134 Review of Systems General: Fatigue Pulmonary: Cough Neurological: Confusion Focused Exam Lactate Level 09/09/18 12:20: Lactic Acid Level 2.37*H 09/09/18 16:15: Lactic Acid Level 2.32*H Objective Exam Last Set of Vital Signs Vital Signs Date Time Temp Pulse Resp B/P (MAP) Pulse Ox O2 Delivery O2 Flow Rate FiO2 09/11/18 08:00 98.6 82 20 188/82 (117) 93 Nasal Cannula 2.00 Capillary Refill : Less Than 3 Seconds I&O Intake and Output 09/11/18 00:00 Intake Total 2840 ml Output Total 1350 ml Balance 1490 ml Intake Oral 1130 ml IV Total 1710 ml Output Urine Total 1350 ml # Voids 11 # Bowel Movements 6 General: Alert, Oriented X3, Cooperative, No Acute Distress HEENT: Atraumatic, PERRLA Neck: Supple, No JVD, No Thyromegaly Lungs: Clear to Auscultation, Normal Air Movement Heart: Regular Rate, Normal S1, Normal S2, No Murmurs Abdomen: Normal Bowel Sounds, Soft, No Tenderness, No Hepatosplenomegaly, No Masses Extremities: No Clubbing, No Cyanosis, No Edema, Normal Pulses, No Tenderness/ Swelling Skin: No Rashes, No Breakdown, No Significant Lesion Neuro: Normal Speech, Strength at 5/5 X4 Ext, Normal Tone, Sensation Intact, Cranial Nerves 3-12 NL, Other (confusion) Psych/Mental Status: Mood NL Results Lab Laboratory Tests 09/10/18 10:47: Glucometer 260H 09/10/18 12:00: Sodium Level 128L, Potassium Level 4.0, Chloride Level 94L, Carbon Dioxide Level 23, Anion Gap 11, Blood Urea Nitrogen 14, Creatinine 1.01, Estimat Glomerular Filtration Rate > 60, BUN/Creatinine Ratio 14, Glucose Level 223H, Calcium Level 9.0 09/10/18 13:55: Urine Color YELLOW, Urine Clarity CLEAR, Urine pH 6, Urine Specific [place] 1.010L, Urine Protein 3+H, Urine Glucose (UA) 2+H, Urine Ketones NEGATIVE, Urine Nitrite NEGATIVE, Urine Bilirubin NEGATIVE, Urine Urobilinogen NORMAL, Urine Leukocyte Esterase NEGATIVE, Urine RBC (Auto) NEGATIVE, Urine RBC NONE, Urine WBC NONE, Urine Squamous Epithelial Cells RARE, Urine Crystals NONE, Urine Bacteria NEGATIVE, Urine Casts NONE, Urine Mucus NEGATIVE, Urine Culture Indicated NO 09/10/18 15:03: Glucometer 266H 09/10/18 16:58: Sodium Level 128L, Potassium Level 3.8, Chloride Level 95L, Carbon Dioxide Level 25, Anion Gap 8, Blood Urea Nitrogen 15, Creatinine 0.96, Estimat Glomerular Filtration Rate > 60, BUN/Creatinine Ratio 16, Glucose Level 205H, Calcium Level 9.0 09/10/18 20:08: Sodium Level 129L, Potassium Level 3.8, Chloride Level 94L, Carbon Dioxide Level 22, Anion Gap 13, Blood Urea Nitrogen 14, Creatinine 1.03, Estimat Glomerular Filtration Rate > 60, BUN/Creatinine Ratio 14, Glucose Level 294H, Calcium Level 8.7 09/11/18 00:20: Sodium Level 131L, Potassium Level 3.8, Chloride Level 96L, Carbon Dioxide Level 24, Anion Gap 11, Blood Urea Nitrogen 13, Creatinine 0.84, Estimat Glomerular Filtration Rate > 60, BUN/Creatinine Ratio 15, Glucose Level 180H, Calcium Level 8.8 09/11/18 04:05: Sodium Level 132L, Potassium Level 3.5L, Chloride Level 96L, Carbon Dioxide Level 23, Anion Gap 13, Blood Urea Nitrogen 11, Creatinine 0.83, Estimat Glomerular Filtration Rate > 60, BUN/Creatinine Ratio 13, Glucose Level 182H, Calcium Level 8.8 09/11/18 06:18: Glucometer 190H Microbiology 09/09/18 Blood Culture - Preliminary, Resulted No growth Assessment/Plan Assessment/Plan Assess & Plan/Chief Complaint Assessment: Pneumonia Elevated lactic acid Severe hyponatremia improved at 134 today History of SIADH Dementia with significant worsening the last 6 months CAD Colon cancer history Hypertension Hyperlipidemia Chronic renal insufficiency Pneumonia in the past Former smoker GERD Plan: IV antibiotics HLIVF Fluid restriction Check echo Appreciate Dr. Ospina and Dr. Toro Diagnosis/Problems Diagnosis/Problems (1) Pneumonia Status: Acute Qualifiers: Qualified Codes: J18.1 - Lobar pneumonia, unspecified organism (2) Lactic acid acidosis Status: Acute (3) Dementia Status: Chronic Qualifiers: Qualified Codes: G30.9 - Alzheimer's disease, unspecified; F02.80 - Dementia in other diseases classified elsewhere without behavioral disturbance (4) CAD (coronary artery disease) Status: Chronic Qualifiers: Qualified Codes: I25.10 - Atherosclerotic heart disease of [place] coronary artery without angina pectoris (5) Hypertension Status: Chronic Qualifiers: Qualified Codes: I10 - Essential (primary) hypertension (6) Hyperlipemia Status: Chronic Qualifiers: Qualified Codes: E78.2 - Mixed hyperlipidemia (7) Renal insufficiency Status: Chronic (8) SIADH (syndrome of inappropriate ADH production) Status: Chronic (9) GERD (gastroesophageal reflux disease) Status: Chronic Qualifiers: Qualified Codes: K21.9 - Gastro-esophageal reflux disease without esophagitis (10) Lung nodule Status: Acute (11) History of colon cancer Status: Chronic (12) Hyponatremia Status: Acute (13) Altered mental status Status: Acute Qualifiers: Qualified Codes: R41.82 - Altered mental status, unspecified (14) Elevated lactic acid level Status: Acute (15) Hypoxia Status: Acute Clinical Quality Measures DVT/VTE Risk/Contraindication: Risk Factor Score Per Nursin RFS Level Per Nursing on Admit: 1=Low/No VTE PPX DAIN DUBOSE DO Sep 11, 2018 09:41
[2018-09-11] MEDS: cefTRIAXone FOR IV USE 1,000 MG in WATER (STERILE) FOR INJECTION 10 ML IV SCH (09:48)
--- NOTE | 2018-09-11 10:18 | Progress Note-Cardiology ---
Cardiology SOAP Progress Note Subjective: Oriented to self. C/O SOB, but feels its better. Occ cough. No c/o CP. Objective: I&O/Vital Signs 09/12/18 09/12/18 09/12/18 09/12/18 01:00 04:00 04:27 07:00 Temp 97.5 Pulse 68 82 72 Resp 20 B/P (MAP) 198/82 (120) Pulse Ox 94 O2 Delivery Nasal Cannula Nasal Cannula O2 Flow Rate 2.00 2.00 09/12/18 09/12/18 09/12/18 09/12/18 08:00 08:00 09:04 10:42 Temp 98.0 Pulse 85 Resp 20 B/P (MAP) 206/90 (128) Pulse Ox 96 91 O2 Delivery Nasal Cannula Nasal Cannula Nasal Cannula Nasal Cannula O2 Flow Rate 2.00 2.00 2.00 2.00 09/12/18 09/12/18 09/12/18 11:41 12:00 12:57 Temp 97.9 Pulse 65 60 Resp 18 B/P (MAP) 182/81 (114) Pulse Ox 92 94 O2 Delivery Nasal Cannula O2 Flow Rate 2.00 2.00 09/12/18 00:00 Intake Total 340 ml Balance 340 ml Weight (Pounds): 247 Weight (Ounces): 8.0 Weight (Calculated Kilograms): 112.627217 Constitutional: No AAO x 3; well-developed, well-nourished Respiratory: No accessory muscle use; crackles (bi-basilar), rhonchi (scattered ), other (good bilat air entry) Cardiovascular: regular rate-rhythm, S1 and S2, systolic murmur (soft BELLA at card base) Gastrointestional: No tender, No soft, No guarding, No rebound; audible bowel sounds Extremities: No clubbing, No cyanosis, No significant edema Neurologic/Psychiatric: No oriented x 3; other (oriented to self only), power is 5/5 both on sides Skin: No rash on exposed areas, No ulcerations on exposed areas Results/Procedures: Labs Laboratory Tests 09/11/18 16:31: Glucometer 190H 09/11/18 19:54: Glucometer 242H 09/12/18 05:22: Glucometer 186H 09/12/18 10:59: Glucometer 201H 09/12/18 12:05: White Blood Count 7.6, Red Blood Count 3.28L, Hemoglobin 10.8L, Hematocrit 31L, Mean Corpuscular Volume 94, Mean Corpuscular Hemoglobin 33, Mean Corpuscular Hemoglobin Concent 35, Red Cell Distribution Width 12.5, Platelet Count 197, Mean Platelet Volume 7.6, Neutrophils (%) (Auto) 81H, Lymphocytes (%) (Auto) 9L , Monocytes (%) (Auto) 9, Eosinophils (%) (Auto) 1, Basophils (%) (Auto) 0, Neutrophils # (Auto) 6.2, Lymphocytes # (Auto) 0.7L, Monocytes # (Auto) 0.7, Eosinophils # (Auto) 0.1, Basophils # (Auto) 0.0, Sodium Level 130L, Potassium Level 5.3H, Chloride Level 98, Carbon Dioxide Level 26, Anion Gap 6, Blood Urea Nitrogen 13, Creatinine 0.84, Estimat Glomerular Filtration Rate > 60, BUN/ Creatinine Ratio 15, Glucose Level 190H, Calcium Level 9.5, Corrected Calcium 10.0, Total Bilirubin 0.5, Aspartate Amino Transf (AST/SGOT) 23, Alanine Aminotransferase (ALT/SGPT) 16, Alkaline Phosphatase 75, Total Protein 6.1L, Albumin 3.4 Microbiology 09/09/18 Blood Culture - Preliminary, Resulted No growth A/P: Assessment: LLL pneumonia, managed by Dr Trujillo and Dr Ospina Hyponatremia, 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 No clinical evidence of decompensated CHF. Mild BNP elevation probably due to pneumonia and/or obesity- hypoventilation Uncontrolled hypertension Echo of September 2018: Well preserved global LV systolic function with an LVEF of 60-65%. Mild tricuspid regurg. PASP mmHg Chronic stable angina Coronary artery disease with a history of coronary artery bypass surgery. Last cardiac catheterization was in March 2014 which showed severe hopi CAD including 95% mid vessel stenosis of the left internal descending artery, 60% mid vessel stenosis of the left cx, subtotal ostial occlusion of the first OM branch and complete occlusion of the proximal to mid RCA, patent left internal mammary artery graft to the mid LAD, patent saphenous vein graft (with prox 50- 60% stenosis) to the first OM branch 50-60% proximal stenosis, and severely degenerated saphenous vein graft to the distal RCA (this graft has multiple 99 to 100% stenoses in its midportion and appears to be at high risk if percutaneous intervention is to be undertaken). LV gram showed well-preserved global left ventricular systolic function with an ejection fraction of 60-65%, mild posterobasal hypokinesis, no significant MR, mild LVEDP Obesity with a body mass index of approximately 37. Suspected CHIQUI, but pt has not followed through on the recommendation to have a sleep study done Gastroesophageal reflux. Hyperlipidemia, treated with statin and niacin therapy. Maturity onset diabetes mellitus being managed by Dr. Trujillo. Chronic bilateral ankle swelling, likely related to venous insufficiency and/or calcium channel karl therapy, currently stable. Rectal carcinoma that has been treated with surgery, followed by radiation therapy. Mild peripheral neuropathy consisting of numbness of the feet. History of carotid arterial disease with left-sided carotid endarterectomy by Dr. Ritchie. Carotid ultrasonography of January 2014 showed mild bilateral disease, hemodynamically nonsignificant. Dementia Plan: * Complex management due to multiple comorbidities * Adjust meds for better control of bp - increase BB * Resume ASA d/t known h/o CAD * Treatment of pneumonia and hyponatremia is with Dr Trujillo and Dr Ospina * Monitor labs Physician Assessment Physician Assessment No cp or palp or syncope or shortness of breath Answers questions, but is confused Cor: reg Lungs: good bilat air entry Ext: no c/c/e A&R * As documented in our note above that I updated (italics) and as noted below * Increase bb for better bp control I saw patient at 4 pm on 09/11/18 KYE MEZA [facility] Sep 11, 2018 10:18 MARGARITA DUNBAR MD [facility] Sep 12, 2018 13:01
[2018-09-11] MEDS ORDERED: meTOprolol TARTRATE 25 MG (LOPRESSOR) TABLET PO NR (10:30)
[2018-09-11] MEDS ORDERED: ASPIRIN 81 MG CHEW (CHILDREN'S ASA) PO NR (10:30)
--- NOTE | 2018-09-11 10:43 | NUR ---
CM/SS, respond to consult for discharge planning. Patient has dementia and has continued to reside at home with his spouse, Linda Mojica. Visited with Linda by phone, she indicates they have step children who call periodically but that there are no children or ongoing supports for them. DME: Patient has FWW but does not choose to use it at home and apparently has not taken it for outings. Linda has vision impairment and has started limiting her driving. She indicates she and patient run errands together and that patient has been able to ambulate, perhaps using a shopping cart for support. She was focused on the importance of patient being able to ambulate and that this might determine whether she can provide care at home right now. Patient is insured Medicare only, confirmed with Linda. She understands the financial implications and private pay status if patient entered a community nursing or specialty care unit because of his advancing dementia. He may qualify for a very short term window for skilled care/therapies; PT/OT orders for today to assess functioning. Physician has ordered a screen/assessment by [facility] ([facility]) to assist in care planning for patient's level of impairment and relative progression and care needs. [facility] staff will be here this p.m. to visit patient. Assist as appropriate.
--- NOTE | 2018-09-11 11:31 | Physical Therapy Evaluation ---
PT Evaluation-General Medical Diagnosis Admission Date Sep 09, 2018 at 13:58 Medical Diagnosis: pneumonia Onset Date: Sep 09, 2018 Therapy Diagnosis Therapy Diagnosis: debility/weakness Height/Weight Height (Feet): 5 Height (Inches): 6.00 Weight (Pounds): 247 Weight (Ounces): 8.0 Precautions Precautions/Isolations: Fall Prevention, Standard Precautions Referral Physician: Ronnie Reason for Referral: Evaluation/Treatment Medical History Pertinent Medical History: CAD, Dementia, GERD, HTN, Renal Insufficiency Current History ED from urgent care secondary to hypoxia, cough, congestion x several days Reviewed History: Yes Social History Home: Single Level Current Living Status: Spouse Prior/Core FIM Prior Level of Function Therapy Code Descriptions/Definitions Functional [place] Measure: 0=Not Assessed/NA 4=Minimal Assistance 1=Total Assistance 5=Supervision or Setup 2=Maximal Assistance 6=Modified [place] 3=Moderate Assistance 7=Complete [place] Therapy Quality Codes: 6 Independent with activity with or without an assistive device 5 Patient requires set up or clean up by helper. Patient completes activity by themselves 4 Supervision or touching assist (CGA). [place] provide cues , steadying assist 3 The helper provides less than half the effort to complete the activity 2 The helper provides more than half the effort to complete the activity 1 Dependent. The helper does all the effort to complete an activity 7 Patient refused to complete or attempt activity 9 The patient did not perform the activity before the current illness or injury 88 Not attempted due to Medical conditions or safety concerns Functional Abilities and Goals: Independent: Patient completed the activities by him/herself, with or without an assistive device, with no assistance from a helper. Needed Some Help: Patient needed partial assistance from another person to complete activities. Dependent: A helper completed the activities for the patient. Unknown: Not Applicable: Bed Mobility: 6 Transfers (B,C,W/C) (FIM): 6 Gait: 6 Indoor Mobility (Ambulation): Needed Some Help Prior Devices Use: Walker PT Evaluation-Current Subjective Patient is in bed and agrees to PT. Spouse present. Noted difficulty with following simple direction requiring tactile cues to complete tasks. Objective Patient Orientation: Confused Problem Solving: Poor Attachments: Oxygen ROM/Strength ROM Lower Extremities bilateral LE WFL Strength Lower Extremities 4/5 grossly bilaterally (patient unable to perform MMT appropriately for formal testing) Integumentary/Posture Integumentary refer to nursing notes Bowel Incontinence: No Bladder Incontinence: No Posture trunk flexed posture Neuromuscular (Tone, Coordination, Reflexes) decreased coordination due to dementia (shuffle gait sequence with gait training with FWW) Sensory Vision: Wears Glasses Hearing: Impaired Sensation Right Lower Extremit: Impaired Sensation Left Lower Extremity: Impaired Transfers Therapy Code Descriptions/Definitions Functional [place] Measure: 0=Not Assessed/NA 4=Minimal Assistance 1=Total Assistance 5=Supervision or Setup 2=Maximal Assistance 6=Modified [place] 3=Moderate Assistance 7=Complete [place] Transfers (B, C, W/C) (FIM): 4 Scootin Supine to/from Sit: 5 Sit to/from Stand: 4 CGA for safety Gait Mode of Locomotion: Walk Anticipated Mode of Locomotion: Walk Gait (FIM): 4 Distance (FIM): 3=150 ft Distance: 225' Gait Level of Assist: 4 Gait Persons Needed: 1 Gait Assistive Device: FWW Comments/Gait Description trunk flexed posture with noted extended UE's with FWW use and shuffle gait sequence Balance Sitting Static: Fair Sitting Dynamic: Fair Standing Static: Fair Standing Dynamic: Fair Assessment/Needs 78 y.o. male, will benefit from skilled PT to address functional mobility to improve current LOF and to safely return to home with spouse at maximum LOF From a PT standpoint, patient will require close supervision, if not assistance , with gross motor skills due to dementia and decreased safety awareness. Rehab Potential: Fair PT Chcf Goals Children'S Entertainer Goals PT [facility] Goals Time Frame: Sep 22, 2018 Transfers (B,C,W/C) (FIM): 5 Gait (FIM): 5 Gait distance (FIM): 3=150 ft Distance: 250' Gait Level of Assist: 5 Gait Assistive Device: FWW PT Plan Problem List Problem List: Activity Tolerance, Safety, Gait Treatment/Plan Treatment Plan: Continue Plan of Care Treatment Plan: Bed Mobility, Education, Functional Activity Kia, Functional Strength, Gait, Safety, Therapeutic Exercise, Transfers Treatment Duration: Sep 22, 2018 Frequency: 6 times per week Estimated Hrs Per Day: .25 hour per day Patient and/or Family Agrees t: Yes Discharge Recommendations Therapy D/C Recommendations: Home w/ Family Support, Physical Therapy Home Care , [facility] Placement, [facility] (TCU/NH) Time/GCodes Time In: 1100 Time Out: 1115 Total Billed Treatment Time: 15 Total Billed Treatment 1 visit EVMod 15 min CHAVEZ,CRIS PT Sep 11, 2018 11:31
[2018-09-11 12:00] VITALS: BP 123/54
--- NOTE | 2018-09-11 12:10 | NUR ---
THIS RN HAS PAGED KYE MEZA FOR THE 3RD TIME -- WANTING VERIFICATION THAT PT HAD GOTTEN 12.5MG TAB PO OF LOPRESSOR BY THIS RN AND AFTER KYE'S ROUNDING FOUND A NEW ORDER FOR LOPRESSOR 25MG TAB PO TO BE GIVEN --
--- NOTE | 2018-09-11 13:15 | Occupational Therapy Eval ---
OT Evaluation-General/PLF Medical Diagnosis Admission Date Sep 09, 2018 at 13:58 Medical Diagnosis: pneumonia Onset Date: Sep 09, 2018 Therapy Diagnosis Therapy Diagnosis: weakness, Debility Height/Weight Height (Feet): 5 Height (Inches): 6.00 Weight (Pounds): 247 Weight (Ounces): 8.0 Precautions Precautions/Isolations: Fall Prevention, Standard Precautions Safety Interventions: Bed Exit Alarm Weight Bear Status Weight Bearing Restriction: Full Weight Bearing Location Restriction: L LE, R LE Referral Physician: Ronnie Referral Reason: Activity Tolerance, Self Care, Evaluation/Treatment, Strengthening/ROM Medical History Pertinent Medical History: CAD, Dementia, GERD, HTN, OA, Renal Insufficiency Additional Medical History HLD, HTN, DEMENTIA, GERD, OA, COLON CA Current History 78 Yrs old MALE admitted from [facility] with Pneumonia, SOB, COUGH & FEVER. Reviewed History: Yes Social History Home: Single Level Current Living Status: Spouse ADL-Prior Level of Function Therapy Code Descriptions/Definitions Functional [place] Measure: 0=Not Assessed/NA 4=Minimal Assistance 1=Total Assistance 5=Supervision or Setup 2=Maximal Assistance 6=Modified [place] 3=Moderate Assistance 7=Complete [place] Therapy Quality Codes: 6 Independent with activity with or without an assistive device 5 Patient requires set up or clean up by helper. Patient completes activity by themselves 4 Supervision or touching assist (CGA). [place] provide cues , steadying assist 3 The helper provides less than half the effort to complete the activity 2 The helper provides more than half the effort to complete the activity 1 Dependent. The helper does all the effort to complete an activity 7 Patient refused to complete or attempt activity 9 The patient did not perform the activity before the current illness or injury 88 Not attempted due to Medical conditions or safety concerns Functional Abilities and Goals: Independent: Patient completed the activities by him/herself, with or without an assistive device, with no assistance from a helper. Needed Some Help: Patient needed partial assistance from another person to complete activities. Dependent: A helper completed the activities for the patient. Unknown: Not Applicable: ADL PLOF Comments Mr Dimas is 78 Yrs old W/M lives with his at home. Pt was Independent in feeding, grooming, Toileting & toilet hygiene, Needed Min A - SBA in Shower to prevent fall & UB / LB Dressing with the help from his . Pt morbidly Obese . Self Care: Needed Some Help Functional Cognition: Needed Some Help DME/Equipment: Bath Bench, Grab Bars Drive Self: No OT Current Status Subjective Pt in bed, alert, oriented, cooperative , morbidly Obese, Pt & his agree for therapy . Pain Numeric Pain Scale: 0-No Pain Location: No Pain Reported Mental Status/Objective Patient Orientation: Person, Place, Time Attachments: IV, Oxygen Current Glasses/Contacts: Yes Hearing Aids: No Dentures/Partials: No Hand Dominance: Right Upper Extremity ROM WFL Upper Extremity Coordination Intact Upper Extremity Sensation Intact Upper Extremity Strength MS in [facility] -4/5 grossly graded. Hand radio repairer domestic -fair . Endurance fair. Pt fatigue soon, poor activity tolerance . Morbid Obesity. ADL-Treatment ADL-Current Pt need mod A in supine to sit in bed at the EOB, Min A in sit to stand . min A in UB & mod A LB dressing/undressing garments . MS in [facility] -4/5 grossly graded , hand radio repairer domestic fair, Endurance fair . Pt fatigue soon. O2 dependent Therapy Code Descriptions/Definitions Functional [place] Measure: 0=Not Assessed/NA 4=Minimal Assistance 1=Total Assistance 5=Supervision or Setup 2=Maximal Assistance 6=Modified [place] 3=Moderate Assistance 7=Complete [place] Therapy Quality Codes: 6 Independent with activity with or without an assistive device 5 Patient requires set up or clean up by helper. Patient completes activity by themselves 4 Supervision or touching assist (CGA). [place] provide cues , steadying assist 3 The helper provides less than half the effort to complete the activity 2 The helper provides more than half the effort to complete the activity 1 Dependent. The helper does all the effort to complete an activity 7 Patient refused to complete or attempt activity 9 The patient did not perform the activity before the current illness or injury 88 Not attempted due to Medical conditions or safety concerns Eating (FIM): 6 Grooming (FIM): 5 Bathing (FIM): 0 Upper Body Dressing (FIM): 0 Lower Body Dressing (FIM): 0 Toileting (FIM): 4 Transfers (B, C, W/C) (FIM): 4 Toilet/Commode Transfer (FIM): 4 Tub Transfer (FIM): 0 Shower Transfer (FIM): 4 Education OT Patient Education: Correct positioning, Safety issues Teaching Recipient: Patient Teaching Methods: Demonstration Response to Teaching: Verbalize Understanding OT Short Term Goals Short Term Goals Time Frame: Sep 25, 2018 Additional Short Term Goals: 1-Demonstrate ADL Tasks, 2-Verbalize Understanding , 3-ImproveStrength/Kia 1=Demonstrate adherence to instructed precautions during ADL tasks. 2=Patient will verbalize/demonstrate understanding of assistive devices/ modifications for ADL. 3=Patient will improve strength/tolerance for activity to enable patient to perform ADL's. OT Cyber Incident Responder Goals Cyber Incident Responder Goals Time Frame: Oct 09, 2018 Eating (FIM): 6 Grooming(FIM): 6 Bathing(FIM): 5 Bathing Location: L Arm, R Arm, L Upper Leg, R Upper Leg, L Lower Leg ( including foot), R Lower Leg (including foot), Chest, Abdomen, Buttocks, Perineal Area Upper Body Dressing(FIM): 5 Lower Body Dressing(FIM): 5 Toileting(FIM): 6 Transfers (B,C,W/C) (FIM): 6 Toilet/Commode Transfer(FIM): 6 Tub Transfer(FIM): 0 Shower Transfer(FIM): 6 Additional Goals: 1-Demonstrate ADL Tasks, 2-Verbalize Understanding, 3- ImproveStrength/Kia 1=Demonstrate adherence to instructed precautions during ADL tasks. 2=Patient will verbalize/demonstrate understanding of assistive devices/ modifications for ADL. 3=Patient will improve strength/tolerance for activity to enable patient to perform ADL's. OT Education/Plan Problem List/Assessment Assessment: Decreased Activ Tolerance, Decreased Safety Aware, Decreased UE Strength, Dependent Transfers, Impaired Bed Mobility, Impaired Funct Balance, Impaired Self-Care Skills Discharge Recommendations Plan/Recommendations: Continue POC Therapy D/C Recommendations: Home w/ Family Support Equpiment Recommendations-D/C: Extended Bath Bench, Extended Shower Sprayer, Consulting Sales Executive, Sock Aide, [place] Barriers to Progress Morbid Obesity & Aging . Patient/Family Goals To return home with spouse Independently with AD. Treatment Plan/Plan of Care Treatment,Training & Education: Yes Patient would benefit from OT for education, treatment and training to promote independence in ADL's, mobility, safety and/or upper extremity function for ADL' s. Plan of Care: ADL Retraining, Functional Mobility, UE Funct Exercise/Act, UE Neuromus Re-Ed/Coord Treatment Duration: Oct 09, 2018 Frequency: 5 times per week Estimated Hrs Per Day: .25 hour per day Agreement: Yes Rehab Potential: Guarded Time/GCodes Start Time: 13:20 Stop Time: 13:45 Total Time Billed (hr/min): 25 Billed Treatment Time 1, EVM 15 min, FA 10 min. Total 25 minutes RUI CRUM OT Sep 11, 2018 13:15
--- NOTE | 2018-09-11 13:46 | NUR ---
THIS RN PAGED KYE AGAIN AND NO RETURN CALL TO THIS RN-- THIS RN PAGED DR DUNBAR
[2018-09-11] MEDS: AZITHROMYCIN 250 MG TAB (ZITHROMAX) PO SCH (14:16)
[2018-09-11 16:47] VITALS: BP 187/81
--- NOTE | 2018-09-11 19:18 | NUR ---
CM/SS. Spoke with Linda by phone, she has decided she does not want patient to go to [facility]. PLAN: Home with [facility], RN if indicated, PT/OT/ Linda selected [facility], referral has not been initiated since final plan had not been confirmed. There is no POA in place at this time. Heel Caser encouraged Linda to move forward on this, she said they have an criminal defense attorney who did some other things for them and they intend to make an appointment after patient is home for the POA documents. Linda is mindful of having only Medicare and no supplement, she has an [employer] financial assistance application she is working on. Heel Caser spoke with [facility] on patient's behalf, they indicated Medicare covers [facility] at 100% and no copay. Linda has impaired vision, she can not drive in the dark and rain is also difficult.
[2018-09-11 19:49] VITALS: BP 183/74
[2018-09-11] MEDS: MELATONIN 3 MG TABLET PO PRN (21:00)
[2018-09-11] MEDS: meTOprolol TARTRATE 50 MG (LOPRESSOR) TAB PO SCH (21:00)
[2018-09-12] VITALS (7 sets, daily range): BP systolic 161–206; BP diastolic 77–90
[2018-09-12] MEDS: KCL 20 MEQ TAB (K-DUR) PO SCH (07:29)
[2018-09-12] MEDS: inSUlin ASPART (NovoLOG) 1 UNIT/0.01 ML (CHARGE PER UNIT) SC SCH ×4 (07:30→21:00)
[2018-09-12] MEDS: meTOprolol TARTRATE 50 MG (LOPRESSOR) TAB PO SCH ×3 (08:54→23:01)
[2018-09-12] MEDS: ASPIRIN 81 MG CHEW (CHILDREN'S ASA) PO SCH (08:54)
[2018-09-12] MEDS: doxAzosin 4 MG (CARDURA) TAB PO SCH ×2 (08:54→23:01)
[2018-09-12] MEDS: cefTRIAXone FOR IV USE 1,000 MG in WATER (STERILE) FOR INJECTION 10 ML IV SCH (08:54)
[2018-09-12] MEDS: risperiDONE 1 MG (RisperDAL) TAB PO SCH ×2 (08:54→23:03)
[2018-09-12] MEDS: lisINopril 20 MG (PRINIVIL) TABLET PO SCH (08:58)
[2018-09-12] MEDS ORDERED: NON-FORMULARY MEDICATION 1 EA EA (Metformin HCl 1,000 MG) PO SCH (09:00)
[2018-09-12] MEDS ORDERED: NON-FORMULARY MEDICATION 1 EA EA (Metoprolol Tartrate 100 MG) PO SCH (09:00)
[2018-09-12] MEDS ORDERED: LOPERAMIDE 2 MG (IMODIUM) CAP PO PRN (09:00)
[2018-09-12] MEDS ORDERED: NON-FORMULARY MEDICATION 1 EA EA (Losartan Potassium 50 MG) PO SCH (09:00)
[2018-09-12] MEDS ORDERED: MULTIVITAMIN PO SCH (09:00)
[2018-09-12] MEDS ORDERED: NON-FORMULARY MEDICATION 1 EA EA (Amlodipine Besylate 10 MG) PO SCH (09:00)
[2018-09-12] MEDS ORDERED: NON-FORMULARY MEDICATION 1 EA EA (Famotidine (Acid Reducer (FAMOTIDINE)) 20 MG) PO SCH (09:00)
[2018-09-12] MEDS: LOSARTAN 50 MG (COZAAR) TAB PO SCH (10:33)
[2018-09-12] MEDS: FAMOTIDINE 20 MG (PEPCID) TABLET PO SCH ×2 (10:33→23:01)
[2018-09-12] MEDS: amLODIPine 10 MG (NORVASC) TAB PO SCH (10:33)
[2018-09-12] MEDS: CLOPIDOGREL 75 MG (PLAVIX) TABLET PO SCH (10:33)
[2018-09-12] MEDS: RT-ALBUTEROL SULF 2.5 MG/3 ML PRE-MIX VIAL INH SCH ×3 (10:41→19:53)
--- NOTE | 2018-09-12 11:42 | NUR ---
home oxygen study pt resting on room air dropped spo2 to 85%, placed pt back on 2 lpm nasal cannula and spo2 increased and stablized at 92%, pt will require 2 lpm at all times via nasal cannula
--- NOTE | 2018-09-12 11:51 | Progress Note-Hospitalist ---
Subjective HPI/CC On Admission Date Seen by Provider: Sep 12, 2018 Time Seen by Provider: 10:00 CC: Confusion with pneumonia HPI: This is an 78-year-old white male of mine for the past 15 years with a past medical history of diabetes, CAD, colon cancer, chronic renal insufficiency and SIADH who most recently has had a significant decline in cognition who presented to [facility] with shortness of breath and cough and fever diagnosed with pneumonia and severe hyponatremia of 121. Dr. Ospina has seen in consultation maintained on Rocephin and Zithromax and is now on hypertonic saline since sodium level only went up to 124 from 121 to see if that helps the cognition. The last 2 visits I have noted a significant decline in mentation and the severity of his dementia is likely to remain even though sodium level has returned to be corrected. He does not even know me and I've been taking care of him for 15 years. Subjective/Events-last exam Pt very drowsy today. Did have a bowel movement. Plan will be to go to swing bed since he is still on oxygen and overall very weak and his can't take care of him right now in this state. Dementia is severe and she is able to manage him at home. I am unclear if he becomes a fall risk if she will be able to do that. Declined senior behavioral unit management. Checked meds and labs. Will have swing bed evaluation. Review of Systems General: Fatigue Neurological: Confusion Focused Exam Lactate Level Objective Exam Vital Signs Vital Signs Date Time Temp Pulse Resp B/P (MAP) Pulse Ox O2 Delivery O2 Flow Rate FiO2 09/12/18 19:53 93 Nasal Cannula 2.00 09/12/18 16:55 98.0 70 20 190/86 (120) Capillary Refill : Less Than 3 Seconds General Appearance: No Apparent Distress, WD/WN, Anxious, Chronically ill, Obese, Other (confused) HEENT: PERRL/EOMI, Normal ENT Inspection, Pharynx Normal Neck: Full Range of Motion, Non Tender, Supple Respiratory: Chest Non Tender, No Accessory Muscle Use, No Respiratory Distress , Crackles, Decreased Breath Sounds Cardiovascular: Regular Rate, Rhythm, No Edema, No Murmur Extremity: Normal Capillary Refill Neurologic/Psychiatric: Alert, No Motor/Sensory Deficits, Disoriented (O x 1) Skin: Normal Color, Warm/Dry Lymphatic: No Adenopathy Results/Procedures Lab Laboratory Tests 4/3/19 12:05 Patient resulted labs reviewed. Assessment/Plan Assessment and Plan Assess & Plan/Chief Complaint Assessment: Pneumonia Elevated lactic acid Severe hyponatremia improved at 134 today History of SIADH Dementia with significant worsening the last 6 months CAD Colon cancer history Hypertension Hyperlipidemia Chronic renal insufficiency Pneumonia in the past Former smoker GERD Plan: IV antibiotics HLIVF Fluid restriction Check echo Appreciate Dr. Ospina and Dr. Toro May need swing bed PT/OT Diagnosis/Problems Diagnosis/Problems (1) Pneumonia Status: Acute Qualifiers: Pneumonia type: due to unspecified organism Laterality: left Lung location: lower lobe of lung Qualified Codes: J18.1 - Lobar pneumonia, unspecified organism (2) Lactic acid acidosis Status: Acute (3) Dementia Status: Chronic Qualifiers: Dementia type: Alzheimer's disease Alzheimer's disease onset: unspecified onset Dementia behavioral disturbance: without behavioral disturbance Qualified Codes: G30.9 - Alzheimer's disease, unspecified; F02.80 - Dementia in other diseases classified elsewhere without behavioral disturbance (4) CAD (coronary artery disease) Status: Chronic Qualifiers: Coronary Disease-Associated Artery/Lesion type: [place] artery [place] vs. transplanted heart: [place] heart Associated angina: without angina Qualified Codes: I25.10 - Atherosclerotic heart disease of [place] coronary artery without angina pectoris (5) Hypertension Status: Chronic Qualifiers: Hypertension type: essential hypertension Qualified Codes: I10 - Essential (primary) hypertension (6) Hyperlipemia Status: Chronic Qualifiers: Hyperlipidemia type: mixed hyperlipidemia Qualified Codes: E78.2 - Mixed hyperlipidemia (7) Renal insufficiency Status: Chronic (8) SIADH (syndrome of inappropriate ADH production) Status: Chronic (9) GERD (gastroesophageal reflux disease) Status: Chronic Qualifiers: Esophagitis presence: without esophagitis Qualified Codes: K21.9 - Gastro- esophageal reflux disease without esophagitis (10) Lung nodule Status: Acute (11) History of colon cancer Status: Chronic (12) Hyponatremia Status: Acute (13) Altered mental status Status: Acute Qualifiers: Altered mental status type: unspecified Qualified Codes: R41.82 - Altered mental status, unspecified (14) Elevated lactic acid level Status: Acute (15) Hypoxia Status: Acute Clinical Quality Measures DVT/VTE Risk/Contraindication: Risk Factor Score Per Nursin RFS Level Per Nursing on Admit: 1=Low/No VTE PPX DAIN DUBOSE DO Sep 12, 2018 11:51
[2018-09-12 12:09] LABS: BASOPHILS % (AUTO) 0 % (0-10); EOSINOPHILS # (AUTO) 0.1 10^3/uL (0.0-0.3); EOSINOPHILS % (AUTO) 1 % (0-10); HEMATOCRIT 31 % (40-54); HEMOGLOBIN 10.8 G/DL (13.3-17.7); LYMPHOCYTES # (AUTO) 0.7 X 10^3 (1.0-4.0); LYMPHOCYTES % (AUTO) 9 % (12-44); MEAN CORPUSCULAR HEMOGLOBIN 33 PG (25-34); MEAN CORPUSCULAR HGB CONC 35 G/DL (32-36); MEAN CORPUSCULAR VOLUME 94 FL (80-99); MEAN PLATELET VOLUME 7.6 FL (7.4-10.4); MONOCYTES # (AUTO) 0.7 X 10^3 (0.0-1.0); MONOCYTES % (AUTO) 9 % (0-12); NEUTROPHILS # (AUTO) 6.2 X 10^3 (1.8-7.8); NEUTROPHILS % (AUTO) 81 % (42-75); PLATELET COUNT 197 10^3/uL (130-400); RED CELL DISTRIBUTION WIDTH 12.5 % (10.0-14.5); WHITE BLOOD COUNT 7.6 10^3/uL (4.3-11.0)
[2018-09-12] MEDS: AZITHROMYCIN 250 MG TAB (ZITHROMAX) PO SCH (12:16)
[2018-09-12] MEDS: metFORMIN 500 MG (GLUCOPHAGE) TAB PO SCH ×2 (12:16→18:31)
[2018-09-12] MEDS: glipiZIDE 5 MG (GLUCOTROL) TAB PO SCH (12:16)
[2018-09-12 12:29] LABS: ALANINE AMINOTRANSFERASE 16 U/L (0-55); ALBUMIN 3.4 GM/DL (3.2-4.5); ALKALINE PHOSPHATASE 75 U/L (40-136); BILIRUBIN,TOTAL 0.5 MG/DL (0.1-1.0); BUN/CREATININE RATIO 15; CALCIUM 9.5 MG/DL (8.5-10.1); CARBON DIOXIDE 26 MMOL/L (21-32); CHLORIDE 98 MMOL/L (98-107); CREATININE SERUM 0.84 MG/DL (0.60-1.30); GFR ESTIMATED > 60; GLUCOSE 190 MG/DL (70-105); POTASSIUM 5.3 MMOL/L (3.6-5.0); SODIUM 130 MMOL/L (135-145); TOTAL PROTEIN 6.1 GM/DL (6.4-8.2)
--- NOTE | 2018-09-12 12:34 | Pulmonary Progress Note ---
Subjective Time Seen by a Provider: 12:33 Subjective/Events-last exam pt sleeping in chair Sepsis Event Evaluation Height, Weight, BMI Height: 5'6.00" Weight: 238lbs. 14.4oz. [id number]; 37.3 BMI Method:Stated Focused Exam Lactate Level 09/09/18 16:15: Lactic Acid Level 2.32*H Exam Exam Vital Signs Date Time Temp Pulse Resp B/P (MAP) Pulse Ox O2 Delivery O2 Flow Rate FiO2 09/12/18 11:41 92 2.00 09/12/18 10:42 91 Nasal Cannula 2.00 09/12/18 09:04 Nasal Cannula 2.00 09/12/18 08:00 Nasal Cannula 2.00 09/12/18 08:00 98.0 85 20 206/90 (128) 96 Nasal Cannula 2.00 09/12/18 07:00 72 09/12/18 04:27 97.5 82 20 198/82 (120) 94 Nasal Cannula 2.00 09/12/18 04:00 Nasal Cannula 2.00 09/12/18 01:00 68 09/12/18 00:05 97.8 64 20 161/77 (105) 95 Nasal Cannula 2.00 09/12/18 00:00 Nasal Cannula 2.00 09/11/18 21:30 98.4 09/11/18 21:00 99.4 09/11/18 21:00 Nasal Cannula 2.00 09/11/18 20:00 Nasal Cannula 2.00 09/11/18 19:49 99.3 82 20 183/74 (110) 96 Nasal Cannula 2.00 09/11/18 19:00 82 09/11/18 16:47 97.9 81 18 187/81 (116) 95 Nasal Cannula 2.00 09/11/18 16:43 84 09/11/18 16:00 Nasal Cannula 2.00 09/11/18 13:00 84 I & O 09/12/18 07:00 Intake Total 1100 ml Balance 1100 ml Height & Weight Height: 5'6.00" Weight: 238lbs. 14.4oz. 108.980088qy; 37.3 BMI Method:Stated General Appearance: No Apparent Distress, WD/WN, Anxious, Chronically ill, Obese, Other (confused) HEENT: PERRL/EOMI, Normal ENT Inspection, Pharynx Normal Neck: Full Range of Motion, Non Tender, Supple Respiratory: Chest Non Tender, No Accessory Muscle Use, No Respiratory Distress , Crackles, Decreased Breath Sounds Cardiovascular: Regular Rate, Rhythm, No Edema, No Murmur Capillary Refill: Less Than 3 Seconds Gastrointestinal: normal bowel sounds, non tender, soft Extremity: Normal Capillary Refill Neurologic/Psychiatric: Alert, No Motor/Sensory Deficits, Disoriented (O x 1) Skin: Normal Color, Warm/Dry Lymphatic: No Adenopathy Results Lab Laboratory Tests 09/10/18 16:58 09/10/18 20:08 09/11/18 00:20 09/11/18 04:05 09/12/18 12:05 Assessment/Plan Assessment/Plan Pneumonia- no fever, no leukocytosis -rocephin, azithromycin Lung nodule -PT will need repeat CT of chest 6-8wks after discharge -Pt will most likely need bronchoscopy and PET scan if lung nodules persist after f/u CT scan -F/u order was placed Hyponatremia, hyperkalemia -Monitor Anemia -Monitor Confusion/psychosis - probably chronic dementia -Risperdal 1mg BID -PRN JESSICA England DO Sep 12, 2018 12:33
--- NOTE | 2018-09-12 13:06 | Progress Note-Cardiology ---
Cardiology SOAP Progress Note Subjective: Somnolent Does not report any symptoms Objective: I&O/Vital Signs 09/12/18 09/12/18 09/12/18 09/12/18 04:00 04:27 07:00 08:00 Temp 97.5 98.0 Pulse 82 72 85 Resp 20 20 B/P (MAP) 198/82 (120) 206/90 (128) Pulse Ox 94 96 O2 Delivery Nasal Cannula Nasal Cannula Nasal Cannula O2 Flow Rate 2.00 2.00 2.00 09/12/18 09/12/18 09/12/18 09/12/18 08:00 09:04 10:42 11:41 Pulse Ox 91 92 O2 Delivery Nasal Cannula Nasal Cannula Nasal Cannula O2 Flow Rate 2.00 2.00 2.00 2.00 09/12/18 09/12/18 12:00 12:57 Temp 97.9 Pulse 65 60 Resp 18 B/P (MAP) 182/81 (114) Pulse Ox 94 O2 Delivery Nasal Cannula O2 Flow Rate 2.00 09/12/18 00:00 Intake Total 340 ml Balance 340 ml Weight (Pounds): 238 Weight (Ounces): 14.4 Weight (Calculated Kilograms): 108.759520 Constitutional: No AAO x 3; well-developed, well-nourished Respiratory: No accessory muscle use; crackles (bi-basilar), rhonchi (scattered ), other (good bilat air entry) Cardiovascular: regular rate-rhythm, S1 and S2, systolic murmur (soft BELLA at card base) Gastrointestional: No tender, No soft, No guarding, No rebound; audible bowel sounds Extremities: No clubbing, No cyanosis, No significant edema Neurologic/Psychiatric: No oriented x 3; other (oriented to self only), power is 5/5 both on sides Skin: No rash on exposed areas, No ulcerations on exposed areas Results/Procedures: Labs Laboratory Tests 09/11/18 16:31: Glucometer 190H 09/11/18 19:54: Glucometer 242H 09/12/18 05:22: Glucometer 186H 09/12/18 10:59: Glucometer 201H 09/12/18 12:05: White Blood Count 7.6, Red Blood Count 3.28L, Hemoglobin 10.8L, Hematocrit 31L, Mean Corpuscular Volume 94, Mean Corpuscular Hemoglobin 33, Mean Corpuscular Hemoglobin Concent 35, Red Cell Distribution Width 12.5, Platelet Count 197, Mean Platelet Volume 7.6, Neutrophils (%) (Auto) 81H, Lymphocytes (%) (Auto) 9L , Monocytes (%) (Auto) 9, Eosinophils (%) (Auto) 1, Basophils (%) (Auto) 0, Neutrophils # (Auto) 6.2, Lymphocytes # (Auto) 0.7L, Monocytes # (Auto) 0.7, Eosinophils # (Auto) 0.1, Basophils # (Auto) 0.0, Sodium Level 130L, Potassium Level 5.3H, Chloride Level 98, Carbon Dioxide Level 26, Anion Gap 6, Blood Urea Nitrogen 13, Creatinine 0.84, Estimat Glomerular Filtration Rate > 60, BUN/ Creatinine Ratio 15, Glucose Level 190H, Calcium Level 9.5, Corrected Calcium 10.0, Total Bilirubin 0.5, Aspartate Amino Transf (AST/SGOT) 23, Alanine Aminotransferase (ALT/SGPT) 16, Alkaline Phosphatase 75, Total Protein 6.1L, Albumin 3.4 Microbiology 09/09/18 Blood Culture - Preliminary, Resulted No growth Laboratory Tests 09/10/18 16:58 09/10/18 20:08 09/11/18 00:20 09/11/18 04:05 09/12/18 12:05 A/P: Assessment: LLL pneumonia, managed by Dr Trujillo and Dr Ospina Hyponatremia, 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 No clinical evidence of decompensated CHF. Mild BNP elevation probably due to pneumonia and/or obesity- hypoventilation Uncontrolled hypertension Echo of September 2018: Well preserved global LV systolic function with an LVEF of 60-65%. Mild tricuspid regurg. PASP mmHg Chronic stable angina Coronary artery disease with a history of coronary artery bypass surgery. Last cardiac catheterization was in March 2014 which showed severe circle CAD including 95% mid vessel stenosis of the left internal descending artery, 60% mid vessel stenosis of the left cx, subtotal ostial occlusion of the first OM branch and complete occlusion of the proximal to mid RCA, patent left internal mammary artery graft to the mid LAD, patent saphenous vein graft (with prox 50- 60% stenosis) to the first OM branch 50-60% proximal stenosis, and severely degenerated saphenous vein graft to the distal RCA (this graft has multiple 99 to 100% stenoses in its midportion and appears to be at high risk if percutaneous intervention is to be undertaken). LV gram showed well-preserved global left ventricular systolic function with an ejection fraction of 60-65%, mild posterobasal hypokinesis, no significant MR, mild LVEDP Obesity with a body mass index of approximately 37. Suspected CHIQUI, but pt has not followed through on the recommendation to have a sleep study done Gastroesophageal reflux. Hyperlipidemia, treated with statin and niacin therapy. Maturity onset diabetes mellitus being managed by Dr. Trujillo. Chronic bilateral ankle swelling, likely related to venous insufficiency and/or calcium channel karl therapy, currently stable. Rectal carcinoma that has been treated with surgery, followed by radiation therapy. Mild peripheral neuropathy consisting of numbness of the feet. History of carotid arterial disease with left-sided carotid endarterectomy by Dr. Ritchie. Carotid ultrasonography of January 2014 showed mild bilateral disease, hemodynamically nonsignificant. Dementia Plan: * Further increase BB for bp control * Treatment of pneumonia and hyponatremia is with Dr Trujillo and Dr Ospina * D/c lisinopril because of mild hyperkalemia and because pt on ARB. If K remains elevated, then also d/c ARB * Monitor labs MARGARITA DUNBAR MD FACP [facility] Sep 12, 2018 13:06
--- NOTE | 2018-09-12 13:15 | Physical Therapy Daily Note ---
PT Daily Note-Current Subjective Upon initial visit to room pt was up in recliner eating breakfast and requested this DYNAMICIST come back later. At second visit approximately 1005 pt. was sitting up in recliner with one on one sitter present. This DYNAMICIST was unable to awaken pt. Verbal and tactile stimulation did not awaken pt. Pt. with O2 cannula insitu and snoring loudly. Second attempt made at 1300 with one on one still present and states pt. has not been alert at all since last visited by this DYNAMICIST. Nursing states pt. is not alert enough for Rx. PT dept will check pt. status 3- 4. Transfers Therapy Code Descriptions/Definitions Functional [place] Measure: 0=Not Assessed/NA 4=Minimal Assistance 1=Total Assistance 5=Supervision or Setup 2=Maximal Assistance 6=Modified [place] 3=Moderate Assistance 7=Complete [place] Therapy Quality Codes: 6 Independent with activity with or without an assistive device 5 Patient requires set up or clean up by helper. Patient completes activity by themselves 4 Supervision or touching assist (CGA). [place] provide cues , steadying assist 3 The helper provides less than half the effort to complete the activity 2 The helper provides more than half the effort to complete the activity 1 Dependent. The helper does all the effort to complete an activity 7 Patient refused to complete or attempt activity 9 The patient did not perform the activity before the current illness or injury 88 Not attempted due to Medical conditions or safety concerns Assessment Current Status: No Treatment/Other Tests pt. not alert, unable to rouse pt. see above note PT Correction Goals Enamel Pulverizer Goals PT Correction Goals Time Frame: Sep 22, 2018 Transfers (B,C,W/C) (FIM): 5 Gait (FIM): 5 Gait distance (FIM): 3=150 ft Distance: 250' Gait Level of Assist: 5 Gait Assistive Device: FWW PT Plan Treatment/Plan Treatment Plan: Continue Plan of Care (as tolerated) Treatment Plan: Bed Mobility, Education, Functional Activity Kia, Functional Strength, Gait, Safety, Therapeutic Exercise, Transfers Treatment Duration: Sep 22, 2018 Frequency: 6 times per week Estimated Hrs Per Day: .25 hour per day Patient and/or Family Agrees t: Yes Time/GCodes Time In: 1305 Time Out: 1310 Total Billed Treatment Time: 0 Total Billed Treatment 1,no Rx, no Chg G Codes Necessary: No JJ SERRANO DYNAMICIST Sep 12, 2018 13:15
--- NOTE | 2018-09-12 14:00 | NUR ---
Pastoral care visit.
[2018-09-12] MEDS ORDERED: lisINopril 40 MG (PRINIVIL) TABLET PO SCH (21:00)
[2018-09-12] MEDS ORDERED: ASPIRIN E.C. 81 MG (ECOTRIN) TAB PO SCH (21:00)
[2018-09-12] MEDS: NIACIN 500 MG TABLET PO SCH (23:01)
[2018-09-12] MEDS: MELATONIN 3 MG TABLET PO PRN (23:01)
[2018-09-12] MEDS: inSUlin NPH (NovoLIN N) 1 UNIT/0.01 ML (CHARGE PER UNIT) SQ SCH (23:02)
[2018-09-12] MEDS: ATORVASTATIN 20 MG (LIPITOR) TABLET PO SCH (23:02)
[2018-09-13 04:49] VITALS: BP 179/73
[2018-09-13] MEDS: inSUlin ASPART (NovoLOG) 1 UNIT/0.01 ML (CHARGE PER UNIT) SC SCH ×3 (06:17→16:44)
[2018-09-13] MEDS: KCL 20 MEQ TAB (K-DUR) PO SCH (06:25)
[2018-09-13] MEDS: MULTIVIT W/MINERALS TAB (THERAGRAN M) PO SCH (06:25)
[2018-09-13 07:59] VITALS: BP 170/90
[2018-09-13] MEDS: RT-ALBUTEROL SULF 2.5 MG/3 ML PRE-MIX VIAL INH SCH ×3 (08:35→19:46)
[2018-09-13] MEDS ORDERED: lisINopril 20 MG (PRINIVIL) TABLET PO SCH (09:00)
[2018-09-13] MEDS: doxAzosin 4 MG (CARDURA) TAB PO SCH ×2 (09:05→19:42)
[2018-09-13] MEDS: cefTRIAXone FOR IV USE 1,000 MG in WATER (STERILE) FOR INJECTION 10 ML IV SCH (09:05)
[2018-09-13] MEDS: metFORMIN 500 MG (GLUCOPHAGE) TAB PO SCH ×2 (09:06→17:08)
[2018-09-13] MEDS: CLOPIDOGREL 75 MG (PLAVIX) TABLET PO SCH (09:06)
[2018-09-13] MEDS: glipiZIDE 5 MG (GLUCOTROL) TAB PO SCH (09:06)
[2018-09-13] MEDS: meTOprolol TARTRATE 50 MG (LOPRESSOR) TAB PO SCH ×2 (09:06→19:43)
[2018-09-13] MEDS: ASPIRIN 81 MG CHEW (CHILDREN'S ASA) PO SCH (09:06)
[2018-09-13] MEDS: amLODIPine 10 MG (NORVASC) TAB PO SCH (09:06)
[2018-09-13] MEDS: LOSARTAN 50 MG (COZAAR) TAB PO SCH (09:07)
[2018-09-13] MEDS: FAMOTIDINE 20 MG (PEPCID) TABLET PO SCH ×2 (09:07→19:42)
[2018-09-13] MEDS: risperiDONE 1 MG (RisperDAL) TAB PO SCH ×2 (09:07→19:42)
[2018-09-13 10:32] LABS: BASOPHILS % (AUTO) 0 % (0-10); EOSINOPHILS # (AUTO) 0.2 10^3/uL (0.0-0.3); EOSINOPHILS % (AUTO) 2 % (0-10); HEMATOCRIT 33 % (40-54); HEMOGLOBIN 11.6 G/DL (13.3-17.7); LYMPHOCYTES # (AUTO) 0.8 X 10^3 (1.0-4.0); LYMPHOCYTES % (AUTO) 11 % (12-44); MEAN CORPUSCULAR HEMOGLOBIN 32 PG (25-34); MEAN CORPUSCULAR HGB CONC 35 G/DL (32-36); MEAN CORPUSCULAR VOLUME 93 FL (80-99); MEAN PLATELET VOLUME 7.9 FL (7.4-10.4); MONOCYTES # (AUTO) 0.6 X 10^3 (0.0-1.0); MONOCYTES % (AUTO) 8 % (0-12); NEUTROPHILS % (AUTO) 79 % (42-75); PLATELET COUNT 198 10^3/uL (130-400); RED CELL DISTRIBUTION WIDTH 12.2 % (10.0-14.5); WHITE BLOOD COUNT 7.6 10^3/uL (4.3-11.0)
--- NOTE | 2018-09-13 10:43 | Physical Therapy Daily Note ---
PT Daily Note-Current Subjective Patient in bed pre tx, agrees to PT, verbalizes no complaints of pain. Appearance Patient in recliner post tx with nurse call, tray, all needs met. Has chair alarm on and telesitter. Mental Status Patient Orientation: Person, Confused Transfers Therapy Code Descriptions/Definitions Functional [place] Measure: 0=Not Assessed/NA 4=Minimal Assistance 1=Total Assistance 5=Supervision or Setup 2=Maximal Assistance 6=Modified [place] 3=Moderate Assistance 7=Complete [place] Therapy Quality Codes: 6 Independent with activity with or without an assistive device 5 Patient requires set up or clean up by helper. Patient completes activity by themselves 4 Supervision or touching assist (CGA). [place] provide cues , steadying assist 3 The helper provides less than half the effort to complete the activity 2 The helper provides more than half the effort to complete the activity 1 Dependent. The helper does all the effort to complete an activity 7 Patient refused to complete or attempt activity 9 The patient did not perform the activity before the current illness or injury 88 Not attempted due to Medical conditions or safety concerns Transfers (B, C, W/C) (FIM): 2 Scootin Rollin Supine to/from Sit: 2 Sit to/from Stand: 2 Bed to/from Chair: 2 Patient was max assist for transfers and bed mobility. He has trouble following commands and directions. Gait Training Gait (FIM): 1 Distance: 3' Gait Level of Assist: 2 Gait Persons Needed: 1 Gait Assistive Device: FWW Patient very confused. Needs assist guiding walker and tries to keep walker very far out in front. Exercises Seated Therapy Exercises: Ankle pumps, Long arc quads Seated Reps: 15 Treatments bed mobility and transfers, ambulation, functional strengthening Assessment Current Status: Poor Progress patient very confused, decline in functional mobility PT Alf Goals Rn Picu Goals PT Alf Goals Time Frame: Sep 22, 2018 Transfers (B,C,W/C) (FIM): 5 Gait (FIM): 5 Gait distance (FIM): 3=150 ft Distance: 250' Gait Level of Assist: 5 Gait Assistive Device: FWW PT Plan Problem List Problem List: Activity Tolerance, Functional Strength, Safety, Balance, Gait, Transfer, Bed Mobility Treatment/Plan Treatment Plan: Continue Plan of Care Treatment Plan: Bed Mobility, Education, Functional Activity Kia, Functional Strength, Gait, Safety, Therapeutic Exercise, Transfers Treatment Duration: Sep 22, 2018 Frequency: 6 times per week Estimated Hrs Per Day: .25 hour per day Patient and/or Family Agrees t: Yes Safety Risks/Education Patient Education: Gait Training, Transfer Techniques, Correct Positioning, Safety Issues Teaching Recipient: Patient Teaching Methods: Demonstration, Discussion Response to Teaching: Reinforcement Needed Time/GCodes Time In: 1015 Time Out: 1035 Total Billed Treatment Time: 20 Total Billed Treatment 1 visit FA 20' SHAUNA STAFFORD PT Sep 13, 2018 10:42
--- NOTE | 2018-09-13 10:48 | Progress Note-Hospitalist ---
Subjective HPI/CC On Admission Date Seen by Provider: Sep 13, 2018 Time Seen by Provider: 10:00 CC: Confusion with pneumonia HPI: This is an 78-year-old white male of mine for the past 15 years with a past medical history of diabetes, CAD, colon cancer, chronic renal insufficiency and SIADH who most recently has had a significant decline in cognition who presented to [facility] with shortness of breath and cough and fever diagnosed with pneumonia and severe hyponatremia of 121. Dr. Ospina has seen in consultation maintained on Rocephin and Zithromax and is now on hypertonic saline since sodium level only went up to 124 from 121 to see if that helps the cognition. The last 2 visits I have noted a significant decline in mentation and the severity of his dementia is likely to remain even though sodium level has returned to be corrected. He does not even know me and I've been taking care of him for 15 years. Subjective/Events-last exam Patient remains very confused and unsure if that will clear Needs detention placement Really needs senior behavioral unit [place] psych management prior to detention placement but does not wish to use that option Very difficult to even examine the patient he is so confused Hyponatremia is long-standing due to SIADH Overall tolerating treatment Review of Systems Neurological: Confusion Objective Exam Vital Signs Vital Signs Date Time Temp Pulse Resp B/P (MAP) Pulse Ox O2 Delivery O2 Flow Rate FiO2 09/13/18 11:15 97.4 53 20 136/60 (85) 95 Nasal Cannula 2.00 Capillary Refill : Less Than 3 Seconds General Appearance: No Apparent Distress, WD/WN, Anxious, Chronically ill, Obese, Other (confused) HEENT: PERRL/EOMI, Normal ENT Inspection, Pharynx Normal Neck: Full Range of Motion, Non Tender, Supple Respiratory: Chest Non Tender, No Accessory Muscle Use, No Respiratory Distress , Crackles, Decreased Breath Sounds Cardiovascular: Regular Rate, Rhythm, No Edema, No Murmur Extremity: Normal Capillary Refill Neurologic/Psychiatric: Alert, No Motor/Sensory Deficits, Disoriented (O x 1) Skin: Normal Color, Warm/Dry Lymphatic: No Adenopathy Results/Procedures Lab Laboratory Tests 09/12/18 12:05 09/13/18 10:25 Patient resulted labs reviewed. Assessment/Plan Assessment and Plan Assess & Plan/Chief Complaint Assessment: Pneumonia Elevated lactic acid Severe hyponatremia chronically History of SIADH Dementia with significant worsening the last 6 months CAD Colon cancer history Hypertension Hyperlipidemia Chronic renal insufficiency Pneumonia in the past Former smoker GERD Plan: IV antibiotics HLIVF Fluid restriction Check echo Appreciate Dr. Ospina and Dr. Toro Needs NHP Home O2 PT/OT Diagnosis/Problems Diagnosis/Problems (1) Pneumonia Status: Acute Qualifiers: Pneumonia type: due to unspecified organism Laterality: left Lung location: lower lobe of lung Qualified Codes: J18.1 - Lobar pneumonia, unspecified organism (2) Lactic acid acidosis Status: Acute (3) Dementia Status: Chronic Qualifiers: Dementia type: Alzheimer's disease Alzheimer's disease onset: unspecified onset Dementia behavioral disturbance: without behavioral disturbance Qualified Codes: G30.9 - Alzheimer's disease, unspecified; F02.80 - Dementia in other diseases classified elsewhere without behavioral disturbance (4) CAD (coronary artery disease) Status: Chronic Qualifiers: Coronary Disease-Associated Artery/Lesion type: [place] artery [place] vs. transplanted heart: [place] heart Associated angina: without angina Qualified Codes: I25.10 - Atherosclerotic heart disease of [place] coronary artery without angina pectoris (5) Hypertension Status: Chronic Qualifiers: Hypertension type: essential hypertension Qualified Codes: I10 - Essential (primary) hypertension (6) Hyperlipemia Status: Chronic Qualifiers: Hyperlipidemia type: mixed hyperlipidemia Qualified Codes: E78.2 - Mixed hyperlipidemia (7) Renal insufficiency Status: Chronic (8) SIADH (syndrome of inappropriate ADH production) Status: Chronic (9) GERD (gastroesophageal reflux disease) Status: Chronic Qualifiers: Esophagitis presence: without esophagitis Qualified Codes: K21.9 - Gastro- esophageal reflux disease without esophagitis (10) Lung nodule Status: Acute (11) History of colon cancer Status: Chronic (12) Hyponatremia Status: Acute (13) Altered mental status Status: Acute Qualifiers: Altered mental status type: unspecified Qualified Codes: R41.82 - Altered mental status, unspecified (14) Elevated lactic acid level Status: Acute (15) Hypoxia Status: Acute Clinical Quality Measures DVT/VTE Risk/Contraindication: Risk Factor Score Per Nursin RFS Level Per Nursing on Admit: 1=Low/No VTE PPX DAIN DUBOSE DO Sep 13, 2018 10:48
[2018-09-13 10:56] LABS: BUN/CREATININE RATIO 15; CALCIUM 10.1 MG/DL (8.5-10.1); CARBON DIOXIDE 23 MMOL/L (21-32); CHLORIDE 99 MMOL/L (98-107); CREATININE SERUM 0.82 MG/DL (0.60-1.30); GFR ESTIMATED > 60; GLUCOSE 101 MG/DL (70-105); MAGNESIUM 1.7 MG/DL (1.8-2.4); PHOSPHORUS 4.1 MG/DL (2.3-4.7); POTASSIUM 4.3 MMOL/L (3.6-5.0); SODIUM 132 MMOL/L (135-145)
--- NOTE | 2018-09-13 11:11 | NUR ---
NOTE WHILE PT IN BED THIS AM HE HAS CONTINUALLY DRAPED HIS LEG OFF THE R SIDE OF THE BED -- PT REMAINS VERY CONFUSED AND FORGETFUL -- AT TIME STAFF CAN NOT UNDERSTAND HIS SPEECH -- HE WILL REPEAT IN A SLOWER CLEARER PHRASE -- BUT AT OTHER TIME HE RAMBLES -- STAFF WILL CONTINUE TO MONITOR HIM FREQUENTLY -- PT HAS TELE SITTER
[2018-09-13 11:15] VITALS: BP 136/60
[2018-09-13] MEDS ORDERED: MAGNESIUM OXIDE (MAG-OX)400 MG TAB PO NR (11:45)
--- NOTE | 2018-09-13 11:46 | Pulmonary Progress Note ---
Subjective Time Seen by a Provider: 11:46 Subjective/Events-last exam No complications noted. Sepsis Event Evaluation Height, Weight, BMI Height: 5'6.00" Weight: 221lbs. 8.0oz. 100.964446mt; 37.3 BMI Method:Stated Exam Exam Vital Signs Date Time Temp Pulse Resp B/P (MAP) Pulse Ox O2 Delivery O2 Flow Rate FiO2 09/13/18 11:15 97.4 53 20 136/60 (85) 95 Nasal Cannula 2.00 09/13/18 09:40 98.2 09/13/18 09:00 Nasal Cannula 2.00 09/13/18 08:35 97 Nasal Cannula 2.50 09/13/18 08:00 Nasal Cannula 2.00 09/13/18 07:59 98.2 70 20 170/90 (116) 95 Nasal Cannula 2.00 09/13/18 07:02 67 09/13/18 04:49 97.6 75 20 179/73 (108) 94 Nasal Cannula 2.50 09/13/18 04:00 Nasal Cannula 2.00 09/13/18 01:00 63 09/13/18 00:00 Nasal Cannula 2.00 09/12/18 23:33 97.3 67 22 178/79 (112) 91 Nasal Cannula 2.00 09/12/18 21:00 Nasal Cannula 2.00 09/12/18 20:20 98.4 89 20 181/77 (111) 94 Nasal Cannula 2.00 09/12/18 19:53 93 Nasal Cannula 2.00 09/12/18 19:00 72 09/12/18 19:00 Nasal Cannula 2.00 09/12/18 16:55 98.0 70 20 190/86 (120) 96 Nasal Cannula 2.00 09/12/18 16:00 Nasal Cannula 2.00 09/12/18 14:52 92 Nasal Cannula 2.00 09/12/18 12:57 60 09/12/18 12:00 Nasal Cannula 2.00 09/12/18 12:00 97.9 65 18 182/81 (114) 94 Nasal Cannula 2.00 I & O 09/13/18 07:00 Intake Total 800 ml Balance 800 ml Height & Weight Height: 5'6.00" Weight: 221lbs. 8.0oz. 100.182780fu; 37.3 BMI Method:Stated General Appearance: No Apparent Distress, WD/WN, Anxious, Chronically ill, Obese, Other (confused) HEENT: PERRL/EOMI, Normal ENT Inspection, Pharynx Normal Neck: Full Range of Motion, Non Tender, Supple Respiratory: Chest Non Tender, No Accessory Muscle Use, No Respiratory Distress , Crackles, Decreased Breath Sounds Cardiovascular: Regular Rate, Rhythm, No Edema, No Murmur Capillary Refill: Less Than 3 Seconds Gastrointestinal: normal bowel sounds, non tender, soft Extremity: Normal Capillary Refill Neurologic/Psychiatric: Alert, No Motor/Sensory Deficits, Disoriented (O x 1) Skin: Normal Color, Warm/Dry Lymphatic: No Adenopathy Results Lab Laboratory Tests 09/12/18 12:05 09/13/18 10:25 Assessment/Plan Assessment/Plan Pneumonia- no fever, no leukocytosis -rocephin, azithromycin Lung nodule -PT will need repeat CT of chest 6-8wks after discharge -Pt will most likely need bronchoscopy and PET scan if lung nodules persist after f/u CT scan -F/u order was placed Hyponatremia, hyperkalemia -Stop K+ -Recheck labs -Monitor Anemia -Monitor Confusion/psychosis - probably chronic dementia -Risperdal 1mg BID -PRN JESSICA England DO Sep 13, 2018 11:46
--- NOTE | 2018-09-13 13:14 | NUR ---
CM/SS. Physician care plan is for SNF placement, updated Linda and initiated referral with [facility]. Clinical information faxed, team is in [place] today for a meeting but will review in a.m. If SNF does not accept patient due to dementia, confusion, and associated forgetfulness as it relates to safety precautions, revisit admit to [facility] with spouse as a first step from acute care hospitalization. CARE Assessment pending.
[2018-09-13] MEDS: AZITHROMYCIN 250 MG TAB (ZITHROMAX) PO SCH (13:16)
--- NOTE | 2018-09-13 13:42 | Occupational Ther Daily Note ---
OT Current Status-Daily Note Subjective Pt in recliner, alert, oriented to person only , mildly confused , agree for therapy. Pain Location: No Pain Reported Appearance Pt not very responsive , performed exercises without saying anything. Mental Status/Objective Patient Orientation: Confused, Mumbles Therapy Code Descriptions/Definitions Functional [place] Measure: 0=Not Assessed/NA 4=Minimal Assistance 1=Total Assistance 5=Supervision or Setup 2=Maximal Assistance 6=Modified [place] 3=Moderate Assistance 7=Complete [place] ADL-Treatment Pt completed 20 reps x 2 lb wts Elbow & shoulder flexion/ extension , 20 reps with hand gripper with both hands to improve hand spark plug assembler & 20 reps with red theraband to strengthen BUE to participate in all self care tasks & to push up from the recliner. Transfers (B, C, W/C) (FIM): 2 (Max A Pt not taking any interest in getting up & to do any activity. ) Education OT Patient Education: Correct positioning Teaching Recipient: Patient Teaching Methods: Demonstration Response to Teaching: Verbalize Understanding OT Short Term Goals Short Term Goals Time Frame: Sep 25, 2018 Additional Short Term Goals: 1-Demonstrate ADL Tasks, 2-Verbalize Understanding , 3-ImproveStrength/Kia 1=Demonstrate adherence to instructed precautions during ADL tasks. 2=Patient will verbalize/demonstrate understanding of assistive devices/ modifications for ADL. 3=Patient will improve strength/tolerance for activity to enable patient to perform ADL's. OT Shelter Goals Shelter Goals Time Frame: Oct 09, 2018 Eating (FIM): 6 Grooming(FIM): 6 Bathing(FIM): 5 Bathing Location: L Arm, R Arm, L Upper Leg, R Upper Leg, L Lower Leg ( including foot), R Lower Leg (including foot), Chest, Abdomen, Buttocks, Perineal Area Upper Body Dressing(FIM): 5 Lower Body Dressing(FIM): 5 Toileting(FIM): 6 Transfers (B,C,W/C) (FIM): 6 Toilet/Commode Transfer(FIM): 6 Tub Transfer(FIM): 0 Shower Transfer(FIM): 6 Additional Goals: 1-Demonstrate ADL Tasks, 2-Verbalize Understanding, 3- ImproveStrength/Kia 1=Demonstrate adherence to instructed precautions during ADL tasks. 2=Patient will verbalize/demonstrate understanding of assistive devices/ modifications for ADL. 3=Patient will improve strength/tolerance for activity to enable patient to perform ADL's. OT Education/Plan Problem List/Assessment Assessment: Decreased Activ Tolerance, Decreased Safety Aware, Decreased UE Strength, Dependent Transfers, Impaired Funct Balance, Impaired Self-Care Skills Discharge Recommendations Plan/Recommendations: Continue POC Therapy D/C Recommendations: Home w/ Family Support Equpiment Recommendations-D/C: Extended Bath Bench, Extended Shower Sprayer, Director Global Intelligence, Hip Kit, [place] Patient/Family Goals To return home with spouse with mod I.with AD. Treatment Plan/Plan of Care Treatment,Training & Education: Yes Patient would benefit from OT for education, treatment and training to promote independence in ADL's, mobility, safety and/or upper extremity function for ADL' s. Plan of Care: ADL Retraining, Functional Mobility, UE Funct Exercise/Act, UE Neuromus Re-Ed/Coord Treatment Duration: Oct 09, 2018 Frequency: 5 times per week Estimated Hrs Per Day: .25 hour per day Agreement: Yes Rehab Potential: Guarded Time/GCodes Start Time: 11:35 Stop Time: 11:48 Total Time Billed (hr/min): 13 Billed Treatment Time 1, Ex 13 minutes RUI CRUM OT Sep 13, 2018 13:41
--- NOTE | 2018-09-13 14:20 | NUR ---
Pastoral care visit.
[2018-09-13 15:43] VITALS: BP 179/79
--- NOTE | 2018-09-13 15:45 | NUR ---
AT 1450 THIS RN HEARD CHAIR GOING OFF AND QUICKLY GOT TO RM -- PT STANDING AND HAD AN INCONT STOOL IN CHAIR -- -- THIS RN STAND WITH PT AND CALLED FOR HELP RT TO ROOM AND GOT NA TO RM -- PT WAS TO BE WEARING TELEMETRY -- AND STAFF FOUND THAT HE HAD PULLED IT APART AND IT WAS IN PIECES -- BOX ON TABLE NEAR WINDOW, AND WIRES HANGING AND 2 WERE ON THE FLOOR -- NOTE THAT PT WAS ON TELE SITTER AND IT DID NOT GO OFF THROUGHOUT THIS OCCURRENCE -- OLIVING MACHINE OPERATOR WAS CALLED AND ADVISED -- PT WAS CLEANED UP AND REQUEST BACK TO CHAIR AND THIS RN CALLED DR DUBOSE AND GOT ORDER TO DC TELEMETRY -- ICU STAFF WERE ADVISED
[2018-09-13] MEDS: inSUlin NPH (NovoLIN N) 1 UNIT/0.01 ML (CHARGE PER UNIT) SQ SCH (18:10)
--- NOTE | 2018-09-13 18:43 | NUR ---
NOTE THAT PT HAS BEEN CONFUSED AND TYING TO GET OUT OF CHAIR OR BED -- REMAIN W/ TELE SITTER AND BED AND CHAIR ALARMS ON
[2018-09-13 19:41] VITALS: BP 182/81
[2018-09-13] MEDS: ATORVASTATIN 20 MG (LIPITOR) TABLET PO SCH (19:42)
[2018-09-13] MEDS: MELATONIN 3 MG TABLET PO PRN (19:42)
[2018-09-13] MEDS: HALOPERIDOL 5 MG/ML (HALDOL) AMP IM PRN (19:43)
[2018-09-13] MEDS: NIACIN 500 MG TABLET PO SCH (19:43)
[2018-09-14] VITALS (8 sets, daily range): BP systolic 129–187; BP diastolic 61–94
[2018-09-14] MEDS: inSUlin ASPART (NovoLOG) 1 UNIT/0.01 ML (CHARGE PER UNIT) SC SCH ×5 (00:21→21:18)
[2018-09-14] MEDS: hydrALAZINE (APESOLINE) 20 MG/ML VIAL IV PRN ×2 (00:53→04:29)
[2018-09-14 04:42] LABS: BASOPHILS % (AUTO) 0 % (0-10); EOSINOPHILS # (AUTO) 0.2 10^3/uL (0.0-0.3); EOSINOPHILS % (AUTO) 3 % (0-10); HEMATOCRIT 33 % (40-54); HEMOGLOBIN 11.7 G/DL (13.3-17.7); LYMPHOCYTES # (AUTO) 0.8 X 10^3 (1.0-4.0); LYMPHOCYTES % (AUTO) 10 % (12-44); MEAN CORPUSCULAR HEMOGLOBIN 33 PG (25-34); MEAN CORPUSCULAR HGB CONC 36 G/DL (32-36); MEAN CORPUSCULAR VOLUME 92 FL (80-99); MEAN PLATELET VOLUME 7.9 FL (7.4-10.4); MONOCYTES # (AUTO) 0.7 X 10^3 (0.0-1.0); MONOCYTES % (AUTO) 8 % (0-12); NEUTROPHILS # (AUTO) 6.2 X 10^3 (1.8-7.8); NEUTROPHILS % (AUTO) 79 % (42-75); PLATELET COUNT 217 10^3/uL (130-400); RED CELL DISTRIBUTION WIDTH 12.1 % (10.0-14.5); WHITE BLOOD COUNT 7.8 10^3/uL (4.3-11.0)
[2018-09-14 05:09] LABS: BUN/CREATININE RATIO 16; CALCIUM 9.7 MG/DL (8.5-10.1); CARBON DIOXIDE 24 MMOL/L (21-32); CHLORIDE 97 MMOL/L (98-107); CREATININE SERUM 0.81 MG/DL (0.60-1.30); GFR ESTIMATED > 60; GLUCOSE 113 MG/DL (70-105); MAGNESIUM 1.7 MG/DL (1.8-2.4); PHOSPHORUS 4.7 MG/DL (2.3-4.7); POTASSIUM 3.9 MMOL/L (3.6-5.0); SODIUM 131 MMOL/L (135-145)
[2018-09-14] MEDS: RT-ALBUTEROL SULF 2.5 MG/3 ML PRE-MIX VIAL INH SCH ×4 (07:15→20:06)
--- NOTE | 2018-09-14 08:49 | Physical Therapy Daily Note ---
PT Daily Note-Current Subjective Patient in bed pre tx, very lethargic, wakes up a little after sitting at the edge of the bed, states he has a slight headache. Appearance Patient in recliner post tx with nurse call, tray, chair alarm on, breakfast tray in front of him, legs elevated. Mental Status Patient Orientation: Person, Confused Attachments: Oxygen Transfers Therapy Code Descriptions/Definitions Functional [place] Measure: 0=Not Assessed/NA 4=Minimal Assistance 1=Total Assistance 5=Supervision or Setup 2=Maximal Assistance 6=Modified [place] 3=Moderate Assistance 7=Complete [place] Therapy Quality Codes: 6 Independent with activity with or without an assistive device 5 Patient requires set up or clean up by helper. Patient completes activity by themselves 4 Supervision or touching assist (CGA). [place] provide cues , steadying assist 3 The helper provides less than half the effort to complete the activity 2 The helper provides more than half the effort to complete the activity 1 Dependent. The helper does all the effort to complete an activity 7 Patient refused to complete or attempt activity 9 The patient did not perform the activity before the current illness or injury 88 Not attempted due to Medical conditions or safety concerns Transfers (B, C, W/C) (FIM): 2 Scootin Rollin Supine to/from Sit: 2 Sit to/from Stand: 4 Bed to/from Chair: 4 max assist of 2 for supine to sit, after sitting at the edge of the bed for a few minutes he seemed to wake up a little Gait Training Gait (FIM): 1 Distance: 3' Gait Level of Assist: 4 Gait Persons Needed: 1 Gait Assistive Device: FWW slumped posture, slow ambulation, needs assist with directions and guiding walker Exercises Seated Therapy Exercises: Long arc quads Seated Reps: 15 Treatments bed mobility and transfers, ambulation, functional strengthening Assessment Current Status: Poor Progress patient very lethargic and confused 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 Driver 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 Maintenance Truck Driver Goals 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 Driver Goals Time Frame: Sep 22, 2018 Transfers (B,C,W/C) (FIM): 5 Gait (FIM): 5 Gait distance (FIM): 3=150 ft Distance: 250' Gait Level of Assist: 5 Gait Assistive Device: FWW PT Plan Problem List Problem List: Activity Tolerance, Functional Strength, Safety, Balance, Gait, Transfer, Bed Mobility, ROM Treatment/Plan Treatment Plan: Continue Plan of Care Treatment Plan: Bed Mobility, Education, Functional Activity Kia, Functional Strength, Gait, Safety, Therapeutic Exercise, Transfers Treatment Duration: Sep 22, 2018 Frequency: 6 times per week Estimated Hrs Per Day: .25 hour per day Patient and/or Family Agrees t: Yes Safety Risks/Education Patient Education: Gait Training, Transfer Techniques, Correct Positioning, Safety Issues Teaching Recipient: Patient Teaching Methods: Demonstration, Discussion Response to Teaching: Reinforcement Needed Time/GCodes Time In: 0830 Time Out: 0844 Total Billed Treatment Time: 14 Total Billed Treatment 1 visit FA Hailey' SHAUNA STAFFORD PT Sep 14, 2018 08:49
[2018-09-14] MEDS: MULTIVIT W/MINERALS TAB (THERAGRAN M) PO SCH (08:56)
[2018-09-14] MEDS: ASPIRIN 81 MG CHEW (CHILDREN'S ASA) PO SCH (08:56)
[2018-09-14] MEDS: meTOprolol TARTRATE 50 MG (LOPRESSOR) TAB PO SCH ×2 (08:56→20:20)
[2018-09-14] MEDS: risperiDONE 1 MG (RisperDAL) TAB PO SCH ×2 (08:56→20:20)
[2018-09-14] MEDS: amLODIPine 10 MG (NORVASC) TAB PO SCH (08:56)
[2018-09-14] MEDS: glipiZIDE 5 MG (GLUCOTROL) TAB PO SCH (08:56)
[2018-09-14] MEDS: CLOPIDOGREL 75 MG (PLAVIX) TABLET PO SCH (08:56)
[2018-09-14] MEDS: FAMOTIDINE 20 MG (PEPCID) TABLET PO SCH ×2 (08:56→20:20)
[2018-09-14] MEDS: LOSARTAN 50 MG (COZAAR) TAB PO SCH (08:57)
[2018-09-14] MEDS: cefTRIAXone FOR IV USE 1,000 MG in WATER (STERILE) FOR INJECTION 10 ML IV SCH (08:57)
[2018-09-14] MEDS: metFORMIN 500 MG (GLUCOPHAGE) TAB PO SCH ×2 (08:57→18:02)
[2018-09-14] MEDS: doxAzosin 4 MG (CARDURA) TAB PO SCH ×2 (08:57→20:20)
--- NOTE | 2018-09-14 09:55 | Progress Note-Cardiology ---
Cardiology SOAP Progress Note Subjective: Remains pleasantly confused. No c/o pain Objective: I&O/Vital Signs 09/14/18 09/14/18 09/14/18 09/14/18 00:43 03:42 06:10 07:15 Temp 96.6 97.3 Pulse 63 69 68 Resp 20 22 B/P (MAP) 187/81 (116) 185/82 (116) 173/77 (109) Pulse Ox 96 98 97 O2 Delivery Nasal Cannula Nasal Cannula Nasal Cannula O2 Flow Rate 2.00 2.00 2.00 09/14/18 08:00 Temp 97.3 Pulse 66 Resp 18 B/P (MAP) 159/74 (102) Pulse Ox 95 O2 Delivery Nasal Cannula O2 Flow Rate 2.00 09/14/18 00:00 Intake Total 1376 ml Output Total 100 ml Balance 1276 ml Weight (Pounds): 222 Weight (Ounces): 9.6 Weight (Calculated Kilograms): 100.444087 Constitutional: No AAO x 3; well-developed, well-nourished Respiratory: No accessory muscle use; crackles (bi-basilar), rhonchi (scattered ), other (good bilat air entry) Cardiovascular: regular rate-rhythm, S1 and S2, systolic murmur (soft BELLA at card base) Gastrointestional: No tender, No soft, No guarding, No rebound; audible bowel sounds Extremities: No clubbing, No cyanosis, No significant edema Neurologic/Psychiatric: No oriented x 3; other (oriented to self only), power is 5/5 both on sides Skin: No rash on exposed areas, No ulcerations on exposed areas Results/Procedures: Labs Laboratory Tests 09/13/18 10:25: White Blood Count 7.6, Red Blood Count 3.59L, Hemoglobin 11.6L, Hematocrit 33L, Mean Corpuscular Volume 93, Mean Corpuscular Hemoglobin 32, Mean Corpuscular Hemoglobin Concent 35, Red Cell Distribution Width 12.2, Platelet Count 198, Mean Platelet Volume 7.9, Neutrophils (%) (Auto) 79H, Lymphocytes (%) (Auto) 11L , Monocytes (%) (Auto) 8, Eosinophils (%) (Auto) 2, Basophils (%) (Auto) 0, Neutrophils # (Auto) 6.0, Lymphocytes # (Auto) 0.8L, Monocytes # (Auto) 0.6, Eosinophils # (Auto) 0.2, Basophils # (Auto) 0.0, Sodium Level 132L, Potassium Level 4.3, Chloride Level 99, Carbon Dioxide Level 23, Anion Gap 10, Blood Urea Nitrogen 12, Creatinine 0.82, Estimat Glomerular Filtration Rate > 60, BUN/ Creatinine Ratio 15, Glucose Level 101, Calcium Level 10.1, Phosphorus Level 4.1 , Magnesium Level 1.7L, B-Type Natriuretic Peptide 244.8H 09/13/18 11:18: Glucometer 80 09/13/18 15:42: Glucometer 111H 09/13/18 22:01: Glucometer 167H 09/14/18 04:25: White Blood Count 7.8, Red Blood Count 3.55L, Hemoglobin 11.7L, Hematocrit 33L, Mean Corpuscular Volume 92, Mean Corpuscular Hemoglobin 33, Mean Corpuscular Hemoglobin Concent 36, Red Cell Distribution Width 12.1, Platelet Count 217, Mean Platelet Volume 7.9, Neutrophils (%) (Auto) 79H, Lymphocytes (%) (Auto) 10L , Monocytes (%) (Auto) 8, Eosinophils (%) (Auto) 3, Basophils (%) (Auto) 0, Neutrophils # (Auto) 6.2, Lymphocytes # (Auto) 0.8L, Monocytes # (Auto) 0.7, Eosinophils # (Auto) 0.2, Basophils # (Auto) 0.0, Sodium Level 131L, Potassium Level 3.9, Chloride Level 97L, Carbon Dioxide Level 24, Anion Gap 10, Blood Urea Nitrogen 13, Creatinine 0.81, Estimat Glomerular Filtration Rate > 60, BUN/ Creatinine Ratio 16, Glucose Level 113H, Calcium Level 9.7, Phosphorus Level 4.7 , Magnesium Level 1.7L Microbiology 09/09/18 Blood Culture - Preliminary, Resulted No growth Laboratory Tests 09/12/18 12:05 09/13/18 10:25 09/14/18 04:25 A/P: Assessment: LLL pneumonia, managed by Dr Trujillo and Dr Ospina Hyponatremia, 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 No clinical evidence of decompensated CHF. Mild BNP elevation probably due to pneumonia and/or obesity- hypoventilation Uncontrolled hypertension Echo of September 2018: Well preserved global LV systolic function with an LVEF of 60-65%. Mild tricuspid regurg. PASP mmHg Chronic stable angina Coronary artery disease with a history of coronary artery bypass surgery. Last cardiac catheterization was in March 2014 which showed severe [place] CAD including 95% mid vessel stenosis of the left internal descending artery, 60% mid vessel stenosis of the left cx, subtotal ostial occlusion of the first OM branch and complete occlusion of the proximal to mid RCA, patent left internal mammary artery graft to the mid LAD, patent saphenous vein graft (with prox 50- 60% stenosis) to the first OM branch 50-60% proximal stenosis, and severely degenerated saphenous vein graft to the distal RCA (this graft has multiple 99 to 100% stenoses in its midportion and appears to be at high risk if percutaneous intervention is to be undertaken). LV gram showed well-preserved global left ventricular systolic function with an ejection fraction of 60-65%, mild posterobasal hypokinesis, no significant MR, mild LVEDP Obesity with a body mass index of approximately 37. Suspected CHIQUI, but pt has not followed through on the recommendation to have a sleep study done Gastroesophageal reflux. Hyperlipidemia, treated with statin and niacin therapy. Maturity onset diabetes mellitus being managed by Dr. Trujillo. Chronic bilateral ankle swelling, likely related to venous insufficiency and/or calcium channel karl therapy, currently stable. Rectal carcinoma that has been treated with surgery, followed by radiation therapy. Mild peripheral neuropathy consisting of numbness of the feet. History of carotid arterial disease with left-sided carotid endarterectomy by Dr. Ritchie. Carotid ultrasonography of January 2014 showed mild bilateral disease, hemodynamically nonsignificant. Dementia Plan: * BP has improved - continue current regimen * Treatment of pneumonia and hyponatremia is with Dr Trujillo and Dr Ospina * Not suitable candidate for increasing ARB d/t hyperkalemia with higher dose * Monitor labs KYE MEZA Sep 14, 2018 09:55
--- NOTE | 2018-09-14 10:14 | Occupational Ther Daily Note ---
OT Current Status-Daily Note Subjective Pt in recliner, alert, mild confused, & agree for therapy. Pain Numeric Pain Scale: 0-No Pain Location: No Pain Reported Mental Status/Objective Patient Orientation: Person, Confused Therapy Code Descriptions/Definitions Functional [place] Measure: 0=Not Assessed/NA 4=Minimal Assistance 1=Total Assistance 5=Supervision or Setup 2=Maximal Assistance 6=Modified [place] 3=Moderate Assistance 7=Complete [place] Attachments: Oxygen, Saline Lock ADL-Treatment Pt mild confused & disoriented & did'nt initiated to eat his breakfast. Pt fed him 30 % of his food from the tray. Pt pockets eggs, cereals & has difficuilty swallowing. Charge Nurse gave him crushed medicine pills with Apple sauce as pt had difficulty swallowing pills. Recommends Speech therapist to Eval for swallowing & pureed diet . Pt at high risk for aspiration. Pt participate in gentle Passive ROM to BUE & active strengthening ex to BUE, Pt complete 10 reps 2 lb wts with BUE with max VC's,, 15 reps with hand gripper to stregthen both hand manager commercial real estate. Eating (FIM): 2 Grooming (FIM): 4 Bathing (FIM): 0 Upper Body (FIM): 1 Lower Body Dressing (FIM): 1 Toileting (FIM): 1 Transfers (B, C, W/C) (FIM): 2 Toilet/Commode Transfer (FIM): 1 Tub Transfer(FIM): 0 Shower Transfer(FIM): 1 Education OT Patient Education: Disease process, Safety issues Teaching Recipient: Patient Teaching Methods: Demonstration Response to Teaching: Verbalize Understanding OT Short Term Goals Short Term Goals Time Frame: Sep 25, 2018 Additional Short Term Goals: 1-Demonstrate ADL Tasks, 2-Verbalize Understanding , 3-ImproveStrength/Kia 1=Demonstrate adherence to instructed precautions during ADL tasks. 2=Patient will verbalize/demonstrate understanding of assistive devices/ modifications for ADL. 3=Patient will improve strength/tolerance for activity to enable patient to perform ADL's. OT Quality Assurance Project Manager Goals Quality Assurance Project Manager Goals Time Frame: Oct 09, 2018 Eating (FIM): 6 Grooming(FIM): 6 Bathing(FIM): 5 Bathing Location: L Arm, R Arm, L Upper Leg, R Upper Leg, L Lower Leg ( including foot), R Lower Leg (including foot), Chest, Abdomen, Buttocks, Perineal Area Upper Body Dressing(FIM): 5 Lower Body Dressing(FIM): 5 Toileting(FIM): 6 Transfers (B,C,W/C) (FIM): 6 Toilet/Commode Transfer(FIM): 6 Tub Transfer(FIM): 0 Shower Transfer(FIM): 6 Additional Goals: 1-Demonstrate ADL Tasks, 2-Verbalize Understanding, 3- ImproveStrength/Kia 1=Demonstrate adherence to instructed precautions during ADL tasks. 2=Patient will verbalize/demonstrate understanding of assistive devices/ modifications for ADL. 3=Patient will improve strength/tolerance for activity to enable patient to perform ADL's. OT Education/Plan Problem List/Assessment Assessment: Decreased Activ Tolerance, Decreased Safety Aware, Decreased UE Strength, Dependent Transfers, Impaired Bed Mobility, Impaired Funct Balance, Impaired Self-Care Skills Discharge Recommendations Plan/Recommendations: Continue POC Equpiment Recommendations-D/C: Extended Bath Bench, Extended Shower Sprayer, Electrical Engineering Intern Patient/Family Goals To return home with with Mod I . Treatment Plan/Plan of Care Treatment,Training & Education: Yes Patient would benefit from OT for education, treatment and training to promote independence in ADL's, mobility, safety and/or upper extremity function for ADL' s. Plan of Care: ADL Retraining, Functional Mobility, UE Funct Exercise/Act, UE Neuromus Re-Ed/Coord Treatment Duration: Oct 09, 2018 Frequency: 5 times per week Estimated Hrs Per Day: .25 hour per day Agreement: Yes Rehab Potential: Guarded Time/GCodes Start Time: 09:05 Stop Time: 09:31 Total Time Billed (hr/min): 26 Billed Treatment Time 1, ADL 16 min , Ex 10 min. Total 26 minutes RUI CRUM OT Sep 14, 2018 10:14
--- NOTE | 2018-09-14 10:38 | Pulmonary Progress Note ---
Subjective Time Seen by a Provider: 09:09 Subjective/Events-last exam No complications noted. Sepsis Event Evaluation Height, Weight, BMI Height: 5'6.00" Weight: 222lbs. 9.6oz. 100.231439rf; 37.3 BMI Method:Stated Exam Exam Vital Signs Date Time Temp Pulse Resp B/P (MAP) Pulse Ox O2 Delivery O2 Flow Rate FiO2 09/14/18 08:00 97.3 66 18 159/74 (102) 95 Nasal Cannula 2.00 09/14/18 07:15 97 Nasal Cannula 2.00 09/14/18 06:10 68 173/77 (109) 09/14/18 03:42 97.3 69 22 185/82 (116) 98 Nasal Cannula 2.00 09/14/18 00:43 96.6 63 20 187/81 (116) 96 Nasal Cannula 2.00 09/13/18 20:00 Nasal Cannula 2.00 09/13/18 19:47 99 Nasal Cannula 2.00 09/13/18 19:41 95.1 70 20 182/81 (114) 99 Nasal Cannula 2.00 09/13/18 16:00 Nasal Cannula 2.00 09/13/18 15:43 96.2 56 16 179/79 (112) 98 Nasal Cannula 2.50 09/13/18 12:49 59 09/13/18 12:00 Nasal Cannula 2.00 09/13/18 11:59 96 Nasal Cannula 2.00 09/13/18 11:15 97.4 53 20 136/60 (85) 95 Nasal Cannula 2.00 I & O 09/14/18 07:00 Intake Total 1386 ml Output Total 100 ml Balance 1286 ml Height & Weight Height: 5'6.00" Weight: 222lbs. 9.6oz. 100.145071rj; 37.3 BMI Method:Stated General Appearance: No Apparent Distress, WD/WN, Anxious, Chronically ill, Obese, Other (confused) HEENT: PERRL/EOMI, Normal ENT Inspection, Pharynx Normal Neck: Full Range of Motion, Non Tender, Supple Respiratory: Chest Non Tender, No Accessory Muscle Use, No Respiratory Distress , Crackles, Decreased Breath Sounds Cardiovascular: Regular Rate, Rhythm, No Edema, No Murmur Capillary Refill: Less Than 3 Seconds Gastrointestinal: normal bowel sounds, non tender, soft Extremity: Normal Capillary Refill Neurologic/Psychiatric: Alert, No Motor/Sensory Deficits, Disoriented (O x 1) Skin: Normal Color, Warm/Dry Lymphatic: No Adenopathy Results Lab Laboratory Tests 09/12/18 12:05 09/13/18 10:25 09/14/18 04:25 Assessment/Plan Assessment/Plan Pneumonia- no fever, no leukocytosis -rocephin, azithromycin Lung nodule -PT will need repeat CT of chest 6-8wks after discharge -Pt will most likely need bronchoscopy and PET scan if lung nodules persist after f/u CT scan -F/u order was placed Hyponatremia, hyperkalemia -Stop K+ -Recheck labs -Monitor Anemia -Monitor Confusion/psychosis - probably chronic dementia -Risperdal 1mg BID -PRN JESSICA England DO Sep 14, 2018 10:38
--- NOTE | 2018-09-14 10:45 | Progress Note-Hospitalist ---
Subjective HPI/CC On Admission Date Seen by Provider: Sep 14, 2018 Time Seen by Provider: 10:00 CC: Confusion with pneumonia HPI: This is an 78-year-old white male of mine for the past 15 years with a past medical history of diabetes, CAD, colon cancer, chronic renal insufficiency and SIADH who most recently has had a significant decline in cognition who presented to [place] [facility] with shortness of breath and cough and fever diagnosed with pneumonia and severe hyponatremia of 121. Dr. Ospina has seen in consultation maintained on Rocephin and Zithromax and is now on hypertonic saline since sodium level only went up to 124 from 121 to see if that helps the cognition. The last 2 visits I have noted a significant decline in mentation and the severity of his dementia is likely to remain even though sodium level has returned to be corrected. He does not even know me and I've been taking care of him for 15 years. Subjective/Events-last exam Patient with confusion so severe that unsure of recovery that may have potential recovery once pneumonia and delirium clears Sodium level CXXXI Hypertension is an issue before morning meds given Overall poor prognosis and will try to update the about that No behaviors noted [facility] was only considered for transition to half-way facility because he has no behaviors that it would've been a good option to start dementia meds but dementia is so severe I'm unclear if that would even be beneficial for him Objective Exam Vital Signs Vital Signs Date Time Temp Pulse Resp B/P (MAP) Pulse Ox O2 Delivery O2 Flow Rate FiO2 09/14/18 08:00 97.3 66 18 159/74 (102) 95 Nasal Cannula 2.00 Capillary Refill : Less Than 3 Seconds General Appearance: No Apparent Distress, WD/WN, Anxious, Chronically ill, Obese, Other (confused) HEENT: PERRL/EOMI, Normal ENT Inspection, Pharynx Normal Neck: Full Range of Motion, Non Tender, Supple Respiratory: Chest Non Tender, No Accessory Muscle Use, No Respiratory Distress , Crackles, Decreased Breath Sounds Cardiovascular: Regular Rate, Rhythm, No Edema, No Murmur Extremity: Normal Capillary Refill Neurologic/Psychiatric: Alert, No Motor/Sensory Deficits, Disoriented (O x 1) Skin: Normal Color, Warm/Dry Lymphatic: No Adenopathy Results/Procedures Lab Laboratory Tests 09/14/18 04:25 Patient resulted labs reviewed. Assessment/Plan Assessment and Plan Assess & Plan/Chief Complaint Assessment: Pneumonia Elevated lactic acid Severe hyponatremia chronically History of SIADH Dementia with significant worsening the last 6 months CAD Colon cancer history Hypertension Hyperlipidemia Chronic renal insufficiency Pneumonia in the past Former smoker GERD Plan: IV antibiotics HLIVF Fluid restriction Check echo Appreciate Dr. Ospina and Dr. Toro Home O2 PT/OT NHP Poor prognosis Diagnosis/Problems Diagnosis/Problems (1) Pneumonia Status: Acute Qualifiers: Pneumonia type: due to unspecified organism Laterality: left Lung location: lower lobe of lung Qualified Codes: J18.1 - Lobar pneumonia, unspecified organism (2) Lactic acid acidosis Status: Acute (3) Dementia Status: Chronic Qualifiers: Dementia type: Alzheimer's disease Alzheimer's disease onset: unspecified onset Dementia behavioral disturbance: without behavioral disturbance Qualified Codes: G30.9 - Alzheimer's disease, unspecified; F02.80 - Dementia in other diseases classified elsewhere without behavioral disturbance (4) CAD (coronary artery disease) Status: Chronic Qualifiers: Coronary Disease-Associated Artery/Lesion type: [place] artery [place] vs. transplanted heart: [place] heart Associated angina: without angina Qualified Codes: I25.10 - Atherosclerotic heart disease of [place] coronary artery without angina pectoris (5) Hypertension Status: Chronic Qualifiers: Hypertension type: essential hypertension Qualified Codes: I10 - Essential (primary) hypertension (6) Hyperlipemia Status: Chronic Qualifiers: Hyperlipidemia type: mixed hyperlipidemia Qualified Codes: E78.2 - Mixed hyperlipidemia (7) Renal insufficiency Status: Chronic (8) SIADH (syndrome of inappropriate ADH production) Status: Chronic (9) GERD (gastroesophageal reflux disease) Status: Chronic Qualifiers: Esophagitis presence: without esophagitis Qualified Codes: K21.9 - Gastro- esophageal reflux disease without esophagitis (10) Lung nodule Status: Acute (11) History of colon cancer Status: Chronic (12) Hyponatremia Status: Acute (13) Altered mental status Status: Acute Qualifiers: Altered mental status type: unspecified Qualified Codes: R41.82 - Altered mental status, unspecified (14) Elevated lactic acid level Status: Acute (15) Hypoxia Status: Acute Clinical Quality Measures DVT/VTE Risk/Contraindication: Risk Factor Score Per Nursin RFS Level Per Nursing on Admit: 1=Low/No VTE PPX DAIN DUBOSE DO Sep 14, 2018 10:45
--- NOTE | 2018-09-14 10:46 | NUR ---
CM/VADIM. [facility] considering patient for Medicare skilled placement. Two [facility]ah team members out ill today, they have worked in partnership for [facility] to come assess patient in person. They have expressed concerns about patient's dementia and require in-person assess before making decision. Spouse Linda has already been in discussion with [facility] about patient going there. CARE Assessment remains pending until actual acceptance. If [facility] does not accept, will need to pursue alternate facility, less desirable because they are from [place] and Linda has driving limitations.
[2018-09-14] MEDS: AZITHROMYCIN 250 MG TAB (ZITHROMAX) PO SCH (12:59)
--- NOTE | 2018-09-14 15:18 | ST Dysphagia Evaluation ---
Speech Evaluation-General Medical Diagnosis pneumonia Onset Date: Sep 09, 2018 Therapy Diagnosis Therapy Diagnosis: Oropharyngeal Dysphagia Precautions Precautions: Aspiration Precautions/Isolations: Fall Prevention, Standard Precautions Referral Referring Physician: Dr. Trujillo Reason for Referral: Evaluation/Treatment Medical History Pertinent Medical History: CAD, Dementia, GERD, HTN, OA, Renal Insufficiency Reviewed History: Yes Social History Current Living Status: Spouse Speech PLF/Current-Dysphagia Prior Level of Function Patient lived at home with his . He ate what he wanted during that time. Subjective The patient was lethargic, however he was able to participate with the Bedside Dysphagia Evaluation. Cognitive Status Patient Orientation: Person, Confused Oral Motor Skills Denture Type: Full- Upper & Lower Current Food Consistancy: Regular Ability to Follow Directions: Poor Oral Expression Ability: Severe Impairment Oral-Facial Assessment Oral-Facial Dentition: Normal Labial Seal Description: Reduced ROM, Weak, Poor Coordination Smile: Reduced ROM, Poor Coordination Lingual Protrusion: Normal Lingual ROM: Normal Lingual Strength: Normal Voluntary Cough: No Can Clear Throat Volitionally: No Productive Cough: No Productive Throat Clear: No Dysphagia Evaluation Consistencies Presented: Regular, Thin Liquid, Mechanical Soft, Ground, Pureed Oral Phase: Left Pocketing, Right Pocketing, Reduced Oral Transit Pharyngeal Phase: Decreased A/P Bolus Transit Funct. Velo/Pharyngeal Symptom: Cough After Swallow Dietary Recommendations: Mechanical Soft Liquid Recommendations: Thin Swallowing Precautions: Alternate Liquids/Solids, Double Swallow, Decreased Bolus 1/2 Tsp, Liquids from Cup, Liquids from Straw, Pocketing, Small Bites and Sips, Sitting Upright 90 Degrees, Sitting 90 Degrees 30 Post Intake Dysphagia Evaluation Summary The patient is an 78 year old male who was admitted to the hospital secondary to pneumonia. The patient lives at home with his . Prior to this hospital admission it was noted he ate whatever he wanted to. The patient completed a Bedside Dysphagia Evaluation with frequent verbal prompts. He was lethargic and nonverbal most of the time. He is noted to be confused and unable to give history. He has been on a heart healthy regular consistency diet level. His least restrictive diet level is determined to be Dysphagia II with thin liquids as discussed with his nurse. Barriers to Learning Patient is confused and has difficulty with following directions. Speech Short Term Goals Short Term Goals Short Term Goals 1) The patient will tolerate the least restrictive diet level without signs/ symptoms of aspiration at 90% or greater. 2) The patient will follow simple directions for safe oral intake at 90% or greater. Speech Half-Way Goals Line Operator Goals The patient will maintain adequate nutrition/hydration via safe effective swallow function. Speech-Plan Patient/Family Goals Patient/Family Goals: The patient's plans on him returning home upon hospital discharge. Treatment Plan Speech Therapy Treatment Plan: Continue Plan of Care The patient will receive skilled dysphagia therapy. Treatment Duration: Sep 18, 2018 Frequency: 5 times per week Estimated Hrs Per Day: .25 hour per day Rehab Potential: Guarded Barriers to Learning: Patient is confused. Pt/Family Agrees to Plan: Yes Safety Risks/Education Teaching Recipient: Patient Teaching Methods: Discussion Response to Teaching: Verbalize Understanding Education Topics Provided: Safety of oral intakeee Time Speech Therapy Time In: 14:45 Speech Therapy Time Out: 15:00 Total Billed Time: 15 Billed Treatment Time 1MAY[address] ST Sep 14, 2018 15:18
--- NOTE | 2018-09-14 15:33 | NUR ---
CM/SS. Provided additional information to [facility] at their request. They have still not committed to accepting patient for admission. Alternate facility may need to be pursued.
[2018-09-14] MEDS: inSUlin NPH (NovoLIN N) 1 UNIT/0.01 ML (CHARGE PER UNIT) SQ SCH (18:02)
[2018-09-14] MEDS: ATORVASTATIN 20 MG (LIPITOR) TABLET PO SCH (20:20)
[2018-09-14] MEDS: NIACIN 500 MG TABLET PO SCH (20:20)
[2018-09-15 03:26] VITALS: BP 152/74
[2018-09-15 06:17] LABS: BASOPHILS % (AUTO) 0 % (0-10); EOSINOPHILS # (AUTO) 0.2 10^3/uL (0.0-0.3); EOSINOPHILS % (AUTO) 2 % (0-10); HEMATOCRIT 31 % (40-54); LYMPHOCYTES % (AUTO) 11 % (12-44); MEAN CORPUSCULAR HEMOGLOBIN 32 PG (25-34); MEAN CORPUSCULAR HGB CONC 35 G/DL (32-36); MEAN CORPUSCULAR VOLUME 92 FL (80-99); MEAN PLATELET VOLUME 7.4 FL (7.4-10.4); MONOCYTES # (AUTO) 0.7 X 10^3 (0.0-1.0); MONOCYTES % (AUTO) 8 % (0-12); NEUTROPHILS # (AUTO) 6.8 X 10^3 (1.8-7.8); NEUTROPHILS % (AUTO) 79 % (42-75); PLATELET COUNT 239 10^3/uL (130-400); RED CELL DISTRIBUTION WIDTH 12.1 % (10.0-14.5); WHITE BLOOD COUNT 8.7 10^3/uL (4.3-11.0)
[2018-09-15 06:41] LABS: BUN/CREATININE RATIO 22; CALCIUM 9.9 MG/DL (8.5-10.1); CARBON DIOXIDE 26 MMOL/L (21-32); CHLORIDE 98 MMOL/L (98-107); GFR ESTIMATED > 60; GLUCOSE 65 MG/DL (70-105); MAGNESIUM 1.9 MG/DL (1.8-2.4); PHOSPHORUS 4.1 MG/DL (2.3-4.7); POTASSIUM 3.8 MMOL/L (3.6-5.0); SODIUM 133 MMOL/L (135-145)
[2018-09-15] MEDS: inSUlin ASPART (NovoLOG) 1 UNIT/0.01 ML (CHARGE PER UNIT) SC SCH ×4 (06:41→20:51)
[2018-09-15] MEDS: MULTIVIT W/MINERALS TAB (THERAGRAN M) PO SCH (06:41)
[2018-09-15] MEDS: metFORMIN 500 MG (GLUCOPHAGE) TAB PO SCH (07:05)
[2018-09-15] MEDS: glipiZIDE 5 MG (GLUCOTROL) TAB PO SCH (07:05)
[2018-09-15] MEDS: RT-ALBUTEROL SULF 2.5 MG/3 ML PRE-MIX VIAL INH SCH ×4 (07:19→20:13)
[2018-09-15 08:00] VITALS: BP 137/71
[2018-09-15] MEDS: meTOprolol TARTRATE 50 MG (LOPRESSOR) TAB PO SCH ×2 (08:25→20:50)
[2018-09-15] MEDS: cefTRIAXone FOR IV USE 1,000 MG in WATER (STERILE) FOR INJECTION 10 ML IV SCH (08:25)
[2018-09-15] MEDS: doxAzosin 4 MG (CARDURA) TAB PO SCH ×2 (08:25→20:49)
[2018-09-15] MEDS: LOSARTAN 50 MG (COZAAR) TAB PO SCH (08:26)
[2018-09-15] MEDS: risperiDONE 1 MG (RisperDAL) TAB PO SCH ×2 (08:26→20:53)
[2018-09-15] MEDS: amLODIPine 10 MG (NORVASC) TAB PO SCH (08:26)
[2018-09-15] MEDS: ASPIRIN 81 MG CHEW (CHILDREN'S ASA) PO SCH (08:26)
[2018-09-15] MEDS: FAMOTIDINE 20 MG (PEPCID) TABLET PO SCH ×2 (08:26→20:47)
[2018-09-15] MEDS: CLOPIDOGREL 75 MG (PLAVIX) TABLET PO SCH (08:26)
--- NOTE | 2018-09-15 09:10 | Pulmonary Progress Note ---
Subjective Time Seen by a Provider: 09:10 Subjective/Events-last exam Pt asleep in chair. Sepsis Event Evaluation Height, Weight, BMI Height: 5'6.00" Weight: 224lbs. 4.0oz. 101.250227ov; 37.3 BMI Method:Stated Exam Exam Vital Signs Date Time Temp Pulse Resp B/P (MAP) Pulse Ox O2 Delivery O2 Flow Rate FiO2 09/15/18 08:00 97.5 69 20 137/71 (93) 97 Room Air 1.00 09/15/18 03:26 97.3 72 20 152/74 (100) 93 Room Air 09/14/18 23:55 96.8 68 21 142/67 (92) 97 Nasal Cannula 1.00 09/14/18 21:00 Nasal Cannula 2.00 09/14/18 20:07 97 Nasal Cannula 2.00 09/14/18 19:10 97.6 72 20 165/68 (100) 97 Nasal Cannula 2.00 09/14/18 16:10 97.4 64 18 154/72 (99) 97 Nasal Cannula 2.00 09/14/18 11:54 97.4 56 16 129/61 (83) 98 Nasal Cannula 2.00 09/14/18 10:53 96 Nasal Cannula 2.00 I & O 09/15/18 07:00 Intake Total 480 ml Balance 480 ml Height & Weight Height: 5'6.00" Weight: 224lbs. 4.0oz. 101.132138tm; 37.3 BMI Method:Stated General Appearance: No Apparent Distress, WD/WN, Anxious, Chronically ill, Obese, Other (confused) HEENT: PERRL/EOMI, Normal ENT Inspection, Pharynx Normal Neck: Full Range of Motion, Non Tender, Supple Respiratory: Chest Non Tender, No Accessory Muscle Use, No Respiratory Distress , Crackles, Decreased Breath Sounds Cardiovascular: Regular Rate, Rhythm, No Edema, No Murmur Capillary Refill: Less Than 3 Seconds Gastrointestinal: normal bowel sounds, non tender, soft Extremity: Normal Capillary Refill Neurologic/Psychiatric: Alert, No Motor/Sensory Deficits, Disoriented (O x 1) Skin: Normal Color, Warm/Dry Lymphatic: No Adenopathy Results Lab Laboratory Tests 09/13/18 10:25 09/14/18 04:25 09/15/18 06:10 Assessment/Plan Assessment/Plan Pneumonia- no fever, no leukocytosis -rocephin, azithromycin Lung nodule -PT will need repeat CT of chest 6-8wks after discharge -Pt will most likely need bronchoscopy and PET scan if lung nodules persist after f/u CT scan -F/u order was placed Anemia -Monitor Confusion/psychosis - probably chronic dementia -Risperdal 1mg BID -PRN JESSICA England DO Sep 15, 2018 09:10
--- NOTE | 2018-09-15 11:13 | NUR ---
NOTE THAT FSBS WAS 58 -- PT WAS GIVEN ORANGE JUICE AND HIS TRAY WAS ORDER TO GET TO FLOOR EARLY -- LEFT MESSAGE FOR DR DUBOSE -- PT IS NOT EATING A LOT AND THE ABOVE AND THAT HIS 06 BS WAS 69 AND THAT HE HAS SSI, SCHEDULE INSULIN, PO MEDS -- SHE WILL ADJUST HIS MEDS
--- NOTE | 2018-09-15 11:25 | Physical Therapy Daily Note ---
PT Daily Note-Current Subjective Pt states doing fine, then begins word salad type speech Pain Comment: unable to assess Appearance Pt supine in bed and awake upon arrival. Worked with nursing to perform yessi care on pt while standing At end of session, pt sitting up in recliner, LE's elevated, with call light, phone and bedside table within reach. Chair alarm activated Mental Status Patient Orientation: Unable to Assess Transfers Therapy Code Descriptions/Definitions Functional [place] Measure: 0=Not Assessed/NA 4=Minimal Assistance 1=Total Assistance 5=Supervision or Setup 2=Maximal Assistance 6=Modified [place] 3=Moderate Assistance 7=Complete [place] Therapy Quality Codes: 6 Independent with activity with or without an assistive device 5 Patient requires set up or clean up by helper. Patient completes activity by themselves 4 Supervision or touching assist (CGA). [place] provide cues , steadying assist 3 The helper provides less than half the effort to complete the activity 2 The helper provides more than half the effort to complete the activity 1 Dependent. The helper does all the effort to complete an activity 7 Patient refused to complete or attempt activity 9 The patient did not perform the activity before the current illness or injury 88 Not attempted due to Medical conditions or safety concerns Transfers (B, C, W/C) (FIM): 3 Supine to/from Sit: 3 Sit to/from Stand: 4 Bed to/from Chair: 4 pt requiring increased time and constant re instruction during all transitions Gait Training Gait (FIM): 1 Distance (FIM): 1=up to 49 ft Distance: 10 Gait Level of Assist: 4 Gait Persons Needed: 1 Gait Assistive Device: FWW Pt requiring increased time, direction, constant re instruction, assistance with guidance of FWW Treatments bed mobility, transfers, gait, functional mobility, safety, balance Assessment pt with difficulty following instruction PT Cosmetic Maker Goals Cosmetic Maker Goals PT [facility]ci Goals Time Frame: Sep 22, 2018 Transfers (B,C,W/C) (FIM): 5 Gait (FIM): 5 Gait distance (FIM): 3=150 ft Distance: 250' Gait Level of Assist: 5 Gait Assistive Device: FWW PT Plan Treatment/Plan Treatment Plan: Continue Plan of Care Treatment Plan: Bed Mobility, Education, Functional Activity Kia, Functional Strength, Gait, Safety, Therapeutic Exercise, Transfers Treatment Duration: Sep 22, 2018 Frequency: 6 times per week Estimated Hrs Per Day: .25 hour per day Patient and/or Family Agrees t: Yes Safety Risks/Education Patient Education: Gait Training, Transfer Techniques, Safety Issues Teaching Recipient: Patient Teaching Methods: Demonstration, Discussion Response to Teaching: Unable to Return Demonstration, Unable to Comprehend, Reinforcement Needed Time/GCodes Time In: 847 Time Out: 912 Total Billed Treatment Time: 25 Total Billed Treatment 1 visit, FA x 2 units ROSARIO VILLANUEVA PTA Sep 15, 2018 11:25
[2018-09-15 12:00] VITALS: BP 131/60
--- NOTE | 2018-09-15 12:39 | Progress Note-Hospitalist ---
Subjective HPI/CC On Admission Date Seen by Provider: Sep 15, 2018 Time Seen by Provider: 12:00 CC: Confusion with pneumonia HPI: This is an 78-year-old white male of mine for the past 15 years with a past medical history of diabetes, CAD, colon cancer, chronic renal insufficiency and SIADH who most recently has had a significant decline in cognition who presented to [place] [facility] with shortness of breath and cough and fever diagnosed with pneumonia and severe hyponatremia of 121. Dr. Ospina has seen in consultation maintained on Rocephin and Zithromax and is now on hypertonic saline since sodium level only went up to 124 from 121 to see if that helps the cognition. The last 2 visits I have noted a significant decline in mentation and the severity of his dementia is likely to remain even though sodium level has returned to be corrected. He does not even know me and I've been taking care of him for 15 years. Subjective/Events-last exam Patient's sleeping constantly He does eat when fed No new problems but overall prognosis is becoming more poor by the day Unsure of the recovery potential Review of Systems General: Fatigue Objective Exam Vital Signs Vital Signs Date Time Temp Pulse Resp B/P (MAP) Pulse Ox O2 Delivery O2 Flow Rate FiO2 09/15/18 11:36 96 Nasal Cannula 1.00 09/15/18 09:00 97.5 09/15/18 08:00 69 20 137/71 (93) Capillary Refill : Less Than 3 Seconds General Appearance: WD/WN, Chronically ill, Obese, Other (sleeping in chair) HEENT: PERRL/EOMI, Normal ENT Inspection, Pharynx Normal Neck: Full Range of Motion, Non Tender, Supple Respiratory: Chest Non Tender, No Accessory Muscle Use, No Respiratory Distress , Crackles, Decreased Breath Sounds Cardiovascular: Regular Rate, Rhythm, No Edema, No Murmur Extremity: Normal Capillary Refill Neurologic/Psychiatric: Disoriented (O x 1), Other Skin: Normal Color, Warm/Dry Lymphatic: No Adenopathy Results/Procedures Lab Laboratory Tests 09/15/18 06:10 Patient resulted labs reviewed. Assessment/Plan Assessment and Plan Assess & Plan/Chief Complaint Assessment: Pneumonia Elevated lactic acid Severe hyponatremia chronically History of SIADH Dementia with significant worsening the last 6 months CAD Colon cancer history Hypertension Hyperlipidemia Chronic renal insufficiency Pneumonia in the past Former smoker GERD Plan: IV antibiotics HLIVF Fluid restriction Check echo Appreciate Dr. Ospina and Dr. Toro Home O2 PT/OT NHP Poor prognosis Diagnosis/Problems Diagnosis/Problems (1) Pneumonia Status: Acute Qualifiers: Pneumonia type: due to unspecified organism Laterality: left Lung location: lower lobe of lung Qualified Codes: J18.1 - Lobar pneumonia, unspecified organism (2) Lactic acid acidosis Status: Resolved Resolution Date/Time: 09/15/18 @ 13:15 (3) Dementia Status: Chronic Qualifiers: Dementia type: Alzheimer's disease Alzheimer's disease onset: unspecified onset Dementia behavioral disturbance: without behavioral disturbance Qualified Codes: G30.9 - Alzheimer's disease, unspecified; F02.80 - Dementia in other diseases classified elsewhere without behavioral disturbance (4) CAD (coronary artery disease) Status: Chronic Qualifiers: Coronary Disease-Associated Artery/Lesion type: [place] artery [place] vs. transplanted heart: [place] heart Associated angina: without angina Qualified Codes: I25.10 - Atherosclerotic heart disease of [place] coronary artery without angina pectoris (5) Hypertension Status: Chronic Qualifiers: Hypertension type: essential hypertension Qualified Codes: I10 - Essential (primary) hypertension (6) Hyperlipemia Status: Chronic Qualifiers: Hyperlipidemia type: mixed hyperlipidemia Qualified Codes: E78.2 - Mixed hyperlipidemia (7) Renal insufficiency Status: Chronic (8) SIADH (syndrome of inappropriate ADH production) Status: Chronic (9) GERD (gastroesophageal reflux disease) Status: Chronic Qualifiers: Esophagitis presence: without esophagitis Qualified Codes: K21.9 - Gastro- esophageal reflux disease without esophagitis (10) Lung nodule Status: Acute (11) History of colon cancer Status: Chronic (12) Hyponatremia Status: Acute (13) Altered mental status Status: Acute Qualifiers: Altered mental status type: unspecified Qualified Codes: R41.82 - Altered mental status, unspecified (14) Elevated lactic acid level Status: Acute (15) Hypoxia Status: Acute Clinical Quality Measures DVT/VTE Risk/Contraindication: Risk Factor Score Per Nursin RFS Level Per Nursing on Admit: 1=Low/No VTE PPX DAIN DUBOSE DO Sep 15, 2018 12:39
--- NOTE | 2018-09-15 13:28 | Progress Note-Cardiology ---
Cardiology SOAP Progress Note Subjective: No cp or palp or syncope or shortness of breath, according to him Objective: I&O/Vital Signs 09/15/18 09/15/18 09/15/18 09/15/18 03:26 08:00 09:00 09:00 Temp 97.3 97.5 97.5 Pulse 72 69 Resp 20 20 B/P (MAP) 152/74 (100) 137/71 (93) Pulse Ox 93 97 O2 Delivery Room Air Room Air Nasal Cannula O2 Flow Rate 1.00 2.00 09/15/18 11:36 Pulse Ox 96 O2 Delivery Nasal Cannula O2 Flow Rate 1.00 09/15/18 00:00 Intake Total 480 ml Balance 480 ml Weight (Pounds): 224 Weight (Ounces): 4.0 Weight (Calculated Kilograms): 101.003835 Constitutional: No AAO x 3; well-developed, well-nourished Respiratory: No accessory muscle use; crackles (bi-basilar), rhonchi (scattered ), other (good bilat air entry) Cardiovascular: regular rate-rhythm, S1 and S2, systolic murmur (soft BELLA at card base) Gastrointestional: No tender, No soft, No guarding, No rebound; audible bowel sounds Extremities: No clubbing, No cyanosis, No significant edema Neurologic/Psychiatric: No oriented x 3; other (oriented to self only), power is 5/5 both on sides Skin: No rash on exposed areas, No ulcerations on exposed areas Results/Procedures: Labs Laboratory Tests 09/14/18 16:10: Glucometer 145H 09/14/18 20:53: Glucometer 227H 09/15/18 06:10: White Blood Count 8.7, Red Blood Count 3.40L, Hemoglobin 11.0L, Hematocrit 31L, Mean Corpuscular Volume 92, Mean Corpuscular Hemoglobin 32, Mean Corpuscular Hemoglobin Concent 35, Red Cell Distribution Width 12.1, Platelet Count 239, Mean Platelet Volume 7.4, Neutrophils (%) (Auto) 79H, Lymphocytes (%) (Auto) 11L , Monocytes (%) (Auto) 8, Eosinophils (%) (Auto) 2, Basophils (%) (Auto) 0, Neutrophils # (Auto) 6.8, Lymphocytes # (Auto) 1.0, Monocytes # (Auto) 0.7, Eosinophils # (Auto) 0.2, Basophils # (Auto) 0.0, Sodium Level 133L, Potassium Level 3.8, Chloride Level 98, Carbon Dioxide Level 26, Anion Gap 9, Blood Urea Nitrogen 20H, Creatinine 0.90, Estimat Glomerular Filtration Rate > 60, BUN/ Creatinine Ratio 22, Glucose Level 65L, Calcium Level 9.9, Phosphorus Level 4.1 , Magnesium Level 1.9 09/15/18 06:14: Glucometer 69L 09/15/18 10:57: Glucometer 58*L Microbiology 09/09/18 Blood Culture - Preliminary, Resulted No growth Laboratory Tests 09/14/18 04:25 09/15/18 06:10 A/P: Assessment: LLL pneumonia, managed by Dr Trujillo and Dr Ospina Hyponatremia, 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 No clinical evidence of decompensated CHF. Mild BNP elevation probably due to pneumonia and/or obesity- hypoventilation Uncontrolled hypertension Echo of September 2018: Well preserved global LV systolic function with an LVEF of 60-65%. Mild tricuspid regurg. PASP mmHg Chronic stable angina Coronary artery disease with a history of coronary artery bypass surgery. Last cardiac catheterization was in March 2014 which showed severe [place] CAD including 95% mid vessel stenosis of the left internal descending artery, 60% mid vessel stenosis of the left cx, subtotal ostial occlusion of the first OM branch and complete occlusion of the proximal to mid RCA, patent left internal mammary artery graft to the mid LAD, patent saphenous vein graft (with prox 50- 60% stenosis) to the first OM branch 50-60% proximal stenosis, and severely degenerated saphenous vein graft to the distal RCA (this graft has multiple 99 to 100% stenoses in its midportion and appears to be at high risk if percutaneous intervention is to be undertaken). LV gram showed well-preserved global left ventricular systolic function with an ejection fraction of 60-65%, mild posterobasal hypokinesis, no significant MR, mild LVEDP Obesity with a body mass index of approximately 37. Suspected CHIQUI, but pt has not followed through on the recommendation to have a sleep study done Gastroesophageal reflux. Hyperlipidemia, treated with statin and niacin therapy. Maturity onset diabetes mellitus being managed by Dr. Trujillo. Chronic bilateral ankle swelling, likely related to venous insufficiency and/or calcium channel karl therapy, currently stable. Rectal carcinoma that has been treated with surgery, followed by radiation therapy. Mild peripheral neuropathy consisting of numbness of the feet. History of carotid arterial disease with left-sided carotid endarterectomy by Dr. Ritchie. Carotid ultrasonography of January 2014 showed mild bilateral disease, hemodynamically nonsignificant. Dementia Plan: * BP has improved - continue current regimen * Treatment of pneumonia and hyponatremia is with Dr Trujillo and Dr Ospina * Not suitable candidate for increasing ARB d/t hyperkalemia with higher dose * Monitor labs MARGARITA DUNBAR MD FACP FAC CCDS Sep 15, 2018 13:28
[2018-09-15 15:14] LABS: ABG BASE EXCESS 1.7 MMOL/L (-2.5-2.5); ABG OXYGEN SATURATION 96 % (94-100); ABG PCO2 45 MMHG (35-45); ABG PH 7.38 (7.37-7.43); ABG PO2 74 MMHG (79-93)
[2018-09-15 15:16] LABS: ALLENS TEST POSITIVE; INSPIRED O2 1L; VENTILATOR NO
[2018-09-15 16:04] VITALS: BP 144/66
[2018-09-15] MEDS: inSUlin NPH (NovoLIN N) 1 UNIT/0.01 ML (CHARGE PER UNIT) SQ SCH (18:21)
[2018-09-15 20:00] VITALS: BP 197/84
[2018-09-15] MEDS: NIACIN 500 MG TABLET PO SCH (20:48)
[2018-09-15] MEDS: MELATONIN 3 MG TABLET PO PRN (20:48)
[2018-09-15] MEDS: ATORVASTATIN 20 MG (LIPITOR) TABLET PO SCH (20:48)
[2018-09-15 21:00] VITALS: BP 160/70
[2018-09-16] VITALS: BP 150/69
[2018-09-16 04:00] VITALS: BP 159/68
[2018-09-16 04:59] LABS: BASOPHILS % (AUTO) 0 % (0-10); EOSINOPHILS # (AUTO) 0.3 10^3/uL (0.0-0.3); EOSINOPHILS % (AUTO) 3 % (0-10); HEMATOCRIT 33 % (40-54); HEMOGLOBIN 11.4 G/DL (13.3-17.7); LYMPHOCYTES # (AUTO) 0.8 X 10^3 (1.0-4.0); LYMPHOCYTES % (AUTO) 9 % (12-44); MEAN CORPUSCULAR HEMOGLOBIN 32 PG (25-34); MEAN CORPUSCULAR HGB CONC 35 G/DL (32-36); MEAN CORPUSCULAR VOLUME 93 FL (80-99); MEAN PLATELET VOLUME 7.9 FL (7.4-10.4); MONOCYTES # (AUTO) 0.8 X 10^3 (0.0-1.0); MONOCYTES % (AUTO) 10 % (0-12); NEUTROPHILS # (AUTO) 6.6 X 10^3 (1.8-7.8); NEUTROPHILS % (AUTO) 78 % (42-75); PLATELET COUNT 265 10^3/uL (130-400); RED CELL DISTRIBUTION WIDTH 12.3 % (10.0-14.5); WHITE BLOOD COUNT 8.4 10^3/uL (4.3-11.0)
[2018-09-16 05:18] LABS: BUN/CREATININE RATIO 22; CALCIUM 9.7 MG/DL (8.5-10.1); CARBON DIOXIDE 25 MMOL/L (21-32); CHLORIDE 99 MMOL/L (98-107); CREATININE SERUM 1.08 MG/DL (0.60-1.30); GFR ESTIMATED > 60; GLUCOSE 114 MG/DL (70-105); MAGNESIUM 1.9 MG/DL (1.8-2.4); PHOSPHORUS 4.1 MG/DL (2.3-4.7); POTASSIUM 4.2 MMOL/L (3.6-5.0); SODIUM 133 MMOL/L (135-145)
[2018-09-16] MEDS: inSUlin ASPART (NovoLOG) 1 UNIT/0.01 ML (CHARGE PER UNIT) SC SCH ×4 (05:33→21:46)
[2018-09-16] MEDS: MULTIVIT W/MINERALS TAB (THERAGRAN M) PO SCH (06:01)
[2018-09-16] MEDS: glipiZIDE 5 MG (GLUCOTROL) TAB PO SCH (06:02)
[2018-09-16] MEDS: RT-ALBUTEROL SULF 2.5 MG/3 ML PRE-MIX VIAL INH SCH ×4 (06:30→18:18)
--- NOTE | 2018-09-16 06:31 | Pulmonary Progress Note ---
Subjective Time Seen by a Provider: 06:53 Subjective/Events-last exam PT is awake in bed and answering questions. Sepsis Event Evaluation Height, Weight, BMI Height: 5'6.00" Weight: 223lbs. 1.0oz. 101.813390ta; 37.3 BMI Method:Stated Exam Exam Vital Signs Date Time Temp Pulse Resp B/P (MAP) Pulse Ox O2 Delivery O2 Flow Rate FiO2 09/16/18 04:00 98.0 63 18 159/68 (98) 96 Room Air 09/16/18 00:00 98.2 64 18 150/69 (96) 96 Room Air 09/15/18 21:00 Nasal Cannula 2.00 09/15/18 21:00 71 160/70 (100) 09/15/18 20:13 94 Nasal Cannula 1.00 09/15/18 20:00 98.0 71 18 197/84 (121) 98 Room Air 09/15/18 16:04 97.1 59 18 144/66 (92) 100 Nasal Cannula 1.00 09/15/18 15:10 95 Nasal Cannula 1.00 09/15/18 12:00 96.0 63 20 131/60 (83) 99 Nasal Cannula 1.00 09/15/18 11:36 96 Nasal Cannula 1.00 09/15/18 09:00 97.5 09/15/18 09:00 Nasal Cannula 2.00 09/15/18 08:00 97.5 69 20 137/71 (93) 97 Nasal Cannula 1.00 I & O 09/16/18 07:00 Intake Total 910 ml Balance 910 ml Height & Weight Height: 5'6.00" Weight: 223lbs. 1.0oz. 101.531613dk; 37.3 BMI Method:Stated General Appearance: WD/WN, Chronically ill, Obese, Other (sleeping in chair) HEENT: PERRL/EOMI, Normal ENT Inspection, Pharynx Normal Neck: Full Range of Motion, Non Tender, Supple Respiratory: Chest Non Tender, No Accessory Muscle Use, No Respiratory Distress , Crackles, Decreased Breath Sounds Cardiovascular: Regular Rate, Rhythm, No Edema, No Murmur Capillary Refill: Less Than 3 Seconds Gastrointestinal: normal bowel sounds, non tender, soft Extremity: Normal Capillary Refill Neurologic/Psychiatric: Disoriented (O x 1), Other Skin: Normal Color, Warm/Dry Lymphatic: No Adenopathy Results Lab Laboratory Tests 09/15/18 06:10 09/16/18 04:35 Assessment/Plan Assessment/Plan Pneumonia- no fever, no leukocytosis -rocephin, azithromycin Lung nodule -PT will need repeat CT of chest 6-8wks after discharge -Pt will most likely need bronchoscopy and PET scan if lung nodules persist after f/u CT scan -F/u order was placed Anemia -Monitor Confusion/psychosis - probably chronic dementia -Risperdal 1mg BID -PRN JESSICA England DO Sep 16, 2018 06:30
[2018-09-16 08:00] VITALS: BP 176/80
[2018-09-16] MEDS: cefTRIAXone FOR IV USE 1,000 MG in WATER (STERILE) FOR INJECTION 10 ML IV SCH (09:26)
[2018-09-16] MEDS: meTOprolol TARTRATE 50 MG (LOPRESSOR) TAB PO SCH ×2 (09:27→21:47)
[2018-09-16] MEDS: LOSARTAN 50 MG (COZAAR) TAB PO SCH (09:27)
[2018-09-16] MEDS: doxAzosin 4 MG (CARDURA) TAB PO SCH ×2 (09:27→21:47)
[2018-09-16] MEDS: amLODIPine 10 MG (NORVASC) TAB PO SCH (09:27)
[2018-09-16] MEDS: CLOPIDOGREL 75 MG (PLAVIX) TABLET PO SCH (09:28)
[2018-09-16] MEDS: FAMOTIDINE 20 MG (PEPCID) TABLET PO SCH ×2 (09:28→21:47)
[2018-09-16] MEDS: ASPIRIN 81 MG CHEW (CHILDREN'S ASA) PO SCH (09:28)
[2018-09-16] MEDS: risperiDONE 1 MG (RisperDAL) TAB PO SCH ×2 (09:28→21:47)
[2018-09-16] MEDS: HALOPERIDOL 5 MG/ML (HALDOL) AMP IM PRN (11:25)
--- NOTE | 2018-09-16 11:25 | NUR ---
PT HAS BEEN TRYING TO CLIMB OUT OF BED -- VERY CONFUSED -- STAFF HAS BEEN GETTING HIM BACK IN BED AND RESETTING BED ALARM -- PT CONFUSED -- VOICED HE NEEDED TO LEAVE THE GARAGE AND GO TO WORK -- ATTEMPTS TO REORIENT UNSUCCESSFUL -- PT PULLING AT SL AND CONTINUES TO TRY TO CLIMB OUT OF BED -- IM HALADOL GIVEN --
[2018-09-16 12:00] VITALS: BP 136/57
--- NOTE | 2018-09-16 12:55 | Progress Note-Hospitalist ---
Subjective HPI/CC On Admission Date Seen by Provider: Sep 16, 2018 Time Seen by Provider: 12:00 CC: Confusion with pneumonia HPI: This is an 78-year-old white male of mine for the past 15 years with a past medical history of diabetes, CAD, colon cancer, chronic renal insufficiency and SIADH who most recently has had a significant decline in cognition who presented to [place] with shortness of breath and cough and fever diagnosed with pneumonia and severe hyponatremia of 121. Dr. Ospina has seen in consultation maintained on Rocephin and Zithromax and is now on hypertonic saline since sodium level only went up to 124 from 121 to see if that helps the cognition. The last 2 visits I have noted a significant decline in mentation and the severity of his dementia is likely to remain even though sodium level has returned to be corrected. He does not even know me and I've been taking care of him for 15 years. Subjective/Events-last exam Patient alert and doing much better at bedside and eating a good lunch ABG reviewed No pain is reported Spoke to Lidna his and updated her on my involvement at [facility] in [facility] and she is now willing for a short visit there if [place] requires it prior to accepting the patient Updated [facility] [place] is a concern for the and Medicaid pending so will try to reach out for some support for them in that way also Review of Systems General: Fatigue Objective Exam Vital Signs Vital Signs Date Time Temp Pulse Resp B/P (MAP) Pulse Ox O2 Delivery O2 Flow Rate FiO2 09/16/18 10:24 91 Room Air 09/16/18 09:00 2.00 09/16/18 08:00 97.1 64 18 176/80 (112) Capillary Refill : Less Than 3 Seconds General Appearance: No Apparent Distress, WD/WN, Chronically ill, Obese HEENT: PERRL/EOMI, Normal ENT Inspection, Pharynx Normal Neck: Full Range of Motion, Normal Inspection, Non Tender, Supple Respiratory: Chest Non Tender, Lungs Clear, Normal Breath Sounds, No Accessory Muscle Use, No Respiratory Distress Cardiovascular: Regular Rate, Rhythm, No Edema, No Gallop, No JVD, No Murmur Extremity: Normal Capillary Refill Neurologic/Psychiatric: Alert, Oriented x3, No Motor/Sensory Deficits, Normal Mood/Affect, process 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 Assessment/Plan Assessment and Plan Assess & Plan/Chief Complaint Assessment: Pneumonia Elevated lactic acid Severe hyponatremia chronically History of SIADH Dementia with significant worsening the last 6 months CAD Colon cancer history Hypertension Hyperlipidemia Chronic renal insufficiency Pneumonia in the past Former smoker GERD Plan: IV antibiotics HLIVF Fluid restriction Check echo Appreciate Dr. Ospina and Dr. Toro Home O2 PT/OT NHP May need SBH prior to NHP Diagnosis/Problems Diagnosis/Problems (1) Pneumonia Status: Acute Qualifiers: Pneumonia type: due to unspecified organism Laterality: left Lung location: lower lobe of lung Qualified Codes: J18.1 - Lobar pneumonia, unspecified organism (2) Lactic acid acidosis Status: Resolved Resolution Date/Time: 09/15/18 @ 13:15 (3) Dementia Status: Chronic Qualifiers: Dementia type: Alzheimer's disease Alzheimer's disease onset: unspecified onset Dementia behavioral disturbance: without behavioral disturbance Qualified Codes: G30.9 - Alzheimer's disease, unspecified; F02.80 - Dementia in other diseases classified elsewhere without behavioral disturbance (4) CAD (coronary artery disease) Status: Chronic Qualifiers: Coronary Disease-Associated Artery/Lesion type: [place] artery [place] vs. transplanted heart: [place] heart Associated angina: without angina Qualified Codes: I25.10 - Atherosclerotic heart disease of [place] coronary artery without angina pectoris (5) Hypertension Status: Chronic Qualifiers: Hypertension type: essential hypertension Qualified Codes: I10 - Essential (primary) hypertension (6) Hyperlipemia Status: Chronic Qualifiers: Hyperlipidemia type: mixed hyperlipidemia Qualified Codes: E78.2 - Mixed hyperlipidemia (7) Renal insufficiency Status: Chronic (8) SIADH (syndrome of inappropriate ADH production) Status: Chronic (9) GERD (gastroesophageal reflux disease) Status: Chronic Qualifiers: Esophagitis presence: without esophagitis Qualified Codes: K21.9 - Gastro- esophageal reflux disease without esophagitis (10) Lung nodule Status: Acute (11) History of colon cancer Status: Chronic (12) Hyponatremia Status: Acute (13) Altered mental status Status: Acute Qualifiers: Altered mental status type: unspecified Qualified Codes: R41.82 - Altered mental status, unspecified (14) Elevated lactic acid level Status: Acute (15) Hypoxia Status: Acute Clinical Quality Measures DVT/VTE Risk/Contraindication: Risk Factor Score Per Nursin RFS Level Per Nursing on Admit: 1=Low/No VTE PPX DAIN DUBOSE DO Sep 16, 2018 12:55
--- NOTE | 2018-09-16 13:10 | NUR ---
NOTE THAT PT PULLED OUT HIS SL -- WAS AT BED SIDE AND TELE SITTER WAS ON -- CAME OUT AND ADVISED STAFF -- DR GRACY ARTHUR ADVISED AND SHE VOICED TO LEAVE SL OUT AND STOP THE ANTIBX
--- NOTE | 2018-09-16 13:33 | Progress Note-Cardiology ---
Cardiology SOAP Progress Note Subjective: Does not report cp or palp or syncope Objective: I&O/Vital Signs 09/16/18 09/16/18 09/16/18 09/16/18 04:00 06:31 08:00 09:00 Temp 98.0 97.1 Pulse 63 64 Resp 18 18 B/P (MAP) 159/68 (98) 176/80 (112) Pulse Ox 96 91 91 O2 Delivery Room Air Room Air Room Air Nasal Cannula O2 Flow Rate 2.00 09/16/18 10:24 Pulse Ox 91 O2 Delivery Room Air 09/16/18 00:00 Intake Total 800 ml Balance 800 ml Weight (Pounds): 223 Weight (Ounces): 1.0 Weight (Calculated Kilograms): 101.809061 Constitutional: No AAO x 3; well-developed, well-nourished Respiratory: No accessory muscle use; crackles (bi-basilar), rhonchi (scattered ), other (good bilat air entry) Cardiovascular: regular rate-rhythm, S1 and S2, systolic murmur (soft BELLA at card base) Gastrointestional: No tender, No soft, No guarding, No rebound; audible bowel sounds Extremities: No clubbing, No cyanosis, No significant edema Neurologic/Psychiatric: No oriented x 3; other (oriented to self only), power is 5/5 both on sides Skin: No rash on exposed areas, No ulcerations on exposed areas Results/Procedures: Labs Laboratory Tests 09/15/18 15:05: Blood Gas Puncture Site RIGHT RADIAL, Blood Gas Patient Temperature 96.0, Arterial Blood pH 7.38, Arterial Blood Partial Pressure CO2 45, Arterial Blood Partial Pressure O2 74L, Arterial Blood HCO3 27, Arterial Blood Total CO2 28.0, Arterial Blood Oxygen Saturation 96, Arterial Blood Base Excess 1.7, Evgeny Test POSITIVE, Blood Gas Ventilator Setting NO, Blood Gas Inspired Oxygen 1L 09/15/18 16:09: Glucometer 112H 09/15/18 20:51: Glucometer 162H 09/16/18 04:35: White Blood Count 8.4, Red Blood Count 3.52L, Hemoglobin 11.4L, Hematocrit 33L, Mean Corpuscular Volume 93, Mean Corpuscular Hemoglobin 32, Mean Corpuscular Hemoglobin Concent 35, Red Cell Distribution Width 12.3, Platelet Count 265, Mean Platelet Volume 7.9, Neutrophils (%) (Auto) 78H, Lymphocytes (%) (Auto) 9L , Monocytes (%) (Auto) 10, Eosinophils (%) (Auto) 3, Basophils (%) (Auto) 0, Neutrophils # (Auto) 6.6, Lymphocytes # (Auto) 0.8L, Monocytes # (Auto) 0.8, Eosinophils # (Auto) 0.3, Basophils # (Auto) 0.0, Sodium Level 133L, Potassium Level 4.2, Chloride Level 99, Carbon Dioxide Level 25, Anion Gap 9, Blood Urea Nitrogen 24H, Creatinine 1.08, Estimat Glomerular Filtration Rate > 60, BUN/ Creatinine Ratio 22, Glucose Level 114H, Calcium Level 9.7, Phosphorus Level 4.1 , Magnesium Level 1.9 09/16/18 11:13: Glucometer 125H Microbiology 09/09/18 Blood Culture - Final, Complete No growth Laboratory Tests 09/15/18 06:10 09/16/18 04:35 A/P: Assessment: LLL pneumonia, managed by Dr Trujillo and Dr Ospina Hyponatremia, 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 No clinical evidence of decompensated CHF. Mild BNP elevation probably due to pneumonia and/or obesity- hypoventilation Uncontrolled hypertension Echo of September 2018: Well preserved global LV systolic function with an LVEF of 60-65%. Mild tricuspid regurg. PASP mmHg Chronic stable angina Coronary artery disease with a history of coronary artery bypass surgery. Last cardiac catheterization was in March 2014 which showed severe [place] CAD including 95% mid vessel stenosis of the left internal descending artery, 60% mid vessel stenosis of the left cx, subtotal ostial occlusion of the first OM branch and complete occlusion of the proximal to mid RCA, patent left internal mammary artery graft to the mid LAD, patent saphenous vein graft (with prox 50- 60% stenosis) to the first OM branch 50-60% proximal stenosis, and severely degenerated saphenous vein graft to the distal RCA (this graft has multiple 99 to 100% stenoses in its midportion and appears to be at high risk if percutaneous intervention is to be undertaken). LV gram showed well-preserved global left ventricular systolic function with an ejection fraction of 60-65%, mild posterobasal hypokinesis, no significant MR, mild LVEDP Obesity with a body mass index of approximately 37. Suspected CHIQUI, but pt has not followed through on the recommendation to have a sleep study done Gastroesophageal reflux. Hyperlipidemia, treated with statin and niacin therapy. Maturity onset diabetes mellitus being managed by Dr. Trujillo. Chronic bilateral ankle swelling, likely related to venous insufficiency and/or calcium channel karl therapy, currently stable. Rectal carcinoma that has been treated with surgery, followed by radiation therapy. Mild peripheral neuropathy consisting of numbness of the feet. History of carotid arterial disease with left-sided carotid endarterectomy by Dr. Ritchie. Carotid ultrasonography of January 2014 showed mild bilateral disease, hemodynamically nonsignificant. Dementia Plan: * BP not under ideal control. Increase doxazosin * Treatment of pneumonia and hyponatremia is with Dr Trujillo and Dr Ospina * Not suitable candidate for increasing ARB d/t hyperkalemia with higher dose * Monitor labs MARGARITA DUNBAR MD FACP FAC CCDS Sep 16, 2018 13:33
[2018-09-16 16:00] VITALS: BP 168/96
[2018-09-16] MEDS: inSUlin NPH (NovoLIN N) 1 UNIT/0.01 ML (CHARGE PER UNIT) SQ SCH (18:41)
[2018-09-16 20:00] VITALS: BP 168/84
[2018-09-16] MEDS: MELATONIN 3 MG TABLET PO PRN (21:46)
[2018-09-16] MEDS: NIACIN 500 MG TABLET PO SCH (21:46)
[2018-09-16] MEDS: ATORVASTATIN 20 MG (LIPITOR) TABLET PO SCH (21:47)
[2018-09-17] VITALS: BP 162/81
[2018-09-17] MEDS: inSUlin ASPART (NovoLOG) 1 UNIT/0.01 ML (CHARGE PER UNIT) SC SCH ×4 (06:16→20:30)
[2018-09-17] MEDS: MULTIVIT W/MINERALS TAB (THERAGRAN M) PO SCH (06:34)
[2018-09-17] MEDS: glipiZIDE 5 MG (GLUCOTROL) TAB PO SCH (06:34)
[2018-09-17 06:43] LABS: BASOPHILS % (AUTO) 0 % (0-10); EOSINOPHILS # (AUTO) 0.4 10^3/uL (0.0-0.3); EOSINOPHILS % (AUTO) 4 % (0-10); HEMATOCRIT 35 % (40-54); LYMPHOCYTES # (AUTO) 0.8 X 10^3 (1.0-4.0); LYMPHOCYTES % (AUTO) 10 % (12-44); MEAN CORPUSCULAR HEMOGLOBIN 32 PG (25-34); MEAN CORPUSCULAR HGB CONC 35 G/DL (32-36); MEAN CORPUSCULAR VOLUME 93 FL (80-99); MEAN PLATELET VOLUME 8.2 FL (7.4-10.4); MONOCYTES # (AUTO) 0.8 X 10^3 (0.0-1.0); MONOCYTES % (AUTO) 10 % (0-12); NEUTROPHILS # (AUTO) 6.4 X 10^3 (1.8-7.8); NEUTROPHILS % (AUTO) 76 % (42-75); PLATELET COUNT 256 10^3/uL (130-400); WHITE BLOOD COUNT 8.3 10^3/uL (4.3-11.0)
--- NOTE | 2018-09-17 06:58 | Pulmonary Progress Note ---
Sepsis Event Evaluation Height, Weight, BMI Height: 5'6.00" Weight: 222lbs. 0.0oz. 100.099556wc; 37.3 BMI Method:Stated Exam Exam Vital Signs Date Time Temp Pulse Resp B/P (MAP) Pulse Ox O2 Delivery O2 Flow Rate FiO2 09/17/18 00:00 97.6 67 20 162/81 (108) 94 Room Air 09/16/18 21:00 Room Air 09/16/18 20:00 97.9 82 20 168/84 (112) 93 Room Air 09/16/18 18:19 93 Room Air 09/16/18 16:00 98.5 72 18 168/96 (120) 95 Room Air 09/16/18 12:00 98.0 66 20 136/57 (83) 91 Room Air 09/16/18 10:24 91 Room Air 09/16/18 09:00 Nasal Cannula 2.00 09/16/18 08:00 97.1 64 18 176/80 (112) 91 Room Air I & O 09/17/18 06:59 Intake Total 1180 ml Output Total 400 ml Balance 780 ml Height & Weight Height: 5'6.00" Weight: 222lbs. 0.0oz. 100.379380qu; 37.3 BMI Method:Stated General Appearance: No Apparent Distress, WD/WN, Anxious, Chronically ill, Obese, Other (confused) HEENT: PERRL/EOMI, Normal ENT Inspection, Pharynx Normal Neck: Full Range of Motion, Non Tender, Supple Respiratory: Chest Non Tender, No Accessory Muscle Use, No Respiratory Distress , Crackles, Decreased Breath Sounds Cardiovascular: Regular Rate, Rhythm, No Edema, No Murmur Capillary Refill: Less Than 3 Seconds Gastrointestinal: normal bowel sounds, non tender, soft Extremity: Normal Capillary Refill Neurologic/Psychiatric: Alert, No Motor/Sensory Deficits, Disoriented (O x 1) Skin: Normal Color, Warm/Dry Lymphatic: No Adenopathy Results Lab Laboratory Tests 09/16/18 04:35 09/17/18 05:30 Assessment/Plan Assessment/Plan Pneumonia- no fever, no leukocytosis - resolving Lung nodule -PT will need repeat CT of chest 6-8wks after discharge -Pt will most likely need bronchoscopy and PET scan if lung nodules persist after f/u CT scan -F/u order was placed Anemia -Monitor Confusion/psychosis - probably chronic dementia -Risperdal 1mg BID -PRN Haldol PT is ok for discharge from pulmonary standpoint. JESSICA VALVERDE DO Sep 17, 2018 06:58
[2018-09-17 07:04] LABS: BUN/CREATININE RATIO 20; CARBON DIOXIDE 27 MMOL/L (21-32); CHLORIDE 97 MMOL/L (98-107); CREATININE SERUM 0.91 MG/DL (0.60-1.30); GFR ESTIMATED > 60; GLUCOSE 125 MG/DL (70-105); MAGNESIUM 1.8 MG/DL (1.8-2.4); SODIUM 134 MMOL/L (135-145)
[2018-09-17] MEDS: RT-ALBUTEROL SULF 2.5 MG/3 ML PRE-MIX VIAL INH SCH ×3 (07:46→20:05)
[2018-09-17] MEDS: ASPIRIN 81 MG CHEW (CHILDREN'S ASA) PO SCH (08:25)
[2018-09-17] MEDS: meTOprolol TARTRATE 50 MG (LOPRESSOR) TAB PO SCH ×2 (08:25→20:30)
[2018-09-17] MEDS: CLOPIDOGREL 75 MG (PLAVIX) TABLET PO SCH (08:25)
[2018-09-17] MEDS: amLODIPine 10 MG (NORVASC) TAB PO SCH (08:25)
[2018-09-17] MEDS: FAMOTIDINE 20 MG (PEPCID) TABLET PO SCH ×2 (08:25→20:30)
[2018-09-17] MEDS: doxAzosin 4 MG (CARDURA) TAB PO SCH ×2 (08:26→20:31)
[2018-09-17] MEDS: LOSARTAN 50 MG (COZAAR) TAB PO SCH (08:26)
[2018-09-17] MEDS: risperiDONE 1 MG (RisperDAL) TAB PO SCH ×2 (08:26→20:31)
[2018-09-17] MEDS ORDERED: GLIP5TAB13 PO (10:00)
[2018-09-17] MEDS ORDERED: DOXA4TAB2 PO (10:00)
[2018-09-17] MEDS ORDERED: NPH,100V SQ (10:00)
--- NOTE | 2018-09-17 10:01 | Discharge Summary-Hospitalist ---
Diagnosis/Chief Complaint Date of Admission Sep 09, 2018 at 13:58 Date of Discharge Discharge Date: Sep 17, 2018 Admission Diagnosis Assessment: Pneumonia Elevated lactic acid Severe hyponatremia History of SIADH Dementia with significant worsening the last 6 months CAD Colon cancer history Hypertension Hyperlipidemia Chronic renal insufficiency Pneumonia in the past Former smoker GERD Plan: IV antibiotics Hypertonic saline Fluid restriction Check echo Appreciate Dr. Ospina and Dr. Toro Discharge Diagnosis (1) Pneumonia Status: Resolved (2) Lactic acid acidosis Status: Resolved (3) Dementia Status: Chronic (4) CAD (coronary artery disease) Status: Chronic (5) Hypertension Status: Chronic (6) Hyperlipemia Status: Chronic (7) Renal insufficiency Status: Chronic (8) SIADH (syndrome of inappropriate ADH production) Status: Chronic (9) GERD (gastroesophageal reflux disease) Status: Chronic (10) Lung nodule Status: Acute (11) History of colon cancer Status: Chronic (12) Hyponatremia Status: Acute (13) Altered mental status Status: Acute (14) Elevated lactic acid level Status: Acute (15) Hypoxia Status: Acute Discharge Summary Discharge Physical Exam Allergies: Coded Allergies: rofecoxib (Verified Allergy, Unknown, 10/25/06) Vitals & I&Os Vital Signs Date Time Temp Pulse Resp B/P (MAP) Pulse Ox O2 Delivery O2 Flow Rate FiO2 09/17/18 16:00 97.2 71 18 155/72 (99) 94 Room Air 09/16/18 09:00 2.00 General Appearance: No Apparent Distress, WD/WN, Chronically ill, Obese Respiratory: Chest Non Tender, Lungs Clear, Normal Breath Sounds, No Accessory Muscle Use, No Respiratory Distress Cardiovascular: Regular Rate, Rhythm, No Edema, No Gallop, No JVD, No Murmur, Normal Peripheral Pulses Neurologic/Psychiatric: Alert, No Motor/Sensory Deficits, Normal Mood/Affect, Disoriented Hospital Course Was the Problem List Reviewed?: Yes Hospital course: Pt had an uneventful but lengthy hospital course for 8 days due to sepsis and respiratory insufficiency with severe hyponatremia and flare up of dementia. Overall he recovered but it was slow, placed on fluid restriction and hypertonic saline, and the cardiac step down and Dr. Toro his warp spinner was consulted. All medications were maintained from home although insulin and oral hypoglycemic agents were decreased in doses because of hypoglycemia. Pt required snf placement but we were in the midst of choosing whether senior behavioral unit would be a better match versus strategy to a snf in [place] close to his but likely that will be a permanent placement. He was weaned of oxygen at time of DC. Labs (last 24 hrs) Laboratory Tests 09/16/18 21:04: Glucometer 243H 09/17/18 05:30: White Blood Count 8.3, Red Blood Count 3.72L, Hemoglobin 12.0L, Hematocrit 35L, Mean Corpuscular Volume 93, Mean Corpuscular Hemoglobin 32, Mean Corpuscular Hemoglobin Concent 35, Red Cell Distribution Width 12.0, Platelet Count 256, Mean Platelet Volume 8.2, Neutrophils (%) (Auto) 76H, Lymphocytes (%) (Auto) 10L , Monocytes (%) (Auto) 10, Eosinophils (%) (Auto) 4, Basophils (%) (Auto) 0, Neutrophils # (Auto) 6.4, Lymphocytes # (Auto) 0.8L, Monocytes # (Auto) 0.8, Eosinophils # (Auto) 0.4H, Basophils # (Auto) 0.0, Sodium Level 134L, Potassium Level 4.0, Chloride Level 97L, Carbon Dioxide Level 27, Anion Gap 10, Blood Urea Nitrogen 18, Creatinine 0.91, Estimat Glomerular Filtration Rate > 60, BUN/ Creatinine Ratio 20, Glucose Level 125H, Calcium Level 10.0, Phosphorus Level 3.0, Magnesium Level 1.8 09/17/18 06:15: Glucometer 134H 09/17/18 11:39: Glucometer 181H 09/17/18 16:06: Glucometer 208H Microbiology 09/09/18 Blood Culture - Final, Complete No growth Patient resulted labs reviewed. Pending Labs Laboratory Tests 09/17/18 16:06: Glucometer 208 Discussion & Recommendations Discharge Planning: <30 minutes discharge planning Discharge Home Medications: Active Scripts Active Glipizide 5 Mg Tablet 2.5 Mg PO DAILY@0700 30 Days Humulin N (Insulin NPH Human Isophane) 100 Unit/1 Ml Vial 15 Unit SQ 1900 30 Days Doxazosin Mesylate 4 Mg Tablet 4 Mg PO BID 30 Days Reported Lotrimin AF (Clotrimazole) 12 Gm Cream..g. TP BID PRN Imodium A-D (Loperamide HCl) 2 Mg Capsule 2 Mg PO UD PRN Fish Oil 1,200 mg Fish Oil (Fish Oil/Dha/Epa) 1 Each Capsule 4,800 Mg PO DAILY TAKES 4 (1200MG) CAPSULES Ibuprofen 200 Mg Tablet 200-400 Mg PO Q6H PRN Daily Value (Multivitamin) 1 Each Tablet 1 Tab PO DAILY Aspirin EC (Aspirin) 81 Mg Tablet.dr 81 Mg PO HS Niacin 500 mg Capsule (Niacin (Inositol Niacinate)) 500 Mg Capsule 1,000 Mg PO HS Acid Sink Cutter (FAMOTIDINE) (Famotidine) 20 Mg Tablet 20 Mg PO BID Losartan Potassium 50 Mg Tablet 50 Mg PO DAILY Metoprolol Tartrate 100 Mg Tablet 100 Mg PO BID Atorvastatin Calcium 20 Mg Tablet 20 Mg PO HS Amlodipine Besylate 10 Mg Tablet 10 Mg PO DAILY Clopidogrel (Clopidogrel Bisulfate) 75 Mg Tablet 75 Mg PO DAILY Metformin HCl 1,000 Mg Tablet 1,000 Mg PO BID Instructions to patient/family Please see electronic discharge instructions given to patient. Clinical Quality Measures DVT/VTE Risk/Contraindication: Risk Factor Score Per Nursin RFS Level Per Nursing on Admit: 1=Low/No VTE PPX Problem Qualifiers (1) Pneumonia: Pneumonia type: due to unspecified organism Laterality: left Lung location: lower lobe of lung Qualified Codes: J18.1 - Lobar pneumonia, unspecified organism (2) Dementia: Dementia type: Alzheimer's disease Alzheimer's disease onset: unspecified onset Dementia behavioral disturbance: without behavioral disturbance Qualified Codes: G30.9 - Alzheimer's disease, unspecified; F02.80 - Dementia in other diseases classified elsewhere without behavioral disturbance (3) CAD (coronary artery disease): Coronary Disease-Associated Artery/Lesion type: [place] artery Elem vs. transplanted heart: [place] heart Associated angina: without angina Qualified Codes: I25.10 - Atherosclerotic heart disease of [place] coronary artery without angina pectoris (4) Hypertension: Hypertension type: essential hypertension Qualified Codes: I10 - Essential ( primary) hypertension (5) Hyperlipemia: Hyperlipidemia type: mixed hyperlipidemia Qualified Codes: E78.2 - Mixed hyperlipidemia (6) GERD (gastroesophageal reflux disease): Esophagitis presence: without esophagitis Qualified Codes: K21.9 - Gastro- esophageal reflux disease without esophagitis (7) Altered mental status: Altered mental status type: unspecified Qualified Codes: R41.82 - Altered mental status, unspecified DAIN DUBOSE DO Sep 17, 2018 10:01
--- NOTE | 2018-09-17 12:02 | Speech Therapy Daily Note ---
Speech Daily Progress Note Subjective Date Seen by Provider: Sep 17, 2018 Time Seen by Provider: 00:15 The patient was much more alert today. Objective Patient consumed his drink with verbal cues to take small sips which he was able to do at 100% without s/s of aspiration. Assessment Assessment Current Status: Good Progress Treatment Plan Continue Plan of Care Speech Short Term Goals Short Term Goals Short Term Goals 1) The patient will tolerate the least restrictive diet level without signs/ symptoms of aspiration at 90% or greater. 2) The patient will follow simple directions for safe oral intake at 90% or greater. Speech Manager Travel Goals Manager Travel Goals The patient will maintain adequate nutrition/hydration via safe effective swallow function. Speech-Plan Patient/Family Goals Patient/Family Goals: The patient is being considered for SNF placement upon hospital discharge. Treatment Plan Speech Therapy Treatment Plan: Continue Plan of Care The patient is progressing well as a result of skilled ST services. Treatment Duration: Sep 18, 2018 Frequency: 5 times per week Estimated Hrs Per Day: .25 hour per day Rehab Potential: Guarded Barriers to Learning: Dementia Pt/Family Agrees to Plan: Yes Safety Risks/Education Teaching Methods: Discussion Response to Teaching: Verbalize Understanding Education Topics Provided: Safety of oral intake. Time Speech Therapy Time In: 11:45 Speech Therapy Time Out: 12:00 Total Billed Time: 15 Billed Treatment Time 1, JUDAH Manjarrez Sep 17, 2018 12:01
--- NOTE | 2018-09-17 12:41 | Discharge Inst-Skilled Nursing ---
Discharge Inst-Skilled NF Patient Instructions Patient Problems: Dementia s/p pneumonia SIADH DM HTN CAD Goal: Return to independent living Consult/Follow Up/Orders Follow Up Appt.: Obtain doctor who can care for him while at [facility] Skilled NF Admit to: Certification (SNF) I certify that SNF services are required to be given on an inpatient basis because of the above named patient's need for shelter care on a continuing basis for the conditions(s) for which he/she was receiving inpatient hospital services prior to his/her transfer to the SNF. Residential Facility Order: Nursing Services, Custom Designer-Evaluate & Treat, Physical Therapy-Evaluate & Treat, Speech Language-Evaluate & Treat Oxygen Delivery Method: Room Air Discharge Diet: ADA Diet Daily Activity as Tolerated: Yes New & Resume Previous Orders Chantelle Trujillo Sep 17, 2018 12:40 CHANTELLE TRUJILLO DO Sep 17, 2018 12:41
--- NOTE | 2018-09-17 13:27 | NUR ---
CM/SS. [facility] did a second screening for patient this a.m. and have denied his admission because he has no DPOA in place and they believe unable to sign himself in for treatment. [facility] notifying typewriter aligner at [id number]. Referral sent to [facility] and discussed case with It Programmer Analyst/Katy. Additional referrals planned for [facility] [place] and [facility]. CARE Assessment pending.
--- NOTE | 2018-09-17 14:41 | Physical Therapy Daily Note ---
PT Daily Note-Current Subjective Patient reluctantly agrees to PT. Mental Status Patient Orientation: Confused Transfers Therapy Code Descriptions/Definitions Functional [place] Measure: 0=Not Assessed/NA 4=Minimal Assistance 1=Total Assistance 5=Supervision or Setup 2=Maximal Assistance 6=Modified [place] 3=Moderate Assistance 7=Complete [place] Therapy Quality Codes: 6 Independent with activity with or without an assistive device 5 Patient requires set up or clean up by helper. Patient completes activity by themselves 4 Supervision or touching assist (CGA). Lynn provide cues , steadying assist 3 The helper provides less than half the effort to complete the activity 2 The helper provides more than half the effort to complete the activity 1 Dependent. The helper does all the effort to complete an activity 7 Patient refused to complete or attempt activity 9 The patient did not perform the activity before the current illness or injury 88 Not attempted due to Medical conditions or safety concerns Transfers (B, C, W/C) (FIM): 3 Scootin Sit to/from Stand: 3 Gait Training Gait (FIM): 2 Distance (FIM): 2=541-65 ft Distance: 75' Gait Level of Assist: 3 Gait Persons Needed: 1 Gait Assistive Device: FWW shuffle gait sequence Assessment Patient tolerated treatment well and remains up in recliner with chair alarm activated. PT Circulation Supervisor Goals Half-Way Goals PT Circulation Supervisor Goals Time Frame: Sep 22, 2018 Transfers (B,C,W/C) (FIM): 5 Gait (FIM): 5 Gait distance (FIM): 3=150 ft Distance: 250' Gait Level of Assist: 5 Gait Assistive Device: FWW PT Plan Treatment/Plan Treatment Plan: Continue Plan of Care Treatment Plan: Bed Mobility, Education, Functional Activity Kia, Functional Strength, Gait, Safety, Therapeutic Exercise, Transfers Treatment Duration: Sep 22, 2018 Frequency: 6 times per week Estimated Hrs Per Day: .25 hour per day Patient and/or Family Agrees t: Yes Time/GCodes Time In: 1320 Time Out: 1330 Total Billed Treatment Time: 10 Total Billed Treatment 1 visit GT 10 min CRIS BYRNE PT Sep 17, 2018 14:41
[2018-09-17 16:00] VITALS: BP 155/72
--- NOTE | 2018-09-17 16:20 | NUR ---
CM/SS. 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 There was confusion about confirmation of interim/shelter covering physician leading to late exploration between [facility] and Dr. Moctezuma office. ROMY Bishop, was out today and, additionally, facility was way past their pharmacy cut off time of 1500 to order Rx. [facility] will accept patient tomorrow once physician and Rx are organized.
--- NOTE | 2018-09-17 18:47 | Progress Note-Cardiology ---
Cardiology SOAP Progress Note Subjective: Somnolent, barely wakens, does not report symptoms Objective: I&O/Vital Signs 09/17/18 09/17/18 09/17/18 09/17/18 07:46 08:00 09:00 12:02 Temp 97.1 Pulse 70 Resp 18 Pulse Ox 94 97 93 O2 Delivery Room Air Room Air Room Air Room Air 09/17/18 16:00 Temp 97.2 Pulse 71 Resp 18 B/P (MAP) 155/72 (99) Pulse Ox 94 O2 Delivery Room Air 09/17/18 00:00 Intake Total 820 ml Output Total 400 ml Balance 420 ml Weight (Pounds): 222 Weight (Ounces): 0.0 Weight (Calculated Kilograms): 100.422367 Constitutional: No AAO x 3; well-developed, well-nourished Respiratory: crackles, rhonchi, other Cardiovascular: regular rate-rhythm, S1 and S2, systolic murmur Gastrointestional: audible bowel sounds Extremities: No clubbing, No cyanosis, No significant edema Neurologic/Psychiatric: other, power is 5/5 both on sides Skin: No rash on exposed areas, No ulcerations on exposed areas Results/Procedures: Labs Laboratory Tests 09/16/18 21:04: Glucometer 243H 09/17/18 05:30: White Blood Count 8.3, Red Blood Count 3.72L, Hemoglobin 12.0L, Hematocrit 35L, Mean Corpuscular Volume 93, Mean Corpuscular Hemoglobin 32, Mean Corpuscular Hemoglobin Concent 35, Red Cell Distribution Width 12.0, Platelet Count 256, Mean Platelet Volume 8.2, Neutrophils (%) (Auto) 76H, Lymphocytes (%) (Auto) 10L , Monocytes (%) (Auto) 10, Eosinophils (%) (Auto) 4, Basophils (%) (Auto) 0, Neutrophils # (Auto) 6.4, Lymphocytes # (Auto) 0.8L, Monocytes # (Auto) 0.8, Eosinophils # (Auto) 0.4H, Basophils # (Auto) 0.0, Sodium Level 134L, Potassium Level 4.0, Chloride Level 97L, Carbon Dioxide Level 27, Anion Gap 10, Blood Urea Nitrogen 18, Creatinine 0.91, Estimat Glomerular Filtration Rate > 60, BUN/ Creatinine Ratio 20, Glucose Level 125H, Calcium Level 10.0, Phosphorus Level 3.0, Magnesium Level 1.8 09/17/18 06:15: Glucometer 134H 09/17/18 11:39: Glucometer 181H 09/17/18 16:06: Glucometer 208H Microbiology 09/09/18 Blood Culture - Final, Complete No growth Laboratory Tests 09/16/18 04:35 09/17/18 05:30 A/P: Assessment: LLL pneumonia, managed by Dr Trujillo and Dr Ospina Hyponatremia, 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 No clinical evidence of decompensated CHF. Mild BNP elevation probably due to pneumonia and/or obesity- hypoventilation Hypertension, improved Echo of September 2018: Well preserved global LV systolic function with an LVEF of 60-65%. Mild tricuspid regurg. PASP mmHg Chronic stable angina Coronary artery disease with a history of coronary artery bypass surgery. Last cardiac catheterization was in March 2014 which showed severe [place] CAD including 95% mid vessel stenosis of the left internal descending artery, 60% mid vessel stenosis of the left cx, subtotal ostial occlusion of the first OM branch and complete occlusion of the proximal to mid RCA, patent left internal mammary artery graft to the mid LAD, patent saphenous vein graft (with prox 50- 60% stenosis) to the first OM branch 50-60% proximal stenosis, and severely degenerated saphenous vein graft to the distal RCA (this graft has multiple 99 to 100% stenoses in its midportion and appears to be at high risk if percutaneous intervention is to be undertaken). LV gram showed well-preserved global left ventricular systolic function with an ejection fraction of 60-65%, mild posterobasal hypokinesis, no significant MR, mild LVEDP Obesity with a body mass index of approximately 37. Suspected CHIQUI, but pt has not followed through on the recommendation to have a sleep study done Gastroesophageal reflux. Hyperlipidemia, treated with statin and niacin therapy. Maturity onset diabetes mellitus being managed by Dr. Trujillo. Chronic bilateral ankle swelling, likely related to venous insufficiency and/or calcium channel karl therapy, currently stable. Rectal carcinoma that has been treated with surgery, followed by radiation therapy. Mild peripheral neuropathy consisting of numbness of the feet. History of carotid arterial disease with left-sided carotid endarterectomy by Dr. Ritchie. Carotid ultrasonography of January 2014 showed mild bilateral disease, hemodynamically nonsignificant. Dementia Plan: * Continue current bp regimen * Treatment of pneumonia and hyponatremia is with Dr Trujillo and Dr Ospina * Monitor labs MARGARITA DUNBAR MD FACP FAC CCDS Sep 17, 2018 18:47
[2018-09-17] MEDS: inSUlin NPH (NovoLIN N) 1 UNIT/0.01 ML (CHARGE PER UNIT) SQ SCH (18:58)
[2018-09-17] MEDS: NIACIN 500 MG TABLET PO SCH (20:30)
[2018-09-17] MEDS: ATORVASTATIN 20 MG (LIPITOR) TABLET PO SCH (20:30)
[2018-09-17] MEDS: MELATONIN 3 MG TABLET PO PRN (21:34)
[2018-09-17] MEDS: HALOPERIDOL 5 MG/ML (HALDOL) AMP IM PRN (21:34)
[2018-09-18 00:20] VITALS: BP_SYST 160; BP_SYST 181; BP_DIAS 79; BP_DIAS 90
[2018-09-18 05:03] LABS: BASOPHILS % (AUTO) 0 % (0-10); EOSINOPHILS # (AUTO) 0.2 10^3/uL (0.0-0.3); EOSINOPHILS % (AUTO) 2 % (0-10); HEMATOCRIT 31 % (40-54); HEMOGLOBIN 10.8 G/DL (13.3-17.7); LYMPHOCYTES # (AUTO) 0.9 X 10^3 (1.0-4.0); LYMPHOCYTES % (AUTO) 10 % (12-44); MEAN CORPUSCULAR HEMOGLOBIN 32 PG (25-34); MEAN CORPUSCULAR HGB CONC 35 G/DL (32-36); MEAN CORPUSCULAR VOLUME 93 FL (80-99); MEAN PLATELET VOLUME 7.6 FL (7.4-10.4); MONOCYTES # (AUTO) 0.9 X 10^3 (0.0-1.0); MONOCYTES % (AUTO) 11 % (0-12); NEUTROPHILS # (AUTO) 6.7 X 10^3 (1.8-7.8); NEUTROPHILS % (AUTO) 77 % (42-75); PLATELET COUNT 234 10^3/uL (130-400); RED CELL DISTRIBUTION WIDTH 11.9 % (10.0-14.5); WHITE BLOOD COUNT 8.7 10^3/uL (4.3-11.0)
[2018-09-18] MEDS: inSUlin ASPART (NovoLOG) 1 UNIT/0.01 ML (CHARGE PER UNIT) SC SCH (05:16)
[2018-09-18 05:21] LABS: BUN/CREATININE RATIO 21; CALCIUM 9.6 MG/DL (8.5-10.1); CARBON DIOXIDE 26 MMOL/L (21-32); CHLORIDE 99 MMOL/L (98-107); CREATININE SERUM 0.91 MG/DL (0.60-1.30); GFR ESTIMATED > 60; GLUCOSE 126 MG/DL (70-105); MAGNESIUM 1.6 MG/DL (1.8-2.4); PHOSPHORUS 3.7 MG/DL (2.3-4.7); SODIUM 133 MMOL/L (135-145)
[2018-09-18] MEDS: MULTIVIT W/MINERALS TAB (THERAGRAN M) PO SCH (06:03)
[2018-09-18] MEDS: glipiZIDE 5 MG (GLUCOTROL) TAB PO SCH (06:03)
[2018-09-18] MEDS: RT-ALBUTEROL SULF 2.5 MG/3 ML PRE-MIX VIAL INH SCH ×2 (06:46→10:32)
[2018-09-18 08:55] VITALS: BP 176/83
[2018-09-18] MEDS: meTOprolol TARTRATE 50 MG (LOPRESSOR) TAB PO SCH (09:00)
[2018-09-18] MEDS: doxAzosin 4 MG (CARDURA) TAB PO SCH (09:00)
[2018-09-18] MEDS: CLOPIDOGREL 75 MG (PLAVIX) TABLET PO SCH (09:00)
[2018-09-18] MEDS: ASPIRIN 81 MG CHEW (CHILDREN'S ASA) PO SCH (09:00)
[2018-09-18] MEDS: amLODIPine 10 MG (NORVASC) TAB PO SCH (09:00)
[2018-09-18] MEDS: FAMOTIDINE 20 MG (PEPCID) TABLET PO SCH (09:00)
[2018-09-18] MEDS: risperiDONE 1 MG (RisperDAL) TAB PO SCH (09:00)
[2018-09-18] MEDS: LOSARTAN 50 MG (COZAAR) TAB PO SCH (09:04)
--- NOTE | 2018-09-18 10:53 | Progress Note-Cardiology ---
Cardiology SOAP Progress Note Subjective: Sitting up in a chair at the bedside. Linda (spouse) at his side. Reports he is going to [facility] today. He is drowsy, but awakens easily. No c/o CP or SOB. C/O neck pain. Objective: I&O/Vital Signs 09/18/18 09/18/18 09/18/18 09/18/18 00:20 06:46 08:55 09:00 Temp 99.1 98.4 Pulse 69 68 Resp 18 18 B/P (MAP) 160/90 (113) 176/83 (114) Pulse Ox 96 93 93 O2 Delivery Room Air Room Air Room Air Room Air 09/18/18 10:32 Pulse Ox 100 O2 Delivery Room Air 09/18/18 00:00 Intake Total 980 ml Balance 980 ml Weight (Pounds): 221 Weight (Ounces): 14.4 Weight (Calculated Kilograms): 100.907423 Constitutional: No AAO x 3; well-developed, well-nourished Respiratory: No accessory muscle use, No respiratory distress; chest expansion is symmetric, chest is bilaterally symmetric, lungs clear to auscultation Cardiovascular: regular rate-rhythm, S1 and S2, systolic murmur Gastrointestional: audible bowel sounds Extremities: No clubbing, No cyanosis, No significant edema Neurologic/Psychiatric: other (oriented to self only), power is 5/5 both on sides Skin: No rash on exposed areas, No ulcerations on exposed areas Results/Procedures: Labs Laboratory Tests 09/17/18 11:39: Glucometer 181H 09/17/18 16:06: Glucometer 208H 09/17/18 20:04: Glucometer 240H 09/18/18 04:50: White Blood Count 8.7, Red Blood Count 3.37L, Hemoglobin 10.8L, Hematocrit 31L, Mean Corpuscular Volume 93, Mean Corpuscular Hemoglobin 32, Mean Corpuscular Hemoglobin Concent 35, Red Cell Distribution Width 11.9, Platelet Count 234, Mean Platelet Volume 7.6, Neutrophils (%) (Auto) 77H, Lymphocytes (%) (Auto) 10L , Monocytes (%) (Auto) 11, Eosinophils (%) (Auto) 2, Basophils (%) (Auto) 0, Neutrophils # (Auto) 6.7, Lymphocytes # (Auto) 0.9L, Monocytes # (Auto) 0.9, Eosinophils # (Auto) 0.2, Basophils # (Auto) 0.0, Sodium Level 133L, Potassium Level 4.0, Chloride Level 99, Carbon Dioxide Level 26, Anion Gap 8, Blood Urea Nitrogen 19H, Creatinine 0.91, Estimat Glomerular Filtration Rate > 60, BUN/ Creatinine Ratio 21, Glucose Level 126H, Calcium Level 9.6, Phosphorus Level 3.7 , Magnesium Level 1.6L 09/18/18 05:16: Glucometer 144H Microbiology 09/09/18 Blood Culture - Final, Complete No growth A/P: Assessment: LLL pneumonia, managed by Dr Trujillo and Dr Ospina Hyponatremia, 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 No clinical evidence of decompensated CHF. Mild BNP elevation probably due to pneumonia and/or obesity- hypoventilation Hypertension, improved Echo of September 2018: Well preserved global LV systolic function with an LVEF of 60-65%. Mild tricuspid regurg. PASP mmHg Chronic stable angina - currently no c/o Coronary artery disease with a history of coronary artery bypass surgery. Last cardiac catheterization was in March 2014 which showed severe [place] CAD including 95% mid vessel stenosis of the left internal descending artery, 60% mid vessel stenosis of the left cx, subtotal ostial occlusion of the first OM branch and complete occlusion of the proximal to mid RCA, patent left internal mammary artery graft to the mid LAD, patent saphenous vein graft (with prox 50- 60% stenosis) to the first OM branch 50-60% proximal stenosis, and severely degenerated saphenous vein graft to the distal RCA (this graft has multiple 99 to 100% stenoses in its midportion and appears to be at high risk if percutaneous intervention is to be undertaken). LV gram showed well-preserved global left ventricular systolic function with an ejection fraction of 60-65%, mild posterobasal hypokinesis, no significant MR, mild LVEDP Obesity with a body mass index of approximately 37. Suspected CHIQUI, but pt has not followed through on the recommendation to have a sleep study done Gastroesophageal reflux. Hyperlipidemia, treated with statin and niacin therapy. Maturity onset diabetes mellitus being managed by Dr. Trujillo. Chronic bilateral ankle swelling, likely related to venous insufficiency and/or calcium channel karl therapy, currently stable. Rectal carcinoma that has been treated with surgery, followed by radiation therapy. Mild peripheral neuropathy consisting of numbness of the feet. History of carotid arterial disease with left-sided carotid endarterectomy by Dr. Ritchie. Carotid ultrasonography of January 2014 showed mild bilateral disease, hemodynamically nonsignificant. Dementia Plan: * Continue current bp regimen * Treatment of pneumonia and hyponatremia is with Dr Trujillo and Dr Ospina * Plan is transfer to [facility] today * Advise out pt f/u appt KYE MEZA Sep 18, 2018 10:53
[2018-09-18 11:23] VITALS: BP 176/83
--- NOTE | 2018-09-18 14:58 | NUR ---
CM/SS. Patient discharged today to new Skilled placement with [facility] after they were able to confirm physician coverage by Dr. Moctezuma office for patient's care plan. Spouse Linda here and followed patient out with transport from [place].
== END 2018-09-18 11:50 | DRG 643 ==
LOC: EDUNIT# 11:56 → ER FS 12:00 → ICU 13:58 → 4TH 09-10 19:40
PROVIDERS: ADMIT Internal Medicine; ATTEND Internal Medicine
DX: E22.2 Syndrome of inappropriate secretion of antidiuretic hormone (principal); J18.1 Lobar pneumonia, unspecified organism; E87.2 Acidosis; E66.2 Morbid (severe) obesity with alveolar hypoventilation; R91.1 Solitary pulmonary nodule; R09.02 Hypoxemia; E87.5 Hyperkalemia; G30.9 Alzheimer's disease, unspecified; F02.80 Dementia in other diseases classified elsewhere, unspecified severity, without behavioral disturbance, psychotic disturbance, mood disturbance, and anxiety; E11.42 Type 2 diabetes mellitus with diabetic polyneuropathy; E11.649 Type 2 diabetes mellitus with hypoglycemia without coma; I25.119 Atherosclerotic heart disease of native coronary artery with unspecified angina pectoris; I12.9 Hypertensive chronic kidney disease with stage 1 through stage 4 chronic kidney disease, or unspecified chronic kidney disease; N18.9 Chronic kidney disease, unspecified; I08.3 Combined rheumatic disorders of mitral, aortic and tricuspid valves; I87.2 Venous insufficiency (chronic) (peripheral); R41.82 Altered mental status, unspecified; E78.2 Mixed hyperlipidemia; K21.9 Gastro-esophageal reflux disease without esophagitis; R13.12 Dysphagia, oropharyngeal phase; M25.471 Effusion, right ankle; M25.472 Effusion, left ankle; T46.5X5A Adverse effect of other antihypertensive drugs, initial encounter; Z95.1 Presence of aortocoronary bypass graft; Z87.891 Personal history of nicotine dependence; Z79.84 Long term (current) use of oral hypoglycemic drugs; Z85.038 Personal history of other malignant neoplasm of large intestine; Z79.4 Long term (current) use of insulin; Z68.37 Body mass index [BMI] 37.0-37.9, adult; Z85.048 Personal history of other malignant neoplasm of rectum, rectosigmoid junction, and anus
CPT/HCPCS: 36415; 36600; 70450; 71045; 71275; 80048; 80053; 80061; 81000; 82805; 82962; 83605; 83735; 83874; 83880; 84100; 84484; 85025; 85610; 85730; 87040; 93005; 93041; 93306; 94640; 94760; 94761; 96365; 96367

== ENCOUNTER 2018-10-10 13:27 | Inpatient (IN) | payer MEDICARE, OTHER ==
[~2018-10-10] VITALS: Ht 167.6 cm; Wt 103.1 kg
[~2018-10-10 13:27] MED LIST changes: +AMLO10TA7 PO; +ASPI-983 PO; +ATOR20TA66 PO; +CLOP75TA28 PO; +CLOT12CR TP; +DOXA4TAB2 PO; +FAMO20TA3 PO; +GLIP5TAB13 PO; +IBUP-2055 PO; +LOPE-145 PO; +LOSA50TA63 PO; +METF-399 PO; +METO100T12 PO; +MULT-633 PO; +NPH,100V SC; +NPH,100V SQ
--- OUTSIDE RECORDS SUMMARY | 2018-10-10 13:47 | XMS REPORT | Continuity of Care Document ---
Author Organization Unknown Address Unknown Allergies Active Description Code Type Severity Reaction Onset Reported/Identified Relationship to Patient Clinical Status Yes rofecoxib [id number] Drug Allergy Unknown N/A 10/25/2006 Medications There [...] CONTE FACC, ALI FACP CCDS Ot 250.00 DIAB GABRIELA WO COMPL, TYPE II OR UNSPEC TY 03/25/2014 BETTINA CONTE FACC, ALI FACP CCDS Ot 272.4 HYPERLIPIDEMIA NEC/NOS 03/25/2014 BETTINA CONTE FACC, ALI FACP CCDS Ot 278.00 OBESITY, NOS 03/25/2014 BETTINA CONTE FACC, ALI FACP CCDS Ot 401.9 HYPERTENSION NOS 03/25/2014 BETTINA CONTE FACC, ALI FACP CCDS Ot 414.01 CORONARY ATHEROSCLEROSIS OF [place] CORON 03/25/2014 BETTINA CONTE FACC, ALI FACP CCDS Ot 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[place] 03/25/2014 BETTINA CONTE FACC, ALI FACP CCDS Ot 414.4 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 03/25/2014 BETTINA CONTE FACC, ALI FACP CCDS Ot 530.81 ESOPHAGEAL REFLUX 03/25/2014 BETTINA CONTE FACC, ALI FACP CCDS Ot 794.30 ABN CARDIOVASC STUDY NOS 03/25/2014 BETTINA CONTE FACC, ALI FACP CCDS Ot V45.81 AORTOCORONARY BYPASS 03/25/2014 BETTINA CONTE FACC, ALI FACP CCDS Ot V58.69 OT MED,LT,CURRENT USE 03/25/2014 BETTINA CONTE FACC, ALI FACP CCDS Ot V85.34 BODY MASS INDEX 34.0-34.9, ADULT 05/12/2014 Ot 414.01 05/12/2014 Ot 729.81 05/12/2014 Ot 414.00 05/12/2014 Ot V45.81 05/12/2014 Ot 433.10 05/12/2014 Ot 433.10 05/12/2014 Ot V72.83 05/12/2014 Ot 433.10 05/12/2014 Ot 250.00 05/12/2014 Ot 433.10 05/12/2014 Ot V58.69 05/12/2014 Ot 414.00 05/12/2014 Ot 715.96 05/12/2014 Ot V57.1 05/12/2014 Ot V58.63 05/12/2014 Ot V58.66 05/12/2014 Ot V58.69 05/12/2014 Ot V72.63 05/12/2014 Ot V74.8 05/12/2014 BAIMA, KYE L LITERACY EDUCATION PROFESSOR Ot 272.4 05/12/2014 BAIMA, KYE L LITERACY EDUCATION PROFESSOR Ot 401.9 05/12/2014 BAIMA, KYE L LITERACY EDUCATION PROFESSOR Ot 414.00 05/12/2014 BAIMA, KYE L LITERACY EDUCATION PROFESSOR Ot 780.79 05/12/2014 BAIMA, KYE L LITERACY EDUCATION PROFESSOR Ot 250.00 05/12/2014 BAIMA, KYE L LITERACY EDUCATION PROFESSOR Ot 272.4 05/12/2014 BAIMA, KYE L LITERACY EDUCATION PROFESSOR Ot 401.9 05/12/2014 BAIMA, KYE L LITERACY EDUCATION PROFESSOR Ot 414.00 05/12/2014 BAIMA, KYE L LITERACY EDUCATION PROFESSOR Ot 780.79 05/12/2014 BAIMA, KYE L LITERACY EDUCATION PROFESSOR Ot 250.00 05/12/2014 BAIMA, KYE L LITERACY EDUCATION PROFESSOR Ot 272.4 05/12/2014 BAIMA, KYE L LITERACY EDUCATION PROFESSOR Ot 401.9 05/12/2014 BAIMA, KYE L LITERACY EDUCATION PROFESSOR Ot 414.00 05/12/2014 BAIMA, KYE L LITERACY EDUCATION PROFESSOR Ot 780.79 05/12/2014 BAIMA, KYE L LITERACY EDUCATION PROFESSOR Ot 272.4 05/12/2014 BAIMA, KYE L LITERACY EDUCATION PROFESSOR Ot 401.9 05/12/2014 BAIMA, KYE L LITERACY EDUCATION PROFESSOR Ot 414.00 05/12/2014 BAIMA, KYE L LITERACY EDUCATION PROFESSOR Ot 780.79 05/27/2014 BAIMA, KYE L LITERACY EDUCATION PROFESSOR Ot 272.4 05/27/2014 BAIMA, KYE L LITERACY EDUCATION PROFESSOR Ot 401.9 05/27/2014 BAIMA, KYE L LITERACY EDUCATION PROFESSOR Ot 414.00 05/27/2014 BAIMA, KYE L LITERACY EDUCATION PROFESSOR Ot 780.79 05/27/2014 BAIMA, KYE L LITERACY EDUCATION PROFESSOR Ot 250.00 05/27/2014 BAIMA, KYE L LITERACY EDUCATION PROFESSOR Ot 272.4 05/27/2014 BAIMA, KYE L LITERACY EDUCATION PROFESSOR Ot 401.9 05/27/2014 BAIMA, KYE L LITERACY EDUCATION PROFESSOR Ot 414.00 05/27/2014 BAIMA, KYE L LITERACY EDUCATION PROFESSOR Ot 780.79 09/09/2018 BAIMA, KYE L LITERACY EDUCATION PROFESSOR Ot 272.4 HYPERLIPIDEMIA NEC/NOS 09/09/2018 BAIMA, KYE L LITERACY EDUCATION PROFESSOR Ot 401.9 HYPERTENSION NOS 09/09/2018 BAIMA, KYE L LITERACY EDUCATION PROFESSOR Ot 414.00 CORON ATHEROSCLER NOS TYPE VESSEL, NATIV 09/09/2018 BAIMA, KYE L LITERACY EDUCATION PROFESSOR Ot 780.79 OTH MALAISE FATIGUE 09/09/2018 BAIMA, KYE L LITERACY EDUCATION PROFESSOR Ot 250.00 DIAB GABRIELA WO COMPL, TYPE II OR UNSPEC TY 09/09/2018 BAIMA, KYE L LITERACY EDUCATION PROFESSOR Ot 272.4 HYPERLIPIDEMIA NEC/NOS 09/09/2018 BAIMA, KYE L LITERACY EDUCATION PROFESSOR Ot 401.9 HYPERTENSION NOS 09/09/2018 BAIMA, KYE L LITERACY EDUCATION PROFESSOR Ot 414.00 CORON ATHEROSCLER NOS TYPE VESSEL, NATIV 09/09/2018 BAIMA, KYE L LITERACY EDUCATION PROFESSOR Ot 780.79 OTH MALAISE FATIGUE 09/09/2018 BAIMA, KYE L LITERACY EDUCATION PROFESSOR Ot 272.4 HYPERLIPIDEMIA NEC/NOS 09/09/2018 BAIMA, YKE L LITERACY EDUCATION PROFESSOR Ot 401.9 HYPERTENSION NOS 09/09/2018 BAIMA, KYE L LITERACY EDUCATION PROFESSOR Ot 414.00 CORON ATHEROSCLER NOS TYPE VESSEL, NATIV 09/09/2018 BAIMA, KYE L LITERACY EDUCATION PROFESSOR Ot 780.79 OTH MALAISE FATIGUE 09/09/2018 BAIMA, KYE L LITERACY EDUCATION PROFESSOR Ot 250.00 DIAB GABRIELA WO COMPL, TYPE II OR UNSPEC TY 09/09/2018 BAIMA, KYE L LITERACY EDUCATION PROFESSOR Ot 272.4 HYPERLIPIDEMIA NEC/NOS 09/09/2018 BAIMA, KYE L LITERACY EDUCATION PROFESSOR Ot 401.9 HYPERTENSION NOS 09/09/2018 BAIMA, KYE L LITERACY EDUCATION PROFESSOR Ot 414.00 CORON ATHEROSCLER NOS TYPE VESSEL, NATIV 09/09/2018 BAIMA, KYE L LITERACY EDUCATION PROFESSOR Ot 780.79 OTH MALAISE FATIGUE 09/10/2018 DAIN DUBOSE DO Ot E11.42 TYPE 2 DIABETES MELLITUS WITH DIABETIC P 09/10/2018 DAIN DUBOSE DO Ot E22.2 SYNDROME OF INAPPROPRIATE SECRETION OF A 09/10/2018 DAIN DUBOSE DO Ot E66.2 MORBID (SEVERE) OBESITY WITH ALVEOLAR HY 09/10/2018 DUBOSE DO, DAIN Ot E78.00 PURE HYPERCHOLESTEROLEMIA, UNSPECIFIED 09/10/2018 GRACY BARTHOLOMEW DAIN Ot E87.2 ACIDOSIS 09/10/2018 GRACY BARTHOLOMEW DAIN Ot F02.80 DEMENTIA IN OT DISEASES CLASSD ELSWHR W 09/10/2018 GRACY BARTHOLOMEW DAIN Ot G30.9 ALZHEIMER'S DISEASE, UNSPECIFIED 09/10/2018 GRACY BARTHOLOMEW DAIN Ot I08.3 COMB RHEUMATIC DISORD OF MITRAL, AORTIC 09/10/2018 GRACY BARTHOLOMEW DAIN Ot I12.9 HYPERTENSIVE CHRONIC KIDNEY DISEASE W ST 09/10/2018 GRACY BARTHOLOMEW DAIN Ot 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 09/10/2018 GRACY BARTHOLOMEW DAIN Ot I87.2 VENOUS INSUFFICIENCY (CHRONIC) (PERIPHER 09/10/2018 GRACY BARTHOLOMEW DAIN Ot J18.1 LOBAR PNEUMONIA, UNSPECIFIED ORGANISM 09/10/2018 GRACY BARTHOLOMEW DAIN Ot K21.9 GASTRO-ESOPHAGEAL REFLUX DISEASE WITHOUT 09/10/2018 GRACY BARTHOLOMEW DAIN Ot M19.91 PRIMARY OSTEOARTHRITIS, UNSPECIFIED SITE 09/10/2018 GRACY BARTHOLOMEW DAIN Ot M25.471 EFFUSION, RIGHT ANKLE 09/10/2018 GRACY BARTHOLOMEW DAIN Ot M25.472 EFFUSION, LEFT ANKLE 09/10/2018 GRACY BARTHOLOMEW DAIN Ot N18.9 CHRONIC KIDNEY DISEASE, UNSPECIFIED 09/10/2018 GRACY BARTHOLOMEW DAIN Ot R09.02 HYPOXEMIA 09/10/2018 GRACY BARTHOLOMEW ADIN Ot R41.82 ALTERED MENTAL STATUS, UNSPECIFIED 09/10/2018 GRACY BARTHOLOMEW DAIN Ot R79.89 OTHER SPECIFIED ABNORMAL FINDINGS OF BLO 09/10/2018 GRACY BARTHOLOMEW DAIN Ot R91.1 SOLITARY PULMONARY NODULE 09/10/2018 GRACY BARTHOLOMEW DAIN Ot T46.5X5A ADVERSE EFFECT OF OTHER ANTIHYPERTENSIVE 09/10/2018 DAIN DUBOSE DO Ot Z68.37 BODY MASS INDEX (BMI) 37.0-37.9, ADULT 09/10/2018 GRACY BARTHOLOMEW DAIN Ot Z79.4 SIGNAL MAINTAINER (CURRENT) USE OF INSULIN 09/10/2018 KARINA DUBOSE DOI Ot Z79.84 SIGNAL MAINTAINER (CURRENT) USE OF ORAL HYPOGLYC 09/10/2018 DAIN DUBOSE DO Ot Z85.038 PERSONAL HISTORY OF MALIGNANT NEOPLASM O 09/10/2018 DAIN DUBOSE DO Ot 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, RECT 09/10/2018 DAIN DUBOSE DO Ot Z87.891 PERSONAL HISTORY OF NICOTINE DEPENDENCE 09/10/2018 DAIN DUBOSE DO Ot Z92.3 PERSONAL HISTORY OF IRRADIATION 09/10/2018 DAIN DUBOSE DO Ot Z95.1 PRESENCE OF AORTOCORONARY BYPASS GRAFT 09/11/2018 DAIN DUBOSE DO Ot E11.42 TYPE 2 DIABETES MELLITUS WITH DIABETIC P 09/11/2018 KARINA DUBOSE DOI Ot E22.2 SYNDROME OF INAPPROPRIATE SECRETION OF A 09/11/2018 DAIN DUBOSE DO Ot E66.2 MORBID (SEVERE) OBESITY WITH ALVEOLAR HY 09/11/2018 KARINA DUBOSE DOI Ot E78.00 PURE HYPERCHOLESTEROLEMIA, UNSPECIFIED 09/11/2018 GRACY BARTHOLOMEW DAIN Ot E87.2 ACIDOSIS 09/11/2018 KARINA DUBOSE DOI Ot 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 09/11/2018 KARINA DUBOSE DOI Ot G30.9 ALZHEIMER'S DISEASE, UNSPECIFIED 09/11/2018 DAIN DUBOSE DO Ot I08.3 COMB RHEUMATIC DISORD OF MITRAL, AORTIC 09/11/2018 KARINA DUBOSE DOI Ot I12.9 HYPERTENSIVE CHRONIC KIDNEY DISEASE W ST 09/11/2018 KARINA DUBOSE DOI Ot 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 09/11/2018 KARINA DUBOSE DOI Ot I87.2 VENOUS INSUFFICIENCY (CHRONIC) (PERIPHER 09/11/2018 KARINA DUBOSE DOI Ot J18.1 LOBAR PNEUMONIA, UNSPECIFIED ORGANISM 09/11/2018 KARINA DUBOSE DOI Ot K21.9 GASTRO-ESOPHAGEAL REFLUX DISEASE WITHOUT 09/11/2018 KARINA DUBOSE DOI Ot M19.91 PRIMARY OSTEOARTHRITIS, UNSPECIFIED SITE 09/11/2018 KARNIA DUBOSE DOI Ot M25.471 EFFUSION, RIGHT ANKLE 09/11/2018 GRACY BARTHOLOMEW DAIN Ot M25.472 EFFUSION, LEFT ANKLE 09/11/2018 KARINA DUBOSE DOI Ot N18.9 CHRONIC KIDNEY DISEASE, UNSPECIFIED 09/11/2018 KARINA DUBOSE DOI Ot R09.02 HYPOXEMIA 09/11/2018 KARINA DUBOSE DOI Ot R41.82 ALTERED MENTAL STATUS, UNSPECIFIED 09/11/2018 DAIN DUBOSE DO Ot R79.89 OTHER SPECIFIED ABNORMAL FINDINGS OF BLO 09/11/2018 KARINA DUBOSE DOI Ot R91.1 SOLITARY PULMONARY NODULE 09/11/2018 DAIN DUBOSE DO Ot T46.5X5A ADVERSE EFFECT OF OTHER ANTIHYPERTENSIVE 09/11/2018 DAIN DUBOSE DO Ot Z68.37 BODY MASS INDEX (BMI) 37.0-37.9, ADULT 09/11/2018 KARINA DUBOSE DOI Ot Z79.4 SIGNAL MAINTAINER (CURRENT) USE OF INSULIN 09/11/2018 DAIN DUBOSE DO Ot Z79.84 ASSISTED (CURRENT) USE OF ORAL HYPOGLYC 09/11/2018 KARINA DUBOSE DOI Ot Z85.038 PERSONAL HISTORY OF MALIGNANT NEOPLASM O 09/11/2018 KARINA DUBOSE DOI Ot 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, RECT 09/11/2018 KARINA DUBOSE DOI Ot Z87.891 PERSONAL HISTORY OF NICOTINE DEPENDENCE 09/11/2018 DAIN DUBOSE DO Ot Z92.3 PERSONAL HISTORY OF IRRADIATION 09/11/2018 KARINA DUBOSE DOI Ot Z95.1 PRESENCE OF AORTOCORONARY BYPASS GRAFT 09/12/2018 DAIN DUBOSE DO Ot E11.42 TYPE 2 DIABETES MELLITUS WITH DIABETIC P 09/12/2018 GRACY BARTHOLOMEW DAIN Ot E22.2 SYNDROME OF INAPPROPRIATE SECRETION OF A 09/12/2018 KARINA DUBOSE DOI Ot E66.2 MORBID (SEVERE) OBESITY WITH ALVEOLAR HY 09/12/2018 GRACY BARTHOLOMEW DAIN Ot E78.00 PURE HYPERCHOLESTEROLEMIA, UNSPECIFIED 09/12/2018 GRACY BARTHOLOMEW DAIN Ot E87.2 ACIDOSIS 09/12/2018 GRACY BARTHOLOMEW DAIN Ot 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 09/12/2018 GRACY BARTHOLOMEW DAIN Ot G30.9 ALZHEIMER'S DISEASE, UNSPECIFIED 09/12/2018 GRACY BARTHOLOMEW DAIN Ot I08.3 COMB RHEUMATIC DISORD OF MITRAL, AORTIC 09/12/2018 KARINA DUBOSE DOI Ot I12.9 HYPERTENSIVE CHRONIC KIDNEY DISEASE W ST 09/12/2018 DAIN DUBOSE DO Ot 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 09/12/2018 DAIN DUBOSE DO Ot I87.2 VENOUS INSUFFICIENCY (CHRONIC) (PERIPHER 09/12/2018 DAIN DUBOSE DO Ot J18.1 LOBAR PNEUMONIA, UNSPECIFIED ORGANISM 09/12/2018 DAIN DUBOSE DO Ot K21.9 GASTRO-ESOPHAGEAL REFLUX DISEASE WITHOUT 09/12/2018 DAIN DUBOSE DO Ot M19.91 PRIMARY OSTEOARTHRITIS, UNSPECIFIED SITE 09/12/2018 DAIN DUBOSE DO Ot M25.471 EFFUSION, RIGHT ANKLE 09/12/2018 KARINA DUBOSE DOI Ot M25.472 EFFUSION, LEFT ANKLE 09/12/2018 KARINA DUBOSE DOI Ot N18.9 CHRONIC KIDNEY DISEASE, UNSPECIFIED 09/12/2018 KARINA DUBOSE DOI Ot R09.02 HYPOXEMIA 09/12/2018 KARINA DUBOSE DOI Ot R41.82 ALTERED MENTAL STATUS, UNSPECIFIED 09/12/2018 DAIN DUBOSE DO Ot R79.89 OTHER SPECIFIED ABNORMAL FINDINGS OF BLO 09/12/2018 DAIN DUBOSE DO Ot R91.1 SOLITARY PULMONARY NODULE 09/12/2018 DAIN DUBOSE DO Ot T46.5X5A ADVERSE EFFECT OF OTHER ANTIHYPERTENSIVE 09/12/2018 DAIN DUBOSE DO Ot Z68.37 BODY MASS INDEX (BMI) 37.0-37.9, ADULT 09/12/2018 DAIN DUBOSE DO Ot Z79.4 ASSISTED (CURRENT) USE OF INSULIN 09/12/2018 DAIN DUBOSE DO Ot Z79.84 ASSISTED (CURRENT) USE OF ORAL HYPOGLYC 09/12/2018 DAIN DUBOSE DO Ot Z85.038 PERSONAL HISTORY OF MALIGNANT NEOPLASM O 09/12/2018 DAIN DUBOSE DO Ot 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, RECT 09/12/2018 DAIN DUBOSE DO Ot Z87.891 PERSONAL HISTORY OF NICOTINE DEPENDENCE 09/12/2018 DAIN DUBOSE DO Ot Z92.3 PERSONAL HISTORY OF IRRADIATION 09/12/2018 DAIN DUBOSE DO Ot Z95.1 PRESENCE OF AORTOCORONARY BYPASS GRAFT 09/13/2018 DAIN DUBOSE DO Ot E11.42 TYPE 2 DIABETES MELLITUS WITH DIABETIC P 09/13/2018 DUBOSE DO, DAIN Ot E22.2 SYNDROME OF INAPPROPRIATE SECRETION OF A 09/13/2018 GRACY BARTHOLOMEW DAIN Ot E66.2 MORBID (SEVERE) OBESITY WITH ALVEOLAR HY 09/13/2018 GRACY DO DAIN Ot E78.00 PURE HYPERCHOLESTEROLEMIA, UNSPECIFIED 09/13/2018 GRACY DO, DAIN Ot E87.2 ACIDOSIS 09/13/2018 GRACY BARTHOLOMEW DAIN Ot F02.80 DEMENTIA IN OT DISEASES CLASSD ELSWHR W 09/13/2018 GRACY BARTHOLOMEW DAIN Ot G30.9 ALZHEIMER'S DISEASE, UNSPECIFIED 09/13/2018 GRACY BARTHOLOMEW DAIN Ot I08.3 COMB RHEUMATIC DISORD OF MITRAL, AORTIC 09/13/2018 GRACY BARTHOLOMEW DAIN Ot I12.9 HYPERTENSIVE CHRONIC KIDNEY DISEASE W ST 09/13/2018 GRACY BARTHOLOMEW DAIN Ot 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 09/13/2018 GRACY BARTHOLOMEW DAIN Ot I87.2 VENOUS INSUFFICIENCY (CHRONIC) (PERIPHER 09/13/2018 GRACY BARTHOLOMEW DAIN Ot J18.1 LOBAR PNEUMONIA, UNSPECIFIED ORGANISM 09/13/2018 GRACY BARTHOLOMEW DAIN Ot K21.9 GASTRO-ESOPHAGEAL REFLUX DISEASE WITHOUT 09/13/2018 GRACY BARTHOLOMEW DAIN Ot M19.91 PRIMARY OSTEOARTHRITIS, UNSPECIFIED SITE 09/13/2018 GRACY BARTHOLOMEW DAIN Ot M25.471 EFFUSION, RIGHT ANKLE 09/13/2018 GRACY BARTHOLOMEW DAIN Ot M25.472 EFFUSION, LEFT ANKLE 09/13/2018 GRACY BARTHOLOMEW DAIN Ot N18.9 CHRONIC KIDNEY DISEASE, UNSPECIFIED 09/13/2018 GRACY BARTHOLOMEW DAIN Ot R09.02 HYPOXEMIA 09/13/2018 GRACY BARTHOLOMEW ADIN Ot R41.82 ALTERED MENTAL STATUS, UNSPECIFIED 09/13/2018 GRACY BARTHOLOMEW DAIN Ot R79.89 OTHER SPECIFIED ABNORMAL FINDINGS OF BLO 09/13/2018 GRACY BARTHOLOMEW DAIN Ot R91.1 SOLITARY PULMONARY NODULE 09/13/2018 GRACY BARTHOLOMEW DAIN Ot T46.5X5A ADVERSE EFFECT OF OTHER ANTIHYPERTENSIVE 09/13/2018 GRACY BARTHOLOMEW DAIN Ot Z68.37 BODY MASS INDEX (BMI) 37.0-37.9, ADULT 09/13/2018 GRACY BARTHOLOMEW DAIN Ot Z79.4 SIGNAL MAINTAINER (CURRENT) USE OF INSULIN 09/13/2018 DAIN DUBOSE DO Ot Z79.84 SIGNAL MAINTAINER (CURRENT) USE OF ORAL HYPOGLYC 09/13/2018 DAIN DUBOSE DO Ot Z85.038 PERSONAL HISTORY OF MALIGNANT NEOPLASM O 09/13/2018 DAIN DUBOSE DO Ot 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, RECT 09/13/2018 DAIN DUBOSE DO Ot Z87.891 PERSONAL HISTORY OF NICOTINE DEPENDENCE 09/13/2018 DAIN DUBOSE DO Ot Z92.3 PERSONAL HISTORY OF IRRADIATION 09/13/2018 DAIN DUBOSE DO Ot Z95.1 PRESENCE OF AORTOCORONARY BYPASS GRAFT 09/14/2018 DAIN DUBOSE DO Ot E11.42 TYPE 2 DIABETES MELLITUS WITH DIABETIC P 09/14/2018 DAIN DUBOSE DO Ot E22.2 SYNDROME OF INAPPROPRIATE SECRETION OF A 09/14/2018 DAIN DUBOSE DO Ot E66.2 MORBID (SEVERE) OBESITY WITH ALVEOLAR HY 09/14/2018 DAIN DUBOSE DO Ot E78.00 PURE HYPERCHOLESTEROLEMIA, UNSPECIFIED 09/14/2018 KARINA DUBOSE DOI Ot E87.2 ACIDOSIS 09/14/2018 KARINA DUBOSE DOI Ot 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 09/14/2018 DAIN DUBOSE DO Ot G30.9 ALZHEIMER'S DISEASE, UNSPECIFIED 09/14/2018 DAIN DUBOSE DO Ot I08.3 COMB RHEUMATIC DISORD OF MITRAL, AORTIC 09/14/2018 DAIN DUBOSE DO Ot I12.9 HYPERTENSIVE CHRONIC KIDNEY DISEASE W ST 09/14/2018 DAIN DUBOSE DO Ot 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 09/14/2018 DAIN DUBOSE DO Ot I87.2 VENOUS INSUFFICIENCY (CHRONIC) (PERIPHER 09/14/2018 DAIN DUBOSE DO Ot J18.1 LOBAR PNEUMONIA, UNSPECIFIED ORGANISM 09/14/2018 KARINA DUBOSE DOI Ot K21.9 GASTRO-ESOPHAGEAL REFLUX DISEASE WITHOUT 09/14/2018 KARINA DUBOSE DOI Ot M19.91 PRIMARY OSTEOARTHRITIS, UNSPECIFIED SITE 09/14/2018 DAIN DUBOSE DO Ot M25.471 EFFUSION, RIGHT ANKLE 09/14/2018 DUBOSE DO, DAIN Ot M25.472 EFFUSION, LEFT ANKLE 09/14/2018 GRACY BARTHOLOMEW DAIN Ot N18.9 CHRONIC KIDNEY DISEASE, UNSPECIFIED 09/14/2018 GRACY BARTHOLOMEW DAIN Ot R09.02 HYPOXEMIA 09/14/2018 GRACY BARTHOLOMEW DAIN Ot R41.82 ALTERED MENTAL STATUS, UNSPECIFIED 09/14/2018 GRACY BARTHOLOMEW DAIN Ot R79.89 OTHER SPECIFIED ABNORMAL FINDINGS OF BLO 09/14/2018 DAIN DUBOSE DO Ot R91.1 SOLITARY PULMONARY NODULE 09/14/2018 GRACY BARTHOLOMEW DAIN Ot T46.5X5A ADVERSE EFFECT OF OTHER ANTIHYPERTENSIVE 09/14/2018 GRACY BARTHOLOMEW DAIN Ot Z68.37 BODY MASS INDEX (BMI) 37.0-37.9, ADULT 09/14/2018 DAIN DUBOSE DO Ot Z79.4 SIGNAL MAINTAINER (CURRENT) USE OF INSULIN 09/14/2018 KARINA DUBOSE DOI Ot Z79.84 SIGNAL MAINTAINER (CURRENT) USE OF ORAL HYPOGLYC 09/14/2018 KARINA DUBOSE DOI Ot Z85.038 PERSONAL HISTORY OF MALIGNANT NEOPLASM O 09/14/2018 KARINA DUBOSE DOI Ot 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, RECT 09/14/2018 KARINA DUBOSE DOI Ot Z87.891 PERSONAL HISTORY OF NICOTINE DEPENDENCE 09/14/2018 KARINA DUBOSE DOI Ot Z92.3 PERSONAL HISTORY OF IRRADIATION 09/14/2018 KARINA DUBOSE DOI Ot Z95.1 PRESENCE OF AORTOCORONARY BYPASS GRAFT 09/15/2018 KARINA DUBOSE DOI Ot E11.42 TYPE 2 DIABETES MELLITUS WITH DIABETIC P 09/15/2018 GRACY BARTHOLOMEW DAIN Ot E22.2 SYNDROME OF INAPPROPRIATE SECRETION OF A 09/15/2018 GRACY BARTHOLOMEW DAIN Ot E66.2 MORBID (SEVERE) OBESITY WITH ALVEOLAR HY 09/15/2018 GRACY BARTHOLOMEW DAIN Ot E78.00 PURE HYPERCHOLESTEROLEMIA, UNSPECIFIED 09/15/2018 GRACY BARTHOLOMEW DAIN Ot E87.2 ACIDOSIS 09/15/2018 GRACY BARTHOLOMEW DAIN Ot F02.80 DEMENTIA IN OT DISEASES CLASSD ELSWHR W 09/15/2018 GRACY BARTHOLOMEW DAIN Ot G30.9 ALZHEIMER'S DISEASE, UNSPECIFIED 09/15/2018 DAIN DUBOSE DO Ot I08.3 COMB RHEUMATIC DISORD OF MITRAL, AORTIC 09/15/2018 KARINA DUBOSE DOI Ot I12.9 HYPERTENSIVE CHRONIC KIDNEY DISEASE W ST 09/15/2018 DAIN DUBOSE DO Ot 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 09/15/2018 DAIN DUBOSE DO Ot I87.2 VENOUS INSUFFICIENCY (CHRONIC) (PERIPHER 09/15/2018 DAIN DUBOSE DO Ot J18.1 LOBAR PNEUMONIA, UNSPECIFIED ORGANISM 09/15/2018 KARINA DUBOSE DOI Ot K21.9 GASTRO-ESOPHAGEAL REFLUX DISEASE WITHOUT 09/15/2018 GRACY BARTHOLOMEW DAIN Ot M19.91 PRIMARY OSTEOARTHRITIS, UNSPECIFIED SITE 09/15/2018 DAIN DBUOSE DO Ot M25.471 EFFUSION, RIGHT ANKLE 09/15/2018 GRACY BARTHOLOMEW DAIN Ot M25.472 EFFUSION, LEFT ANKLE 09/15/2018 GRACY BARTHOLOMEW DAIN Ot N18.9 CHRONIC KIDNEY DISEASE, UNSPECIFIED 09/15/2018 KARINA DUBOSE DOI Ot R09.02 HYPOXEMIA 09/15/2018 DAIN DUBOSE DO Ot R41.82 ALTERED MENTAL STATUS, UNSPECIFIED 09/15/2018 GRACY BARTHOLOMEW DAIN Ot R79.89 OTHER SPECIFIED ABNORMAL FINDINGS OF BLO 09/15/2018 DAIN DUBOSE DO Ot R91.1 SOLITARY PULMONARY NODULE 09/15/2018 DAIN DUBOSE DO Ot T46.5X5A ADVERSE EFFECT OF OTHER ANTIHYPERTENSIVE 09/15/2018 DAIN DUBOSE DO Ot Z68.37 BODY MASS INDEX (BMI) 37.0-37.9, ADULT 09/15/2018 DAIN DUBOSE DO Ot Z79.4 SIGNAL MAINTAINER (CURRENT) USE OF INSULIN 09/15/2018 DAIN DUBOSE DO Ot Z79.84 ASSISTED (CURRENT) USE OF ORAL HYPOGLYC 09/15/2018 DAIN DUBOSE DO Ot Z85.038 PERSONAL HISTORY OF MALIGNANT NEOPLASM O 09/15/2018 DAIN DUBOSE DO Ot 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, RECT 09/15/2018 KARINA DUBOSE DOI Ot Z87.891 PERSONAL HISTORY OF NICOTINE DEPENDENCE 09/15/2018 DAIN DUBOSE DO Ot Z92.3 PERSONAL HISTORY OF IRRADIATION 09/15/2018 DUBOSE DO, DAIN Ot Z95.1 PRESENCE OF AORTOCORONARY BYPASS GRAFT 09/16/2018 GRACY BARTHOLOMEW DAIN Ot E11.42 TYPE 2 DIABETES MELLITUS WITH DIABETIC P 09/16/2018 GRACY BARTHOLOMEW DAIN Ot E22.2 SYNDROME OF INAPPROPRIATE SECRETION OF A 09/16/2018 GRACY BARTHOLOMEW DAIN Ot E66.2 MORBID (SEVERE) OBESITY WITH ALVEOLAR HY 09/16/2018 GRACY BARTHOLOMEW DAIN Ot E78.00 PURE HYPERCHOLESTEROLEMIA, UNSPECIFIED 09/16/2018 GRACY BARTHOLOMEW DAIN Ot E87.2 ACIDOSIS 09/16/2018 GRACY BARTHOLOMEW DAIN Ot F02.80 DEMENTIA IN OT DISEASES CLASSD ELSWHR W 09/16/2018 GRACY BARTHOLOMEW DAIN Ot G30.9 ALZHEIMER'S DISEASE, UNSPECIFIED 09/16/2018 GRACY BARTHOLOMEW DAIN Ot I08.3 COMB RHEUMATIC DISORD OF MITRAL, AORTIC 09/16/2018 GRACY BARTHOLOMEW DAIN Ot I12.9 HYPERTENSIVE CHRONIC KIDNEY DISEASE W ST 09/16/2018 GRACY BARTHOLOMEW DAIN Ot 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 09/16/2018 GRACY BARTHOLOMEW DAIN Ot I87.2 VENOUS INSUFFICIENCY (CHRONIC) (PERIPHER 09/16/2018 GRACY BARTHOLOMEW DAIN Ot J18.1 LOBAR PNEUMONIA, UNSPECIFIED ORGANISM 09/16/2018 GRACY BARTHOLOMEW DAIN Ot K21.9 GASTRO-ESOPHAGEAL REFLUX DISEASE WITHOUT 09/16/2018 GRACY BARTHOLOMEW DAIN Ot M19.91 PRIMARY OSTEOARTHRITIS, UNSPECIFIED SITE 09/16/2018 GRACY BARTHOLOMEW DAIN Ot M25.471 EFFUSION, RIGHT ANKLE 09/16/2018 GRACY BARTHOLOMEW DAIN Ot M25.472 EFFUSION, LEFT ANKLE 09/16/2018 GRACY BARTHOLOMEW DAIN Ot N18.9 CHRONIC KIDNEY DISEASE, UNSPECIFIED 09/16/2018 GRACY BARTHOLOMEW DAIN Ot R09.02 HYPOXEMIA 09/16/2018 GRACY BARTHOLOMEW DAIN Ot R41.82 ALTERED MENTAL STATUS, UNSPECIFIED 09/16/2018 GRACY BARTHOLOMEW DAIN Ot R79.89 OTHER SPECIFIED ABNORMAL FINDINGS OF BLO 09/16/2018 GRACY BARTHOLOMEW DAIN Ot R91.1 SOLITARY PULMONARY NODULE 09/16/2018 GRACY BARTHOLOMEW DAIN Ot T46.5X5A ADVERSE EFFECT OF OTHER ANTIHYPERTENSIVE 09/16/2018 DAIN DUBOSE DO Ot Z68.37 BODY MASS INDEX (BMI) 37.0-37.9, ADULT 09/16/2018 DAIN DUBOSE DO Ot Z79.4 ASSISTED (CURRENT) USE OF INSULIN 09/16/2018 DAIN DUBOSE DO Ot Z79.84 SIGNAL MAINTAINER (CURRENT) USE OF ORAL HYPOGLYC 09/16/2018 DAIN DUBOSE DO Ot Z85.038 PERSONAL HISTORY OF MALIGNANT NEOPLASM O 09/16/2018 DAIN DUBOSE DO Ot 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, RECT 09/16/2018 GRACY BARTHOLOMEW DAIN Ot Z87.891 PERSONAL HISTORY OF NICOTINE DEPENDENCE 09/16/2018 DAIN DUBOSE DO Ot Z92.3 PERSONAL HISTORY OF IRRADIATION 09/16/2018 KARINA DUBOSE DOI Ot Z95.1 PRESENCE OF AORTOCORONARY BYPASS GRAFT 09/17/2018 GRACY BARTHOLOMEW DAIN Ot E11.42 TYPE 2 DIABETES MELLITUS WITH DIABETIC P 09/17/2018 KARINA DUBOSE DOI Ot E22.2 SYNDROME OF INAPPROPRIATE SECRETION OF A 09/17/2018 GRACY BARTHOLOMEW DAIN Ot E66.2 MORBID (SEVERE) OBESITY WITH ALVEOLAR HY 09/17/2018 GRACY BARTHOLOMEW DAIN Ot E78.00 PURE HYPERCHOLESTEROLEMIA, UNSPECIFIED 09/17/2018 GRACY BARTHOLOMEW DAIN Ot E87.2 ACIDOSIS 09/17/2018 GRACY BARTHOLOMEW DAIN Ot F02.80 DEMENTIA IN OT DISEASES CLASSD ELSWHR W 09/17/2018 GRACY BARTHOLOMEW DAIN Ot G30.9 ALZHEIMER'S DISEASE, UNSPECIFIED 09/17/2018 KARINA DUBOSE DOI Ot I08.3 COMB RHEUMATIC DISORD OF MITRAL, AORTIC 09/17/2018 GRACY BARTHOLOMEW DAIN Ot I12.9 HYPERTENSIVE CHRONIC KIDNEY DISEASE W ST 09/17/2018 KARINA DUBOSE DOI Ot 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 09/17/2018 GRACY BARTHOLOMEW DAIN Ot I87.2 VENOUS INSUFFICIENCY (CHRONIC) (PERIPHER 09/17/2018 GRACY BARTHOLOMEW DAIN Ot J18.1 LOBAR PNEUMONIA, UNSPECIFIED ORGANISM 09/17/2018 GRACY BARTHOLOMEW DAIN Ot K21.9 GASTRO-ESOPHAGEAL REFLUX DISEASE WITHOUT 09/17/2018 GRACY BARTHOLOMEW DAIN Ot M19.91 PRIMARY OSTEOARTHRITIS, UNSPECIFIED SITE 09/17/2018 KARINA DUBOSE DOI Ot M25.471 EFFUSION, RIGHT ANKLE 09/17/2018 GRACY BARTHOLOMEW DAIN Ot M25.472 EFFUSION, LEFT ANKLE 09/17/2018 GRACY BARTHOLOMEW DAIN Ot N18.9 CHRONIC KIDNEY DISEASE, UNSPECIFIED 09/17/2018 GRACY BARTHOLOMEW DAIN Ot R09.02 HYPOXEMIA 09/17/2018 GRACY BARTHOLOMEW DAIN Ot R41.82 ALTERED MENTAL STATUS, UNSPECIFIED 09/17/2018 GRACY BARTHOLOMEW DAIN Ot R79.89 OTHER SPECIFIED ABNORMAL FINDINGS OF BLO 09/17/2018 KAIRNA DUBOSE DOI Ot R91.1 SOLITARY PULMONARY NODULE 09/17/2018 KARINA DUBOSE DOI Ot T46.5X5A ADVERSE EFFECT OF OTHER ANTIHYPERTENSIVE 09/17/2018 GRACY BARTHOLOMEW DAIN Ot Z68.37 BODY MASS INDEX (BMI) 37.0-37.9, ADULT 09/17/2018 KARINA DUBOSE DOI Ot Z79.4 SIGNAL MAINTAINER (CURRENT) USE OF INSULIN 09/17/2018 GRACY BARTHOLOMEW DAIN Ot Z79.84 ASSISTED (CURRENT) USE OF ORAL HYPOGLYC 09/17/2018 GRACY BARTHOLOMEW DAIN Ot Z85.038 PERSONAL HISTORY OF MALIGNANT NEOPLASM O 09/17/2018 KARINA DUBOSE DOI Ot 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, RECT 09/17/2018 GRACY BARTHOLOMEW DAIN Ot Z87.891 PERSONAL HISTORY OF NICOTINE DEPENDENCE 09/17/2018 KARINA DUBOSE DOI Ot Z92.3 PERSONAL HISTORY OF IRRADIATION 09/17/2018 GRACY BARTHOLOMEW DAIN Ot Z95.1 PRESENCE OF AORTOCORONARY BYPASS GRAFT 09/18/2018 GRACY BARTHOLOMEW DAIN Ot E11.42 TYPE 2 DIABETES MELLITUS WITH DIABETIC P 09/18/2018 GRACY BARTHOLOMEW DAIN Ot E22.2 SYNDROME OF INAPPROPRIATE SECRETION OF A 09/18/2018 KARINA DUBOSE DOI Ot E66.2 MORBID (SEVERE) OBESITY WITH ALVEOLAR HY 09/18/2018 GRACY BARTHOLOMEW DAIN Ot E78.00 PURE HYPERCHOLESTEROLEMIA, UNSPECIFIED 09/18/2018 GRACY BARTHOLOMEW DAIN Ot E87.2 ACIDOSIS 09/18/2018 GRACY BARTHOLOMEW DAIN Ot F02.80 DEMENTIA IN OT DISEASES CLASSD ELSWHR W 09/18/2018 GRACY BARTHOLOMEW DAIN Ot G30.9 ALZHEIMER'S DISEASE, UNSPECIFIED 09/18/2018 GRACY BARTHOLOMEW DAIN Ot I08.3 COMB RHEUMATIC DISORD OF MITRAL, AORTIC 09/18/2018 GRACY BARTHOLOMEW DAIN Ot I12.9 HYPERTENSIVE CHRONIC KIDNEY DISEASE W ST 09/18/2018 GRACY BARTHOLOMEW DAIN Ot 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 09/18/2018 GRACY BARTHOLOMEW DAIN Ot I87.2 VENOUS INSUFFICIENCY (CHRONIC) (PERIPHER 09/18/2018 GRACY BARTHOLOMEW DAIN Ot J18.1 LOBAR PNEUMONIA, UNSPECIFIED ORGANISM 09/18/2018 GRACY BARTHOLOMEW DAIN Ot K21.9 GASTRO-ESOPHAGEAL REFLUX DISEASE WITHOUT 09/18/2018 GRACY BARTHOLOMEW DAIN Ot M19.91 PRIMARY OSTEOARTHRITIS, UNSPECIFIED SITE 09/18/2018 GRACY BARTHOLOMEW DAIN Ot M25.471 EFFUSION, RIGHT ANKLE 09/18/2018 GRACY BARTHOLOMEW DAIN Ot M25.472 EFFUSION, LEFT ANKLE 09/18/2018 GRACY BARTHOLOMEW DAIN Ot N18.9 CHRONIC KIDNEY DISEASE, UNSPECIFIED 09/18/2018 GRACY BARTHOLOMEW DAIN Ot R09.02 HYPOXEMIA 09/18/2018 GRACY BARTHOLOMEW DAIN Ot R41.82 ALTERED MENTAL STATUS, UNSPECIFIED 09/18/2018 GRACY BARTHOLOMEW DAIN Ot R79.89 OTHER SPECIFIED ABNORMAL FINDINGS OF BLO 09/18/2018 GRACY BARTHOLOMEW DAIN Ot R91.1 SOLITARY PULMONARY NODULE 09/18/2018 KARINA DUBOSE DOI Ot T46.5X5A ADVERSE EFFECT OF OTHER ANTIHYPERTENSIVE 09/18/2018 GRACY BARTHOLOMEW DAIN Ot Z68.37 BODY MASS INDEX (BMI) 37.0-37.9, ADULT 09/18/2018 GRACY BARTHOLOMEW DAIN Ot Z79.4 SIGNAL MAINTAINER (CURRENT) USE OF INSULIN 09/18/2018 KARINA DUBOSE DOI Ot Z79.84 ASSISTED (CURRENT) USE OF ORAL HYPOGLYC 09/18/2018 GRACY BARTHOLOMEW DAIN Ot Z85.038 PERSONAL HISTORY OF MALIGNANT NEOPLASM O 09/18/2018 KARINA DUBOSE DOI Ot 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, RECT 09/18/2018 KARINA DUBOSE DOI Ot Z87.891 PERSONAL HISTORY OF NICOTINE DEPENDENCE 09/18/2018 DAIN DUBOSE DO Ot Z92.3 PERSONAL HISTORY OF IRRADIATION 09/18/2018 KARINA DUBOSE DOI Ot Z95.1 PRESENCE OF AORTOCORONARY BYPASS GRAFT 09/18/2018 GRACY BARTHOLOMEW DAIN Ot E11.42 TYPE 2 DIABETES MELLITUS WITH DIABETIC P 09/18/2018 KARINA DUBOSE DOI Ot E11.649 TYPE 2 DIABETES MELLITUS WITH HYPOGLYCEM 09/18/2018 GRACY BARTHOLOMEW DAIN Ot E22.2 SYNDROME OF INAPPROPRIATE SECRETION OF A 09/18/2018 GRACY BARTHOLOMEW DAIN Ot E66.2 MORBID (SEVERE) OBESITY WITH ALVEOLAR HY 09/18/2018 GRACY BARTHOLOMEW DAIN Ot E78.00 PURE HYPERCHOLESTEROLEMIA, UNSPECIFIED 09/18/2018 GRACY BARTHOLOMEW DAIN Ot E78.2 MIXED HYPERLIPIDEMIA 09/18/2018 GRACY BARTHOLOMEW DAIN Ot E87.2 ACIDOSIS 09/18/2018 GRACY BARTHOLOMEW DAIN Ot E87.5 HYPERKALEMIA 09/18/2018 GRACY BARTHOLOMEW DAIN Ot 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 09/18/2018 GRACY BARTHOLOMEW DAIN Ot G30.9 ALZHEIMER'S DISEASE, UNSPECIFIED 09/18/2018 GRACY BARTHOLOMEW DAIN Ot I08.3 COMB RHEUMATIC DISORD OF MITRAL, AORTIC 09/18/2018 GRACY BARTHLOOMEW DAIN Ot I12.9 HYPERTENSIVE CHRONIC KIDNEY DISEASE W ST 09/18/2018 GRACY BARTHOLOMEW DAIN Ot 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 09/18/2018 GRACY BARTHOLOMEW DAIN Ot I87.2 VENOUS INSUFFICIENCY (CHRONIC) (PERIPHER 09/18/2018 GRACY BARTHOLOMEW DAIN Ot J18.1 LOBAR PNEUMONIA, UNSPECIFIED ORGANISM 09/18/2018 GRACY BARTHOLOMEW DAIN Ot K21.9 GASTRO-ESOPHAGEAL REFLUX DISEASE WITHOUT 09/18/2018 GRACY BARTHOLOMEW DAIN Ot M19.91 PRIMARY OSTEOARTHRITIS, UNSPECIFIED SITE 09/18/2018 GRACY BARTHOLOMEW DAIN Ot M25.471 EFFUSION, RIGHT ANKLE 09/18/2018 GRACY BARTHOLOMEW DAIN Ot M25.472 EFFUSION, LEFT ANKLE 09/18/2018 GRACY BARTHOLOMEW DAIN Ot N18.9 CHRONIC KIDNEY DISEASE, UNSPECIFIED 09/18/2018 KARINA DUBOSE DOI Ot R09.02 HYPOXEMIA 09/18/2018 KARINA DUBOSE DOI Ot R13.12 DYSPHAGIA, OROPHARYNGEAL PHASE 09/18/2018 GRACY BARTHOLOMEW DAIN Ot R41.82 ALTERED MENTAL STATUS, UNSPECIFIED 09/18/2018 KARINA DUBOSE DOI Ot R79.89 OTHER SPECIFIED ABNORMAL FINDINGS OF BLO 09/18/2018 GRACY BARTHOLOMEW DAIN Ot R91.1 SOLITARY PULMONARY NODULE 09/18/2018 GRACY BARTHOLOMEW DAIN Ot T46.5X5A ADVERSE EFFECT OF OTHER ANTIHYPERTENSIVE 09/18/2018 GRACY BARTHOLOMEW DAIN Ot Z68.37 BODY MASS INDEX (BMI) 37.0-37.9, ADULT 09/18/2018 DUBOSECLARA BARTHOLOMEW DAIN Ot Z79.4 ASSISTED (CURRENT) USE OF INSULIN 09/18/2018 DUBOSE DAIN Ot Z79.84 ASSISTED (CURRENT) USE OF ORAL HYPOGLYC 09/18/2018 DUBOSECLARA BARTHOLOMEW DAIN Ot Z85.038 PERSONAL HISTORY OF MALIGNANT NEOPLASM O 09/18/2018 DUBOSECLARA BARTHOLOMEW DAIN Ot 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 Results Test Result Range Complete blood count (CBC) with automated white blood cell (WBC) differential - 09/09/18 12:20 Blood leukocytes automated count (number/volume) 7.4 10*3/uL 4.3-11.0 Blood erythrocytes automated count (number/volume) 3.61 10*6/uL 4.35-5.85 Venous blood hemoglobin measurement (mass/volume) 11.6 g/dL 13.3-17.7 Blood hematocrit (volume fraction) 33 % 40-54 Automated erythrocyte mean corpuscular volume 90 [foz_us] 80-99 Automated erythrocyte mean corpuscular hemoglobin (mass per erythrocyte) 32 pg 25-34 Automated erythrocyte mean corpuscular hemoglobin concentration measurement ( mass/volume) 36 g/dL 32-36 Automated erythrocyte distribution width ratio 11.8 % 10.0-14.5 Automated blood platelet count (count/volume) 155 10*3/uL 130-400 Automated blood platelet mean volume measurement 8.3 [foz_us] 7.4-10.4 Automated blood neutrophils/100 leukocytes 78 % 42-75 Automated blood lymphocytes/100 leukocytes 13 % 12-44 Blood monocytes/100 leukocytes 8 % 0-12 Automated blood eosinophils/100 leukocytes 1 % 0-10 Automated blood basophils/100 leukocytes 0 % 0-10 Blood neutrophils automated count (number/volume) 5.8 10*3 1.8-7.8 Blood lymphocytes automated count (number/volume) 1.0 10*3 1.0-4.0 Blood monocytes automated count (number/volume) 0.6 10*3 0.0-1.0 Automated eosinophil count 0.1 10*3/uL 0.0-0.3 Automated blood basophil count (count/volume) 0.0 10*3/uL 0.0-0.1 Blood lactic acid measurement (moles/volume) - 09/09/18 12:20 Blood lactic acid measurement (moles/volume) 2.37 mmol/L 0.50-2.00 PT panel in platelet poor plasma by coagulation assay - 09/09/18 12:20 Prothrombin time (PT) in platelet poor plasma by coagulation assay 13.9 s 12.2-14.7 INR in platelet poor plasma or blood by coagulation assay 1.1 0.8-1.4 Activated partial thromboplastin time (aPTT) in platelet poor plasma bycoagulation assay - 09/09/18 12:20 Activated partial thromboplastin time (aPTT) in platelet poor plasma bycoagulation assay 34 s 24-35 Comprehensive metabolic panel - 09/09/18 12:20 Serum or plasma sodium measurement (moles/volume) 121 mmol/L 135-145 Serum or plasma potassium measurement (moles/volume) 3.7 mmol/L 3.6-5.0 Serum or plasma chloride measurement (moles/volume) 82 mmol/L 98-107 Carbon dioxide 26 mmol/L 21-32 Serum or plasma anion gap determination (moles/volume) 13 mmol/L 5-14 Serum or plasma urea nitrogen measurement (mass/volume) 19 mg/dL 7-18 Serum or plasma creatinine measurement (mass/volume) 1.10 mg/dL 0.60-1.30 Serum or plasma urea nitrogen/creatinine mass ratio 17 NRG Serum or plasma creatinine measurement with calculation of estimated glomerular filtration rate > NRG Serum or plasma glucose measurement (mass/volume) 86 mg/dL 70-105 Serum or plasma calcium measurement (mass/volume) 9.0 mg/dL 8.5-10.1 Serum or plasma total bilirubin measurement (mass/volume) 0.5 mg/dL 0.1-1.0 Serum or plasma alkaline phosphatase measurement (enzymatic activity/volume) 72 U/L 40-136 Serum or plasma aspartate aminotransferase measurement (enzymatic activity/ volume) 27 U/L 5-34 Serum or plasma alanine aminotransferase measurement (enzymatic activity/volume ) 12 U/L 0-55 Serum or plasma protein measurement (mass/volume) 6.6 g/dL 6.4-8.2 Serum or plasma albumin measurement (mass/volume) 3.6 g/dL 3.2-4.5 CALCIUM CORRECTED 9.3 mg/dL 8.5-10.1 Magnesium - 09/09/18 12:20 Magnesium 1.4 mg/dL 1.8-2.4 TROPONIN T - 09/09/18 12:20 TROPONIN T 15 % <=15 PROBNP FS - 09/09/18 12:20 PROBNP FS 1111.0 pg/mL <75.0 Myoglobin, serum - 09/09/18 12:20 Myoglobin, serum 161.9 ng/mL 10.0-92.0 Bacterial blood culture - 09/09/18 12:20 Bacterial blood culture NG NRG Bacterial blood culture - 09/09/18 12:29 Bacterial blood culture NG NRG Capillary blood glucose measurement by glucometer (mass/volume) - 09/09/18 15: 47 Capillary blood glucose measurement by glucometer (mass/volume) 57 mg/dL 70-110 Serum or plasma lactate measurement (moles/volume) - 09/09/18 16:15 Serum or plasma lactate measurement (moles/volume) 2.32 mmol/L 0.50-2.00 Capillary blood glucose measurement by glucometer (mass/volume) - 09/09/18 21: 11 Capillary blood glucose measurement by glucometer (mass/volume) 137 mg/dL 70-110 Complete blood count (CBC) with automated white blood cell (WBC) differential - 09/10/18 03:05 Blood leukocytes automated count (number/volume) 6.8 10*3/uL 4.3-11.0 Blood erythrocytes automated count (number/volume) 3.45 10*6/uL 4.35-5.85 Venous blood hemoglobin measurement (mass/volume) 11.4 g/dL 13.3-17.7 Blood hematocrit (volume fraction) 31 % 40-54 Automated erythrocyte mean corpuscular volume 89 [foz_us] 80-99 Automated erythrocyte mean corpuscular hemoglobin (mass per erythrocyte) 33 pg 25-34 Automated erythrocyte mean corpuscular hemoglobin concentration measurement ( mass/volume) 37 g/dL 32-36 Automated erythrocyte distribution width ratio 11.8 % 10.0-14.5 Automated blood platelet count (count/volume) 189 10*3/uL 130-400 Automated blood platelet mean volume measurement 8.3 [foz_us] 7.4-10.4 Automated blood neutrophils/100 leukocytes 79 % 42-75 Automated blood lymphocytes/100 leukocytes 12 % 12-44 Blood monocytes/100 leukocytes 8 % 0-12 Automated blood eosinophils/100 leukocytes 1 % 0-10 Automated blood basophils/100 leukocytes 0 % 0-10 Blood neutrophils automated count (number/volume) 5.4 10*3 1.8-7.8 Blood lymphocytes automated count (number/volume) 0.8 10*3 1.0-4.0 Blood monocytes automated count (number/volume) 0.5 10*3 0.0-1.0 Automated eosinophil count 0.1 10*3/uL 0.0-0.3 Automated blood basophil count (count/volume) 0.0 10*3/uL 0.0-0.1 Comprehensive metabolic panel - 09/10/18 03:05 Serum or plasma sodium measurement (moles/volume) 124 mmol/L 135-145 Serum or plasma potassium measurement (moles/volume) 3.7 mmol/L 3.6-5.0 Serum or plasma chloride measurement (moles/volume) 90 mmol/L 98-107 Carbon dioxide 21 mmol/L 21-32 Serum or plasma anion gap determination (moles/volume) 13 mmol/L 5-14 Serum or plasma urea nitrogen measurement (mass/volume) 16 mg/dL 7-18 Serum or plasma creatinine measurement (mass/volume) 0.91 mg/dL 0.60-1.30 Serum or plasma urea nitrogen/creatinine mass ratio 18 NRG Serum or plasma creatinine measurement with calculation of estimated glomerular filtration rate > NRG Serum or plasma glucose measurement (mass/volume) 145 mg/dL 70-105 Serum or plasma calcium measurement (mass/volume) 9.1 mg/dL 8.5-10.1 Serum or plasma total bilirubin measurement (mass/volume) 0.5 mg/dL 0.1-1.0 Serum or plasma alkaline phosphatase measurement (enzymatic activity/volume) 67 U/L 40-136 Serum or plasma aspartate aminotransferase measurement (enzymatic activity/ volume) 27 U/L 5-34 Serum or plasma alanine aminotransferase measurement (enzymatic activity/volume ) 14 U/L 0-55 Serum or plasma protein measurement (mass/volume) 6.3 g/dL 6.4-8.2 Serum or plasma albumin measurement (mass/volume) 3.5 g/dL 3.2-4.5 CALCIUM CORRECTED 9.5 mg/dL 8.5-10.1 Lipid 1996 panel - 09/10/18 03:05 Serum or plasma triglyceride measurement (mass/volume) 92 mg/dL <150 Serum or plasma cholesterol measurement (mass/volume) 106 mg/dL < 200 Serum or plasma cholesterol in HDL measurement (mass/volume) 36 mg/ dL 40-60 Cholesterol in LDL [mass/volume] in serum or plasma by direct assay 51 mg/dL 1-129 Serum or plasma cholesterol in VLDL measurement (mass/volume) 18 mg/ dL 5-40 Serum or plasma lithium measurement (moles/volume) - 09/10/18 03:05 BNP level 290.9 pg/mL <100.0 Capillary blood glucose measurement by glucometer (mass/volume) - 09/10/18 10: 47 Capillary blood glucose measurement by glucometer (mass/volume) 260 mg/dL 70-110 Whole blood basic metabolic panel - 09/10/18 12:00 Serum or plasma sodium measurement (moles/volume) 128 mmol/L 135-145 Serum or plasma potassium measurement (moles/volume) 4.0 mmol/L 3.6-5.0 Serum or plasma chloride measurement (moles/volume) 94 mmol/L 98-107 Carbon dioxide 23 mmol/L 21-32 Serum or plasma anion gap determination (moles/volume) 11 mmol/L 5-14 Serum or plasma urea nitrogen measurement (mass/volume) 14 mg/dL 7-18 Serum or plasma creatinine measurement (mass/volume) 1.01 mg/dL 0.60-1.30 Serum or plasma urea nitrogen/creatinine mass ratio 14 NRG Serum or plasma creatinine measurement with calculation of estimated glomerular filtration rate > NRG Serum or plasma glucose measurement (mass/volume) 223 mg/dL 70-105 Serum or plasma calcium measurement (mass/volume) 9.0 mg/dL 8.5-10.1 Complete urinalysis with reflex to culture - 09/10/18 13:55 Urine color determination YELLOW NRG Urine clarity determination CLEAR NRG Urine pH measurement by test strip 6 5-9 Specific gravity of urine by test strip 1.010 1.016- 1.022 Urine protein assay by test strip, semi-quantitative 3+ NEGATIVE Urine glucose detection by automated test strip 2+ NEGATIVE Erythrocytes detection in urine sediment by light microscopy NEGATIVE NEGATIVE Urine ketones detection by automated test strip NEGATIVE NEGATIVE Urine nitrite detection by test strip NEGATIVE NEGATIVE Urine total bilirubin detection by test strip NEGATIVE NEGATIVE Urine urobilinogen measurement by automated test strip (mass/volume) NORMAL NORMAL Urine leukocyte esterase detection by dipstick NEGATIVE NEGATIVE Automated urine sediment erythrocyte count by microscopy (number/high power field) NONE NRG Automated urine sediment leukocyte count by microscopy (number/high power field ) NONE NRG Bacteria detection in urine sediment by light microscopy NEGATIVE NRG Squamous epithelial cells detection in urine sediment by light microscopy RARE NRG Crystals detection in urine sediment by light microscopy NONE NRG Casts detection in urine sediment by light microscopy NONE NRG Mucus detection in urine sediment by light microscopy NEGATIVE NRG Complete urinalysis with reflex to culture NO NRG Capillary blood glucose measurement by glucometer (mass/volume) - 09/10/18 15: 03 Capillary blood glucose measurement by glucometer (mass/volume) 266 mg/dL 70-110 Whole blood basic metabolic panel - 09/10/18 16:58 Serum or plasma sodium measurement (moles/volume) 128 mmol/L 135-145 Serum or plasma potassium measurement (moles/volume) 3.8 mmol/L 3.6-5.0 Serum or plasma chloride measurement (moles/volume) 95 mmol/L 98-107 Carbon dioxide 25 mmol/L 21-32 Serum or plasma anion gap determination (moles/volume) 8 mmol/L 5-14 Serum or plasma urea nitrogen measurement (mass/volume) 15 mg/dL 7-18 Serum or plasma creatinine measurement (mass/volume) 0.96 mg/dL 0.60-1.30 Serum or plasma urea nitrogen/creatinine mass ratio 16 NRG Serum or plasma creatinine measurement with calculation of estimated glomerular filtration rate > NRG Serum or plasma glucose measurement (mass/volume) 205 mg/dL 70-105 Serum or plasma calcium measurement (mass/volume) 9.0 mg/dL 8.5-10.1 Whole blood basic metabolic panel - 09/10/18 20:08 Serum or plasma sodium measurement (moles/volume) 129 mmol/L 135-145 Serum or plasma potassium measurement (moles/volume) 3.8 mmol/L 3.6-5.0 Serum or plasma chloride measurement (moles/volume) 94 mmol/L 98-107 Carbon dioxide 22 mmol/L 21-32 Serum or plasma anion gap determination (moles/volume) 13 mmol/L 5-14 Serum or plasma urea nitrogen measurement (mass/volume) 14 mg/dL 7-18 Serum or plasma creatinine measurement (mass/volume) 1.03 mg/dL 0.60-1.30 Serum or plasma urea nitrogen/creatinine mass ratio 14 NRG Serum or plasma creatinine measurement with calculation of estimated glomerular filtration rate > NRG Serum or plasma glucose measurement (mass/volume) 294 mg/dL 70-105 Serum or plasma calcium measurement (mass/volume) 8.7 mg/dL 8.5-10.1 Whole blood basic metabolic panel - 09/11/18 00:20 Serum or plasma sodium measurement (moles/volume) 131 mmol/L 135-145 Serum or plasma potassium measurement (moles/volume) 3.8 mmol/L 3.6-5.0 Serum or plasma chloride measurement (moles/volume) 96 mmol/L 98-107 Carbon dioxide 24 mmol/L 21-32 Serum or plasma anion gap determination (moles/volume) 11 mmol/L 5-14 Serum or plasma urea nitrogen measurement (mass/volume) 13 mg/dL 7-18 Serum or plasma creatinine measurement (mass/volume) 0.84 mg/dL 0.60-1.30 Serum or plasma urea nitrogen/creatinine mass ratio 15 NRG Serum or plasma creatinine measurement with calculation of estimated glomerular filtration rate > NRG Serum or plasma glucose measurement (mass/volume) 180 mg/dL 70-105 Serum or plasma calcium measurement (mass/volume) 8.8 mg/dL 8.5-10.1 Whole blood basic metabolic panel - 09/11/18 04:05 Serum or plasma sodium measurement (moles/volume) 132 mmol/L 135-145 Serum or plasma potassium measurement (moles/volume) 3.5 mmol/L 3.6-5.0 Serum or plasma chloride measurement (moles/volume) 96 mmol/L 98-107 Carbon dioxide 23 mmol/L 21-32 Serum or plasma anion gap determination (moles/volume) 13 mmol/L 5-14 Serum or plasma urea nitrogen measurement (mass/volume) 11 mg/dL 7-18 Serum or plasma creatinine measurement (mass/volume) 0.83 mg/dL 0.60-1.30 Serum or plasma urea nitrogen/creatinine mass ratio 13 NRG Serum or plasma creatinine measurement with calculation of estimated glomerular filtration rate > NRG Serum or plasma glucose measurement (mass/volume) 182 mg/dL 70-105 Serum or plasma calcium measurement (mass/volume) 8.8 mg/dL 8.5-10.1 Capillary blood glucose measurement by glucometer (mass/volume) - 09/11/18 06: 18 Capillary blood glucose measurement by glucometer (mass/volume) 190 mg/dL 70-110 Capillary blood glucose measurement by glucometer (mass/volume) - 09/11/18 10: 51 Capillary blood glucose measurement by glucometer (mass/volume) 275 mg/dL 70-110 Capillary blood glucose measurement by glucometer (mass/volume) - 09/11/18 16: 31 Capillary blood glucose measurement by glucometer (mass/volume) 190 mg/dL 70-110 Capillary blood glucose measurement by glucometer (mass/volume) - 09/11/18 19: 54 Capillary blood glucose measurement by glucometer (mass/volume) 242 mg/dL 70-110 Capillary blood glucose measurement by glucometer (mass/volume) - 09/12/18 05: 22 Capillary blood glucose measurement by glucometer (mass/volume) 186 mg/dL 70-110 Capillary blood glucose measurement by glucometer (mass/volume) - 09/12/18 10: 59 Capillary blood glucose measurement by glucometer (mass/volume) 201 mg/dL 70-110 Complete blood count (CBC) with automated white blood cell (WBC) differential - 09/12/18 12:05 Blood leukocytes automated count (number/volume) 7.6 10*3/uL 4.3-11.0 Blood erythrocytes automated count (number/volume) 3.28 10*6/uL 4.35-5.85 Venous blood hemoglobin measurement (mass/volume) 10.8 g/dL 13.3-17.7 Blood hematocrit (volume fraction) 31 % 40-54 Automated erythrocyte mean corpuscular volume 94 [foz_us] 80-99 Automated erythrocyte mean corpuscular hemoglobin (mass per erythrocyte) 33 pg 25-34 Automated erythrocyte mean corpuscular hemoglobin concentration measurement ( mass/volume) 35 g/dL 32-36 Automated erythrocyte distribution width ratio 12.5 % 10.0-14.5 Automated blood platelet count (count/volume) 197 10*3/uL 130-400 Automated blood platelet mean volume measurement 7.6 [foz_us] 7.4-10.4 Automated blood neutrophils/100 leukocytes 81 % 42-75 Automated blood lymphocytes/100 leukocytes 9 % 12-44 Blood monocytes/100 leukocytes 9 % 0-12 Automated blood eosinophils/100 leukocytes 1 % 0-10 Automated blood basophils/100 leukocytes 0 % 0-10 Blood neutrophils automated count (number/volume) 6.2 10*3 1.8-7.8 Blood lymphocytes automated count (number/volume) 0.7 10*3 1.0-4.0 Blood monocytes automated count (number/volume) 0.7 10*3 0.0-1.0 Automated eosinophil count 0.1 10*3/uL 0.0-0.3 Automated blood basophil count (count/volume) 0.0 10*3/uL 0.0-0.1 Comprehensive metabolic panel - 09/12/18 12:05 Serum or plasma sodium measurement (moles/volume) 130 mmol/L 135-145 Serum or plasma potassium measurement (moles/volume) 5.3 mmol/L 3.6-5.0 Serum or plasma chloride measurement (moles/volume) 98 mmol/L 98-107 Carbon dioxide 26 mmol/L 21-32 Serum or plasma anion gap determination (moles/volume) 6 mmol/L 5-14 Serum or plasma urea nitrogen measurement (mass/volume) 13 mg/dL 7-18 Serum or plasma creatinine measurement (mass/volume) 0.84 mg/dL 0.60-1.30 Serum or plasma urea nitrogen/creatinine mass ratio 15 NRG Serum or plasma creatinine measurement with calculation of estimated glomerular filtration rate > NRG Serum or plasma glucose measurement (mass/volume) 190 mg/dL 70-105 Serum or plasma calcium measurement (mass/volume) 9.5 mg/dL 8.5-10.1 Serum or plasma total bilirubin measurement (mass/volume) 0.5 mg/dL 0.1-1.0 Serum or plasma alkaline phosphatase measurement (enzymatic activity/volume) 75 U/L 40-136 Serum or plasma aspartate aminotransferase measurement (enzymatic activity/ volume) 23 U/L 5-34 Serum or plasma alanine aminotransferase measurement (enzymatic activity/volume ) 16 U/L 0-55 Serum or plasma protein measurement (mass/volume) 6.1 g/dL 6.4-8.2 Serum or plasma albumin measurement (mass/volume) 3.4 g/dL 3.2-4.5 CALCIUM CORRECTED 10.0 mg/dL 8.5-10.1 Capillary blood glucose measurement by glucometer (mass/volume) - 09/12/18 17: 01 Capillary blood glucose measurement by glucometer (mass/volume) 123 mg/dL 70-110 Capillary blood glucose measurement by glucometer (mass/volume) - 09/13/18 00: 39 Capillary blood glucose measurement by glucometer (mass/volume) 150 mg/dL 70-110 Capillary blood glucose measurement by glucometer (mass/volume) - 09/13/18 05: 10 Capillary blood glucose measurement by glucometer (mass/volume) 81 mg/dL 70-110 Complete blood count (CBC) with automated white blood cell (WBC) differential - 09/13/18 10:25 Blood leukocytes automated count (number/volume) 7.6 10*3/uL 4.3-11.0 Blood erythrocytes automated count (number/volume) 3.59 10*6/uL 4.35-5.85 Venous blood hemoglobin measurement (mass/volume) 11.6 g/dL 13.3-17.7 Blood hematocrit (volume fraction) 33 % 40-54 Automated erythrocyte mean corpuscular volume 93 [foz_us] 80-99 Automated erythrocyte mean corpuscular hemoglobin (mass per erythrocyte) 32 pg 25-34 Automated erythrocyte mean corpuscular hemoglobin concentration measurement ( mass/volume) 35 g/dL 32-36 Automated erythrocyte distribution width ratio 12.2 % 10.0-14.5 Automated blood platelet count (count/volume) 198 10*3/uL 130-400 Automated blood platelet mean volume measurement 7.9 [foz_us] 7.4-10.4 Automated blood neutrophils/100 leukocytes 79 % 42-75 Automated blood lymphocytes/100 leukocytes 11 % 12-44 Blood monocytes/100 leukocytes 8 % 0-12 Automated blood eosinophils/100 leukocytes 2 % 0-10 Automated blood basophils/100 leukocytes 0 % 0-10 Blood neutrophils automated count (number/volume) 6.0 10*3 1.8-7.8 Blood lymphocytes automated count (number/volume) 0.8 10*3 1.0-4.0 Blood monocytes automated count (number/volume) 0.6 10*3 0.0-1.0 Automated eosinophil count 0.2 10*3/uL 0.0-0.3 Automated blood basophil count (count/volume) 0.0 10*3/uL 0.0-0.1 Whole blood basic metabolic panel - 09/13/18 10:25 Serum or plasma sodium measurement (moles/volume) 132 mmol/L 135-145 Serum or plasma potassium measurement (moles/volume) 4.3 mmol/L 3.6-5.0 Serum or plasma chloride measurement (moles/volume) 99 mmol/L 98-107 Carbon dioxide 23 mmol/L 21-32 Serum or plasma anion gap determination (moles/volume) 10 mmol/L 5-14 Serum or plasma urea nitrogen measurement (mass/volume) 12 mg/dL 7-18 Serum or plasma creatinine measurement (mass/volume) 0.82 mg/dL 0.60-1.30 Serum or plasma urea nitrogen/creatinine mass ratio 15 NRG Serum or plasma creatinine measurement with calculation of estimated glomerular filtration rate > NRG Serum or plasma glucose measurement (mass/volume) 101 mg/dL 70-105 Serum or plasma calcium measurement (mass/volume) 10.1 mg/dL 8.5-10.1 Serum or plasma phosphate measurement (mass/volume) - 09/13/18 10:25 Serum or plasma phosphate measurement (mass/volume) 4.1 mg/dL 2.3-4.7 Magnesium - 09/13/18 10:25 Magnesium 1.7 mg/dL 1.8-2.4 Serum or plasma lithium measurement (moles/volume) - 09/13/18 10:25 BNP level 244.8 pg/mL <100.0 Capillary blood glucose measurement by glucometer (mass/volume) - 09/13/18 11: 18 Capillary blood glucose measurement by glucometer (mass/volume) 80 mg/dL 70-110 Capillary blood glucose measurement by glucometer (mass/volume) - 09/13/18 15: 42 Capillary blood glucose measurement by glucometer (mass/volume) 111 mg/dL 70-110 Capillary blood glucose measurement by glucometer (mass/volume) - 09/13/18 22: 01 Capillary blood glucose measurement by glucometer (mass/volume) 167 mg/dL 70-110 Complete blood count (CBC) with automated white blood cell (WBC) differential - 09/14/18 04:25 Blood leukocytes automated count (number/volume) 7.8 10*3/uL 4.3-11.0 Blood erythrocytes automated count (number/volume) 3.55 10*6/uL 4.35-5.85 Venous blood hemoglobin measurement (mass/volume) 11.7 g/dL 13.3-17.7 Blood hematocrit (volume fraction) 33 % 40-54 Automated erythrocyte mean corpuscular volume 92 [foz_us] 80-99 Automated erythrocyte mean corpuscular hemoglobin (mass per erythrocyte) 33 pg 25-34 Automated erythrocyte mean corpuscular hemoglobin concentration measurement ( mass/volume) 36 g/dL 32-36 Automated erythrocyte distribution width ratio 12.1 % 10.0-14.5 Automated blood platelet count (count/volume) 217 10*3/uL 130-400 Automated blood platelet mean volume measurement 7.9 [foz_us] 7.4-10.4 Automated blood neutrophils/100 leukocytes 79 % 42-75 Automated blood lymphocytes/100 leukocytes 10 % 12-44 Blood monocytes/100 leukocytes 8 % 0-12 Automated blood eosinophils/100 leukocytes 3 % 0-10 Automated blood basophils/100 leukocytes 0 % 0-10 Blood neutrophils automated count (number/volume) 6.2 10*3 1.8-7.8 Blood lymphocytes automated count (number/volume) 0.8 10*3 1.0-4.0 Blood monocytes automated count (number/volume) 0.7 10*3 0.0-1.0 Automated eosinophil count 0.2 10*3/uL 0.0-0.3 Automated blood basophil count (count/volume) 0.0 10*3/uL 0.0-0.1 Whole blood basic metabolic panel - 09/14/18 04:25 Serum or plasma sodium measurement (moles/volume) 131 mmol/L 135-145 Serum or plasma potassium measurement (moles/volume) 3.9 mmol/L 3.6-5.0 Serum or plasma chloride measurement (moles/volume) 97 mmol/L 98-107 Carbon dioxide 24 mmol/L 21-32 Serum or plasma anion gap determination (moles/volume) 10 mmol/L 5-14 Serum or plasma urea nitrogen measurement (mass/volume) 13 mg/dL 7-18 Serum or plasma creatinine measurement (mass/volume) 0.81 mg/dL 0.60-1.30 Serum or plasma urea nitrogen/creatinine mass ratio 16 NRG Serum or plasma creatinine measurement with calculation of estimated glomerular filtration rate > NRG Serum or plasma glucose measurement (mass/volume) 113 mg/dL 70-105 Serum or plasma calcium measurement (mass/volume) 9.7 mg/dL 8.5-10.1 Serum or plasma phosphate measurement (mass/volume) - 09/14/18 04:25 Serum or plasma phosphate measurement (mass/volume) 4.7 mg/dL 2.3-4.7 Magnesium - 09/14/18 04:25 Magnesium 1.7 mg/dL 1.8-2.4 Capillary blood glucose measurement by glucometer (mass/volume) - 09/14/18 11: 04 Capillary blood glucose measurement by glucometer (mass/volume) 152 mg/dL 70-110 Capillary blood glucose measurement by glucometer (mass/volume) - 09/14/18 16: 10 Capillary blood glucose measurement by glucometer (mass/volume) 145 mg/dL 70-110 Capillary blood glucose measurement by glucometer (mass/volume) - 09/14/18 20: 53 Capillary blood glucose measurement by glucometer (mass/volume) 227 mg/dL 70-110 Complete blood count (CBC) with automated white blood cell (WBC) differential - 09/15/18 06:10 Blood leukocytes automated count (number/volume) 8.7 10*3/uL 4.3-11.0 Blood erythrocytes automated count (number/volume) 3.40 10*6/uL 4.35-5.85 Venous blood hemoglobin measurement (mass/volume) 11.0 g/dL 13.3-17.7 Blood hematocrit (volume fraction) 31 % 40-54 Automated erythrocyte mean corpuscular volume 92 [foz_us] 80-99 Automated erythrocyte mean corpuscular hemoglobin (mass per erythrocyte) 32 pg 25-34 Automated erythrocyte mean corpuscular hemoglobin concentration measurement ( mass/volume) 35 g/dL 32-36 Automated erythrocyte distribution width ratio 12.1 % 10.0-14.5 Automated blood platelet count (count/volume) 239 10*3/uL 130-400 Automated blood platelet mean volume measurement 7.4 [foz_us] 7.4-10.4 Automated blood neutrophils/100 leukocytes 79 % 42-75 Automated blood lymphocytes/100 leukocytes 11 % 12-44 Blood monocytes/100 leukocytes 8 % 0-12 Automated blood eosinophils/100 leukocytes 2 % 0-10 Automated blood basophils/100 leukocytes 0 % 0-10 Blood neutrophils automated count (number/volume) 6.8 10*3 1.8-7.8 Blood lymphocytes automated count (number/volume) 1.0 10*3 1.0-4.0 Blood monocytes automated count (number/volume) 0.7 10*3 0.0-1.0 Automated eosinophil count 0.2 10*3/uL 0.0-0.3 Automated blood basophil count (count/volume) 0.0 10*3/uL 0.0-0.1 Whole blood basic metabolic panel - 09/15/18 06:10 Serum or plasma sodium measurement (moles/volume) 133 mmol/L 135-145 Serum or plasma potassium measurement (moles/volume) 3.8 mmol/L 3.6-5.0 Serum or plasma chloride measurement (moles/volume) 98 mmol/L 98-107 Carbon dioxide 26 mmol/L 21-32 Serum or plasma anion gap determination (moles/volume) 9 mmol/L 5-14 Serum or plasma urea nitrogen measurement (mass/volume) 20 mg/dL 7-18 Serum or plasma creatinine measurement (mass/volume) 0.90 mg/dL 0.60-1.30 Serum or plasma urea nitrogen/creatinine mass ratio 22 NRG Serum or plasma creatinine measurement with calculation of estimated glomerular filtration rate > NRG Serum or plasma glucose measurement (mass/volume) 65 mg/dL 70-105 Serum or plasma calcium measurement (mass/volume) 9.9 mg/dL 8.5-10.1 Serum or plasma phosphate measurement (mass/volume) - 09/15/18 06:10 Serum or plasma phosphate measurement (mass/volume) 4.1 mg/dL 2.3-4.7 Magnesium - 09/15/18 06:10 Magnesium 1.9 mg/dL 1.8-2.4 Capillary blood glucose measurement by glucometer (mass/volume) - 09/15/18 06: 14 Capillary blood glucose measurement by glucometer (mass/volume) 69 mg/dL 70-110 Capillary blood glucose measurement by glucometer (mass/volume) - 09/15/18 10: 57 Capillary blood glucose measurement by glucometer (mass/volume) 58 mg/dL 70-110 Arterial blood gas measurement - 09/15/18 15:05 Blood pCO2 45 mm[Hg] 35-45 Blood pO2 74 mm[Hg] 79-93 Arterial blood bicarbonate measurement (moles/volume) 27 mmol/L 23-27 Arterial blood base excess by calculation 1.7 mmol/L -2.5 -2.5 Arterial blood oxygen saturation measurement 96 % 94-100 * Inhaled oxygen flow rate 1L NRG Arterial blood pH measurement with patient temperature correction 7.38 7.37-7.43 Arterial blood carbon dioxide, total measurement (moles/volume) 28.0 mmol/L 21.0-31.0 Body site RIGHT RADIAL NRG Assessment of wrist artery patency prior to arterial puncture POSITIVE NRG Setting of ventilation mode NO NRG Measurement of body temperature 96.0 NRG Capillary blood glucose measurement by glucometer (mass/volume) - 09/15/18 16: 09 Capillary blood glucose measurement by glucometer (mass/volume) 112 mg/dL 70-110 Capillary blood glucose measurement by glucometer (mass/volume) - 09/15/18 20: 51 Capillary blood glucose measurement by glucometer (mass/volume) 162 mg/dL 70-110 Complete blood count (CBC) with automated white blood cell (WBC) differential - 09/16/18 04:35 Blood leukocytes automated count (number/volume) 8.4 10*3/uL 4.3-11.0 Blood erythrocytes automated count (number/volume) 3.52 10*6/uL 4.35-5.85 Venous blood hemoglobin measurement (mass/volume) 11.4 g/dL 13.3-17.7 Blood hematocrit (volume fraction) 33 % 40-54 Automated erythrocyte mean corpuscular volume 93 [foz_us] 80-99 Automated erythrocyte mean corpuscular hemoglobin (mass per erythrocyte) 32 pg 25-34 Automated erythrocyte mean corpuscular hemoglobin concentration measurement ( mass/volume) 35 g/dL 32-36 Automated erythrocyte distribution width ratio 12.3 % 10.0-14.5 Automated blood platelet count (count/volume) 265 10*3/uL 130-400 Automated blood platelet mean volume measurement 7.9 [foz_us] 7.4-10.4 Automated blood neutrophils/100 leukocytes 78 % 42-75 Automated blood lymphocytes/100 leukocytes 9 % 12-44 Blood monocytes/100 leukocytes 10 % 0-12 Automated blood eosinophils/100 leukocytes 3 % 0-10 Automated blood basophils/100 leukocytes 0 % 0-10 Blood neutrophils automated count (number/volume) 6.6 10*3 1.8-7.8 Blood lymphocytes automated count (number/volume) 0.8 10*3 1.0-4.0 Blood monocytes automated count (number/volume) 0.8 10*3 0.0-1.0 Automated eosinophil count 0.3 10*3/uL 0.0-0.3 Automated blood basophil count (count/volume) 0.0 10*3/uL 0.0-0.1 Whole blood basic metabolic panel - 09/16/18 04:35 Serum or plasma sodium measurement (moles/volume) 133 mmol/L 135-145 Serum or plasma potassium measurement (moles/volume) 4.2 mmol/L 3.6-5.0 Serum or plasma chloride measurement (moles/volume) 99 mmol/L 98-107 Carbon dioxide 25 mmol/L 21-32 Serum or plasma anion gap determination (moles/volume) 9 mmol/L 5-14 Serum or plasma urea nitrogen measurement (mass/volume) 24 mg/dL 7-18 Serum or plasma creatinine measurement (mass/volume) 1.08 mg/dL 0.60-1.30 Serum or plasma urea nitrogen/creatinine mass ratio 22 NRG Serum or plasma creatinine measurement with calculation of estimated glomerular filtration rate > NRG Serum or plasma glucose measurement (mass/volume) 114 mg/dL 70-105 Serum or plasma calcium measurement (mass/volume) 9.7 mg/dL 8.5-10.1 Serum or plasma phosphate measurement (mass/volume) - 09/16/18 04:35 Serum or plasma phosphate measurement (mass/volume) 4.1 mg/dL 2.3-4.7 Magnesium - 09/16/18 04:35 Magnesium 1.9 mg/dL 1.8-2.4 Capillary blood glucose measurement by glucometer (mass/volume) - 09/16/18 11: 13 Capillary blood glucose measurement by glucometer (mass/volume) 125 mg/dL 70-110 Capillary blood glucose measurement by glucometer (mass/volume) - 09/16/18 16: 57 Capillary blood glucose measurement by glucometer (mass/volume) 189 mg/dL 70-110 Capillary blood glucose measurement by glucometer (mass/volume) - 09/16/18 21: 04 Capillary blood glucose measurement by glucometer (mass/volume) 243 mg/dL 70-110 Complete blood count (CBC) with automated white blood cell (WBC) differential - 09/17/18 05:30 Blood leukocytes automated count (number/volume) 8.3 10*3/uL 4.3-11.0 Blood erythrocytes automated count (number/volume) 3.72 10*6/uL 4.35-5.85 Venous blood hemoglobin measurement (mass/volume) 12.0 g/dL 13.3-17.7 Blood hematocrit (volume fraction) 35 % 40-54 Automated erythrocyte mean corpuscular volume 93 [foz_us] 80-99 Automated erythrocyte mean corpuscular hemoglobin (mass per erythrocyte) 32 pg 25-34 Automated erythrocyte mean corpuscular hemoglobin concentration measurement ( mass/volume) 35 g/dL 32-36 Automated erythrocyte distribution width ratio 12.0 % 10.0-14.5 Automated blood platelet count (count/volume) 256 10*3/uL 130-400 Automated blood platelet mean volume measurement 8.2 [foz_us] 7.4-10.4 Automated blood neutrophils/100 leukocytes 76 % 42-75 Automated blood lymphocytes/100 leukocytes 10 % 12-44 Blood monocytes/100 leukocytes 10 % 0-12 Automated blood eosinophils/100 leukocytes 4 % 0-10 Automated blood basophils/100 leukocytes 0 % 0-10 Blood neutrophils automated count (number/volume) 6.4 10*3 1.8-7.8 Blood lymphocytes automated count (number/volume) 0.8 10*3 1.0-4.0 Blood monocytes automated count (number/volume) 0.8 10*3 0.0-1.0 Automated eosinophil count 0.4 10*3/uL 0.0-0.3 Automated blood basophil count (count/volume) 0.0 10*3/uL 0.0-0.1 Whole blood basic metabolic panel - 09/17/18 05:30 Serum or plasma sodium measurement (moles/volume) 134 mmol/L 135-145 Serum or plasma potassium measurement (moles/volume) 4.0 mmol/L 3.6-5.0 Serum or plasma chloride measurement (moles/volume) 97 mmol/L 98-107 Carbon dioxide 27 mmol/L 21-32 Serum or plasma anion gap determination (moles/volume) 10 mmol/L 5-14 Serum or plasma urea nitrogen measurement (mass/volume) 18 mg/dL 7-18 Serum or plasma creatinine measurement (mass/volume) 0.91 mg/dL 0.60-1.30 Serum or plasma urea nitrogen/creatinine mass ratio 20 NRG Serum or plasma creatinine measurement with calculation of estimated glomerular filtration rate > NRG Serum or plasma glucose measurement (mass/volume) 125 mg/dL 70-105 Serum or plasma calcium measurement (mass/volume) 10.0 mg/dL 8.5-10.1 Serum or plasma phosphate measurement (mass/volume) - 09/17/18 05:30 Serum or plasma phosphate measurement (mass/volume) 3.0 mg/dL 2.3-4.7 Magnesium - 09/17/18 05:30 Magnesium 1.8 mg/dL 1.8-2.4 Capillary blood glucose measurement by glucometer (mass/volume) - 09/17/18 06: 15 Capillary blood glucose measurement by glucometer (mass/volume) 134 mg/dL 70-110 Capillary blood glucose measurement by glucometer (mass/volume) - 09/17/18 11: 39 Capillary blood glucose measurement by glucometer (mass/volume) 181 mg/dL 70-110 Capillary blood glucose measurement by glucometer (mass/volume) - 09/17/18 16: 06 Capillary blood glucose measurement by glucometer (mass/volume) 208 mg/dL 70-110 Capillary blood glucose measurement by glucometer (mass/volume) - 09/17/18 20: 04 Capillary blood glucose measurement by glucometer (mass/volume) 240 mg/dL 70-110 Complete blood count (CBC) with automated white blood cell (WBC) differential - 09/18/18 04:50 Blood leukocytes automated count (number/volume) 8.7 10*3/uL 4.3-11.0 Blood erythrocytes automated count (number/volume) 3.37 10*6/uL 4.35-5.85 Venous blood hemoglobin measurement (mass/volume) 10.8 g/dL 13.3-17.7 Blood hematocrit (volume fraction) 31 % 40-54 Automated erythrocyte mean corpuscular volume 93 [foz_us] 80-99 Automated erythrocyte mean corpuscular hemoglobin (mass per erythrocyte) 32 pg 25-34 Automated erythrocyte mean corpuscular hemoglobin concentration measurement ( mass/volume) 35 g/dL 32-36 Automated erythrocyte distribution width ratio 11.9 % 10.0-14.5 Automated blood platelet count (count/volume) 234 10*3/uL 130-400 Automated blood platelet mean volume measurement 7.6 [foz_us] 7.4-10.4 Automated blood neutrophils/100 leukocytes 77 % 42-75 Automated blood lymphocytes/100 leukocytes 10 % 12-44 Blood monocytes/100 leukocytes 11 % 0-12 Automated blood eosinophils/100 leukocytes 2 % 0-10 Automated blood basophils/100 leukocytes 0 % 0-10 Blood neutrophils automated count (number/volume) 6.7 10*3 1.8-7.8 Blood lymphocytes automated count (number/volume) 0.9 10*3 1.0-4.0 Blood monocytes automated count (number/volume) 0.9 10*3 0.0-1.0 Automated eosinophil count 0.2 10*3/uL 0.0-0.3 Automated blood basophil count (count/volume) 0.0 10*3/uL 0.0-0.1 Whole blood basic metabolic panel - 09/18/18 04:50 Serum or plasma sodium measurement (moles/volume) 133 mmol/L 135-145 Serum or plasma potassium measurement (moles/volume) 4.0 mmol/L 3.6-5.0 Serum or plasma chloride measurement (moles/volume) 99 mmol/L 98-107 Carbon dioxide 26 mmol/L 21-32 Serum or plasma anion gap determination (moles/volume) 8 mmol/L 5-14 Serum or plasma urea nitrogen measurement (mass/volume) 19 mg/dL 7-18 Serum or plasma creatinine measurement (mass/volume) 0.91 mg/dL 0.60-1.30 Serum or plasma urea nitrogen/creatinine mass ratio 21 NRG Serum or plasma creatinine measurement with calculation of estimated glomerular filtration rate > NRG Serum or plasma glucose measurement (mass/volume) 126 mg/dL 70-105 Serum or plasma calcium measurement (mass/volume) 9.6 mg/dL 8.5-10.1 Serum or plasma phosphate measurement (mass/volume) - 09/18/18 04:50 Serum or plasma phosphate measurement (mass/volume) 3.7 mg/dL 2.3-4.7 Magnesium - 09/18/18 04:50 Magnesium 1.6 mg/dL 1.8-2.4 Capillary blood glucose measurement by glucometer (mass/volume) - 09/18/18 05: 16 Capillary blood glucose measurement by glucometer (mass/volume) 144 mg/dL 70-110 Encounters ACCT No. Visit Date/Time Discharge Status Pt. Type Provider Facility Loc./Unit Complaint [id number] 09/09/2018 13:58:00 09/18/2018 11:50:00 DIS Inpatient DAIN DUBOSE DO [facility] 4TH RESP/PNEUMONIA [id number] 05/20/2014 20:00:00 05/20/2014 23:59:59 CLS Preadmit LEONEL OLEARY APRN [facility] SLEEP SNORING [id number] 03/25/2014 09:32:00 03/25/2014 17:45:00 DIS Outpatient BETTINA CONTE FACC, MARGARITA REZA CCDS [facility] CATH ABNORMAL STRESS, CAD,HLP [id number] 03/10/2014 11:54:00 03/10/2014 23:59:59 CLS Outpatient KYE MEZA [facility] CARD CAD,FATIGUE,HTN,HLP [id number] 02/12/2014 12:34:00 02/12/2014 23:59:59 CLS Outpatient KYE MEZA [facility] CARD CAD,HTN,HLP,FATIGUE [id number] 05/12/2014 10:42:00 Document Registration [id number] 05/12/2014 10:42:00 Document Registration [id number] 01/16/2012 05:38:00 Document Registration [id number] 01/09/2012 14:10:00 Document Registration [id number] 11/30/2011 11:56:00 Document Registration [id number] 11/28/2011 10:05:00 Document Registration [id number] 10/13/2011 10:52:00 Document Registration [id number] 09/02/2011 15:17:00 Document Registration [id number] 08/28/2011 22:50:00 Document Registration [id number] 08/15/2011 09:29:00 Document Registration [id number] 01/28/2011 10:15:00 Document Registration [id number] 11/04/2010 14:36:00 Document Registration [id number] 10/15/2009 12:16:00 Document Registration [id number] 04/30/2009 11:57:00 Document Registration
--- NOTE | 2018-10-10 13:54 | ED Respiratory ---
General Chief Complaint: Respiratory Problems Stated Complaint: LOW O2 Nursing Triage Note: brought in by EMS for low O2 sats at home. O2 sats were in 80s on room air, [place] to 95% on 4L per nasal cannula. Just got home 2 days ago from [facility] after staying 20 days for rehab after having pneumonia. Source: patient, family, EMS Exam Limitations: clinical condition History of Present Illness Date Seen by Provider: October 10, 2018 Time Seen by Provider: 13:20 Initial Comments This is a 78 y/o m who presents to the ED for evaluation of SOB. Pt is a poor historian with very little insight into his chronic medical conditions. He is unable to recall recent medical events or current medications. Pt's spouse Linda is at bedside and provides the majority of history. She reports that pt has progressive dementia and feels like he is at his baseline. History of HTN /DMII/CAD s/p CABG. Hospitalized for 11 days at [facility] in August and d/c to SNF for rehab. Completed 20 days of rehab and d/c home yesterday. Spouse states that pt progressed well at rehab. On Home Health evaluation today pt was noted to be hypoxic with O2 sat of 82% on RA. Was not d/c home from SNF with home O2. No fever/cough per spouse. Pt denies any respiratory distress/ pain. Allergies and Home Medications Allergies Coded Allergies: rofecoxib (Verified Allergy, Unknown, 10/10/18) Home Medications Amlodipine Besylate 10 Mg Tablet, 10 MG PO DAILY, (Reported) Aspirin 81 Mg Tablet.dr, 81 MG PO HS, (Reported) Atorvastatin Calcium 20 Mg Tablet, 20 MG PO HS, (Reported) Clopidogrel Bisulfate 75 Mg Tablet, 75 MG PO DAILY, (Reported) Clotrimazole 12 Gm Cream..g., TP BID PRN for ITCHING, (Reported) Doxazosin Mesylate 4 Mg Tablet, 4 MG PO BID Prescribed by: DAIN DUBOSE on 09/17/18 1000 Famotidine 20 Mg Tablet, 20 MG PO BID, (Reported) Fish Oil/Dha/Epa 1 Each Capsule, 4,800 MG PO DAILY, (Reported) TAKES 4 (1200MG) CAPSULES Glipizide 5 Mg Tablet, 2.5 MG PO DAILY@0700 Prescribed by: DAIN DUBOSE on 09/17/18 1000 Ibuprofen 200 Mg Tablet, 200-400 MG PO Q6H PRN for PAIN-MILD, (Reported) Insulin NPH Human Isophane 100 Unit/1 Ml Vial, 15 UNIT SQ 1900 Prescribed by: DAIN DUBOSE on 09/17/18 1000 Loperamide HCl 2 Mg Capsule, 2 MG PO UD PRN for DIARRHEA, (Reported) Losartan Potassium 50 Mg Tablet, 50 MG PO DAILY, (Reported) Metformin HCl 1,000 Mg Tablet, 1,000 MG PO BID, (Reported) Metoprolol Tartrate 100 Mg Tablet, 100 MG PO BID, (Reported) Multivitamin 1 Each Tablet, 1 TAB PO DAILY, (Reported) Niacin (Inositol Niacinate) 500 Mg Capsule, 1,000 MG PO HS, (Reported) Patient Home Medication List Home Medication List Reviewed: Yes Review of Systems Review of Systems Constitutional: No chills, No fever, No malaise; weakness, other (Unable to obtain 2/2 dementia ) All Other Systems Reviewed Negative Unless Noted: Yes Past Wvzqtvv-Uufspz-Fpoodq Hx Patient Social History Recent Foreign Travel: No Contact w/Someone Who Travel: No Recent Infectious Disease Expo: No Recent Hopitalizations: No Immunizations Up To Date Date of Pneumonia Vaccine: Jan 17, 2012 Date of Influenza Vaccine: Apr 12, 2018 Seasonal Allergies Seasonal Allergies: No Past Medical History Surgeries: Yes Abdominal, CABG Respiratory: No Cardiac: No Coronary Artery Disease, High Cholesterol, Hypertension Neurological: Yes (NO DOCUMENTED DEMENTIA WITH KNOWN MEMORY ISSUE) Dementia, Neuropathy Reproductive Disorders: No Genitourinary: No Renal Failure Gastrointestinal: No Gastroesophageal Reflux Musculoskeletal: No Arthritis Endocrine: Yes Diabetes, Insulin dep HEENT: No Cancer: No Psychosocial: No Integumentary: No Blood Disorders: No Physical Exam Vital Signs - First Documented 10/10/18 13:27 Temp 97.9 Pulse 60 Resp 16 B/P (MAP) 162/80 (107) Pulse Ox 95 Capillary Refill : Less Than 3 Seconds Height: 5'6.00" Weight: 230lbs. 14.4oz. [id number]; 37.3 BMI Method:Stated General Appearance: no apparent distress, other (Obese, appears stated age ) HEENT: PERRL/EOMI Neck: supple Respiratory: other (tachypnea, mild distress, diffusely diminished breath sounds) Cardiovascular: regular rate, rhythm; No no edema (+1 pitting edema to bialteral LE); JVD Gastrointestinal: normal bowel sounds, non tender, soft, other (obese) Extremities: normal capillary refill, other (Mildly diffuse weak, bilateral LE more than UE) Neurologic/Psychiatric: alert, other (answers questions, follows commands, clear speech, alert to self only, confused) Skin: other (ecchymosis to anterior abdominal wall ) Focused Exam Lactate Level 10/10/18 13:46: Lactic Acid Level 2.98*H 10/10/18 15:41: Lactic Acid Level 3.39*H Lactic Acid Level Laboratory Tests Test 10/10/18 13:46 10/10/18 15:41 Lactic Acid Level 2.98 MMOL/L (0.50-2.00) *H 3.39 MMOL/L (0.50-2.00) *H Progress/Results/Core Measures Suspected Sepsis Recent Fever Within 48 Hours: No Infection Criteria Present: Suspected New Infection New/Unexplained Altered Menta: No Sepsis Screen: No Definite Risk SIRS Temperature:97.9 Pulse: 60 Respiratory Rate: 16 Laboratory Tests 10/10/18 13:32: White Blood Count 7.7 Blood Pressure 162 /80 Mean: 107 10/10/18 13:46: Lactic Acid Level 2.98*H 10/10/18 15:41: Lactic Acid Level 3.39*H Laboratory Tests 10/10/18 13:32: Creatinine 0.96, INR Comment 1.0, Platelet Count 179, Total Bilirubin 0.5 Results/Orders Lab Results Laboratory Tests Test 10/10/18 13:32 10/10/18 13:46 10/10/18 15:41 Range/Units White Blood Count 7.7 4.3-11.0 10^3/uL Red Blood Count 3.36 L 4.35-5.85 10^6/uL Hemoglobin 10.7 L 13.3-17.7 G/DL Hematocrit 32 L 40-54 % Mean Corpuscular Volume 95 80-99 FL Mean Corpuscular Hemoglobin 32 25-34 PG Mean Corpuscular Hemoglobin Concent 33 32-36 G/DL Red Cell Distribution Width 12.5 10.0-14.5 % Platelet Count 179 130-400 10^3/uL Mean Platelet Volume 8.1 7.4-10.4 FL Neutrophils (%) (Auto) 76 H 42-75 % Lymphocytes (%) (Auto) 13 12-44 % Monocytes (%) (Auto) 9 0-12 % Eosinophils (%) (Auto) 2 0-10 % Basophils (%) (Auto) 0 0-10 % Neutrophils # (Auto) 5.8 1.8-7.8 X 10^3 Lymphocytes # (Auto) 1.0 1.0-4.0 X 10^3 Monocytes # (Auto) 0.7 0.0-1.0 X 10^3 Eosinophils # (Auto) 0.2 0.0-0.3 10^3/uL Basophils # (Auto) 0.0 0.0-0.1 10^3/uL Neutrophils % (Manual) 70 % Lymphocytes % (Manual) 19 % Monocytes % (Manual) 6 % Eosinophils % (Manual) 2 % Basophils % (Manual) 0 % Band Neutrophils 3 % Prothrombin Time 13.8 12.2-14.7 SEC INR Comment 1.0 0.8-1.4 Activated Partial Thromboplast Time 33 24-35 SEC Sodium Level 135 135-145 MMOL/L Potassium Level 4.0 3.6-5.0 MMOL/L Chloride Level 94 L 98-107 MMOL/L Carbon Dioxide Level 23 21-32 MMOL/L Anion Gap 18 H 5-14 MMOL/L Blood Urea Nitrogen 16 7-18 MG/DL Creatinine 0.96 0.60-1.30 MG/DL Estimat Glomerular Filtration Rate > 60 BUN/Creatinine Ratio 17 Glucose Level 137 H 70-105 MG/DL Calcium Level 9.3 8.5-10.1 MG/DL Corrected Calcium 9.8 8.5-10.1 MG/DL Total Bilirubin 0.5 0.1-1.0 MG/DL Aspartate Amino Transf (AST/SGOT) 13 5-34 U/L Alanine Aminotransferase (ALT/SGPT) 15 0-55 U/L Alkaline Phosphatase 97 40-136 U/L Troponin T 14 <=15 NG/L Pro-B-Type Natriuretic Peptide 2670.0 H <75.0 PG/ML Total Protein 6.5 6.4-8.2 GM/DL Albumin 3.4 3.2-4.5 GM/DL Lactic Acid Level 2.98 *H 3.39 *H 0.50-2.00 MMOL/L My Orders Orders - KEITHLY,ЕКАТЕРИНА T DO Cbc And Manual Diff (10/10/18 13:38) Comprehensive Metabolic Panel (10/10/18 13:38) Partial Thromboplastin Time (10/10/18 13:38) Probnp Fs (10/10/18 13:38) Protime With Inr (10/10/18 13:38) Troponin T (10/10/18 13:38) Blood Culture (10/10/18 13:38) Lactic Acid Analyzer (10/10/18 13:38) Chest 1 View Ap/Pa Only (10/10/18 13:38) Ekg Tracing (10/10/18 13:38) Blood Culture (10/10/18 13:48) Piperacillin/Tazobactam (Bulk) (Zosyn In (10/10/18 14:30) Furosemide Injection (Lasix Injection) (10/10/18 14:30) Piperacillin Sodium/Tazobactam (Zosyn Vi (10/10/18 14:30) Ns (Ivpb) (Sodium Chloride 0.9% Ivpb Bag (10/10/18 14:30) Medications Given in ED Current Medications Medications Dose Ordered Sig/Lyudmila Route Start Time Stop Time Status Last Admin Dose Admin Furosemide 40 mg ONCE ONCE IVP 10/10/18 14:30 10/10/18 14:31 DC 10/10/18 14:55 40 MG Piperacillin Sod/ Tazobactam Sod 4.5 gm/Sodium Chloride 120 ml @ 240 mls/hr ONCE ONCE IV 10/10/18 14:30 10/10/18 14:59 DC 10/10/18 14:54 240 MLS/HR Vital Signs/I&O 10/10/18 13:27 Temp 97.9 Pulse 60 Resp 16 B/P (MAP) 162/80 (107) Pulse Ox 95 Capillary Refill : Less Than 3 Seconds Blood Pressure Mean: 107 Progress Note : Time: 15:45 Progress Note Pt with continued O2 requirement in the ED, Requiring 3--4 L to maintain O2 sat greater than 90%. Remains in no distress/comfortable and conversant, though still confused. Presentation consistent with CHF with elevated BNP and congestion on CXR. ?persistent LLL infiltrate on CXR and elevated lactic acid so dose of zosyn given in ED. Pt given 40mg of IV Lasix. Discussed with Dr. Dubose, pt's PCP who is agreeable to admission. Requested that the pt be placed on Cardiac step down and Cardiology consult. This was placed on bridge order sheet. Pt has been hemodynamically stable while in the ED. Confirmed DNR status with spouse at bedside. Transportation being arranged. ECG Initial ECG Impression Date: October 10, 2018 Initial ECG Impression Time: 13:25 Comment NSR, no acute ST segment changes Diagnostic Imaging Comments CXR IMPRESSION: 1. Cardiomegaly with sequela of CHF including probable interstitial pulmonary edema. 2. Left basilar airspace disease, which may be on the basis of alveolar edema, infiltrate, or atelectasis. Small effusion is not entirely excluded. Departure Impression Primary Impression: Hypoxia Additional Impressions: Congestive heart failure (CHF) Pneumonia Disposition: 09 ADMITTED INPATIENT Condition: Stable Admissions Decision to Admit Reason: Admit from ER (General) Decision to Admit/Date: October 10, 2018 Time/Decision to Admit Time: 15:45 Transfer Time Spoke to Accepting Phy: 15:45 Transfer Time: 17:19 Departure-Patient Inst. Referrals: DAIN DUBOSE DO (PCP/Family) Primary Care Physician Add. Discharge Instructions: Pt is being discharged to [facility]. Appropriate prescriptions are available. Dr. Bañuelos can provide further orders as needed. All discharge instructions reviewed with patient and/or family. Voiced understanding. ЕКАТЕРИНА COOPER DO October 10, 2018 13:54
--- NOTE | 2018-10-10 14:00 | Diagnostic Imaging Report ---
INDICATION: Hypoxia. COMPARISON: 09/09/2018. FINDINGS: Single frontal radiographic view of the chest was obtained and demonstrates mild cardiomegaly. There is also moderate pulmonary vascular congestion and mild diffuse prominence of the pulmonary interstitium. There is obscuration of the left hemidiaphragm secondary to left basilar patchy alveolar opacities. No large effusion or pneumothorax seen on either side. Bony structures show no gross acute abnormalities. IMPRESSION: 1. Cardiomegaly with sequela of CHF including probable interstitial pulmonary edema. 2. Left basilar airspace disease, which may be on the basis of alveolar edema, infiltrate, or atelectasis. Small effusion is not entirely excluded. Dictated by: Dictated on workstation # [id number]
[2018-10-10 14:03] LABS: HEMATOCRIT 32 % (40-54); HEMOGLOBIN 10.7 G/DL (13.3-17.7); MEAN CORPUSCULAR HEMOGLOBIN 32 PG (25-34); MEAN CORPUSCULAR VOLUME 95 FL (80-99); WHITE BLOOD COUNT 7.7 10^3/uL (4.3-11.0)
[2018-10-10 14:04] LABS: EOSINOPHILS % (AUTO) 2 % (0-10); LYMPHOCYTES % (AUTO) 13 % (12-44); MEAN CORPUSCULAR HGB CONC 33 G/DL (32-36); MEAN PLATELET VOLUME 8.1 FL (7.4-10.4); MONOCYTES % (AUTO) 9 % (0-12); NEUTROPHILS % (AUTO) 76 % (42-75); PLATELET COUNT 179 10^3/uL (130-400); RED CELL DISTRIBUTION WIDTH 12.5 % (10.0-14.5)
[2018-10-10 14:05] LABS: BASOPHILS % (AUTO) 0 % (0-10); EOSINOPHILS # (AUTO) 0.2 10^3/uL (0.0-0.3); MONOCYTES # (AUTO) 0.7 X 10^3 (0.0-1.0); NEUTROPHILS # (AUTO) 5.8 X 10^3 (1.8-7.8)
[2018-10-10] MEDS ORDERED: PIPERACILLIN/TAZOBACTAM (BULK) 4.5 GM in NS (IVPB) 100 ML IV ONE ×2 (14:30→17:40)
[2018-10-10] MEDS ORDERED: PIPERACILLIN/TAZO 4.5 GM VIAL (ZOSYN) IV ONE (14:30)
[2018-10-10] MEDS ORDERED: FUROSEMIDE 40 MG/4 ML INJ (LASIX) IVP ONE (14:30)
[2018-10-10] MEDS ORDERED: NS (IVPB) 100 ML ONE (14:30)
[2018-10-10 14:36] LABS: ALANINE AMINOTRANSFERASE 15 U/L (0-55); ALKALINE PHOSPHATASE 97 U/L (40-136); BILIRUBIN,TOTAL 0.5 MG/DL (0.1-1.0); BUN/CREATININE RATIO 17; CALCIUM 9.3 MG/DL (8.5-10.1); CARBON DIOXIDE 23 MMOL/L (21-32); CHLORIDE 94 MMOL/L (98-107); CREATININE SERUM 0.96 MG/DL (0.60-1.30); GFR ESTIMATED > 60; GLUCOSE 137 MG/DL (70-105); SODIUM 135 MMOL/L (135-145)
[2018-10-10 14:37] LABS: ALBUMIN 3.4 GM/DL (3.2-4.5); TOTAL PROTEIN 6.5 GM/DL (6.4-8.2)
[2018-10-10 15:39] LABS: BAND NEUTROPHILS 3 %; BASOPHILS % (MANUAL) 0 %; EOSINOPHILS % (MANUAL) 2 %; LYMPHOCYTES % (MANUAL) 19 %; MONOCYTES % (MANUAL) 6 %; NEUTROPHILS % (MANUAL) 70 %
[2018-10-10 16:27] LABS: PROTHROMBIN TIME PATIENT 13.8 SEC (12.2-14.7)
--- NOTE | 2018-10-10 17:15 | NUR ---
Patient transferred at this time to [facility] via [facility].
[2018-10-10] MEDS ORDERED: ONDANSETRON 4 MG/2 ML (SDV) Z0FRAN IVP PRN (17:45)
[2018-10-10] MEDS ORDERED: DOCUSATE SODIUM 100 MG (COLACE) CAP PO PRN (17:45)
[2018-10-10] MEDS ORDERED: CALCIUM CARBONATE 500 MG (TUMS) TAB.CHEW PO PRN (17:45)
[2018-10-10] MEDS ORDERED: fentaNYL INJECTION 100 MCG/2 ML AMP IVP PRN (17:45)
[2018-10-10] MEDS ORDERED: HYDROcodone/APAP 5 MG/325 MG (LORTAB) TAB PO PRN (17:45)
[2018-10-10] MEDS ORDERED: PHARMACY TO DOSE IV SCH (17:45)
[2018-10-10] MEDS ORDERED: ALPRAZolam 0.25 MG (XANAX) TAB PO PRN (17:45)
[2018-10-10] MEDS ORDERED: MELATONIN 3 MG TABLET PO PRN (17:45)
[2018-10-10] MEDS ORDERED: ONDANSETRON 4 MG (ZOFRAN) ORAL DISSOLVE TAB PO PRN (17:45)
[2018-10-10] MEDS ORDERED: diphenhydrAMINE 25 MG TAB (BENADRYL) PO PRN (17:45)
[2018-10-10] MEDS ORDERED: LACTULOSE SYRUP 10GM/15ML (ENULOSE) 30ML UDC PO PRN (17:45)
[2018-10-10] MEDS ORDERED: LOPERAMIDE 2 MG (IMODIUM) CAP PO PRN (17:45)
[2018-10-10] MEDS ORDERED: HALOPERIDOL 5 MG/ML (HALDOL) AMP IM PRN (17:45)
[2018-10-10] MEDS ORDERED: ACETAMINOPHEN 500 MG TAB (TYLENOL) PO PRN (17:45)
[2018-10-10 18:15] VITALS: BP 174/78
[2018-10-10] MEDS ORDERED: VANCOMYCIN 1,750 MG/NS 500 ML IVPB IV NR ×2 (18:30)
[2018-10-10 19:00] VITALS: BP 171/94
--- NOTE | 2018-10-10 19:20 | NUR ---
CR 0.96; CR CL ~60; WT 104 KG; VANCO 1750 MG IV BOLUS THEN 1250 MG IV Q12H; TROUGH AFTER 3RD DOSE
[2018-10-10 19:21] VITALS: BP 164/107
[2018-10-10] MEDS ORDERED: RT-ALBUTEROL/IPRATROPIUM 3 ML (DUONEB) VIAL INH PRN (20:15)
[2018-10-10 21:15] VITALS: BP 165/88
[2018-10-10] MEDS: POLYETHYLENE GLYCOL 17 GM (MIRALAX) PACK PO SCH (21:26)
[2018-10-10] MEDS: PIPERACILLIN/TAZO 4.5 GM/NS 100 ML IV SCH ×2 (21:27)
[2018-10-10] MEDS: risperiDONE 0.25 MG (RisperDAL) TAB PO SCH (21:27)
[2018-10-11] VITALS (8 sets, daily range): BP systolic 132–188; BP diastolic 63–89
[2018-10-11 03:48] LABS: BASOPHILS % (AUTO) 0 % (0-10); EOSINOPHILS # (AUTO) 0.2 10^3/uL (0.0-0.3); EOSINOPHILS % (AUTO) 2 % (0-10); HEMATOCRIT 32 % (40-54); HEMOGLOBIN 11.2 G/DL (13.3-17.7); LYMPHOCYTES # (AUTO) 0.8 X 10^3 (1.0-4.0); LYMPHOCYTES % (AUTO) 11 % (12-44); MEAN CORPUSCULAR HEMOGLOBIN 32 PG (25-34); MEAN CORPUSCULAR HGB CONC 35 G/DL (32-36); MEAN CORPUSCULAR VOLUME 93 FL (80-99); MEAN PLATELET VOLUME 8.3 FL (7.4-10.4); MONOCYTES # (AUTO) 0.6 X 10^3 (0.0-1.0); MONOCYTES % (AUTO) 8 % (0-12); NEUTROPHILS # (AUTO) 5.7 X 10^3 (1.8-7.8); NEUTROPHILS % (AUTO) 79 % (42-75); PLATELET COUNT 208 10^3/uL (130-400); RED CELL DISTRIBUTION WIDTH 12.9 % (10.0-14.5); WHITE BLOOD COUNT 7.2 10^3/uL (4.3-11.0)
[2018-10-11 04:09] LABS: ALANINE AMINOTRANSFERASE 17 U/L (0-55); ALBUMIN 3.6 GM/DL (3.2-4.5); ALKALINE PHOSPHATASE 89 U/L (40-136); BILIRUBIN,TOTAL 0.9 MG/DL (0.1-1.0); BUN/CREATININE RATIO 13; CALCIUM 9.5 MG/DL (8.5-10.1); CARBON DIOXIDE 24 MMOL/L (21-32); CHLORIDE 100 MMOL/L (98-107); CREATININE SERUM 1.05 MG/DL (0.60-1.30); GFR ESTIMATED > 60; GLUCOSE 146 MG/DL (70-105); POTASSIUM 3.6 MMOL/L (3.6-5.0); SODIUM 139 MMOL/L (135-145); TOTAL PROTEIN 6.6 GM/DL (6.4-8.2)
[2018-10-11] MEDS: PIPERACILLIN/TAZO 4.5 GM/NS 100 ML IV SCH ×2 (06:32)
--- NOTE | 2018-10-11 06:53 | Diagnostic Imaging Report ---
Indication: Congestive heart failure. Portable chest 3:17 AM There are postop changes from CABG surgery. There is cardiomegaly with pulmonary vascular congestion. There is less interstitial edema compared to the previous day. Impression: Improving congestive heart failure. Dictated by: Dictated on workstation # [id number]
[2018-10-11] MEDS ORDERED: VANCOMYCIN 1250 MG/NS 250 ML IVPB IV SCH ×2 (07:00)
--- NOTE | 2018-10-11 07:18 | Pulmonary Consultation ---
History of Present Illness History of Present Illness Date of Consultation 10/11/18 07:13 Time Seen by Provider: 07:13 Date of Admission History of Present Illness 78yo poor historian with recent hospitalization for pneumonia presented to ED via EMS secondary to worsening SOB. PT was hospitalized x 11 days and then discharged to SNF for rehab. He completed 20days of rehab and then discharged home yesterday. While at home pt was hypoxic at 82% on RA. He was not discharged home from SNF with oxygen. No fevers/NS/Chills. I am consulted for pulmonary/CC management. Allergies and Home Medications Allergies Coded Allergies: rofecoxib (Verified Allergy, Unknown, 10/10/18) Home Medications Amlodipine Besylate 10 Mg Tablet, 10 MG PO DAILY, (Reported) Aspirin 81 Mg Tablet.dr, 81 MG PO HS, (Reported) Atorvastatin Calcium 20 Mg Tablet, 20 MG PO HS, (Reported) Clopidogrel Bisulfate 75 Mg Tablet, 75 MG PO DAILY, (Reported) Clotrimazole 12 Gm Cream..g., TP BID PRN for ITCHING, (Reported) Doxazosin Mesylate 4 Mg Tablet, 4 MG PO BID, (Reported) Famotidine 20 Mg Tablet, 20 MG PO BID, (Reported) Glipizide 5 Mg Tablet, 2.5 MG PO DAILY, (Reported) TAKES 1/2 (5MG) TABLET Ibuprofen 200 Mg Tablet, 200-400 MG PO Q6H PRN for PAIN-MILD, (Reported) Insulin NPH Human Isophane 100 Unit/1 Ml Vial, 15 UNIT SQ 1900, (Reported) Ketoconazole 15 Gm Cream..g., TP BID, (Reported) APPLY TO ABDOMINAL FOLDS, AND GROIN AREA Loperamide HCl 2 Mg Capsule, 2 MG PO UD PRN for DIARRHEA, (Reported) Losartan Potassium 50 Mg Tablet, 50 MG PO DAILY, (Reported) Metformin HCl 1,000 Mg Tablet, 1,000 MG PO BID, (Reported) Metoprolol Tartrate 100 Mg Tablet, 100 MG PO BID, (Reported) Multivitamin 1 Each Tablet, 1 TAB PO DAILY, (Reported) Niacin (Inositol Niacinate) 500 Mg Capsule, 1,000 MG PO HS, (Reported) [place] 3 Polyunsat Fatty Acids 1,000 Mg Cap, 1,000 MG PO DAILY, (Reported) Past Qmwhlzl-Zpvazm-Alwavb Hx Patient Social History Alcohol Use: Denies Use Recreational Drug Use: No Smoking Status: Never a Smoker 2nd Hand Smoke Exposure: No Recent Foreign Travel: No Contact w/Someone Who Travel: No Recent Infectious Disease Expo: No Recent Hopitalizations: No Physical Abuse: No Sexual Abuse: No Mistreated: No Fear: No Immunizations Up To Date Date of Pneumonia Vaccine: October 10, 2018 Date of Influenza Vaccine: Apr 12, 2018 Seasonal Allergies Seasonal Allergies: No Past Medical History Surgeries: Yes Abdominal, CABG Respiratory: Yes Pneumonia Cardiac: Yes Coronary Artery Disease, High Cholesterol, Hypertension Neurological: Yes (NO DOCUMENTED DEMENTIA WITH KNOWN MEMORY ISSUE) Dementia, Neuropathy Reproductive Disorders: No Genitourinary: No Renal Failure Gastrointestinal: No Gastroesophageal Reflux Musculoskeletal: No Arthritis Endocrine: Yes Diabetes, Insulin dep HEENT: No Cancer: No Psychosocial: No Integumentary: No Blood Disorders: No Review of Systems Time Seen by Provider: 08:58 Constitutional: Weakness, Malaise; No: Fever, Chills, Sweats, Other Eyes: No: Pain, Vision change, Conjunctivae inflammation, Eyelid inflammation, Other, Redness ENT: Nose congestion; No: Ear pain, Ear discharge, Nose pain, Nose discharge, Mouth pain, Mouth swelling, Throat pain, Throat swelling, Other Respiratory: Cough, Dry, Shortness of breath, SOB with excertion, Wheezing; No : Hemoptysis, Pleuritic Pain, Sputum, Wheezing, Other Cardiovascular: Paroxysmal Noc. Dyspnea; No: Chest Pain, Palpitations, Orthopnea, Edema, Lt Headedness, Other Gastrointestinal: No: Nausea, Vomiting, Abdominal Pain, Diarrhea, Constipation , Melena, Hematochezia, Other Sepsis Event Evaluation Height, Weight, BMI Height: 5'6.00" Weight: 227lbs. 3.0oz. 103.306708se; 37.3 BMI Method:Stated Exam Exam Vital Signs Date Time Temp Pulse Resp B/P (MAP) Pulse Ox O2 Delivery O2 Flow Rate FiO2 10/11/18 05:30 67 183/88 (119) Nasal Cannula 4.00 10/11/18 05:16 188/83 (118) 10/11/18 04:29 97.7 62 20 95 Nasal Cannula 4.00 10/11/18 04:00 94 Nasal Cannula 4.00 10/11/18 01:00 61 10/11/18 00:52 98.0 62 18 159/66 (97) 94 Nasal Cannula 4.00 10/11/18 00:00 94 Nasal Cannula 4.00 10/10/18 21:15 97.6 63 20 165/88 (113) 96 Nasal Cannula 4.00 10/10/18 20:55 62 10/10/18 20:00 94 Nasal Cannula 4.00 10/10/18 19:21 60 92 10/10/18 19:21 Nasal Cannula 2.00 10/10/18 19:00 62 16 171/94 (119) 87 Nasal Cannula 3.00 10/10/18 18:15 60 21 174/78 (110) 92 Nasal Cannula 3.00 10/10/18 18:04 60 10/10/18 18:00 90 Nasal Cannula 3.00 10/10/18 18:00 97.7 10/10/18 16:24 98.2 59 19 161/70 (100) 95 4.00 10/10/18 13:27 97.9 60 16 162/80 (107) 95 I & O 10/11/18 07:00 Intake Total 220 ml Output Total 1625 ml Balance -1405 ml Height & Weight Height: 5'6.00" Weight: 227lbs. 3.0oz. [id number]; 37.3 BMI Method:Stated General Appearance: WD/WN, Anxious, Mild Distress HEENT: PERRL/EOMI, Normal ENT Inspection, Pharynx Normal Neck: Full Range of Motion, Normal Inspection, Non Tender, Supple Respiratory: Chest Non Tender, No Accessory Muscle Use, No Respiratory Distress , Crackles, Decreased Breath Sounds Cardiovascular: Regular Rate, Rhythm, No Edema, No Gallop Capillary Refill: Less Than 3 Seconds Gastrointestinal: normal bowel sounds, non tender, soft, other (obese) Extremity: Normal Capillary Refill, Normal Inspection Neurologic/Psychiatric: Alert Skin: Normal Color, Warm/Dry Results Lab Laboratory Tests 10/10/18 13:32 10/11/18 03:15 Assessment/Plan Assessment/Plan Acute respiratory distress with hypoxia -- secondary to pulmonary edema -- Doubt infection -D/C Abx -Continue Lasix 40mg BID -PT will need home oxygen. -SVNS - will order QID Bilateral pulmonary congestion and pleural effusions -Continue Lasix Metabolic lactic acidosis - secondary to hypoxia -Oxygen Atelectasis -IS -SVNs QID -Increase activity -PT/OT Debility -PT/OT Severe Dementia Anemia -Monitor JESSICA VALVERDE DO October 11, 2018 07:18
--- NOTE | 2018-10-11 08:21 | Consultation-Cardiology ---
HPI-Cardiology Cardiology Consultation: Date of Consultation 10/11/18 Time Seen by a Provider: 08:05 Date of Admission 10-10-18 Attending Physician Dain Dubose DO Admitting Physician Dain Dubose DO Consulting Physician Elvis Toro MD HPI: Chief Complaint: Hypoxia Mr. Kenney is an 78 year old male admitted to ICU 9 from [facility]. He has dementia and is a poor historian. He is pleasant and cooperative. Information has been obtained from review of hospital records and nursing. He was recently discharge from the facility to SNF in [facility] and had recently been discharge back home with his spouse. Home Health services yesterday found his oxygen sats to be 82% on room air. He was then sent to the [facility] ED. He reports his breathing is good this morning. He denies any pain or CP. He has pulled his IV out this morning and was wandering the ICU this morning. He is easily re -directed, but quickly forgets. He is oriented to self only. He is unsure why he is in the hospital or the events leading up to his admission. Review of Systems-Cardiology Review of Systems Other comments D/t dementia, ROS to the extent it could be obtained is as noted in the HPI All Other Systems Reviewed Negative Unless Noted: Yes FFE-Wjuube-Goycrt Hx Patient Social History Alcohol Use: Denies Use Recreational Drug Use: No Smoking Status: Never a Smoker 2nd Hand Smoke Exposure: No Recent Foreign Travel: No Recent Infectious Disease Expo: No Immunizations Up To Date Date of Pneumonia Vaccine: October 10, 2018 Date of Influenza Vaccine: Apr 12, 2018 Past Medical History PMH As described under Assessment. Family Medical History Family Medical History: Does not report fam h/o early CAD or SCD Allergies and Home Medications Allergies Coded Allergies: rofecoxib (Verified Allergy, Unknown, 10/10/18) Home Medications Amlodipine Besylate 10 Mg Tablet, 10 MG PO DAILY, (Reported) Aspirin 81 Mg Tablet.dr, 81 MG PO HS, (Reported) Atorvastatin Calcium 20 Mg Tablet, 20 MG PO HS, (Reported) Clopidogrel Bisulfate 75 Mg Tablet, 75 MG PO DAILY, (Reported) Clotrimazole 12 Gm Cream..g., TP BID PRN for ITCHING, (Reported) Doxazosin Mesylate 4 Mg Tablet, 4 MG PO BID Prescribed by: DAIN DUBOSE on 09/17/18 1000 Famotidine 20 Mg Tablet, 20 MG PO BID, (Reported) Fish Oil/Dha/Epa 1 Each Capsule, 4,800 MG PO DAILY, (Reported) TAKES 4 (1200MG) CAPSULES Glipizide 5 Mg Tablet, 2.5 MG PO DAILY@0700 Prescribed by: DAIN DUBOSE on 09/17/18 1000 Ibuprofen 200 Mg Tablet, 200-400 MG PO Q6H PRN for PAIN-MILD, (Reported) Insulin NPH Human Isophane 100 Unit/1 Ml Vial, 15 UNIT SQ 1900 Prescribed by: DAIN DUBOSE on 09/17/18 1000 Loperamide HCl 2 Mg Capsule, 2 MG PO UD PRN for DIARRHEA, (Reported) Losartan Potassium 50 Mg Tablet, 50 MG PO DAILY, (Reported) Metformin HCl 1,000 Mg Tablet, 1,000 MG PO BID, (Reported) Metoprolol Tartrate 100 Mg Tablet, 100 MG PO BID, (Reported) Multivitamin 1 Each Tablet, 1 TAB PO DAILY, (Reported) Niacin (Inositol Niacinate) 500 Mg Capsule, 1,000 MG PO HS, (Reported) Patient Home Medication List Home Medication List Reviewed: Yes Physical Exam-Cardiology Physical Exam Vital Signs/I&O 10/10/18 10/11/18 10/11/18 10/11/18 21:15 00:00 00:52 01:00 Temp 97.6 98.0 Pulse 63 62 61 Resp 20 18 B/P (MAP) 165/88 (113) 159/66 (97) Pulse Ox 96 94 94 O2 Delivery Nasal Cannula Nasal Cannula Nasal Cannula O2 Flow Rate 4.00 4.00 4.00 10/11/18 10/11/18 10/11/18 10/11/18 04:00 04:29 05:16 05:30 Temp 97.7 Pulse 62 67 Resp 20 B/P (MAP) 188/83 (118) 183/88 (119) Pulse Ox 94 95 O2 Delivery Nasal Cannula Nasal Cannula Nasal Cannula O2 Flow Rate 4.00 4.00 4.00 10/11/18 10/11/18 07:34 08:45 Pulse Ox 91 94 O2 Delivery Nasal Cannula Nasal Cannula O2 Flow Rate 4.00 4.00 10/11/18 00:00 Intake Total 220 ml Output Total 975 ml Balance -755 ml Capillary Refill : Less Than 3 Seconds Constitutional: well-developed, well-nourished HEENT: PERRL, hard of hearing, oral hygience is good Neck: No carotid bruit; carotid pulses are 2 + bilaterally Respiratory: No accessory muscle use, No respiratory distress; chest expansion is symmetric, chest is bilaterally symmetric, crackles (scattered) Cardiovascular: regular rate-rhythm; No JVD; S1 and S2 Gastrointestinal: No tender; soft, round, audible bowel sounds Rectal: deferred Extremities: no lower extremity edema bilateral Neurologic/Psychiatric: alert (Oreinted to self only; co-operative), grossly intact, power is 5/5 both on sides Skin: No rash, No ulcerations Data Review Labs Laboratory Tests 10/10/18 13:32: White Blood Count 7.7, Red Blood Count 3.36L, Hemoglobin 10.7L, Hematocrit 32L, Mean Corpuscular Volume 95, Mean Corpuscular Hemoglobin 32, Mean Corpuscular Hemoglobin Concent 33, Red Cell Distribution Width 12.5, Platelet Count 179, Mean Platelet Volume 8.1, Neutrophils (%) (Auto) 76H, Lymphocytes (%) (Auto) 13 , Monocytes (%) (Auto) 9, Eosinophils (%) (Auto) 2, Basophils (%) (Auto) 0, Neutrophils # (Auto) 5.8, Lymphocytes # (Auto) 1.0, Monocytes # (Auto) 0.7, Eosinophils # (Auto) 0.2, Basophils # (Auto) 0.0, Neutrophils % (Manual) 70, Lymphocytes % (Manual) 19, Monocytes % (Manual) 6, Eosinophils % (Manual) 2, Basophils % (Manual) 0, Band Neutrophils 3, Prothrombin Time 13.8, INR Comment 1.0, Activated Partial Thromboplast Time 33, Sodium Level 135, Potassium Level 4.0, Chloride Level 94L, Carbon Dioxide Level 23, Anion Gap 18H, Blood Urea Nitrogen 16, Creatinine 0.96, Estimat Glomerular Filtration Rate > 60, BUN/ Creatinine Ratio 17, Glucose Level 137H, Calcium Level 9.3, Corrected Calcium 9.8, Total Bilirubin 0.5, Aspartate Amino Transf (AST/SGOT) 13, Alanine Aminotransferase (ALT/SGPT) 15, Alkaline Phosphatase 97, Troponin T 14, Pro-B- Type Natriuretic Peptide 2670.0H, Total Protein 6.5, Albumin 3.4 10/10/18 13:46: Lactic Acid Level 2.98*H 10/10/18 15:41: Lactic Acid Level 3.39*H 10/11/18 03:15: White Blood Count 7.2, Red Blood Count 3.50L, Hemoglobin 11.2L, Hematocrit 32L, Mean Corpuscular Volume 93, Mean Corpuscular Hemoglobin 32, Mean Corpuscular Hemoglobin Concent 35, Red Cell Distribution Width 12.9, Platelet Count 208, Mean Platelet Volume 8.3, Neutrophils (%) (Auto) 79H, Lymphocytes (%) (Auto) 11L , Monocytes (%) (Auto) 8, Eosinophils (%) (Auto) 2, Basophils (%) (Auto) 0, Neutrophils # (Auto) 5.7, Lymphocytes # (Auto) 0.8L, Monocytes # (Auto) 0.6, Eosinophils # (Auto) 0.2, Basophils # (Auto) 0.0, Sodium Level 139, Potassium Level 3.6, Chloride Level 100, Carbon Dioxide Level 24, Anion Gap 15H, Blood Urea Nitrogen 14, Creatinine 1.05, Estimat Glomerular Filtration Rate > 60, BUN/ Creatinine Ratio 13, Glucose Level 146H, Calcium Level 9.5, Corrected Calcium 9.8, Total Bilirubin 0.9, Aspartate Amino Transf (AST/SGOT) 13, Alanine Aminotransferase (ALT/SGPT) 17, Alkaline Phosphatase 89, Total Protein 6.6, Albumin 3.6 10/11/18 04:50: Lactic Acid Level 0.91 Radiology NAME: ANDREW KENNEY [facility] REC#: [id number] PT STATUS: ADM IN : 1940 PHYSICIAN: DAIN DUBOSE DO ADMIT DATE: 10/10/18/ICU Signed Date of Exam: 10/11/18 CHEST 1 VIEW, AP/PA ONLY Indication: Congestive heart failure. Portable chest 3:17 AM There are postop changes from CABG surgery. There is cardiomegaly with pulmonary vascular congestion. There is less interstitial edema compared to the previous day. Impression: Improving congestive heart failure. Dictated by: Dictated on workstation # [id number] Dict: 10/11/1826 Trans: 10/11/18 0811 Interpreted by: ANDREY GOMEZ MD Electronically signed by: ANDREY GOMEZ MD 10/11/18 0811 ECG Impression ECG Initial ECG Rhythm: Normal Sinus A/P-Cardiology Assessment/Admission Diagnosis Hypoxia Acute on chronic diastolic CHF Hypertension Echo of September 2018: Well preserved global LV systolic function with an LVEF of 60-65%. Mild tricuspid regurg. PASP mmHg Chronic stable angina - currently no c/o Coronary artery disease with a history of coronary artery bypass surgery. Last cardiac catheterization was in March 2014 which showed severe [place] CAD including 95% mid vessel stenosis of the left internal descending artery, 60% mid vessel stenosis of the left cx, subtotal ostial occlusion of the first OM branch and complete occlusion of the proximal to mid RCA, patent left internal mammary artery graft to the mid LAD, patent saphenous vein graft (with prox 50- 60% stenosis) to the first OM branch 50-60% proximal stenosis, and severely degenerated saphenous vein graft to the distal RCA (this graft has multiple 99 to 100% stenoses in its midportion and appears to be at high risk if percutaneous intervention is to be undertaken). LV gram showed well-preserved global left ventricular systolic function with an ejection fraction of 60-65%, mild posterobasal hypokinesis, no significant MR, mild LVEDP Obesity with a body mass index of approximately 37. Suspected CHIQUI, but pt has not followed through on the recommendation to have a sleep study done Gastroesophageal reflux. Hyperlipidemia, treated with statin and niacin therapy. Maturity onset diabetes mellitus being managed by Dr. Dubose. Chronic bilateral ankle swelling, likely related to venous insufficiency and/or calcium channel karl therapy, currently stable. Rectal carcinoma that has been treated with surgery, followed by radiation therapy. Mild peripheral neuropathy consisting of numbness of the feet. History of carotid arterial disease with left-sided carotid endarterectomy by Dr. Ritchie. Carotid ultrasonography of January 2014 showed mild bilateral disease, hemodynamically nonsignificant. Dementia Discussion and Recomendations Acute on chronic diastolic CHF - treat with diuretics Continue home medications including ASA, Plavix, statin, BB and ARB Monitor lab closely Further recs will be based on his hospital course We would like to thank medical services for this consult [place] to transfer to medical floor Clinical Quality Measures DVT/VTE Risk/Contraindication: Risk Factor Score Per Nursin RFS Level Per Nursing on Admit: 4+=Very High KYE MEZA October 11, 2018 08:21
[2018-10-11] MEDS ORDERED: LOSARTAN 50 MG (COZAAR) TAB PO NR (09:15)
[2018-10-11] MEDS ORDERED: meTOprolol TARTRATE 50 MG (LOPRESSOR) TAB PO NR (09:15)
[2018-10-11] MEDS ORDERED: ASPIRIN 325 MG (5 GR) TABLET PO ONE (09:15)
[2018-10-11] MEDS ORDERED: ASPIRIN 81 MG CHEW (CHILDREN'S ASA) PO NR (09:15)
[2018-10-11] MEDS ORDERED: CLOPIDOGREL 75 MG (PLAVIX) TABLET PO NR (09:15)
[2018-10-11] MEDS ORDERED: NPH,100V SQ (09:26)
[2018-10-11] MEDS ORDERED: GLIP5TAB13 PO (09:26)
[2018-10-11] MEDS ORDERED: OMG1KC PO (09:26)
[2018-10-11] MEDS ORDERED: KETO15CR2 TP (09:26)
[2018-10-11] MEDS ORDERED: DOXA4TAB2 PO (09:26)
--- NOTE | 2018-10-11 09:31 | NUR ---
UPDATED MED REC WITH LIST OF MEDICATIONS FROM [facility] ON 10-08-18, I CALLED AND SPOKE WITH JOE HIS AND SHE VERIFIED SHE HAS BEEN FOLLOWING THAT LIST SINCE HE HAS BEEN AT HOME.
[2018-10-11] MEDS: FUROSEMIDE 40 MG (LASIX) TAB PO SCH ×2 (09:40→17:35)
[2018-10-11] MEDS: risperiDONE 0.25 MG (RisperDAL) TAB PO SCH ×2 (09:40→21:36)
[2018-10-11] MEDS: POLYETHYLENE GLYCOL 17 GM (MIRALAX) PACK PO SCH ×2 (09:41→21:30)
--- NOTE | 2018-10-11 10:24 | History & Physical-Hospitalist ---
History of Present Illness HPI/Chief Complaint Chief complaint: Hypoxia with congestive heart failure History of present illness: This is an 78-year-old white male former clinic patient of mine before [facility] with a past medical history of dementia, CAD, DM, chronic hyponatremia and diastolic dysfunction who presented to [facility] with shortness of breath 1 day after he was discharged home after 21 days of skilled [facility]. He was found to be in florid congestive heart failure with pulmonary edema and effusions. Elevated BNP was present also. Patient has such significant dementia that he has no recollection a cannot provide any details to me. I checked meds and labs are reviewed cardiology and pulmonology consultations which are both very much appreciated. Source: patient Exam Limitations: no limitations Date Seen 10/11/18 Time Seen by a Provider: 10:00 Attending Physician Chantelle Trujillo DO PCP Chantelle Trujillo DO Referring Physician Date of Admission October 10, 2018 at 15:52 Home Medications & Allergies Home Medications Reviewed patient Home Medication Reconciliation performed by pharmacy medication reconciliations test and turn up technician and/or nursing. Patients Allergies have been reviewed. Allergies Allergies Coded Allergies rofecoxib (Verified Allergy, Unknown, 10/10/18) Past Tgfxaep-Wnkbzz-Nppdke Hx Past Med/Social Hx: Reviewed Nursing Past Med/Soc Hx, Reviewed and Corrections made Patient Social History Marrital Status: Employed/Student: retired Alcohol Use: Denies Use Recreational Drug Use: No Smoking Status: Never a Smoker 2nd Hand Smoke Exposure: No Recent Foreign Travel: No Contact w/other who traveled: No Recent Hopitalizations: No Recent Infectious Disease Expo: No Immunizations Up To Date Date of Pneumonia Vaccine: October 10, 2018 Date of Influenza Vaccine: Apr 12, 2018 Seasonal Allergies Seasonal Allergies: No Past Medical History Surgeries: Abdominal, CABG Respiratory: Pneumonia Cardiac: Coronary Artery Disease, High Cholesterol, Hypertension Neurological: Dementia, Neuropathy Reproductive: No Genitourinary: Renal Failure Gastrointestinal: Gastroesophageal Reflux Musculoskeletal: Arthritis Endocrine: Diabetes, Insulin dep History of Blood Disorders: No Review of Systems Constitutional: see HPI, dizziness EENTM: no symptoms reported Respiratory: dyspnea on exertion, wheezing Cardiovascular: no symptoms reported Gastrointestinal: no symptoms reported Genitourinary: no symptoms reported Musculoskeletal: no symptoms reported Skin: no symptoms reported Psychiatric/Neurological: No Symptoms Reported All Other Systems Reviewed Negative Unless Noted: Yes Physical Exam Physical Exam Vital Signs Vital Signs - First Documented 10/10/18 10/10/18 10/10/18 13:27 16:24 18:00 Temp 97.9 Pulse 60 Resp 16 B/P (MAP) 162/80 (107) Pulse Ox 95 O2 Delivery Nasal Cannula O2 Flow Rate 4.00 Capillary Refill : Less Than 3 Seconds Height, Weight, BMI Height: 5'6.00" Weight: 227lbs. 3.0oz. [id number]; 37.3 BMI Method:Stated General Appearance: No Apparent Distress, WD/WN, Chronically ill, Obese Eyes: Right Eye Normal Inspection, Right Eye PERRL HEENT: PERRL/EOMI, Normal ENT Inspection, Pharynx Normal, Moist Mucous Membranes Neck: Full Range of Motion, Normal Inspection, Non Tender Respiratory: Chest Non Tender, No Accessory Muscle Use, No Respiratory Distress , Decreased Breath Sounds Cardiovascular: Regular Rate, Rhythm, No Edema, No Gallop, No JVD, No Murmur, Normal Peripheral Pulses Gastrointestinal: Normal Bowel Sounds, No Organomegaly, No Pulsatile Mass, Non Tender, Soft Back: Normal Inspection, No CVA Tenderness, No Vertebral Tenderness Extremity: Normal Capillary Refill, Normal Inspection, Normal Range of Motion, Non Tender, No Calf Tenderness, No Pedal Edema Neurologic/Psychiatric: Alert, No Motor/Sensory Deficits, Normal Mood/Affect, Disoriented Skin: Normal Color, Warm/Dry Lymphatic: No Adenopathy Results Results/Procedures Labs Laboratory Tests 10/10/18 13:32 10/11/18 03:15 Patient resulted labs reviewed. Assessment/Plan Admission Diagnosis Assessment: Acute on chronic diastolic heart failure Volume overload with elevated BNP Severe dementia Diabetes mellitus Chronic hyponatremia Hypertension Hyperlipidemia CAD Previous bypass Plan: IV diuresis Oxygen Appreciate cardiology and pulmonology consultation No evidence of any pneumonia Metabolic acidosis due to hypoxemia Admission Status: Inpatient Order (span 2 midnights) Reason for Inpatient Admission: Congestive heart failure and severe dementia patient Diagnosis/Problems Diagnosis/Problems (1) Congestive heart failure (CHF) Status: Acute Qualifiers: Heart failure type: diastolic Heart failure chronicity: acute on chronic Qualified Codes: I50.33 - Acute on chronic diastolic (congestive) heart failure (2) Hypoxia Status: Acute (3) Hypertension Status: Chronic Qualifiers: Hypertension type: essential hypertension Qualified Codes: I10 - Essential (primary) hypertension (4) Lactic acid acidosis Status: Acute (5) History of colon cancer Status: Chronic (6) GERD (gastroesophageal reflux disease) Status: Chronic Qualifiers: Esophagitis presence: without esophagitis Qualified Codes: K21.9 - Gastro- esophageal reflux disease without esophagitis (7) Hyperlipemia Status: Chronic Qualifiers: Hyperlipidemia type: mixed hyperlipidemia Qualified Codes: E78.2 - Mixed hyperlipidemia (8) Dementia Status: Chronic Qualifiers: Dementia type: Alzheimer's disease Alzheimer's disease onset: unspecified onset Dementia behavioral disturbance: without behavioral disturbance Qualified Codes: G30.9 - Alzheimer's disease, unspecified; F02.80 - Dementia in other diseases classified elsewhere without behavioral disturbance (9) CAD (coronary artery disease) Status: Chronic Qualifiers: Coronary Disease-Associated Artery/Lesion type: al[place]q artery [place] vs. transplanted heart: al[place]q heart Associated angina: without angina Qualified Codes: I25.10 - Atherosclerotic heart disease of [place] coronary artery without angina pectoris (10) SIADH (syndrome of inappropriate ADH production) Status: Chronic (11) Altered mental status Status: Acute Qualifiers: Altered mental status type: delirium Qualified Codes: R41.0 - Disorientation, unspecified Clinical Quality Measures DVT/VTE Risk/Contraindication: Risk Factor Score Per Nursin RFS Level Per Nursing on Admit: 4+=Very High CHANTELLE TRUJILLO DO October 11, 2018 10:24
[2018-10-11] MEDS ORDERED: NON-FORMULARY MEDICATION 1 EA EA (Ibuprofen 400 MG) PO PRN (11:15)
[2018-10-11] MEDS ORDERED: LOPERAMIDE 2 MG (IMODIUM) CAP PO PRN (11:15)
[2018-10-11] MEDS ORDERED: IBUPROFEN TABLET 200 MG TAB PO PRN (11:30)
--- NOTE | 2018-10-11 12:30 | NUR ---
CM/SS, readmission patient. PLAN: Spouse refuses SNF return, she requests discharge back home with her and resume of established HHC with [facility]. Monitoring for possible need for new home O2. SUMMARY: Tank Assembler had patient during IP stay 09/09-09/18/18 at which time he admitted Medicare skilled status to [facility]. He stayed there 20 days until 10/08 when he returned home with spouse and has now readmitted to hospital. Patient has Medicare only which was discussed at length during his last hospitalization. Per [facility]R Admin/Katy, they assisted patient/spouse with Medicaid application but they have some funds in a savings account that may defer eligibility. Katy said patient/spouse are being charged a fee for their savings account for non-activity but continue to leave it in the bank, stating it was for expenses. [facility] staff encouraged them to purchase a burial plan so that Medicaid could move forward but there was no resolution either way. Indications are no Medicaid approval until savings depleted. Patient very pleasant and appreciative, spouse less so. Voiced dissatisfaction with having patient cared for in [place], no positives from her perspective about his care there or the other residents. Spouse stated to appeals writer she would get an defense attorney if we had any intentions of sending him back there. Patient is pleasantly demented, spouse noted to scramble facts and arrive at her own surmise. Difficult at times to lead a discussion about options and filter down to a fact-based conclusion. Continue to follow for post hospital needs and care plan.
[2018-10-11] MEDS: RT-ALBUTEROL/IPRATROPIUM 3 ML (DUONEB) VIAL INH SCH ×2 (16:35→16:36)
[2018-10-11] MEDS: metFORMIN 500 MG (GLUCOPHAGE) TAB PO SCH (17:35)
--- NOTE | 2018-10-11 18:39 | Consultation-Cardiology ---
HPI-Cardiology Cardiology Consultation: Date of Consultation 10/11/18 Time Seen by a Provider: 18:15 Date of Admission Attending Physician Chantelle Trujillo DO Admitting Physician Chantelle Trujillo DO Consulting Physician MARGARITA DUNBAR MD, MA, FACP, FACC, [facility], CCDS Physician requesting consult: Dr Trujillo HPI: Chief Complaint: Reason for consultation: Hypoxia HPI Mr. Mojica is an 78 year old male admitted to ICU 9 from [facility]. He has dementia and is a poor historian. He is pleasant and cooperative. Information has been obtained from review of hospital records and nursing. He was recently discharge from the facility to SNF in [facility] and had recently been discharge back home with his spouse. Home Health services yesterday found his oxygen sats to be 82% on room air. He was then sent to the [facility] ED. He reports his breathing is good this morning. He denies any pain or CP. He has pulled his IV out this morning and was wandering the ICU this morning. He is easily re -directed, but quickly forgets. He is oriented to self only. He is unsure why he is in the hospital or the events leading up to his admission. Review of Systems-Cardiology All Other Systems Reviewed Negative Unless Noted: Yes [id number] Hx Patient Social History Marrital Status: Employed/Student: retired Alcohol Use: Denies Use Recreational Drug Use: No Smoking Status: Never a Smoker 2nd Hand Smoke Exposure: No Recent Foreign Travel: No Recent Infectious Disease Expo: No Immunizations Up To Date Date of Pneumonia Vaccine: October 10, 2018 Date of Influenza Vaccine: Apr 12, 2018 Past Medical History PMH As described under Assessment. Family Medical History Family Medical History: Does not report fam h/o early CAD or SCD Allergies and Home Medications Allergies Coded Allergies: rofecoxib (Verified Allergy, Unknown, 10/10/18) Home Medications Amlodipine Besylate 10 Mg Tablet, 10 MG PO DAILY, (Reported) Aspirin 81 Mg Tablet., 81 MG PO HS, (Reported) Atorvastatin Calcium 20 Mg Tablet, 20 MG PO HS, (Reported) Clopidogrel Bisulfate 75 Mg Tablet, 75 MG PO DAILY, (Reported) Clotrimazole 12 Gm Cream..g., TP BID PRN for ITCHING, (Reported) Doxazosin Mesylate 4 Mg Tablet, 4 MG PO BID, (Reported) Famotidine 20 Mg Tablet, 20 MG PO BID, (Reported) Glipizide 5 Mg Tablet, 2.5 MG PO DAILY, (Reported) TAKES 1/2 (5MG) TABLET Ibuprofen 200 Mg Tablet, 200-400 MG PO Q6H PRN for PAIN-MILD, (Reported) Insulin NPH Human Isophane 100 Unit/1 Ml Vial, 15 UNIT SQ 1900, (Reported) Ketoconazole 15 Gm Cream..g., TP BID, (Reported) APPLY TO ABDOMINAL FOLDS, AND GROIN AREA Loperamide HCl 2 Mg Capsule, 2 MG PO UD PRN for DIARRHEA, (Reported) Losartan Potassium 50 Mg Tablet, 50 MG PO DAILY, (Reported) Metformin HCl 1,000 Mg Tablet, 1,000 MG PO BID, (Reported) Metoprolol Tartrate 100 Mg Tablet, 100 MG PO BID, (Reported) Multivitamin 1 Each Tablet, 1 TAB PO DAILY, (Reported) Niacin (Inositol Niacinate) 500 Mg Capsule, 1,000 MG PO HS, (Reported) [place] 3 Polyunsat Fatty Acids 1,000 Mg Cap, 1,000 MG PO DAILY, (Reported) Patient Home Medication List Home Medication List Reviewed: Yes Physical Exam-Cardiology Physical Exam Vital Signs/I&O 10/11/18 10/11/18 10/11/18 10/11/18 07:34 08:45 09:00 11:52 Temp 98.6 Pulse 69 61 Resp 18 B/P (MAP) 174/84 (114) 158/75 (102) Pulse Ox 91 94 97 92 O2 Delivery Nasal Cannula Nasal Cannula Nasal Cannula Room Air O2 Flow Rate 4.00 4.00 4.00 10/11/18 15:59 Temp 98.4 Pulse 66 Resp 20 B/P (MAP) 178/81 (113) Pulse Ox 96 O2 Delivery Nasal Cannula O2 Flow Rate 4.00 10/11/18 00:00 Intake Total 220 ml Output Total 975 ml Balance -755 ml Capillary Refill : Less Than 3 Seconds Constitutional: well-developed, well-nourished HEENT: PERRL, hard of hearing, oral hygience is good Neck: No carotid bruit; carotid pulses are 2 + bilaterally Respiratory: No accessory muscle use, No respiratory distress; chest expansion is symmetric, chest is bilaterally symmetric, crackles (scattered) Cardiovascular: regular rate-rhythm; No JVD; S1 and S2 Gastrointestinal: No tender; soft, round, audible bowel sounds Rectal: deferred Extremities: no lower extremity edema bilateral Neurologic/Psychiatric: alert (Oreinted to self only; co-operative), grossly intact, power is 5/5 both on sides Skin: No rash, No ulcerations Data Review Labs Laboratory Tests 10/11/18 03:15: White Blood Count 7.2, Red Blood Count 3.50L, Hemoglobin 11.2L, Hematocrit 32L, Mean Corpuscular Volume 93, Mean Corpuscular Hemoglobin 32, Mean Corpuscular Hemoglobin Concent 35, Red Cell Distribution Width 12.9, Platelet Count 208, Mean Platelet Volume 8.3, Neutrophils (%) (Auto) 79H, Lymphocytes (%) (Auto) 11L , Monocytes (%) (Auto) 8, Eosinophils (%) (Auto) 2, Basophils (%) (Auto) 0, Neutrophils # (Auto) 5.7, Lymphocytes # (Auto) 0.8L, Monocytes # (Auto) 0.6, Eosinophils # (Auto) 0.2, Basophils # (Auto) 0.0, Sodium Level 139, Potassium Level 3.6, Chloride Level 100, Carbon Dioxide Level 24, Anion Gap 15H, Blood Urea Nitrogen 14, Creatinine 1.05, Estimat Glomerular Filtration Rate > 60, BUN/ Creatinine Ratio 13, Glucose Level 146H, Calcium Level 9.5, Corrected Calcium 9.8, Total Bilirubin 0.9, Aspartate Amino Transf (AST/SGOT) 13, Alanine Aminotransferase (ALT/SGPT) 17, Alkaline Phosphatase 89, Total Protein 6.6, Albumin 3.6 10/11/18 04:50: Lactic Acid Level 0.91 A/P-Cardiology Assessment/Admission Diagnosis Hypoxia Acute on chronic diastolic CHF Hypertension Echo of September 2018: Well preserved global LV systolic function with an LVEF of 60-65%. Mild tricuspid regurg. PASP mmHg Chronic stable angina - currently no c/o Coronary artery disease with a history of coronary artery bypass surgery. Last cardiac catheterization was in March 2014 which showed severe [place] CAD including 95% mid vessel stenosis of the left internal descending artery, 60% mid vessel stenosis of the left cx, subtotal ostial occlusion of the first OM branch and complete occlusion of the proximal to mid RCA, patent left internal mammary artery graft to the mid LAD, patent saphenous vein graft (with prox 50- 60% stenosis) to the first OM branch 50-60% proximal stenosis, and severely degenerated saphenous vein graft to the distal RCA (this graft has multiple 99 to 100% stenoses in its midportion and appears to be at high risk if percutaneous intervention is to be undertaken). LV gram showed well-preserved global left ventricular systolic function with an ejection fraction of 60-65%, mild posterobasal hypokinesis, no significant MR, mild LVEDP Obesity with a body mass index of approximately 37. Suspected CHIQUI, but pt has not followed through on the recommendation to have a sleep study done Gastroesophageal reflux. Hyperlipidemia, treated with statin and niacin therapy. Maturity onset diabetes mellitus being managed by Dr. Trujillo. Chronic bilateral ankle swelling, likely related to venous insufficiency and/or calcium channel karl therapy, currently stable. Rectal carcinoma that has been treated with surgery, followed by radiation therapy. Mild peripheral neuropathy consisting of numbness of the feet. History of carotid arterial disease with left-sided carotid endarterectomy by Dr. Ritchie. Carotid ultrasonography of January 2014 showed mild bilateral disease, hemodynamically nonsignificant. Dementia Discussion and Recomendations Acute on chronic diastolic CHF - treat with diuretics Continue home medications including ASA, Plavix, statin, BB and ARB Monitor lab closely Further recs will be based on his hospital course We would like to thank medical services for this consult OK to transfer to medical floor Clinical Quality Measures DVT/VTE Risk/Contraindication: Risk Factor Score Per Nursin RFS Level Per Nursing on Admit: 4+=Very High MARGARITA DUNBAR MD FACP [facility] October 11, 2018 18:38
[2018-10-11] MEDS ORDERED: inSUlin NPH (NovoLIN N) 1 UNIT/0.01 ML (CHARGE PER UNIT) SQ SCH (19:00)
[2018-10-11] MEDS ORDERED: ASPIRIN E.C. 81 MG (ECOTRIN) TAB PO SCH (21:00)
[2018-10-11] MEDS ORDERED: ATORVASTATIN 20 MG (LIPITOR) TABLET PO SCH (21:00)
[2018-10-11] MEDS ORDERED: NIACIN 500 MG TABLET PO SCH (21:00)
[2018-10-11] MEDS ORDERED: NON-FORMULARY MEDICATION 1 EA EA (Metformin HCl 1,000 MG) PO SCH (21:00)
[2018-10-11] MEDS ORDERED: NON-FORMULARY MEDICATION 1 EA EA (Metoprolol Tartrate 100 MG) PO SCH (21:00)
[2018-10-11] MEDS ORDERED: NON-FORMULARY MEDICATION 1 EA EA (Famotidine (Acid Reducer (FAMOTIDINE)) 20 MG) PO SCH (21:00)
[2018-10-11] MEDS: doxAzosin 4 MG (CARDURA) TAB PO SCH (21:36)
[2018-10-11] MEDS: meTOprolol TARTRATE 50 MG (LOPRESSOR) TAB PO SCH (21:38)
[2018-10-11] MEDS: FAMOTIDINE 20 MG (PEPCID) TABLET PO SCH (21:38)
[2018-10-11] MEDS: TERBINAFINE 1% CREAM 1 OZ (LamISIL) TUBE TP SCH (21:38)
[2018-10-12 03:33] VITALS: BP 149/67
[2018-10-12 04:52] LABS: BASOPHILS % (AUTO) 0 % (0-10); EOSINOPHILS # (AUTO) 0.1 10^3/uL (0.0-0.3); EOSINOPHILS % (AUTO) 1 % (0-10); HEMATOCRIT 32 % (40-54); HEMOGLOBIN 10.7 G/DL (13.3-17.7); LYMPHOCYTES # (AUTO) 1.2 X 10^3 (1.0-4.0); LYMPHOCYTES % (AUTO) 14 % (12-44); MEAN CORPUSCULAR HEMOGLOBIN 32 PG (25-34); MEAN CORPUSCULAR HGB CONC 34 G/DL (32-36); MEAN CORPUSCULAR VOLUME 94 FL (80-99); MEAN PLATELET VOLUME 8.2 FL (7.4-10.4); MONOCYTES # (AUTO) 0.6 X 10^3 (0.0-1.0); MONOCYTES % (AUTO) 8 % (0-12); NEUTROPHILS # (AUTO) 6.1 X 10^3 (1.8-7.8); NEUTROPHILS % (AUTO) 77 % (42-75); PLATELET COUNT 183 10^3/uL (130-400); RED CELL DISTRIBUTION WIDTH 12.9 % (10.0-14.5)
[2018-10-12 05:10] LABS: ALBUMIN 3.3 GM/DL (3.2-4.5); CALCIUM 8.9 MG/DL (8.5-10.1); CREATININE SERUM 1.31 MG/DL (0.60-1.30); MAGNESIUM 1.4 MG/DL (1.8-2.4); POTASSIUM 3.3 MMOL/L (3.6-5.0); TOTAL PROTEIN 6.1 GM/DL (6.4-8.2)
[2018-10-12] MEDS ORDERED: TROUGH ORDER-PHARMACY XX NR (06:00)
[2018-10-12] MEDS: RT-ALBUTEROL/IPRATROPIUM 3 ML (DUONEB) VIAL INH SCH ×2 (06:50→10:51)
[2018-10-12] MEDS: FUROSEMIDE 40 MG (LASIX) TAB PO SCH (06:55)
[2018-10-12] MEDS: metFORMIN 500 MG (GLUCOPHAGE) TAB PO SCH (06:55)
[2018-10-12] MEDS ORDERED: MULTIVIT W/MINERALS TAB (THERAGRAN M) PO SCH (07:00)
[2018-10-12] MEDS ORDERED: glipiZIDE 5 MG (GLUCOTROL) TAB PO SCH (07:00)
[2018-10-12 07:54] VITALS: BP 153/77
[2018-10-12] MEDS ORDERED: ASPIRIN 81 MG CHEW (CHILDREN'S ASA) PO SCH (09:00)
[2018-10-12] MEDS ORDERED: NON-FORMULARY MEDICATION 1 EA EA (Losartan Potassium 50 MG) PO SCH (09:00)
[2018-10-12] MEDS ORDERED: CLOPIDOGREL 75 MG (PLAVIX) TABLET PO SCH ×2 (09:00)
[2018-10-12] MEDS ORDERED: ASPIRIN 325 MG (5 GR) TABLET PO SCH (09:00)
[2018-10-12] MEDS ORDERED: OMEGA 3 (FISH OIL) 1000 MG CAP PO SCH (09:00)
[2018-10-12] MEDS ORDERED: NON-FORMULARY MEDICATION 1 EA EA (Amlodipine Besylate 10 MG) PO SCH (09:00)
[2018-10-12] MEDS ORDERED: LOSARTAN 50 MG (COZAAR) TAB PO SCH (09:00)
[2018-10-12] MEDS ORDERED: MULTIVITAMIN PO SCH (09:00)
[2018-10-12] MEDS ORDERED: amLODIPine 10 MG (NORVASC) TAB PO SCH (09:00)
[2018-10-12] MEDS: doxAzosin 4 MG (CARDURA) TAB PO SCH (09:11)
[2018-10-12] MEDS: meTOprolol TARTRATE 50 MG (LOPRESSOR) TAB PO SCH (09:11)
[2018-10-12] MEDS: FAMOTIDINE 20 MG (PEPCID) TABLET PO SCH (09:11)
[2018-10-12] MEDS: POLYETHYLENE GLYCOL 17 GM (MIRALAX) PACK PO SCH (09:11)
[2018-10-12] MEDS: risperiDONE 0.25 MG (RisperDAL) TAB PO SCH (09:12)
[2018-10-12] MEDS: TERBINAFINE 1% CREAM 1 OZ (LamISIL) TUBE TP SCH (09:13)
--- NOTE | 2018-10-12 09:18 | Progress Note-Cardiology ---
Cardiology SOAP Progress Note Subjective: Sitting up in a chair at the bedside. Sitter at the bedside. Denies any c/o pain or shortness of breath. Objective: I&O/Vital Signs 10/12/18 10/12/18 10/12/18 10/12/18 03:33 06:54 07:54 10:43 Temp 98.8 98.2 Pulse 67 77 Resp 20 18 B/P (MAP) 149/67 (94) 153/77 (102) Pulse Ox 94 85 99 96 O2 Delivery Nasal Cannula Room Air Nasal Cannula O2 Flow Rate 4.00 4.00 4.00 10/12/18 10/12/18 10:53 12:00 Temp 97.9 Pulse 54 Resp 20 B/P (MAP) 150/65 (93) Pulse Ox 98 100 O2 Delivery Nasal Cannula Nasal Cannula O2 Flow Rate 4.00 4.00 10/11/18 23:59 Intake Total 1070 ml Output Total 1290 ml Balance -220 ml Weight (Pounds): 227 Weight (Ounces): 3.0 Weight (Calculated Kilograms): 103.776945 Constitutional: well-developed, well-nourished Respiratory: No accessory muscle use, No respiratory distress; chest expansion is symmetric, chest is bilaterally symmetric, lungs clear to auscultation Cardiovascular: regular rate-rhythm; No JVD; S1 and S2 Gastrointestional: No tender; soft, round, audible bowel sounds Extremities: no lower extremity edema bilateral Neurologic/Psychiatric: alert (Oreinted to self only; co-operative), grossly intact, power is 5/5 both on sides Skin: No rash, No ulcerations Results/Procedures: Labs Laboratory Tests 10/11/18 20:37: Glucometer 161H 10/12/18 04:35: White Blood Count 8.0, Red Blood Count 3.39L, Hemoglobin 10.7L, Hematocrit 32L, Mean Corpuscular Volume 94, Mean Corpuscular Hemoglobin 32, Mean Corpuscular Hemoglobin Concent 34, Red Cell Distribution Width 12.9, Platelet Count 183, Mean Platelet Volume 8.2, Neutrophils (%) (Auto) 77H, Lymphocytes (%) (Auto) 14 , Monocytes (%) (Auto) 8, Eosinophils (%) (Auto) 1, Basophils (%) (Auto) 0, Neutrophils # (Auto) 6.1, Lymphocytes # (Auto) 1.2, Monocytes # (Auto) 0.6, Eosinophils # (Auto) 0.1, Basophils # (Auto) 0.0, Sodium Level 136, Potassium Level 3.3L, Chloride Level 97L, Carbon Dioxide Level 24, Anion Gap 15H, Blood Urea Nitrogen 16, Creatinine 1.31H, Estimat Glomerular Filtration Rate 53, BUN/ Creatinine Ratio 12, Glucose Level 118H, Calcium Level 8.9, Corrected Calcium 9.5, Magnesium Level 1.4L, Total Bilirubin 1.0, Aspartate Amino Transf (AST/SGOT ) 11, Alanine Aminotransferase (ALT/SGPT) 14, Alkaline Phosphatase 86, Total Protein 6.1L, Albumin 3.3 Microbiology 10/10/18 Blood Culture - Preliminary, Resulted Staph, Coag Neg (FRONT EDGER) 10/10/18 MRSA Screen - Final, Complete MRSA not isolated A/P: Assessment: Hypoxia - resolved Acute on chronic diastolic CHF - clinically improved Hypertension - improved Echo of September 2018: Well preserved global LV systolic function with an LVEF of 60-65%. Mild tricuspid regurg. PASP mmHg Chronic stable angina - currently no c/o Coronary artery disease with a history of coronary artery bypass surgery. Last cardiac catheterization was in March 2014 which showed severe [place] CAD including 95% mid vessel stenosis of the left internal descending artery, 60% mid vessel stenosis of the left cx, subtotal ostial occlusion of the first OM branch and complete occlusion of the proximal to mid RCA, patent left internal mammary artery graft to the mid LAD, patent saphenous vein graft (with prox 50- 60% stenosis) to the first OM branch 50-60% proximal stenosis, and severely degenerated saphenous vein graft to the distal RCA (this graft has multiple 99 to 100% stenoses in its midportion and appears to be at high risk if percutaneous intervention is to be undertaken). LV gram showed well-preserved global left ventricular systolic function with an ejection fraction of 60-65%, mild posterobasal hypokinesis, no significant MR, mild LVEDP Obesity with a body mass index of approximately 37. Suspected CHIQUI, but pt has not followed through on the recommendation to have a sleep study done Gastroesophageal reflux. Hyperlipidemia, treated with statin and niacin therapy. Maturity onset diabetes mellitus being managed by Dr. Trujillo. Chronic bilateral ankle swelling, likely related to venous insufficiency and/or calcium channel karl therapy, currently stable. Rectal carcinoma that has been treated with surgery, followed by radiation therapy. Mild peripheral neuropathy consisting of numbness of the feet. History of carotid arterial disease with left-sided carotid endarterectomy by Dr. Ritchie. Carotid ultrasonography of January 2014 showed mild bilateral disease, hemodynamically nonsignificant. Dementia Plan: Acute on chronic diastolic CHF - improved with diuretics - reduce dose d/t worsening renal function Continue other medications Replace potassium Monitor lab+ Physician Assessment Physician Assessment No cp or palp or syncope. Notes some improvement of shortness of breath No acute distress, but is confused Lungs: good air entry, diminished at the bases Cor: reg Ext: no c/c/e A&R * As documented in our note above that I updated (italics) and as noted below * Monitor labs * Dr Coyle covering our service over the weekend KYE MEZA October 12, 2018 09:17 MARGARITA DUNBAR MD FACP FAC CCDS October 12, 2018 14:17
[2018-10-12] MEDS ORDERED: KCL 20 MEQ TAB (K-DUR) PO NR ×2 (09:30→10:30)
[2018-10-12] MEDS ORDERED: FUROSEMIDE 40 MG (LASIX) TAB PO NR ×2 (10:00→10:15)
--- NOTE | 2018-10-12 10:12 | Progress Note-Hospitalist ---
Subjective HPI/CC On Admission Date Seen by Provider: October 12, 2018 Time Seen by Provider: 09:45 Chief complaint: Hypoxia with congestive heart failure History of present illness: This is an 78-year-old white male former clinic patient of mine before he was sent to the senior living with a past medical history of dementia, CAD, DM, chronic hyponatremia and diastolic dysfunction who presented to [facility] with shortness of breath 1 day after he was discharged home after 21 days of skilled care at the senior living. He was found to be in [place] congestive heart failure with pulmonary edema and effusions. Elevated BNP was present also. Patient has such significant dementia that he has no recollection a cannot provide any details to me. I checked meds and labs are reviewed cardiology and pulmonology consultations which are both very much appreciated. Focused Exam Lactate Level 10/10/18 13:46: Lactic Acid Level 2.98*H 10/10/18 15:41: Lactic Acid Level 3.39*H 10/11/18 04:50: Lactic Acid Level 0.91 Objective Exam Vital Signs Vital Signs Date Time Temp Pulse Resp B/P (MAP) Pulse Ox O2 Delivery O2 Flow Rate FiO2 10/12/18 07:54 98.2 77 18 153/77 (102) 99 Nasal Cannula 4.00 Capillary Refill : Less Than 3 Seconds General Appearance: WD/WN, Anxious, Mild Distress HEENT: PERRL/EOMI, Normal ENT Inspection, Pharynx Normal Neck: Full Range of Motion, Normal Inspection, Non Tender, Supple Respiratory: Chest Non Tender, No Accessory Muscle Use, No Respiratory Distress , Crackles, Decreased Breath Sounds Cardiovascular: Regular Rate, Rhythm, No Edema, No Gallop Gastrointestinal: Normal Bowel Sounds, No Organomegaly, No Pulsatile Mass, Non Tender, Soft Back: Normal Inspection, No CVA Tenderness, No Vertebral Tenderness Extremity: Normal Capillary Refill, Normal Inspection Neurologic/Psychiatric: Alert Skin: Normal Color, Warm/Dry Lymphatic: No Adenopathy Results/Procedures Lab Laboratory Tests 10/12/18 04:35 Patient resulted labs reviewed. Diagnosis/Problems Diagnosis/Problems (1) Congestive heart failure (CHF) Status: Acute Qualifiers: Heart failure type: diastolic Heart failure chronicity: acute on chronic Qualified Codes: I50.33 - Acute on chronic diastolic (congestive) heart failure (2) Hypoxia Status: Acute (3) Hypertension Status: Chronic Qualifiers: Hypertension type: essential hypertension Qualified Codes: I10 - Essential (primary) hypertension (4) Lactic acid acidosis Status: Acute (5) History of colon cancer Status: Chronic (6) GERD (gastroesophageal reflux disease) Status: Chronic Qualifiers: Esophagitis presence: without esophagitis Qualified Codes: K21.9 - Gastro- esophageal reflux disease without esophagitis (7) Hyperlipemia Status: Chronic Qualifiers: Hyperlipidemia type: mixed hyperlipidemia Qualified Codes: E78.2 - Mixed hyperlipidemia (8) Dementia Status: Chronic Qualifiers: Dementia type: Alzheimer's disease Alzheimer's disease onset: unspecified onset Dementia behavioral disturbance: without behavioral disturbance Qualified Codes: G30.9 - Alzheimer's disease, unspecified; F02.80 - Dementia in other diseases classified elsewhere without behavioral disturbance (9) CAD (coronary artery disease) Status: Chronic Qualifiers: Coronary Disease-Associated Artery/Lesion type: [place] artery [place] vs. transplanted heart: [place] heart Associated angina: without angina Qualified Codes: I25.10 - Atherosclerotic heart disease of [place] coronary artery without angina pectoris (10) SIADH (syndrome of inappropriate ADH production) Status: Chronic (11) Altered mental status Status: Acute Qualifiers: Altered mental status type: delirium Qualified Codes: R41.0 - Disorientation, unspecified Clinical Quality Measures DVT/VTE Risk/Contraindication: Risk Factor Score Per Nursin RFS Level Per Nursing on Admit: 4+=Very High DAIN DUBOSE DO October 12, 2018 10:12
--- NOTE | 2018-10-12 10:26 | Pulmonary Progress Note ---
Sepsis Event Evaluation Height, Weight, BMI Height: 5'6.00" Weight: 227lbs. 3.0oz. 103.273067nk; 37.3 BMI Method:Stated Focused Exam Lactate Level 10/10/18 13:46: Lactic Acid Level 2.98*H 10/10/18 15:41: Lactic Acid Level 3.39*H 10/11/18 04:50: Lactic Acid Level 0.91 Exam Exam Vital Signs Date Time Temp Pulse Resp B/P (MAP) Pulse Ox O2 Delivery O2 Flow Rate FiO2 10/12/18 07:54 98.2 77 18 153/77 (102) 99 Nasal Cannula 4.00 10/12/18 06:54 85 Room Air 10/12/18 03:33 98.8 67 20 149/67 (94) 94 Nasal Cannula 4.00 10/11/18 23:22 98.4 62 18 132/63 (86) 94 Room Air 10/11/18 20:30 Room Air 10/11/18 20:00 98.2 93 18 181/89 (119) 91 Room Air 4.00 10/11/18 15:59 98.4 66 20 178/81 (113) 96 Nasal Cannula 4.00 10/11/18 11:52 98.6 61 18 158/75 (102) 92 Room Air I & O 10/12/18 06:59 Intake Total 1920 ml Output Total 1840 ml Balance 80 ml Height & Weight Height: 5'6.00" Weight: 227lbs. 3.0oz. 103.476585gz; 37.3 BMI Method:Stated General Appearance: No Apparent Distress, WD/WN, Anxious HEENT: PERRL/EOMI, Normal ENT Inspection, Pharynx Normal Neck: Full Range of Motion, Normal Inspection, Non Tender, Supple Respiratory: Chest Non Tender, No Accessory Muscle Use, No Respiratory Distress , Crackles, Decreased Breath Sounds Cardiovascular: Regular Rate, Rhythm, No Edema, No Gallop Capillary Refill: Less Than 3 Seconds Gastrointestinal: normal bowel sounds, non tender, soft, other (obese) Extremity: Normal Capillary Refill, Normal Inspection Neurologic/Psychiatric: Alert Skin: Normal Color, Warm/Dry Lymphatic: No Adenopathy Results Lab Laboratory Tests 10/10/18 13:32 10/11/18 03:15 10/12/18 04:35 Assessment/Plan Assessment/Plan Acute respiratory distress with hypoxia -- secondary to pulmonary edema -- Doubt infection -Lasix -PT will need home oxygen. -SVNS - will order QID Bilateral pulmonary congestion and pleural effusions -Continue Lasix Metabolic lactic acidosis - secondary to hypoxia -Oxygen Atelectasis -IS -SVNs QID -Increase activity -PT/OT Hypokalemia/hypomag -replace Debility -PT/OT Severe Dementia Anemia -Monitor JESSICA VALVERDE DO October 12, 2018 10:26
[2018-10-12] MEDS ORDERED: MAGNESIUM 1 GM/100 ML IVPB 100 ML IV SCH (10:30)
[2018-10-12] MEDS: MAGNESIUM 1 GM/100 ML IVPB 100 ML IV SCH ×2 (10:40→11:38)
--- NOTE | 2018-10-12 10:42 | D/C HH Face to Face Order ---
D/C Face to Face Orders Instructions for Patient Via [facility], Patient Instructions/FollowUp: Dr Moctezuma/Raj Angeles in 2 weeks Physician to follow Patient: Dr Moctezuma/Raj Angeles Discharge Diet for Home: ADA Diet, Cardiac Diet Patient Problems: CHF New home O2 DM HTN CAD Severe dementia Goals for Patient: Wean off O2 and improve ADL independence Patient Data-Allergies,Ht & Wt Patient Allergies: Coded Allergies: rofecoxib (Verified Allergy, Unknown, 10/10/18) Height (Feet): 5 Height (Inches): 6.00 Weight (Pounds): 227 Weight (Ounces): 3.0 Home Health Need/Face to Face Date of Face to Face: October 12, 2018 Clinical Findings: Generalized weakness and fatigue, Muscle weakness, Shortness of breath, Unsteady gait I have seen Pt [id number]: Yes Discharged To: Home Diagnosis/Conditions: CHF New home O2 DM HTN CAD Patient is Homebound due to: CognItive deficits, Radhika fall risk due to instabilty, Muscle weakness Homebound Status Due to the above stated illness, injury or surgical procedure (medical condition or diagnosis) and associated clinical findings, the patient is homebound because of his/her inability to leave home except with aid of a supportive device and/or person AND leaving the home requires a considerable and taxing effort or is medically contraindicated. Pt req the following assistanc: [facility] Nursing Orders Home Health Services Order: Nursing Services, [employer]-Evaluate & Treat, Physical Therapy-Evaluate & Treat, Other (bath aide) Home Health Infusion Therapy Line Start Date: October 10, 2018 Certify Stmt I certify that this patient is under my care and that I, a nurse practitioner or a physician; a it administrative assistant working with me, had a face to face encounter that - meets the physician face to face encounter requirements with this patient as dated. DAIN DUBOSE DO October 12, 2018 10:42
[2018-10-12] MEDS ORDERED: POTA10TA6 PO (10:45)
[2018-10-12] MEDS ORDERED: FURO40TA4 PO (10:45)
--- NOTE | 2018-10-12 10:48 | Discharge Summary-Hospitalist ---
Diagnosis/Chief Complaint Date of Admission October 10, 2018 at 15:52 Date of Discharge Discharge Date: October 12, 2018 Admission Diagnosis Assessment: Acute on chronic diastolic heart failure Volume overload with elevated BNP Severe dementia Diabetes mellitus Chronic hyponatremia Hypertension Hyperlipidemia CAD Previous bypass Plan: IV diuresis Oxygen Appreciate cardiology and pulmonology consultation No evidence of any pneumonia Metabolic acidosis due to hypoxemia Discharge Diagnosis (1) Congestive heart failure (CHF) Status: Acute (2) Hypoxia Status: Acute (3) Hypertension Status: Chronic (4) Lactic acid acidosis Status: Acute (5) History of colon cancer Status: Chronic (6) GERD (gastroesophageal reflux disease) Status: Chronic (7) Hyperlipemia Status: Chronic (8) Dementia Status: Chronic (9) CAD (coronary artery disease) Status: Chronic (10) SIADH (syndrome of inappropriate ADH production) Status: Chronic (11) Altered mental status Status: Acute (12) Oxygen dependent Status: Acute Discharge Summary Discharge Physical Exam Allergies: Coded Allergies: rofecoxib (Verified Allergy, Unknown, 10/10/18) Vitals & I&Os Vital Signs Date Time Temp Pulse Resp B/P (MAP) Pulse Ox O2 Delivery O2 Flow Rate FiO2 10/12/18 10:53 98 Nasal Cannula 4.00 10/12/18 07:54 98.2 77 18 153/77 (102) General Appearance: No Apparent Distress, WD/WN, Chronically ill Respiratory: Lungs Clear, Normal Breath Sounds Cardiovascular: Regular Rate, Rhythm, No Edema Neurologic/Psychiatric: Alert, Disoriented Hospital Course Was the Problem List Reviewed?: Yes Hospital course: Patient had an uneventful hospital course. He was just discharged from the group home the day before when he became short of breath brought to [facility] via his found to be in florid heart failure with pleural effusions and pulmonary edema on chest x-ray. No evidence of any pneumonia on repeat chest x-ray so antibiotics were discontinued. Elevated lactic acid was due to hypoxia. Metformin was discontinued at discharge. Patient met criteria for oxygen supplementation at 4 L so those orders were placed discharge. Home health orders were placed. Severe dementia precludes anything but a poor prognosis long-term. insisted on bringing him home with home health. Spoke to Dr. Moctezuma's office and they were gracious enough to provide follow up for the patient within 2 weeks so that information will be provided to the patient's for f/u plan. Labs (last 24 hrs) Laboratory Tests 10/11/18 20:37: Glucometer 161H 10/12/18 04:35: White Blood Count 8.0, Red Blood Count 3.39L, Hemoglobin 10.7L, Hematocrit 32L, Mean Corpuscular Volume 94, Mean Corpuscular Hemoglobin 32, Mean Corpuscular Hemoglobin Concent 34, Red Cell Distribution Width 12.9, Platelet Count 183, Mean Platelet Volume 8.2, Neutrophils (%) (Auto) 77H, Lymphocytes (%) (Auto) 14 , Monocytes (%) (Auto) 8, Eosinophils (%) (Auto) 1, Basophils (%) (Auto) 0, Neutrophils # (Auto) 6.1, Lymphocytes # (Auto) 1.2, Monocytes # (Auto) 0.6, Eosinophils # (Auto) 0.1, Basophils # (Auto) 0.0, Sodium Level 136, Potassium Level 3.3L, Chloride Level 97L, Carbon Dioxide Level 24, Anion Gap 15H, Blood Urea Nitrogen 16, Creatinine 1.31H, Estimat Glomerular Filtration Rate 53, BUN/ Creatinine Ratio 12, Glucose Level 118H, Calcium Level 8.9, Corrected Calcium 9.5, Magnesium Level 1.4L, Total Bilirubin 1.0, Aspartate Amino Transf (AST/SGOT ) 11, Alanine Aminotransferase (ALT/SGPT) 14, Alkaline Phosphatase 86, Total Protein 6.1L, Albumin 3.3 Microbiology 10/10/18 Blood Culture - Preliminary, Resulted Staph, Coag Neg ([employer]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 Pending Labs Laboratory Tests 10/12/18 04:35: White Blood Count 8.0, Red Blood Count 3.39, Hemoglobin 10.7, Hematocrit 32, Mean Corpuscular Volume 94, Mean Corpuscular Hemoglobin 32, Mean Corpuscular Hemoglobin Concent 34, Red Cell Distribution Width 12.9, Platelet Count 183, Mean Platelet Volume 8.2, Neutrophils (%) (Auto) 77, Lymphocytes (%) (Auto) 14, Monocytes (%) (Auto) 8, Eosinophils (%) (Auto) 1, Basophils (%) (Auto) 0, Neutrophils # (Auto) 6.1, Lymphocytes # (Auto) 1.2, Monocytes # (Auto) 0.6, Eosinophils # (Auto) 0.1, Basophils # (Auto) 0.0, Sodium Level 136, Potassium Level 3.3, Chloride Level 97, Carbon Dioxide Level 24, Anion Gap 15, Blood Urea Nitrogen 16, Creatinine 1.31, Estimat Glomerular Filtration Rate 53, BUN/ Creatinine Ratio 12, Glucose Level 118, Calcium Level 8.9, Corrected Calcium 9.5 , Magnesium Level 1.4, Total Bilirubin 1.0, Aspartate Amino Transf (AST/SGOT) 11 , Alanine Aminotransferase (ALT/SGPT) 14, Alkaline Phosphatase 86, Total Protein 6.1, Albumin 3.3 Discussion & Recommendations Discharge Planning: <30 minutes discharge planning Discharge Home Medications: Active Scripts Active Klor-Con 10 (Potassium Chloride) 10 Meq Tablet.er 10 Meq PO DAILY@0700 Furosemide 40 Mg Tablet 40 Mg PO DAILY Reported Ketoconazole 15 Gm Cream..g. TP BID APPLY TO ABDOMINAL FOLDS, AND GROIN AREA Humulin N (Insulin NPH Human Isophane) 100 Unit/1 Ml Vial 15 Unit SQ 1900 Glipizide 5 Mg Tablet 2.5 Mg PO DAILY TAKES 1/2 (5MG) TABLET Doxazosin Mesylate 4 Mg Tablet 4 Mg PO BID Fish Oil 1,000 mg Capsule ([place] 3 Polyunsat Fatty Acids) 1,000 Mg Cap 1,000 Mg PO DAILY Lotrimin AF (Clotrimazole) 12 Gm Cream..g. TP BID PRN Imodium A-D (Loperamide HCl) 2 Mg Capsule 2 Mg PO UD PRN Ibuprofen 200 Mg Tablet 200-400 Mg PO Q6H PRN Daily Value (Multivitamin) 1 Each Tablet 1 Tab PO DAILY Aspirin EC (Aspirin) 81 Mg Tablet.dr 81 Mg PO HS Niacin 500 mg Capsule (Niacin (Inositol Niacinate)) 500 Mg Capsule 1,000 Mg PO HS Acid Stamp Press Operator (FAMOTIDINE) (Famotidine) 20 Mg Tablet 20 Mg PO BID Losartan Potassium 50 Mg Tablet 50 Mg PO DAILY Metoprolol Tartrate 100 Mg Tablet 100 Mg PO BID Atorvastatin Calcium 20 Mg Tablet 20 Mg PO HS Amlodipine Besylate 10 Mg Tablet 10 Mg PO DAILY Clopidogrel (Clopidogrel Bisulfate) 75 Mg Tablet 75 Mg PO DAILY Metformin HCl 1,000 Mg Tablet 1,000 Mg PO BID Instructions to patient/family Please see electronic discharge instructions given to patient. Clinical Quality Measures DVT/VTE Risk/Contraindication: Risk Factor Score Per Nursin RFS Level Per Nursing on Admit: 4+=Very High Problem Qualifiers (1) Congestive heart failure (CHF): Heart failure type: diastolic Heart failure chronicity: acute on chronic Qualified Codes: I50.33 - Acute on chronic diastolic (congestive) heart failure (2) Hypertension: Hypertension type: essential hypertension Qualified Codes: I10 - Essential ( primary) hypertension (3) GERD (gastroesophageal reflux disease): Esophagitis presence: without esophagitis Qualified Codes: K21.9 - Gastro- esophageal reflux disease without esophagitis (4) Hyperlipemia: Hyperlipidemia type: mixed hyperlipidemia Qualified Codes: E78.2 - Mixed hyperlipidemia (5) Dementia: Dementia type: Alzheimer's disease Alzheimer's disease onset: unspecified onset Dementia behavioral disturbance: without behavioral disturbance Qualified Codes: G30.9 - Alzheimer's disease, unspecified; F02.80 - Dementia in other diseases classified elsewhere without behavioral disturbance (6) CAD (coronary artery disease): Coronary Disease-Associated Artery/Lesion type: [place] artery [place] vs. transplanted heart: [place] heart Associated angina: without angina Qualified Codes: I25.10 - Atherosclerotic heart disease of [place] coronary artery without angina pectoris (7) Altered mental status: Altered mental status type: delirium Qualified Codes: R41.0 - Disorientation , unspecified DAIN DUBOSE DO October 12, 2018 10:48
--- NOTE | 2018-10-12 10:50 | NUR ---
PATIENT QUALIFIED FOR HOME OXYGEN WITH RESTING O2SAT AT 85% ON ROOM AIR,PATIENT THEN PLACED BACK ON OXYGEN AT 4 L/M PREVIOUS SETTING. Addendum: 10/12/18 at 1050 by TAVARES HAMM RT Amended: Links added.
--- NOTE | 2018-10-12 11:46 | NUR ---
CM/SS. Patient discharged to home with spouse Linda per their requests. DME: Coordinated new home O2 and FWW with Linda's preferred agency, [facility]. Linda is there to garbage pick up man portable tank to bring for patient transport back home, agency to work with them regarding home set up. HHC: Resumed with [facility], updated clinical faxed and updated agency of discharge by phone. Unit RN updated.
--- NOTE | 2018-10-12 11:57 | Diagnostic Imaging Report ---
Portable Erect AP chest at 1040h. Indication: Respiratory distress The cardiomegaly and the sternotomy wires and surgical clips noted on prior exam of 10/11/2018 are again evident and no different. However the central pulmonary vascularity is not as prominent as on the prior exam and the alveolar/interstitial infiltrates involving both lungs seen previously have diminished. There is only a small amount of residual density present in each lung base. The upper lungs are generally clear. The mediastinum is not widened. The osseous structures are intact. Impression: The appearance of the chest has improved since the prior exam as the pulmonary congestion noted previously has diminished and both lungs are better aerated. A followup study would be recommended for continued evaluation. Dictated by: Dictated on workstation # [id number]
[2018-10-12 12:00] VITALS: BP 150/65
[2018-10-12 14:24] VITALS: BP 150/65
[2018-10-13] MEDS ORDERED: KCL 10 MEQ TAB (MICRO K) PO SCH (07:00)
[2018-10-13] MEDS ORDERED: FUROSEMIDE 40 MG (LASIX) TAB PO SCH (09:00)
== END 2018-10-12 13:24 | disposition home health service (06) | DRG 292 ==
LOC: EDUNIT# 13:27 → ER FS 13:28 → ICU 15:52 → 4TH 10-11 10:53
PROVIDERS: ADMIT Internal Medicine; ATTEND Internal Medicine
DX: I11.0 Hypertensive heart disease with heart failure (principal); I50.33 Acute on chronic diastolic (congestive) heart failure; R06.03 Acute respiratory distress; I25.718 Atherosclerosis of autologous vein coronary artery bypass graft(s) with other forms of angina pectoris; I25.118 Atherosclerotic heart disease of native coronary artery with other forms of angina pectoris; E87.2 Acidosis; E22.2 Syndrome of inappropriate secretion of antidiuretic hormone; J98.11 Atelectasis; Z66 Do not resuscitate; J90 Pleural effusion, not elsewhere classified; R09.02 Hypoxemia; I07.1 Rheumatic tricuspid insufficiency; E66.9 Obesity, unspecified; G47.33 Obstructive sleep apnea (adult) (pediatric); K21.9 Gastro-esophageal reflux disease without esophagitis; E87.6 Hypokalemia; E78.2 Mixed hyperlipidemia; E11.42 Type 2 diabetes mellitus with diabetic polyneuropathy; G30.9 Alzheimer's disease, unspecified; F02.80 Dementia in other diseases classified elsewhere, unspecified severity, without behavioral disturbance, psychotic disturbance, mood disturbance, and anxiety; I87.2 Venous insufficiency (chronic) (peripheral); D64.9 Anemia, unspecified; M25.471 Effusion, right ankle; M25.472 Effusion, left ankle; T44.7X5A Adverse effect of beta-adrenoreceptor antagonists, initial encounter; E83.42 Hypomagnesemia; Z95.1 Presence of aortocoronary bypass graft; Z68.37 Body mass index [BMI] 37.0-37.9, adult; Z79.4 Long term (current) use of insulin; Z85.048 Personal history of other malignant neoplasm of rectum, rectosigmoid junction, and anus
CPT/HCPCS: 36415; 71045; 80053; 82962; 83605; 83735; 83880; 84484; 85007; 85025; 85027; 85610; 85730; 87040; 87081; 93005; 94640; 94760; 94761

== ENCOUNTER → 2018-10-15 | Outpatient (CLI) | payer MEDICARE ==
[~2018-10-15] MED LIST changes: +FURO40TA4 PO; +KETO15CR2 TP; +OMG1KC PO; +POTA10TA6 PO
[2018-10-15 11:40] LABS: CALCIUM 9.2 MG/DL (8.5-10.1); CREATININE SERUM 1.28 MG/DL (0.60-1.30); POTASSIUM 4.4 MMOL/L (3.6-5.0)
== END ==
LOC: LAB FS 10:06
PROVIDERS: ATTEND Internal Medicine
DX: I50.9 Heart failure, unspecified (principal)
CPT/HCPCS: 36415; 80048

== ENCOUNTER → 2019-01-25 | Outpatient (CLI) | payer MEDICARE ==
[2019-01-25 10:57] LABS: HEMATOCRIT 30 % (40-54); HEMOGLOBIN 10.6 G/DL (13.3-17.7); MEAN CORPUSCULAR HEMOGLOBIN 32 PG (25-34); MEAN CORPUSCULAR HGB CONC 35 G/DL (32-36); MEAN CORPUSCULAR VOLUME 90 FL (80-99); PLATELET COUNT 214 10^3/uL (130-400); RED CELL DISTRIBUTION WIDTH 12.2 % (10.0-14.5); WHITE BLOOD COUNT 8.7 10^3/uL (4.3-11.0)
[2019-01-25 10:58] LABS: BASOPHILS % (AUTO) 0 % (0-10); EOSINOPHILS # (AUTO) 0.3 10^3/uL (0.0-0.3); EOSINOPHILS % (AUTO) 3 % (0-10); LYMPHOCYTES # (AUTO) 1.5 X 10^3 (1.0-4.0); LYMPHOCYTES % (AUTO) 17 % (12-44); MEAN PLATELET VOLUME 8.5 FL (7.4-10.4); MONOCYTES # (AUTO) 0.6 X 10^3 (0.0-1.0); MONOCYTES % (AUTO) 7 % (0-12); NEUTROPHILS # (AUTO) 6.2 X 10^3 (1.8-7.8); NEUTROPHILS % (AUTO) 72 % (42-75)
[2019-01-25 11:34] LABS: ALANINE AMINOTRANSFERASE 21 U/L (0-55); ALKALINE PHOSPHATASE 105 U/L (40-136); BILIRUBIN,TOTAL 0.5 MG/DL (0.1-1.0); BUN/CREATININE RATIO 17; CALCIUM 9.8 MG/DL (8.5-10.1); CARBON DIOXIDE 26 MMOL/L (21-32); CHLORIDE 88 MMOL/L (98-107); CREATININE SERUM 1.08 MG/DL (0.60-1.30); GFR ESTIMATED > 60; GLUCOSE 162 MG/DL (70-105); POTASSIUM 4.2 MMOL/L (3.6-5.0); SODIUM 128 MMOL/L (135-145); TOTAL PROTEIN 7.1 GM/DL (6.4-8.2)
[2019-01-25 15:04] LABS: CHOLESTEROL 116 MG/DL (< 200); HDL CHOLESTEROL 42 MG/DL (40-60); TRIGLYCERIDES 117 MG/DL (<150); VLDL CHOLESTEROL 23 MG/DL (5-40)
== END ==
LOC: LAB FS 10:31
PROVIDERS: ATTEND Emergency Medicine
DX: E11.9 Type 2 diabetes mellitus without complications (principal)
CPT/HCPCS: 36415; 80053; 80061; 83036; 85025

== ENCOUNTER → 2021-05-10 | Outpatient (CLI) | payer MEDICARE ==
[~2021-05-10] MED LIST changes: +AMLO-251 PO; -AMLO10TA7 PO; +ASPI-1238 PO; -ASPI-983 PO; -IBUP-2055 PO; +IBUP-2473 PO; +LISI40TA9 PO; -LOPE-145 PO; +LOPE-175 PO; +POTA-160 PO; -POTA10TA6 PO
[2021-05-10 13:04] LABS: BILIRUBIN,URINE NEGATIVE (NEGATIVE); CLARITY,URINE CLOUDY; COLOR,URINE YELLOW; GLUCOSE, URINE (UA) NEGATIVE (NEGATIVE); KETONES,URINE NEGATIVE (NEGATIVE); LEUKOCYTE ESTERASE ,URINE 2+ (NEGATIVE); NITRITE,URINE NEGATIVE (NEGATIVE); PH,URINE 6.5 (5-9); PROTEIN,URINE 1+ (NEGATIVE)
[2021-05-10 13:22] LABS: BACTERIA,URINE MODERATE /HPF; WBC,URINE >100 /HPF
[2021-05-10 13:25] LABS: BASOPHILS % (AUTO) 0 % (0-10); EOSINOPHILS % (AUTO) 1 % (0-10); HEMATOCRIT 31 % (40-54); HEMOGLOBIN 10.8 g/dL (13.3-17.7); LYMPHOCYTES % (AUTO) 13 % (12-44); MEAN CORPUSCULAR HEMOGLOBIN 32 pg (25-34); MEAN CORPUSCULAR HGB CONC 35 g/dL (32-36); MEAN CORPUSCULAR VOLUME 92 fL (80-99); MEAN PLATELET VOLUME 8.9 fL (9.0-12.2); MONOCYTES % (AUTO) 7 % (0-12); NEUTROPHILS # (AUTO) 10.5 X 10^3 (1.8-7.8); NEUTROPHILS % (AUTO) 79 % (42-75); PLATELET COUNT 253 10^3/uL (130-400); WHITE BLOOD COUNT 13.3 10^3/uL (4.3-11.0)
[2021-05-10 13:26] LABS: EOSINOPHILS # (AUTO) 0.2 10^3/uL (0.0-0.3); LYMPHOCYTES # (AUTO) 1.7 X 10^3 (1.0-4.0); MONOCYTES # (AUTO) 0.9 X 10^3 (0.0-1.0)
[2021-05-10 14:37] LABS: ALBUMIN 3.5 GM/DL (3.2-4.5); BILIRUBIN,TOTAL 0.6 MG/DL (0.1-1.0); CALCIUM 9.4 MG/DL (8.5-10.1); CREATININE SERUM 0.98 MG/DL (0.60-1.30); POTASSIUM 3.5 MMOL/L (3.6-5.0); TOTAL PROTEIN 6.8 GM/DL (6.4-8.2)
== END ==
LOC: IHC 12:48
PROVIDERS: ATTEND Emergency Medicine
DX: M62.81 Muscle weakness (generalized) (principal); E11.9 Type 2 diabetes mellitus without complications; E87.1 Hypo-osmolality and hyponatremia; R29.6 Repeated falls
CPT/HCPCS: 80053; 81000; 83036; 83735; 84443; 85025; 87088